=== PATIENT | female | born 1970 | race American Indian/Alaskan Native ===

== ENCOUNTER → 2019-08-06 14:36 | Outpatient (BNVA) | payer MEDICAID, SELFPAY | PROVIDERS: Family Provider Physician Assistant; PCP Physician Assistant; Visit Provider Social Worker | DX: F25.1 Schizoaffective disorder, depressive type (principal); F43.12 Post-traumatic stress disorder, chronic | CPT/HCPCS: 90834 ==

== ENCOUNTER 2019-08-07 11:07 | Outpatient (CLI) | payer MEDICAID, SELFPAY ==
--- NOTE | 2019-08-07 11:21 | MR_ITS ---
WS: [id number] MRI LUMBAR SPINE WITH CONTRAST TECHNIQUE: Sagittal T1, T2 and STIR imaging. Axial T1 and T2 imaging. Post gadolinium imaging was obt ained. CLINICAL INFORMATION: LOW BACK PAIN;ATAXIA COMPARISON: None. FINDINGS: Mild lumbar curve. No acute compression. Slight anterolisthesis L5 on S1. No high-grade central canal stenosis. Mild disc bulging lower thoracic spine at T10-T11 and T11-T12. Tiny disc herniation at T11 -T12 migrating posterior to the T11 vertebral body without significant spinal canal narrowing. This i s only covered on the axial imaging L1-L2: Normal. L2-3: Normal L3-4: Mild annular bulging. Mild to moderate facet arthropathy. Spinal canal and foramen are patent. L4-5: No significant disc bulging. Mild to moderate facet arthropathy. Spinal canal and foramen are p atent. L5-S1: Mild disc bulging with endplate ridging. Slight effacement of ventral thecal sac. Slight encro achment on the traversing left greater than right S1 nerve roots. Mild left foraminal narrowing. Mild facet arthropathy. No abnormal gadolinium enhancement. MR/MR lumbar spine wo/w con [id number] IMPRESSION: 1. Mild lumbar curve. No acute compression. No high-grade central canal stenos is. 2. Slight anterolisthesis L5 on S1 with mild disc bulging and osteophytic ridg ing. Mild central canal stenosis with slight encroachment on the left greater t ruffin right S1 nerve roots. 3. Mild left L5-S1 foraminal narrowing. 4. Tiny central disc herniation at T11-T12 with slight subligamentous migratio n of disc material. No significant spinal canal narrowing. 5. Mild to moderate facet arthropathy L3-L4 and L4-L5.
== END 2019-08-07 11:08 | disposition home or self-care (01) ==
PROVIDERS: Family Provider Physician Assistant; PCP Nurse Practitioner; Visit Provider Physician Assistant
DX: M51.24 Other intervertebral disc displacement, thoracic region (principal); M54.5 Low back pain; R27.0 Ataxia, unspecified
CPT/HCPCS: 72158; A9579

== ENCOUNTER → 2019-08-11 10:03 | Outpatient (BNVA) | payer MEDICAID, SELFPAY | PROVIDERS: Family Provider Physician Assistant; PCP Nurse Practitioner; Visit Provider Nurse Practitioner | DX: F32.3 Major depressive disorder, single episode, severe with psychotic features (principal) | CPT/HCPCS: 99214; 99215 ==

== ENCOUNTER → 2019-08-14 14:11 | Outpatient (BNVA) | payer MEDICAID, SELFPAY | PROVIDERS: Family Provider Physician Assistant; PCP Nurse Practitioner; Referring Provider Nurse Practitioner; Visit Provider Nurse Practitioner | DX: N39.0 Urinary tract infection, site not specified (principal) | CPT/HCPCS: 81003; 87086 ==

== ENCOUNTER → 2019-09-17 14:30 | Outpatient (BNVA) | payer MEDICAID, SELFPAY | PROVIDERS: Family Provider Physician Assistant; PCP Nurse Practitioner; Referring Provider Nurse Practitioner; Visit Provider Nurse Practitioner | DX: E78.5 Hyperlipidemia, unspecified (principal); E11.9 Type 2 diabetes mellitus without complications; N39.0 Urinary tract infection, site not specified | CPT/HCPCS: 80053; 80061; 82044; 83036 ==

== ENCOUNTER → 2019-09-21 16:52 | Outpatient (BNVA) | payer MEDICAID, SELFPAY | PROVIDERS: Family Provider Physician Assistant; PCP Nurse Practitioner; Visit Provider Social Worker | DX: F25.1 Schizoaffective disorder, depressive type (principal); F43.12 Post-traumatic stress disorder, chronic | CPT/HCPCS: 90834 ==

== ENCOUNTER → 2019-09-22 12:50 | Outpatient (BNVA) | payer MEDICAID, SELFPAY | PROVIDERS: Family Provider Physician Assistant; PCP Nurse Practitioner; Visit Provider Nurse Practitioner | DX: F32.3 Major depressive disorder, single episode, severe with psychotic features (principal) | CPT/HCPCS: 99214 ==

== ENCOUNTER → 2019-10-07 14:24 | Outpatient (BNVA) | payer MEDICAID, SELFPAY | PROVIDERS: Family Provider Physician Assistant; PCP Nurse Practitioner; Visit Provider Social Worker | DX: F25.1 Schizoaffective disorder, depressive type (principal); F43.12 Post-traumatic stress disorder, chronic | CPT/HCPCS: 90834 ==

== ENCOUNTER → 2019-11-02 15:34 | Outpatient (BNVA) | payer MEDICAID, SELFPAY | PROVIDERS: Family Provider Physician Assistant; PCP Nurse Practitioner; Visit Provider Social Worker | DX: F43.12 Post-traumatic stress disorder, chronic (principal); F32.3 Major depressive disorder, single episode, severe with psychotic features | CPT/HCPCS: 90834 ==

== ENCOUNTER → 2019-11-11 08:41 | Outpatient (BNVA) | payer MEDICAID, SELFPAY | PROVIDERS: Family Provider Physician Assistant; PCP Nurse Practitioner; Visit Provider Nurse Practitioner | DX: F32.3 Major depressive disorder, single episode, severe with psychotic features (principal) | CPT/HCPCS: 99214 ==

== ENCOUNTER → 2019-11-25 08:23 | Outpatient (BNVA) | payer MEDICAID, SELFPAY | PROVIDERS: Family Provider Physician Assistant; PCP Nurse Practitioner; Visit Provider Social Worker | DX: F32.3 Major depressive disorder, single episode, severe with psychotic features (principal) | CPT/HCPCS: 90834 ==

== ENCOUNTER → 2019-12-09 08:45 | Outpatient (BNVA) | payer MEDICAID, SELFPAY | PROVIDERS: Family Provider Physician Assistant; PCP Nurse Practitioner; Visit Provider Social Worker | DX: F43.12 Post-traumatic stress disorder, chronic (principal); F32.3 Major depressive disorder, single episode, severe with psychotic features | CPT/HCPCS: 90832 ==

== ENCOUNTER → 2019-12-24 07:36 | Outpatient (BNVA) | payer MEDICAID, SELFPAY | PROVIDERS: Family Provider Physician Assistant; PCP Nurse Practitioner; Visit Provider Nurse Practitioner | DX: F32.3 Major depressive disorder, single episode, severe with psychotic features (principal) | CPT/HCPCS: 99213 ==

== ENCOUNTER → 2019-12-29 11:17 | Outpatient (BNVA) | payer MEDICAID, SELFPAY | PROVIDERS: Family Provider Physician Assistant; PCP Nurse Practitioner; Visit Provider Nurse Practitioner Family | DX: R30.9 Painful micturition, unspecified (principal); L01.00 Impetigo, unspecified; B37.3 Candidiasis of vulva and vagina | CPT/HCPCS: 81000; 87086 ==

== ENCOUNTER → 2019-12-30 08:28 | Outpatient (BNVA) | payer MEDICAID, SELFPAY | PROVIDERS: Family Provider Physician Assistant; PCP Nurse Practitioner; Visit Provider Social Worker | DX: F32.3 Major depressive disorder, single episode, severe with psychotic features (principal); F43.12 Post-traumatic stress disorder, chronic | CPT/HCPCS: 90834 ==

== ENCOUNTER 2020-01-18 09:34 | Day surgery (SDC) | payer MEDICAID, SELFPAY ==
[2020-01-18] VITALS (16 sets, daily range): BP systolic 84–125; BP diastolic 42–90; PULSE 60–90; RESP 14–89; TEMP 36.4–36.8; O2SAT 93–100; BMI 27.4
--- NOTE | 2020-01-18 10:23 | ED_ITS ---
HPI - Abdominal Pain General: Chief Complaint: Abdominal Pain Stated Complaint: abd pain Time Seen by Provider: 01/18/20 09:56 History of Present Illness: HPI narrative: 49-year-old female comes in complaining abdominal pain that began yesterday she has had a little hematuria as well she has a known history of nephrolithiasis complaining primarily of right flank pain radiating down into the groin in the umbilical area she is not had a fever at all she has had some dysuria with it as well. She is currently on some antibiotics for impetigo skin some areas on the right side of her upper and lower lip as well as a few lesions on her lower extremities. She denies any recent upper respiratory symptoms. MD elicited complaint: abdominal pain and flank pain Pertinent past history: kidney stones Onset (ago): day(s) (1) Pain Consistency: constant Location: R flank Severity: severe Quality: stabbing Radiation: RLQ Migration to: periumbilical Exacerbating factors: nothing Relieving factors: nothing Associated Symptoms: Reports diarrhea, dysuria, nausea, poor appetite and vomiting; Denies chills and fever(s) Review of Systems Const: Denies: fever(s), chills, body aches, change in appetite, fatigue or malaise ENMT: Denies: throat pain, ear or mastoid pain, nasal discharge or nasal congestion Card: Denies: chest pain, edema, dyspnea on exertion or orthopnea Resp: Denies: dyspnea, productive cough or non-productive cough GI: Reports: nausea, vomiting and diarrhea : Reports: dysuria Skin/Breast: Denies: rash or pruritus PFSH ED PFSH: Medical History Bipolar affect, depressed Depression Diabetes mellitus without complication, without long-term current use of insulin DJD (degenerative joint disease) Gastritis Hiatal hernia 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, single episode, severe with psychotic features Paresthesia and pain of both upper extremities Peptic ulcer Polyp of colon, adenomatous Pure hypercholesterolemia, unspecified Schizophrenia Tachycardia Urinary incontinence, mixed Surgical History History of esophagogastroduodenoscopy (EGD) S/P cholecystectomy S/P colonoscopy S/P endometrial ablation S/P tubal ligation Family History Father Cancer Mother , at age 64 Cancer lung and spinal sarcoma Other Diabetes Heart disease Social History Smoking and tobacco status: current every day smoker cigarettes Alcohol intake: never Marital status: Single Current occupational status: disabled History of recent travel: No Physical Exam Const: COMMON NORMALS: no acute distress GENERAL APPEARANCE: cooperative and comfortable ORIENTATION/CONSCIOUSNESS: Yes awake, Yes oriented to person, Yes oriented to place and Yes oriented to time HENMT: COMMON NORMALS: normocephalic, atraumatic, hearing grossly normal bilaterally, external ears normal, EAC's normal, TM's normal bilaterally, Normal nasal mucous membranes and turbinates present, moist oral mucous membranes and oropharynx normal HEAD & SCALP: normocephalic and atraumatic NOSE: Normal nasal mucous membranes and turbinates present EXTERNAL EAR: Yes external ears normal EXTERNAL AUDITORY CANAL: EAC's normal TYMPANIC MEMBRANE: TM's normal bilaterally Eye: COMMON NORMALS: Equal, round and reactive pupils present, EOMs intact bilaterally, conjunctivae normal and no scleral icterus CONJUNCTIVA: Yes conjunctivae normal PUPIL: Yes Equal, round and reactive pupils present Neck/C-Spine: COMMON NORMALS: full ROM, no lymphadenopathy, supple and no JVD Lymph: LYMPHATIC: no lymphadenopathy noted and no lymphedema noted Resp: COMMON NORMALS: normal respiratory effort, No retractions, No use of accessory muscles and clear to auscultation bilaterally AUSCULTATION: clear to auscultation bilaterally Cardio: COMMON NORMALS: no JVD, regular rate, regular rhythm and No murmurs present (Cardio) RATE: regular rate RHYTHM: regular rhythm GI: COMMON NORMALS: Soft to palpation and No hepatosplenomegaly present AUSCULTATION: Yes normoactive bowel sounds PALPATION: Yes Soft to palpation, No Tenderness to palpation present (GI), No Guarding due to palpation present (GI) and Yes No hepatosplenomegaly present Extremity: COMMON NORMALS: normal to inspection, capillary refill normal, no clubbing, cyanosis or edema, no calf tenderness and no pedal edema Neuro: SENSORIUM/ORIENTATION: Yes oriented to person, Yes oriented to place and Yes oriented to time Skin: COMMON NORMALS: no rashes or lesions noted GENERAL SKIN EXAM: no rashes or lesions noted Course ED course: No evidence of cystitis or nephrolithiasis. There is some moderate swelling of the appendix with an elevated white count and some free fluid in the pelvis. Patient has no known history of ovarian cyst. Discussed with Dr. Garcia he reviewed the CT he is planning to take her to surgery for exploratory laparotomy with anticipated laparoscopic cholecystectomy with possible conversion to open discussed with the patient she is understanding she has not eaten since yesterday. Vital Signs: Vital signs: Vital Signs Temperature 97.5 F L 01/18/20 12:41 Pulse Rate 87 01/18/20 12:41 Respiratory Rate 18 01/18/20 12:41 Blood Pressure 115/82 01/18/20 12:41 Pulse Oximetry 93 01/18/20 12:41 MDM - Abdominal Pain Lab Data: Labs: Lab Results 01/18/20 01/18/20 01/18/20 Range/Units 10:19 10:19 10:19 WBC 12.5 H (4.0-10.0) 10^3/ uL RBC 5.45 H (4.1-5.3) 10^6/u L Hgb 17.6 H (11.5-15.3) g/dL Hct 49.4 H (37.0-47.0) % MCV 90.6 (81-99) fL MCH 32.3 (28.0-34.0) pg MCHC 35.6 (30.0-36.0) g/dL RDW 12.5 (12.1-15.1) % Plt Count 213 (130-400) 10^3/c mm MPV 9.7 (7.4-10.4) fL Neut % (Auto) 72.6 % Lymph % (Auto) 21.7 % [place] % (Auto) 4.3 % Eos % (Auto) 1.0 % Baso % (Auto) 0.2 % Neut # (Auto) 9.1 H (1.8-7.7) 10^3/u L Lymph # (Auto) 2.7 (0.8-4.8) 10^3/u L [place] # (Auto) 0.5 (0.2-0.9) 10^3/u L Eos # (Auto) 0.1 (0.0-0.8) 10^3/u L Baso # (Auto) 0.0 (0.0-0.1) 10^3/u L Nucleated RBC % (a uto) 0 % Nucleated RBCs # 0.0 /100WBC Sodium 137 (136-145) mmol/L Potassium 3.5 (3.5-5.1) mmol/L Chloride 101 (98-107) mmol/L Carbon Dioxide 22 (22-29) mmol/L Anion Gap 17.5 (5-19) BUN 5 L (6-20) mg/dL Creatinine 0.7 (0.5-0.9) mg/dL GFR Calculation 89.3 L (90-130) mL/min Glucose 125 H (65-115) mg/dL Calculated Osmolal ity 281 L (285-295) mOsm/k g Lactate 1.0 (0.5-2.2) mmol/L Calcium 10.0 (8.5-10.5) mg/dL Total Bilirubin 0.4 (0.15-1.2) mg/dL AST 16 (0-32) U/L ALT 22 (0-33) U/L Alkaline Phosphata se 65 (35-105) IU/L Total Protein 6.8 (6.6-8.7) g/dL Albumin 4.6 (3.5-5.2) g/dL Globulin 2.2 (1.3-4.6) g/dL Lipase 31 (13-60) U/L Urine Color (Yellow) Urine Appearance (CLEAR) Urine pH (5-7) Ur Specific Gravit y (1.005-1.030) Urine Protein (Negative) Urine Glucose (UA) (Normal) Urine Ketones (Negative) Urine Blood (Negative) Urine Nitrate (Negative) Urine Bilirubin (NEGATIVE) Urine Urobilinogen (Negative) mg/dL Ur Leukocyte Cadence ase (Negative) Urine RBC (0-2) /hpf Urine WBC (0-5) /hpf Ur Squamous Epith Cells (0-5) Urine Bacteria (NONE) Urine Mucus 01/18/20 Range/Units 10:30 WBC (4.0-10.0) 10^3/ uL RBC (4.1-5.3) 10^6/u L Hgb (11.5-15.3) g/dL Hct (37.0-47.0) % MCV (81-99) fL MCH (28.0-34.0) pg MCHC (30.0-36.0) g/dL RDW (12.1-15.1) % Plt Count (130-400) 10^3/c mm MPV (7.4-10.4) fL Neut % (Auto) % Lymph % (Auto) % [place] % (Auto) % Eos % (Auto) % Baso % (Auto) % Neut # (Auto) (1.8-7.7) 10^3/u L Lymph # (Auto) (0.8-4.8) 10^3/u L [place] # (Auto) (0.2-0.9) 10^3/u L Eos # (Auto) (0.0-0.8) 10^3/u L Baso # (Auto) (0.0-0.1) 10^3/u L Nucleated RBC % (a uto) % Nucleated RBCs # /100WBC Sodium (136-145) mmol/L Potassium (3.5-5.1) mmol/L Chloride (98-107) mmol/L Carbon Dioxide (22-29) mmol/L Anion Gap (5-19) BUN (6-20) mg/dL Creatinine (0.5-0.9) mg/dL GFR Calculation (90-130) mL/min Glucose (65-115) mg/dL Calculated Osmolal ity (285-295) mOsm/k g Lactate (0.5-2.2) mmol/L Calcium (8.5-10.5) mg/dL Total Bilirubin (0.15-1.2) mg/dL AST (0-32) U/L ALT (0-33) U/L Alkaline Phosphata se (35-105) IU/L Total Protein (6.6-8.7) g/dL Albumin (3.5-5.2) g/dL Globulin (1.3-4.6) g/dL Lipase (13-60) U/L Urine Color Yellow (Yellow) Urine Appearance Cloudy (CLEAR) Urine pH 5.0 (5-7) Ur Specific Gravit y 1.020 (1.005-1.030) Urine Protein Trace (Negative) Urine Glucose (UA) Norm (Normal) Urine Ketones Negative (Negative) Urine Blood Trace H (Negative) Urine Nitrate Negative (Negative) Urine Bilirubin 1+ H (NEGATIVE) Urine Urobilinogen 1 H (Negative) mg/dL Ur Leukocyte Cadence ase Negative (Negative) Urine RBC 0-4 H (0-2) /hpf Urine WBC 0-4 H (0-5) /hpf Ur Squamous Epith Cells 5-10 H (0-5) Urine Bacteria 2+ H (NONE) Urine Mucus 1+ Discharge Plan Discharge Patient Disposition: Placed in Observation Clinical Impression: Acute appendicitis Condition: Stable Interventions: ED Discharge Assessment Last Done: 01/18/20 12:24 ED Charges Last Done: 01/18/20 12:24 Discharge Date/Time: 01/18/20 12:25 Coding Level of Care Code ED Denture Packer for Luisag Fwd Exam Comprehensive
[2020-01-18] MEDS: sodium chloride 0.9% 1,000 ML 999 ML IV ×2 (10:25→12:05)
[2020-01-18] MEDS: ondansetron 2 mg/ML SDV 2 mL 4 MG IVP (10:28)
[2020-01-18] MEDS: morphine 4 mg/mL SDV 1 mL IVP (10:28)
[2020-01-18 10:29] LABS: Basophils % 0.2 %; Eosinophils # 0.1 10^3/uL (0.0-0.8); Hematocrit 49.4 % (37.0-47.0); Hemoglobin 17.6 g/dL (11.5-15.3); Lymphocytes # 2.7 10^3/uL (0.8-4.8); Lymphocytes % 21.7 %; Mean Corpuscular HGB Conc 35.6 g/dL (30.0-36.0); Mean Corpuscular Hemoglobin 32.3 pg (28.0-34.0); Mean Corpuscular Volume 90.6 fL (81-99); Mean Platelet Volume 9.7 fL (7.4-10.4); Monocytes # 0.5 10^3/uL (0.2-0.9); Monocytes % 4.3 %; Neutrophils # 9.1 10^3/uL (1.8-7.7); Neutrophils % 72.6 %; Nucleated Red Blood Cells % 0 %; Platelet Count 213 10^3/cmm (130-400); Red Blood Count 5.45 10^6/uL (4.1-5.3); Red Cell Distribution Width 12.5 % (12.1-15.1); White Blood Count 12.5 10^3/uL (4.0-10.0)
--- NOTE | 2020-01-18 10:39 | CT_ITS ---
WS: [id number] CT ABDOMEN AND PELVIS NONCONTRAST HISTORY: flank pain TECHNIQUE: Imaging performed through the abdomen and pelvis. Coronal and sagittal reformats are submi tted. All CT scans at [facility] use at least one of these dose optimization techniques: automated exposure control; mA and/or kV adjustment per patient size (includes targeted exams where d ose is matched to clinical indication); or iterative reconstruction. DLP: 1340.72 mGy.cm COMPARISON: 04/06/2019 Lower thorax: Stable partially calcified 8mm nodule at the RIGHT lung base. Nodule has been stable si nce 11/07/2013. Heart size is normal. Small hiatal hernia. Liver: Normal, no mass or intrahepatic dilatation. Gallbladder: Prior cholecystectomy. Pancreas: Normal. Spleen: Normal. Adrenal glands: Normal. Right kidney: Normal size with no stones, masses or atrophy. Left kidney: Normal size with no stones, mass or atrophy. Mild atherosclerosis. No aneurysm. There is a small amount of free fluid in the pelvis. This is more than physiologic fluid and extends to the RIGHT and LEFT of midline. No free air. GI tract: The appendix is identified and very slightly edematous but not enlarged. There is not a sig nificant amount of adjacent inflammation. Abdominal wall: Intact. Pelvis: Free fluid in the pelvis. Bilateral tubal ligation clips. Uterus is midline. Neither ovary ap pears enlarged. Osseous structures: Unremarkable. Notified Zheng Keith DO at 01/18/2020 11:[address]/CT kidney stone [id number] IMPRESSION: 1. Small but increased amount of free fluid in the pelvis is more than physiol ogic. 2. Appendix is very minimally edematous but not enlarged. 3. No renal calcification or obstruction. 4. Prior cholecystectomy. 5. Free fluid could be due to ruptured ovarian cyst or PID or mild appendiciti s.
[2020-01-18 10:45] LABS: Alanine Aminotransferase 22 U/L (0-33); Albumin Level 4.6 g/dL (3.5-5.2); Alkaline Phosphatase 65 IU/L (35-105); Anion Gap 17.5 (5-19); Aspartate Amino Transferase 16 U/L (0-32); Blood Urea Nitrogen 5 mg/dL (6-20); Carbon Dioxide 22 mmol/L (22-29); Chloride 101 mmol/L (98-107); Globulin 2.2 g/dL (1.3-4.6); Glomerular Filtration Rate 89.3 mL/min (90-130); Glucose 125 mg/dL (65-115); Lipase 31 U/L (13-60); Osmolality Calculated 281 mOsm/kg (285-295); Potassium 3.5 mmol/L (3.5-5.1); Sodium 137 mmol/L (136-145); Total Bilirubin 0.4 mg/dL (0.15-1.2); Total Protein 6.8 g/dL (6.6-8.7)
[2020-01-18 10:54] LABS: Add Urine Culture? No; Add Urine Microscopic? YES; Bacteria Urine 2+; Bilirubin Urine 1+ (NEGATIVE); Blood Urine Trace (Negative); Glucose Urine UA Norm (Normal); Ketones Urine Negative (Negative); Leukocyte Esterase Urine Negative (Negative); Mucus Urine 1+; Nitrate Urine Negative (Negative); Protein Urine Trace (Negative); RBC Urine 0-4 /hpf (0-2); Urine Appearance Cloudy (CLEAR); Urine Color Yellow (Yellow); Urobilinogen Urine 1 mg/dL (Negative); WBC Urine 0-4 /hpf (0-5)
[2020-01-18] MEDS: morphine 4 mg/mL SDV 1 mL 6 MG IVP (12:06)
[2020-01-18] MEDS: piperacillin-tazobactam 3.375 GM in sodium chloride 0.9% (plus) 50 ML IV (12:20)
--- NOTE | 2020-01-18 13:01 | ANES.PREANE2 ---
Pre-Anesthetic Assessment Pre-Anesthetic Assessment: Height/Weight: Height 1.65 m Weight 74.843 kg Temp Pulse Resp BP Pulse Ox 97.5 F L 87 18 115/82 93 01/18/20 12:41 01/18/20 12:41 01/18/20 12:41 01/18/20 12:41 01/18/20 12:41 Proposed Procedure: Operation Date: 01/18/20 14:30 Proposed Procedures p Laparoscopic Appendectomy(Not Applicable) - Dickson Garcia MD Social: Social History: Tobacco and No alcohol Exam: Pre-Anes Outpt Exam: alert, oriented x 3, clear to auscultation bilaterally and regular rate & rhythm Airway: Submandibular: WNL Cervical ROM: Other (limited) MP: 3 Dentition: Other (very poor dentation) History/ROS: No significant history except as noted Pulmonary: Pulmonary: COPD, CARPIO and Sleep apnea CV/HEM: CV/HEM: Arrythmia : : None reported Hepatic: Hepatic: None reported GI: GI: GERD and PUD Metabolic: Metabolic: DM and Hyperlipidemia Musc/skel: Musc/skel: Lower Back Pain Neuropsych: Neuropsych: Anxiety, Bipolar and Depression Comments: Schizophrenia Anesthetic Plan: ASA status: 3 Anesthesia: Anesthesia Evaluation and General Risk of > 500 ml blood loss (7ml/kg in children): No PFSH Anesthesia PFSH: Medical History Bipolar affect, depressed Depression Diabetes mellitus without complication, without long-term current use of insulin DJD (degenerative joint disease) Gastritis Hiatal hernia 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, single episode, severe with psychotic features Paresthesia and pain of both upper extremities Peptic ulcer Polyp of colon, adenomatous Pure hypercholesterolemia, unspecified Schizophrenia Tachycardia Urinary incontinence, mixed Surgical History History of esophagogastroduodenoscopy (EGD) S/P cholecystectomy S/P colonoscopy S/P endometrial ablation S/P tubal ligation Family History Father Cancer Mother , at age 64 Cancer lung and spinal sarcoma Other Diabetes Heart disease Social History Smoking and tobacco status: current every day smoker cigarettes Alcohol intake: never Marital status: Single Current occupational status: disabled History of recent travel: No Data Anesthesia CBC & Chem 7: 01/18/20 10:19 01/18/20 10:19 Other Labs: Laboratory Results - last 48 hr 01/18/20 01/18/20 01/18/20 10:19 10:19 10:19 WBC 12.5 H RBC 5.45 H Hgb 17.6 H Hct 49.4 H MCV 90.6 MCH 32.3 MCHC 35.6 RDW 12.5 Plt Count 213 MPV 9.7 Neut % (Auto) 72.6 Lymph % (Auto) 21.7 [place] % (Auto) 4.3 Eos % (Auto) 1.0 Baso % (Auto) 0.2 Neut # (Auto) 9.1 H Lymph # (Auto) 2.7 [place] # (Auto) 0.5 Eos # (Auto) 0.1 Baso # (Auto) 0.0 Nucleated RBC % (auto) 0 Nucleated RBCs # 0.0 Sodium 137 Potassium 3.5 Chloride 101 Carbon Dioxide 22 Anion Gap 17.5 BUN 5 L Creatinine 0.7 GFR Calculation 89.3 L Glucose 125 H Calculated Osmolality 281 L Lactate 1.0 Calcium 10.0 Total Bilirubin 0.4 AST 16 ALT 22 Alkaline Phosphatase 65 Total Protein 6.8 Albumin 4.6 Globulin 2.2 Lipase 31 Urine Color Urine Appearance Urine pH Ur Specific [place] Urine Protein Urine Glucose (UA) Urine Ketones Urine Blood Urine Nitrate Urine Bilirubin Urine Urobilinogen Ur Leukocyte Esterase Urine RBC Urine WBC Ur Squamous Epith Cells Urine Bacteria Urine Mucus 01/18/20 10:30 WBC RBC Hgb Hct MCV MCH MCHC RDW Plt Count MPV Neut % (Auto) Lymph % (Auto) [place] % (Auto) Eos % (Auto) Baso % (Auto) Neut # (Auto) Lymph # (Auto) [place] # (Auto) Eos # (Auto) Baso # (Auto) Nucleated RBC % (auto) Nucleated RBCs # Sodium Potassium Chloride Carbon Dioxide Anion Gap BUN Creatinine GFR Calculation Glucose Calculated Osmolality Lactate Calcium Total Bilirubin AST ALT Alkaline Phosphatase Total Protein Albumin Globulin Lipase Urine Color Yellow Urine Appearance Cloudy Urine pH 5.0 Ur Specific [place] 1.020 Urine Protein Trace Urine Glucose (UA) Norm Urine Ketones Negative Urine Blood Trace H Urine Nitrate Negative Urine Bilirubin 1+ H Urine Urobilinogen 1 H Ur Leukocyte Esterase Negative Urine RBC 0-4 H Urine WBC 0-4 H Ur Squamous Epith Cells 5-10 H Urine Bacteria 2+ H Urine Mucus 1+ Cardiac Studies: No Data to Display
--- NOTE | 2020-01-18 13:36 | PM.HP ---
Providers/Chief Complaint Primary Care Provider: IESHA Preston Chief Complaint: abd pain History of Present Illness Afshan Parry is a 49 year old female who has a longstanding history of constipation and is on morphine but presented to the ER today with 24-hour history of worsening abdominal pain mainly the suprapubic and right lower quadrant area associated with nausea. Patient denies any vomiting. No fevers or chills. She has alternating constipation and diarrhea. I performed her cholecystectomy back in 2013. She is up-to-date on her colonoscopy. She states that she had cervical ablation in 2004 and she is not had any. Since then. Recently she had an episode of dark blood per vagina. Review of Systems General: Reports: 10 or more systems reviewed and unremarkable except in HPI and below Medications/Allergies Home Medications Medication Instructions Recorded Confirmed Last Taken Type morphine 15 mg immediate release 15 mg PO Q4H PRN 07/30/19 01/18/20 01/18/20 History tablet esomeprazole magnesium 40 mg 40 mg PO BID #180 cap 09/07/19 01/18/20 01/18/20 Rx capsule,delayed release simvastatin 20 mg tablet 20 mg PO DAILY 30 Days #30 tab 09/17/19 01/18/20 01/17/20 Rx metformin 850 mg tablet 850 mg PO DAILY 30 Days #30 tab 09/21/19 01/18/20 01/18/20 Rx polyethylene glycol 3350 17 17 gm PO DAILY PRN #119 gm 10/15/19 01/18/20 Unknown Rx gram/dose oral powder cetirizine 10 mg capsule 10 mg PO DAILY #30 cap 11/04/19 01/18/20 01/18/20 Rx albuterol sulfate 90 mcg/actuation 2 puff INHALATION Q6H PRN 30 Days 12/03/19 01/18/20 01/18/20 Rx aerosol inhaler #18 gm fluticasone 100 mcg-salmeterol 50 1 ea INHALATION BID 30 Days #60 12/03/19 01/18/20 01/18/20 Rx mcg/dose blistr powdr for each inhalation oxybutynin chloride 15 mg 15 mg PO DAILY 30 Days #30 tab 12/10/19 01/18/20 01/18/20 Rx tablet,extended release 24 hr venlafaxine 150 mg 150 mg PO DAILY #30 cap 12/24/19 01/18/20 01/18/20 Rx capsule,extended release 24 hr nitroglycerin 0.4 mg sublingual 0.4 mg SUBLINGUAL Q5M PRN 30 Days 01/04/20 01/18/20 Unknown Rx tablet #28 tab trazodone 150 mg tablet 150 mg PO BEDTIME 01/06/20 01/18/20 01/17/20 History furosemide 20 mg tablet 20 mg PO DAILY 30 Days #30 tab 01/08/20 01/18/20 01/18/20 Rx cephalexin 500 mg capsule 500 mg PO BID 10 Days #20 cap 01/12/20 01/18/20 01/18/20 Rx Seroquel 25 mg PO BEDTIME 01/18/20 01/18/20 01/17/20 History prazosin 1 mg PO BEDTIME 01/18/20 01/18/20 01/17/20 History Allergies Allergy/AdvReac Type Severity Reaction Status Date / Time acetaminophen Allergy UNKNOWN Verified 01/18/20 09:47 codeine Allergy Unknown Verified 01/18/20 09:47 nitrofurantoin Allergy UNKNOWN Verified 01/18/20 09:47 [From Macrobid] pseudoephedrine Allergy Unknown Verified 01/18/20 09:47 tramadol Allergy UNKNOWN Verified 01/18/20 09:47 PFSH Acute PFSH: Medical History Bipolar affect, depressed Depression Diabetes mellitus without complication, without long-term current use of insulin DJD (degenerative joint disease) Gastritis Hiatal hernia 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, single episode, severe with psychotic features Paresthesia and pain of both upper extremities Peptic ulcer Polyp of colon, adenomatous Pure hypercholesterolemia, unspecified Schizophrenia Tachycardia Urinary incontinence, mixed Surgical History History of esophagogastroduodenoscopy (EGD) S/P cholecystectomy S/P colonoscopy S/P endometrial ablation S/P tubal ligation Family History Father Cancer Mother , at age 64 Cancer lung and spinal sarcoma Other Diabetes Heart disease Social History Smoking and tobacco status: current every day smoker cigarettes Alcohol intake: never Marital status: Single Current occupational status: disabled History of recent travel: No Vitals/I&O/Wt Last Vital Signs Temp 97.5 F L 01/18/20 12:41 Pulse 87 01/18/20 12:41 Resp 18 01/18/20 12:41 BP 115/82 01/18/20 12:41 Pulse Ox 93 01/18/20 12:41 01/17/20 01/18/20 01/18/20 22:59 06:59 14:59 Intake Total 1000 / 1000 Balance 1000 / 1000 Weight last 48 hrs Weight 165 lb Physical Exam Narrative: EXAM NARRATIVE: HEENT: Normocephalic Eye: Sclera /conjunctiva normal Respiratory and chest: Bilateral clear breath sounds on auscultation Cardiovascular: Normal S1 and S2 heart sounds Abdomen: Soft to palpation, tender right lower quadrant and suprapubic area Neurological: Oriented to place person and time Skin: Intact, no lesions appreciated on gross exam Data : 01/18/20 10:19 01/18/20 10:19 A&P Assessment and plan (1) Right lower quadrant pain: 49-year-old female with right lower quadrant pain and nausea with CT scan suggestive of early appendicitis or ruptured ovarian cyst. Patient is tender to palpation in the right lower quadrant and has leukocytosis. Discussed options with the patient. Plan for laparoscopic possible open appendectomy. Procedure, risks, benefits and alternatives have been discussed with the patient who wishes to proceed with surgery. Status: Resolved Attestations Medical Necessity Statement*: Right lower quadrant pain Coding Level of Care Code Acute Community Health Planning Director for Jose Daniel Sher Diagnoses Right lower quadrant pain R10.31
--- NOTE | 2020-01-18 16:22 | PM.OP ---
Operative Report Date of procedure: January 18, 2020 Pre-op Diagnosis: acute appendicitis Post-op Findings: Appendix appeared mildly inflamed, serous free fluid in the pelvis Fallopian tubes, uterus and ovaries appeared normal Rest of the small bowel from ligament of Treitz to cecum appeared normal. Procedure Done: Laparoscopic appendectomy Surgeon: Dickson Garcia Anesthesia: General Estimated blood loss (mL): 5 Condition: stable Disposition: PACU Procedure: The patient was taken to the Operating Room and intubated under general anesthesia after antibiotic had been administered. Using a 15 blade, a 1-cm infraumbilical incision was made and using open Erick technique, the peritoneal cavity was entered. A 12mm port with balloon was placed and 14 mm of pneumoperitoneum was created and 10-mm 30 degree scope was introduced. Two separate 5mm ports were placed in the left and right lower quadrant under direct visualization. The appendix was noted in the right lower quadrant and appeared mildly inflamed.. Using [place] forceps, an opening was made in the mesoappendix near the base of the appendix. An Endo SANTOS stapler 45mm long 3.5mm blue load was introduced to divide the appendix at it's base. Using electrocautery, the mesoappendix including the appendicular artery was divided. There was no bleeding noted and the staple line appeared intact. There was free fluid in the pelvis which was suctioned out. The uterus, ovaries and fallopian tubes appeared normal. The small bowel was then examined from the ligament of Treitz to the cecum and there was no other abnormality seen. The colon on gross examination appeared normal. The right lower quadrant was irrigated with saline and an EndoCatch bag was introduced to remove the appendix. All three ports were removed under direct visualization and there was no bleeding noted on the port sites. 10 cc of 0.5% Marcaine is infiltrated at the port sites. The fascia at the umbilical port was closed using figure of eight 0-Vicryl sutures and subcutaneous tissue was approximated using 3-0 Vicryl and skin at all 3 port sites was closed using 4-0 Monocryl and Dermabond.
[2020-01-18] MEDS: morphine IR 15 mg Tablet PO (16:39)
--- NOTE | 2020-01-18 16:42 | SUR.PREOP ---
PATIENT CAME TO US FROM PACU THROUGH THE ER FOR LAP APPY SURGERY. ALL PREOP WAS DONE IN ER
--- NOTE | 2020-01-18 16:53 | SUR.PREOP ---
IV WAS STARTED IN ER AND I DISCONTINUED IT AT 1645 WASTED 500 ML NS
== END 2020-01-18 17:05 | disposition home or self-care (01) ==
LOC: ER 12:13 → OPS 12:21
PROVIDERS: Family Medicine; Family Provider Physician Assistant; PCP Nurse Practitioner; Visit Provider Surgery
PROC: 0DTJ4ZZ Resection of Appendix, Percutaneous Endoscopic Approach (ICD-10-PCS; CPT 44970; principal; 2020-01-18 14:30)
DX: K38.8 Other specified diseases of appendix (principal); E11.9 Type 2 diabetes mellitus without complications; F32.9 Major depressive disorder, single episode, unspecified; M19.90 Unspecified osteoarthritis, unspecified site; Z87.11 Personal history of peptic ulcer disease; F17.210 Nicotine dependence, cigarettes, uncomplicated; J44.9 Chronic obstructive pulmonary disease, unspecified; G47.30 Sleep apnea, unspecified; E78.5 Hyperlipidemia, unspecified; F20.9 Schizophrenia, unspecified
CPT/HCPCS: 44970; 12345; 36415; 74176; 80053; 81001; 83605; 83690; 85025; 88304; 96375; 99283; J2270; J2405; J2543; J2704; J2710; J3010; J3490; J7030

== ENCOUNTER → 2020-02-01 14:46 | Outpatient (BNVA) | payer MEDICAID, SELFPAY | PROVIDERS: Family Provider Physician Assistant; PCP Nurse Practitioner; Visit Provider Nurse Practitioner Family | DX: N30.90 Cystitis, unspecified without hematuria (principal); N39.46 Mixed incontinence; F17.210 Nicotine dependence, cigarettes, uncomplicated | CPT/HCPCS: 81001 ==

== ENCOUNTER → 2020-02-04 08:22 | Outpatient (BNVA) | payer MEDICAID, SELFPAY | PROVIDERS: Family Provider Physician Assistant; PCP Nurse Practitioner; Visit Provider Counselor Professional | DX: F32.3 Major depressive disorder, single episode, severe with psychotic features (principal) | CPT/HCPCS: 90834 ==

== ENCOUNTER → 2020-02-19 08:12 | Outpatient (BNVA) | payer MEDICAID, SELFPAY | PROVIDERS: Family Provider Physician Assistant; PCP Nurse Practitioner; Visit Provider Counselor Professional | DX: F32.3 Major depressive disorder, single episode, severe with psychotic features (principal) | CPT/HCPCS: 90834 ==

== ENCOUNTER → 2020-02-24 07:43 | Outpatient (BNVA) | payer MEDICAID, SELFPAY ==
[2020-02-19 14:31] VITALS: BP 104/60; BMI 27.0
== END ==
PROVIDERS: Family Provider Physician Assistant; PCP Nurse Practitioner; Visit Provider Nurse Practitioner
DX: F33.3 Major depressive disorder, recurrent, severe with psychotic symptoms (principal)
CPT/HCPCS: 99203; 99214

== ENCOUNTER → 2020-03-10 14:43 | Outpatient (BNVA) | payer MEDICAID, SELFPAY ==
[2020-02-19 14:31] VITALS: BP 104/60; BMI 27.0
== END ==
PROVIDERS: PCP Nurse Practitioner Family; Visit Provider Nurse Practitioner Family
DX: N39.46 Mixed incontinence (principal); F17.210 Nicotine dependence, cigarettes, uncomplicated
CPT/HCPCS: 81001

== ENCOUNTER → 2020-03-15 09:28 | Outpatient (BNVA) | payer MEDICAID, SELFPAY ==
[2020-02-19 14:31] VITALS: BP 104/60; BMI 27.0
== END ==
PROVIDERS: PCP Nurse Practitioner Family; Referring Provider Nurse Practitioner Family; Visit Provider Dermatology
DX: L98.1 Factitial dermatitis (principal); R20.2 Paresthesia of skin; F17.210 Nicotine dependence, cigarettes, uncomplicated
CPT/HCPCS: 99203; 99204

== ENCOUNTER → 2020-03-16 09:05 | Outpatient (BNVA) | payer MEDICAID, SELFPAY ==
[2020-02-19 14:31] VITALS: BP 104/60; BMI 27.0
== END ==
PROVIDERS: PCP Nurse Practitioner Family; Visit Provider Counselor Professional
DX: F32.3 Major depressive disorder, single episode, severe with psychotic features (principal); F42.4 Excoriation (skin-picking) disorder
CPT/HCPCS: 90834; 90839

== ENCOUNTER → 2020-03-29 10:45 | Outpatient (BNVA) | payer MEDICAID, SELFPAY ==
[2020-02-19 14:31] VITALS: BP 104/60; BMI 27.0
== END ==
PROVIDERS: Family Provider Physician Assistant; PCP Nurse Practitioner; Visit Provider Nurse Practitioner
DX: F32.3 Major depressive disorder, single episode, severe with psychotic features (principal)
CPT/HCPCS: 99213

== ENCOUNTER → 2020-04-05 15:59 | Outpatient (BNVA) | payer MEDICAID, SELFPAY ==
[2020-02-19 14:31] VITALS: BP 104/60; BMI 27.0
== END ==
PROVIDERS: Family Provider Physician Assistant; PCP Nurse Practitioner; Visit Provider Dermatology
DX: L98.1 Factitial dermatitis (principal); F17.210 Nicotine dependence, cigarettes, uncomplicated; L30.9 Dermatitis, unspecified
CPT/HCPCS: 99213

== ENCOUNTER → 2020-04-08 09:48 | Outpatient (BNVA) | payer MEDICAID, SELFPAY ==
[2020-02-19 14:31] VITALS: BP 104/60; BMI 27.0
== END ==
PROVIDERS: Family Provider Physician Assistant; PCP Nurse Practitioner; Visit Provider Internal Medicine
DX: Z11.59 Encounter for screening for other viral diseases (principal)
CPT/HCPCS: 87635

== ENCOUNTER 2020-04-12 12:45 | Outpatient (CLI) | payer MEDICAID, SELFPAY ==
[2020-02-19 14:31] VITALS: BP 104/60; BMI 27.0
[2020-03-15 11:06] LABS: Amphetamines Screen Urine Negative (Negative); Barbiturates Screen Urine Negative (Negative); Benzodiazepines Screen Urine Negative (Negative); Cocaine Screen Urine Negative (Negative); Opiate Screen Urine Positive (Negative); PCP Screen Urine Negative (Negative); THC Screen Urine Negative (Negative)
--- NOTE | 2020-04-12 14:00 | PFTS_ITS ---
Date of Study:04/12/20 Date of Dictation: MECHANICS: Forced vital capacity (FVC) is normal. Forced expiratory volume in one second (FEV1) is normal. FEV1/FVC is normal. FLOW VOLUME LOOP: Normal. LUNG VOLUMES: Not measured DIFFUSING CAPACITY FOR CARBON MONOXIDE: Not measured INTERPRETATION: The pulmonary function tests are normal. There is no significant postbronchodilator response. MTDD
== END 2020-04-12 12:46 | disposition home or self-care (01) ==
LOC: RT 12:47
PROVIDERS: Dermatology; Family Provider Physician Assistant; PCP Nurse Practitioner; Visit Provider Internal Medicine
DX: J44.9 Chronic obstructive pulmonary disease, unspecified (principal); J45.909 Unspecified asthma, uncomplicated
CPT/HCPCS: 80306; 94060; J7611

== ENCOUNTER → 2020-04-25 13:40 | Outpatient (BNVA) | payer MEDICAID, SELFPAY ==
[2020-02-19 14:31] VITALS: BP 104/60; BMI 27.0
== END ==
PROVIDERS: Family Provider Physician Assistant; PCP Nurse Practitioner Family; Visit Provider Nurse Practitioner Family
DX: N30.90 Cystitis, unspecified without hematuria (principal); N39.46 Mixed incontinence
CPT/HCPCS: 81001

== ENCOUNTER → 2020-04-27 08:00 | Outpatient (BNVA) | payer MEDICAID, SELFPAY ==
[2020-02-19 14:31] VITALS: BP 104/60; BMI 27.0
== END ==
PROVIDERS: Family Provider Physician Assistant; PCP Nurse Practitioner Family; Visit Provider Nurse Practitioner
DX: F32.3 Major depressive disorder, single episode, severe with psychotic features (principal)
CPT/HCPCS: 99213

== ENCOUNTER → 2020-05-02 09:13 | Outpatient (BNVA) | payer MEDICAID, SELFPAY ==
[2020-02-19 14:31] VITALS: BP 104/60; BMI 27.0
== END ==
PROVIDERS: Family Provider Physician Assistant; PCP Nurse Practitioner; Visit Provider Counselor Professional
DX: F32.3 Major depressive disorder, single episode, severe with psychotic features (principal)
CPT/HCPCS: 90832; 90834

== ENCOUNTER → 2020-05-16 09:03 | Outpatient (BNVA) | payer MEDICAID, SELFPAY ==
[2020-02-19 14:31] VITALS: BP 104/60; BMI 27.0
== END ==
PROVIDERS: Family Provider Physician Assistant; PCP Nurse Practitioner; Visit Provider Counselor Professional
DX: F32.3 Major depressive disorder, single episode, severe with psychotic features (principal)
CPT/HCPCS: 90832

== ENCOUNTER → 2020-05-25 08:13 | Outpatient (BNVA) | payer MEDICAID, SELFPAY ==
[2020-02-19 14:31] VITALS: BP 104/60; BMI 27.0
== END ==
PROVIDERS: Family Provider Physician Assistant; PCP Nurse Practitioner; Visit Provider Nurse Practitioner
DX: F32.3 Major depressive disorder, single episode, severe with psychotic features (principal); F43.12 Post-traumatic stress disorder, chronic
CPT/HCPCS: 99213

== ENCOUNTER → 2020-06-03 09:14 | Outpatient (BNVA) | payer MEDICAID, SELFPAY ==
[2020-02-19 14:31] VITALS: BP 104/60; BMI 27.0
== END ==
PROVIDERS: Family Provider Physician Assistant; PCP Nurse Practitioner; Visit Provider Counselor Professional
DX: F32.3 Major depressive disorder, single episode, severe with psychotic features (principal)
CPT/HCPCS: 90834

== ENCOUNTER → 2020-06-20 08:09 | Outpatient (BNVA) | payer MEDICAID, SELFPAY ==
[2020-02-19 14:31] VITALS: BP 104/60; BMI 27.0
== END ==
PROVIDERS: Family Provider Physician Assistant; PCP Nurse Practitioner; Visit Provider Nurse Practitioner
DX: F32.3 Major depressive disorder, single episode, severe with psychotic features (principal); F43.12 Post-traumatic stress disorder, chronic
CPT/HCPCS: 99214

== ENCOUNTER → 2020-07-01 08:09 | Outpatient (BNVA) | payer MEDICAID, SELFPAY ==
[2020-02-19 14:31] VITALS: BP 104/60; BMI 27.0
== END ==
PROVIDERS: Family Provider Physician Assistant; PCP Nurse Practitioner; Visit Provider Counselor Professional
DX: F32.3 Major depressive disorder, single episode, severe with psychotic features (principal); F43.12 Post-traumatic stress disorder, chronic
CPT/HCPCS: 90834

== ENCOUNTER → 2020-07-25 07:42 | Outpatient (BNVA) | payer MEDICAID, SELFPAY ==
[2020-02-19 14:31] VITALS: BP 104/60; BMI 27.0
== END ==
PROVIDERS: Family Provider Physician Assistant; PCP Nurse Practitioner; Visit Provider Nurse Practitioner
DX: F43.12 Post-traumatic stress disorder, chronic (principal); F32.3 Major depressive disorder, single episode, severe with psychotic features
CPT/HCPCS: 99214

== ENCOUNTER → 2020-08-05 09:11 | Outpatient (BNVA) | payer MEDICAID, SELFPAY ==
[2020-02-19 14:31] VITALS: BP 104/60; BMI 27.0
== END ==
PROVIDERS: Family Provider Physician Assistant; PCP Nurse Practitioner; Visit Provider Counselor Professional
DX: F43.12 Post-traumatic stress disorder, chronic (principal); F33.3 Major depressive disorder, recurrent, severe with psychotic symptoms
CPT/HCPCS: 90834

== ENCOUNTER → 2020-08-15 13:08 | Outpatient (BNVA) | payer MEDICAID, SELFPAY ==
[2020-02-19 14:31] VITALS: BP 104/60; BMI 27.0
== END ==
PROVIDERS: Family Provider Physician Assistant; PCP Nurse Practitioner Family; Visit Provider Nurse Practitioner Family
DX: N39.46 Mixed incontinence (principal)
CPT/HCPCS: 81003

== ENCOUNTER → 2020-08-22 09:23 | Outpatient (BNVA) | payer MEDICAID, SELFPAY ==
[2020-02-19 14:31] VITALS: BP 104/60; BMI 27.0
== END ==
PROVIDERS: Family Provider Physician Assistant; PCP Nurse Practitioner Family; Visit Provider Nurse Practitioner
DX: F43.12 Post-traumatic stress disorder, chronic (principal); F32.3 Major depressive disorder, single episode, severe with psychotic features
CPT/HCPCS: 99214

== ENCOUNTER → 2020-08-26 09:26 | Outpatient (BNVA) | payer MEDICAID, SELFPAY ==
[2020-02-19 14:31] VITALS: BP 104/60; BMI 27.0
== END ==
PROVIDERS: Family Provider Physician Assistant; PCP Nurse Practitioner; Visit Provider Counselor Professional
DX: F43.12 Post-traumatic stress disorder, chronic (principal); F32.3 Major depressive disorder, single episode, severe with psychotic features
CPT/HCPCS: 90834; 90832

== ENCOUNTER → 2020-09-08 15:04 | Outpatient (BNVA) | payer MEDICAID, SELFPAY ==
[2020-02-19 14:31] VITALS: BP 104/60; BMI 27.0
== END ==
PROVIDERS: Family Provider Physician Assistant; PCP Nurse Practitioner; Visit Provider Counselor Professional
DX: F43.12 Post-traumatic stress disorder, chronic (principal); F32.3 Major depressive disorder, single episode, severe with psychotic features
CPT/HCPCS: 90832

== ENCOUNTER → 2020-09-19 07:50 | Outpatient (BNVA) | payer MEDICAID, SELFPAY ==
[2020-02-19 14:31] VITALS: BP 104/60; BMI 27.0
== END ==
PROVIDERS: Family Provider Physician Assistant; PCP Nurse Practitioner; Visit Provider Nurse Practitioner
DX: F43.12 Post-traumatic stress disorder, chronic (principal); F32.3 Major depressive disorder, single episode, severe with psychotic features
CPT/HCPCS: 99214

== ENCOUNTER → 2020-09-22 15:08 | Outpatient (BNVA) | payer MEDICAID, SELFPAY ==
[2020-02-19 14:31] VITALS: BP 104/60; BMI 27.0
== END ==
PROVIDERS: Family Provider Physician Assistant; PCP Nurse Practitioner; Visit Provider Counselor Professional
DX: F43.12 Post-traumatic stress disorder, chronic (principal); F33.3 Major depressive disorder, recurrent, severe with psychotic symptoms
CPT/HCPCS: 90834

== ENCOUNTER 2020-09-25 17:21 | Inpatient (IN) | payer MEDICAID, SELFPAY ==
[2020-02-19 14:31] VITALS: BP 104/60; BMI 27.0
[2020-09-25 17:23] VITALS: BP 125/80; PULSE 110; RESP 18; TEMP 36.7; O2SAT 100; BMI 28.7
--- NOTE | 2020-09-25 18:04 | ED_ITS ---
HPI - Psych General: Chief Complaint: Psychiatric Symptoms Stated Complaint: SI Time Seen by Provider: 09/25/20 17:52 Source: patient Mode of arrival: ambulatory Limitations: no limitations History of Present Illness: HPI Narrative: Patient is a 49-year-old female with a history of mental health disorder who presents to the ER stating that she has had some increasing depression and suicidal ideations. She states that she thinks she would potentially overdose on stock supply of her medications. She states she has had worsening depression over the last several days and has had auditory hallucinations that are constantly telling her she is worthless and ugly. She has no acute physical complaints today. She has a history of chronic back pain for which she takes Dilaudid. Patient states she thinks she needs to go to the stress unit. MD complaint: suicidal ideation and feels depressed Onset (ago): day(s) Duration: constant and getting worse History of same: Yes Context: significant life stressor Associated psychiatric symptoms: depression and suicidal ideation Associated symptoms: Reports auditory hallucinations and depression Treatments prior to arrival: none If self harm: admits thoughts of self harm and has plan Review of Systems Const: Denies: fever(s), malaise or diaphoresis Card: Denies: chest pain, palpitations or syncope Resp: Denies: dyspnea GI: Denies: abdominal pain, nausea or vomiting Skin/Breast: Denies: rash Neuro: Denies: headache(s) or confusion Psych: Reports: depression and auditory hallucinations [facility] ED PFSH: Medical History (Updated 09/25/20 @ 20:11 by Marques Soliz MD) Bipolar affect, depressed Chronic post-traumatic stress disorder (PTSD) Depression Diabetes mellitus without complication, without long-term current use of insulin DJD (degenerative joint disease) Gastritis Hiatal hernia 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, single episode, severe with psychotic features Paresthesia and pain of both upper extremities Peptic ulcer Polyp of colon, adenomatous Post-traumatic stress disorder, chronic Pure hypercholesterolemia, unspecified Schizophrenia Urinary incontinence, mixed Surgical History History of esophagogastroduodenoscopy (EGD) S/P cholecystectomy S/P colonoscopy S/P endometrial ablation S/P laparoscopic appendectomy (01/18/20) S/P tubal ligation Family History Father Cancer Mother , at age 64 Cancer lung and spinal sarcoma Grandfather Heart disease Hypertension Diabetes Brother Heart disease Hyperlipidemia Diabetes Sister Heart disease Hyperlipidemia Grandmother Cancer Other Bipolar affect, depressed Social History Smoking and tobacco status: current every day smoker cigarettes Packs smoked per day: 1 Quit status (tobacco): considering quitting Smoking risk assessment/counseling performed?: Yes Alcohol intake: never Marital status: Single Current occupational status: disabled History of recent travel: No Current gender identity: Female Physical Exam Const: COMMON NORMALS: no acute distress, average body habitus and well nourished GENERAL APPEARANCE: cooperative and comfortable; not in distress ORIENTATION/CONSCIOUSNESS: Yes awake HENMT: COMMON NORMALS: normocephalic, atraumatic and Normal external nose present HEAD & SCALP: normocephalic and atraumatic NOSE: Normal external nose present MOUTH: Normal oral and palatal mucosa present Eye: COMMON NORMALS: EOMs intact bilaterally and conjunctivae normal CONJUNCTIVA: Yes conjunctivae normal Neck/C-Spine: GENERAL: Yes normal visual inspection, No tracheal deviation and No submandibular swelling Chest: COMMONS NORMALS: normal inspection of the chest Resp: COMMON NORMALS: normal respiratory effort, No retractions and No use of accessory muscles Cardio: COMMON NORMALS: regular rhythm and Peripheral pulses 2+ throughout RHYTHM: regular rhythm PERIPHERAL PULSES: Peripheral pulses 2+ throughout GI: COMMON NORMALS: Normal to inspection, nondistended, normoactive bowel sounds present, Soft to palpation and non-tender PALPATION: Yes Soft to palpation Extremity: COMMON NORMALS: normal to inspection, full ROM and no pedal edema Neuro: COMMON NORMALS: no focal motor deficits Psych: COMMON NORMALS: mental status grossly normal, Normal thought process present and speech normal SPEECH: Yes normal speech MOOD & AFFECT: Yes depressed mood, Yes sad and Yes tearful THOUGHT PROCESS: Normal thought process present THOUGHT CONTENT: Yes Suicidality present ATTENTION/CONCENTRATION: Yes attention grossly intact Skin: COMMON NORMALS: no rashes or lesions noted GENERAL SKIN EXAM: no rashes or lesions noted MDM - Psych MDM Narrative: Medical decision making narrative: Patient is a 49-year-old female who has a history of major depression and bipolar disorder that presents with suicidal ideation. She is medically stable. Dr. Pryor has accepted to the neuropsychiatric unit. Lab Data: Attestation: I reviewed the patient's lab results. Labs: Lab Results 09/25/20 09/25/20 09/25/20 Range/Units 18:28 18:28 18:28 WBC 6.3 (4.0-10.0) 10^3/ uL RBC 4.80 (4.1-5.3) 10^6/u L Hgb 15.4 H (11.5-15.3) g/dL Hct 44.5 (37.0-47.0) % MCV 92.7 (81-99) fL MCH 32.1 (28.0-34.0) pg MCHC 34.6 (30.0-36.0) g/dL RDW 12.0 L (12.1-15.1) % Plt Count 196 (130-400) 10^3/c mm MPV 10.0 (7.4-10.4) fL Neut % (Auto) 51.8 % Lymph % (Auto) 40.2 % Routt % (Auto) 5.6 % Eos % (Auto) 1.9 % Baso % (Auto) 0.3 % Neut # (Auto) 3.26 (1.8-7.7) 10^3/u L Lymph # (Auto) 2.5 (0.8-4.8) 10^3/u L Routt # (Auto) 0.4 (0.2-0.9) 10^3/u L Eos # (Auto) 0.1 (0.0-0.8) 10^3/u L Baso # (Auto) 0.0 (0.0-0.1) 10^3/u L Nucleated RBC % (a uto) 0 % Nucleated RBCs # 0.0 /100WBC Sodium 130 L (136-145) mmol/L Potassium 3.5 (3.5-5.1) mmol/L Chloride 90 L (98-107) mmol/L Carbon Dioxide 30 H (22-29) mmol/L Anion Gap 13.5 (5-19) BUN 2 L (6-20) mg/dL Creatinine 0.6 (0.5-0.9) mg/dL GFR Calculation 106.7 (90-130) mL/min Glucose 72 (65-115) mg/dL Calculated Osmolal ity 265 L (285-295) mOsm/k g Calcium 8.8 (8.5-10.5) mg/dL Total Bilirubin 0.4 (0.15-1.2) mg/dL AST 21 (0-32) U/L ALT 20 (0-33) U/L Alkaline Phosphata se 64 (35-105) IU/L Total Protein 7.0 (6.6-8.7) g/dL Albumin 4.4 (3.5-5.2) g/dL Globulin 2.6 (1.3-4.6) g/dL TSH 0.97 (0.27-4.20) uIU/ mL HCG, Qual Negative (Negative) Urine Color (Yellow) Urine Appearance (CLEAR) Urine pH (5-7) Ur Specific Gravit y (1.005-1.030) Urine Protein (Negative) Urine Glucose (UA) (Normal) Urine Ketones (Negative) Urine Blood (Negative) Urine Nitrate (Negative) Urine Bilirubin (Negative) Urine Urobilinogen (Negative) mg/dL Ur Leukocyte Cadence ase (Negative) Salicylates 0.8 L (3-10) mg/dL Urine Opiates Scre en (Negative) ng/mL Acetaminophen < 5.0 L (10-30) ug/mL Ur Barbiturates Sc reen (Negative) ng/mL Ur Phencyclidine S crn (Negative) ng/mL Ur Amphetamines Sc reen (Negative) ng/mL U Benzodiazepines Scrn (Negative) ng/mL Urine Cocaine Scre en (Negative) ng/mL U Marijuana (THC) Screen (Negative) ng/mL Ethyl Alcohol < 10 (0-10) mg/dL 09/25/20 09/25/20 Range/Units 18:28 18:28 WBC (4.0-10.0) 10^3/ uL RBC (4.1-5.3) 10^6/u L Hgb (11.5-15.3) g/dL Hct (37.0-47.0) % MCV (81-99) fL MCH (28.0-34.0) pg MCHC (30.0-36.0) g/dL RDW (12.1-15.1) % Plt Count (130-400) 10^3/c mm MPV (7.4-10.4) fL Neut % (Auto) % Lymph % (Auto) % Routt % (Auto) % Eos % (Auto) % Baso % (Auto) % Neut # (Auto) (1.8-7.7) 10^3/u L Lymph # (Auto) (0.8-4.8) 10^3/u L Routt # (Auto) (0.2-0.9) 10^3/u L Eos # (Auto) (0.0-0.8) 10^3/u L Baso # (Auto) (0.0-0.1) 10^3/u L Nucleated RBC % (a uto) % Nucleated RBCs # /100WBC Sodium (136-145) mmol/L Potassium (3.5-5.1) mmol/L Chloride (98-107) mmol/L Carbon Dioxide (22-29) mmol/L Anion Gap (5-19) BUN (6-20) mg/dL Creatinine (0.5-0.9) mg/dL GFR Calculation (90-130) mL/min Glucose (65-115) mg/dL Calculated Osmolal ity (285-295) mOsm/k g Calcium (8.5-10.5) mg/dL Total Bilirubin (0.15-1.2) mg/dL AST (0-32) U/L ALT (0-33) U/L Alkaline Phosphata se (35-105) IU/L Total Protein (6.6-8.7) g/dL Albumin (3.5-5.2) g/dL Globulin (1.3-4.6) g/dL TSH (0.27-4.20) uIU/ mL HCG, Qual (Negative) Urine Color Yellow (Yellow) Urine Appearance Clear (CLEAR) Urine pH 5 (5-7) Ur Specific Gravit y 1.010 (1.005-1.030) Urine Protein Neg (Negative) Urine Glucose (UA) Norm (Normal) Urine Ketones Negative (Negative) Urine Blood Neg (Negative) Urine Nitrate Negative (Negative) Urine Bilirubin Neg (Negative) Urine Urobilinogen Norm (Negative) mg/dL Ur Leukocyte Cadence ase Negative (Negative) Salicylates (3-10) mg/dL Urine Opiates Scre en Positive H (Negative) ng/mL Acetaminophen (10-30) ug/mL Ur Barbiturates Sc reen Negative (Negative) ng/mL Ur Phencyclidine S crn Negative (Negative) ng/mL Ur Amphetamines Sc reen Negative (Negative) ng/mL U Benzodiazepines Scrn Negative (Negative) ng/mL Urine Cocaine Scre en Negative (Negative) ng/mL U Marijuana (THC) Screen Negative (Negative) ng/mL Ethyl Alcohol (0-10) mg/dL Discharge Plan Discharge Patient Disposition: Admitted As Inpatient Clinical Impression: Major depressive disorder, single episode, severe with psychotic features Condition: Stable Coding Level of Care Code 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
[2020-09-25 19:10] LABS: Basophils % 0.3 %; Eosinophils # 0.1 10^3/uL (0.0-0.8); Eosinophils % 1.9 %; Hematocrit 44.5 % (37.0-47.0); Hemoglobin 15.4 g/dL (11.5-15.3); Lymphocytes # 2.5 10^3/uL (0.8-4.8); Lymphocytes % 40.2 %; Mean Corpuscular HGB Conc 34.6 g/dL (30.0-36.0); Mean Corpuscular Hemoglobin 32.1 pg (28.0-34.0); Mean Corpuscular Volume 92.7 fL (81-99); Monocytes # 0.4 10^3/uL (0.2-0.9); Monocytes % 5.6 %; Neutrophils # 3.26 10^3/uL (1.8-7.7); Neutrophils % 51.8 %; Nucleated Red Blood Cells % 0 %; Platelet Count 196 10^3/cmm (130-400); White Blood Count 6.3 10^3/uL (4.0-10.0)
[2020-09-25 19:25] LABS: Add Urine Microscopic? NO
[2020-09-25 19:26] LABS: Bilirubin Urine Neg (Negative); Blood Urine Neg (Negative); Glucose Urine UA Norm (Normal); Ketones Urine Negative (Negative); Leukocyte Esterase Urine Negative (Negative); Nitrate Urine Negative (Negative); Protein Urine Neg (Negative); Urine Appearance Clear (CLEAR); Urine Color Yellow (Yellow); Urobilinogen Urine Norm (Negative); pH Urine 5 (5-7)
[2020-09-25 19:29] LABS: HCG Qualitative Urine. Negative (Negative)
[2020-09-25 19:34] LABS: Alanine Aminotransferase 20 U/L (0-33); Albumin Level 4.4 g/dL (3.5-5.2); Alkaline Phosphatase 64 IU/L (35-105); Anion Gap 13.5 (5-19); Aspartate Amino Transferase 21 U/L (0-32); Blood Urea Nitrogen 2 mg/dL (6-20); Calcium 8.8 mg/dL (8.5-10.5); Carbon Dioxide 30 mmol/L (22-29); Chloride 90 mmol/L (98-107); Creatinine Clr Calc Pharmacy 110.1186; Globulin 2.6 g/dL (1.3-4.6); Glomerular Filtration Rate 106.7 mL/min (90-130); Glucose 72 mg/dL (65-115); Osmolality Calculated 265 mOsm/kg (285-295); Potassium 3.5 mmol/L (3.5-5.1); Salicylate 0.8 mg/dL (3-10); Sodium 130 mmol/L (136-145); Thyroid Stimulating Hormone 0.97 uIU/mL (0.27-4.20); Total Bilirubin 0.4 mg/dL (0.15-1.2)
[2020-09-25 19:36] LABS: Amphetamines Screen Urine Negative (Negative); Barbiturates Screen Urine Negative (Negative); Benzodiazepines Screen Urine Negative (Negative); Cocaine Screen Urine Negative (Negative); Opiate Screen Urine Positive (Negative); PCP Screen Urine Negative (Negative); THC Screen Urine Negative (Negative)
[2020-09-25 19:40] LABS: Acetaminophen < 5.0 ug/mL (10-30); Alcohol Level < 10 mg/dL (0-10)
[2020-09-25 20:47] VITALS: RESP 18
[2020-09-25 22:00] VITALS: BP 121/76; PULSE 85; RESP 18; TEMP 37; O2SAT 92
[2020-09-25] MEDS: trazodone 50 mg Tablet PO (22:46)
[2020-09-25] MEDS: prazosin 1 mg Capsule PO (22:46)
[2020-09-25] MEDS: aspirin 81 mg EC Tablet PO (22:46)
[2020-09-25] MEDS: quetiapine 100 mg Tablet 150 MG PO (22:52)
[2020-09-26] VITALS (8 sets, daily range): BP systolic 116–121; BP diastolic 72–84; PULSE 70–97; RESP 16–20; TEMP 36.6–37; O2SAT 92–98
[2020-09-26] MEDS: pantoprazole DR 40 mg Tablet PO (06:06)
[2020-09-26] MEDS: aspirin 81 mg EC Tablet PO ×2 (08:17→16:42)
[2020-09-26] MEDS: atorvastatin 40 mg Tablet 20 MG PO (08:17)
[2020-09-26] MEDS: oxybutynin chloride XL 5 MG TABLET 15 MG PO (08:17)
[2020-09-26] MEDS: venlafaxine ER (24HR) 150 mg Capsule PO (08:17)
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
[2020-09-26] MEDS: prazosin 1 mg Capsule PO (20:07)
[2020-09-26] MEDS: quetiapine 100 mg Tablet 150 MG PO (20:07)
[2020-09-26] MEDS: trazodone 50 mg Tablet PO (20:07)
[2020-09-27 06:00] VITALS: BP 99/64; PULSE 74; RESP 17; TEMP 36.8; O2SAT 98
[2020-09-27] MEDS: pantoprazole DR 40 mg Tablet PO (08:09)
[2020-09-27] MEDS: venlafaxine ER (24HR) 150 mg Capsule PO (08:09)
[2020-09-27] MEDS: aspirin 81 mg EC Tablet PO (08:09)
[2020-09-27 08:10] VITALS: RESP 18
[2020-09-27] MEDS: atorvastatin 40 mg Tablet 20 MG PO (08:10)
[2020-09-27] MEDS: oxybutynin chloride XL 5 MG TABLET 15 MG PO (08:10)
[2020-09-27 08:24] VITALS: PULSE 74; RESP 15; O2SAT 98
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
[2020-09-27 16:00] VITALS: PULSE 74; RESP 15; O2SAT 98
== END 2020-09-27 16:25 | disposition home or self-care (01) | DRG 885 ==
LOC: ER 20:12 → NP 20:54
PROVIDERS: Admitting Provider Psychiatry & Neurology Psychiatry; Emergency Provider Student in an Organized Health Care Education/Training Program; PCP Nurse Practitioner Family; Visit Provider Psychiatry & Neurology Psychiatry
DX: F32.3 Major depressive disorder, single episode, severe with psychotic features (principal); R45.851 Suicidal ideations; M50.00 Cervical disc disorder with myelopathy, unspecified cervical region; G89.29 Other chronic pain; F43.12 Post-traumatic stress disorder, chronic; E11.9 Type 2 diabetes mellitus without complications; M19.90 Unspecified osteoarthritis, unspecified site; K44.9 Diaphragmatic hernia without obstruction or gangrene; Z87.11 Personal history of peptic ulcer disease; E78.00 Pure hypercholesterolemia, unspecified; F20.9 Schizophrenia, unspecified; N39.46 Mixed incontinence; F17.210 Nicotine dependence, cigarettes, uncomplicated; Z79.891 Long term (current) use of opiate analgesic; Z79.82 Long term (current) use of aspirin
CPT/HCPCS: 12345; 80053; 80306; 80307; 81003; 81025; 84443; 85025; 94640; 99285

== ENCOUNTER → 2020-10-11 15:11 | Outpatient (BNVA) | payer MEDICAID, SELFPAY ==
[2020-02-19 14:31] VITALS: BP 104/60; BMI 27.0
== END ==
PROVIDERS: Family Provider Physician Assistant; PCP Nurse Practitioner; Visit Provider Counselor Professional
DX: F43.12 Post-traumatic stress disorder, chronic (principal); F32.3 Major depressive disorder, single episode, severe with psychotic features
CPT/HCPCS: 90834

== ENCOUNTER → 2020-10-13 14:26 | Outpatient (BNVA) | payer OTHER, SELFPAY ==
[2020-02-19 14:31] VITALS: BP 104/60; BMI 27.0
== END ==
PROVIDERS: Family Provider Physician Assistant; PCP Nurse Practitioner; Visit Provider Nurse Practitioner
DX: F32.3 Major depressive disorder, single episode, severe with psychotic features (principal); Z79.899 Other long term (current) drug therapy
CPT/HCPCS: 80061; 83036

== ENCOUNTER → 2020-10-19 08:29 | Outpatient (BNVA) | payer MEDICAID, SELFPAY ==
[2020-10-14 11:38] VITALS: BP 109/67; BMI 27.4
== END ==
PROVIDERS: Family Provider Physician Assistant; PCP Nurse Practitioner; Visit Provider Nurse Practitioner
DX: F43.12 Post-traumatic stress disorder, chronic (principal); F32.3 Major depressive disorder, single episode, severe with psychotic features; F17.219 Nicotine dependence, cigarettes, with unspecified nicotine-induced disorders
CPT/HCPCS: 99214

== ENCOUNTER → 2020-10-26 15:09 | Outpatient (BNVA) | payer MEDICAID, SELFPAY ==
[2020-10-14 11:38] VITALS: BP 109/67; BMI 27.4
== END ==
PROVIDERS: Family Provider Physician Assistant; PCP Nurse Practitioner; Visit Provider Counselor Professional
DX: F43.12 Post-traumatic stress disorder, chronic (principal); F32.3 Major depressive disorder, single episode, severe with psychotic features
CPT/HCPCS: 90834

== ENCOUNTER 2020-10-28 13:54 | Outpatient (CLI) | payer MEDICAID, SELFPAY ==
[2020-02-19 14:31] VITALS: BP 104/60; BMI 27.0
[2020-10-14 11:38] VITALS: BP 109/67; BMI 27.4
--- NOTE | 2020-10-28 13:59 | USCV_ITS ---
Afshan Parry Age: 49 Gender: F : 1970 Exam Date: 10/28/2020 14:13 Ordering Phys: Skyla BurnsP Technologist: Harshad Bailey Exam Location: [facility] Indication: HISTORY: Lower extremity pain. PROCEDURES: Bilateral duplex Venous Insufficiency study of the Deep and Superficial systems was carried out according to normal protocol with the patient in supine positon for deep system and dependent position for the superficial system. FINDINGS: All deep veins demonstrated compressibility without evidence of intraluminal thrombus or increased echogenicity. Spectral analysis of Doppler signals demonstrates normal response to compression maneuvers indicating patency without obstruction. Reflux determinations were made with the patient in the dependent position, the weight being on the contralateral leg. Vein measurements and reflux times are listed below were applicable. No notable reflux was seen at this time. CONCLUSIONS No evidence of DVT in the above-mentioned identifiable veins. No significant venous reflux were noted in the deep or superficial veins, mentioned above. Normal caliber superficial veins bilaterally The depth from the surface are as mentioned above Dr Leonidas Siu MD [facility] (Electronically Signed) Final Date: 01 November 2020 00:21 S
== END 2020-10-28 13:55 | disposition home or self-care (01) ==
LOC: US 13:54
PROVIDERS: PCP Nurse Practitioner; Visit Provider Nurse Practitioner Family
DX: M79.605 Pain in left leg (principal)
CPT/HCPCS: 93970

== ENCOUNTER → 2020-11-16 10:58 | Outpatient (BNVA) | payer MEDICAID, SELFPAY ==
[2020-10-14 11:38] VITALS: BP 109/67; BMI 27.4
== END ==
PROVIDERS: PCP Nurse Practitioner; Visit Provider Nurse Practitioner
DX: F43.12 Post-traumatic stress disorder, chronic (principal); F32.3 Major depressive disorder, single episode, severe with psychotic features; F17.219 Nicotine dependence, cigarettes, with unspecified nicotine-induced disorders
CPT/HCPCS: 99214

== ENCOUNTER → 2020-11-21 15:04 | Outpatient (BNVA) | payer MEDICAID, SELFPAY ==
[2020-10-14 11:38] VITALS: BP 109/67; BMI 27.4
== END ==
PROVIDERS: PCP Nurse Practitioner; Visit Provider Counselor Professional
DX: F43.12 Post-traumatic stress disorder, chronic (principal); F32.3 Major depressive disorder, single episode, severe with psychotic features
CPT/HCPCS: 90834

== ENCOUNTER → 2020-11-24 16:47 | Outpatient (BNVA) | payer MEDICAID, SELFPAY ==
[2020-10-14 11:38] VITALS: BP 109/67; BMI 27.4
== END ==
PROVIDERS: PCP Nurse Practitioner; Visit Provider Nurse Practitioner Family
DX: N39.46 Mixed incontinence (principal)
CPT/HCPCS: 81003; 87086

== ENCOUNTER → 2020-12-05 14:04 | Outpatient (BNVA) | payer MEDICAID, SELFPAY ==
[2020-10-14 11:38] VITALS: BP 109/67; BMI 27.4
== END ==
PROVIDERS: PCP Nurse Practitioner; Visit Provider Counselor Professional
DX: F32.3 Major depressive disorder, single episode, severe with psychotic features (principal); F43.12 Post-traumatic stress disorder, chronic
CPT/HCPCS: 90834

== ENCOUNTER → 2020-12-13 08:26 | Outpatient (BNVA) | payer MEDICAID, SELFPAY ==
[2020-10-14 11:38] VITALS: BP 109/67; BMI 27.4
== END ==
PROVIDERS: PCP Nurse Practitioner; Visit Provider Nurse Practitioner
DX: F43.12 Post-traumatic stress disorder, chronic (principal); F32.3 Major depressive disorder, single episode, severe with psychotic features; F17.219 Nicotine dependence, cigarettes, with unspecified nicotine-induced disorders
CPT/HCPCS: 99214

== ENCOUNTER → 2021-01-03 14:05 | Outpatient (BNVA) | payer MEDICAID, SELFPAY ==
[2020-10-14 11:38] VITALS: BP 109/67; BMI 27.4
== END ==
PROVIDERS: PCP Nurse Practitioner; Visit Provider Counselor Professional
DX: F32.3 Major depressive disorder, single episode, severe with psychotic features (principal); F43.12 Post-traumatic stress disorder, chronic
CPT/HCPCS: 90834

== ENCOUNTER → 2021-01-11 07:31 | Outpatient (BNVA) | payer MEDICAID, SELFPAY ==
[2020-10-14 11:38] VITALS: BP 109/67; BMI 27.4
== END ==
PROVIDERS: PCP Nurse Practitioner; Visit Provider Nurse Practitioner
DX: F32.3 Major depressive disorder, single episode, severe with psychotic features (principal); F43.12 Post-traumatic stress disorder, chronic; F17.219 Nicotine dependence, cigarettes, with unspecified nicotine-induced disorders
CPT/HCPCS: 99214

== ENCOUNTER 2021-01-13 09:41 | Outpatient (CLI) | payer MEDICAID, SELFPAY ==
[2020-10-14 11:38] VITALS: BP 109/67; BMI 27.4
--- NOTE | 2021-01-13 09:47 | FL_ITS ---
WS: [id number] ESOPHAGRAM WITH FLUOROSCOPY HISTORY: DYSPHAGIA COMPARISON: None available. FLUOROSCOPY TIME: 0.9 minutes. Limited evaluation due to patient's clinical condition. Esophagus and swallowing function: Patient was able to swallow the barium mixture without difficulty. There is impingement upon the posterior cervical esophagus by osteophytes at C5 and C6. No high-grad e strictures. The barium tablet was also swallowed without difficulty. No significant esophageal web is identified. The distal esophagus was normal. Barium tablet traveled readily withdrawn within the e sophagus. Gastroesophageal reflux: None. Hiatal hernia: No hiatal hernia. FL/FL barium swallow [id number] IMPRESSION: 1. No high-grade esophageal stenosis. 2. Mild encroachment into the posterior cervical esophagus by cervical osteoph ytes. 3. Barium tablet was swallowed without difficulty.
== END 2021-01-13 09:42 | disposition home or self-care (01) ==
LOC: RADWPI 09:46
PROVIDERS: PCP Nurse Practitioner; Visit Provider Specialist
DX: R13.10 Dysphagia, unspecified
CPT/HCPCS: 74220

== ENCOUNTER 2021-01-16 13:44 | Outpatient (CLI) | payer MEDICAID, SELFPAY ==
[2020-10-14 11:38] VITALS: BP 109/67; BMI 27.4
--- NOTE | 2021-01-16 | CT_ITS ---
WS: [id number] CT NECK TECHNIQUE: Contrast-enhanced CT of the neck with coronal and sagittal reformatted images. CLINICAL INFORMATION: BILATERAL OTALGIA, DYSPHAGIA COMPARISON: None. DLP: 1165.[address] scans at [facility] use at least one of these dose optimization techniques: automat ed exposure control; mA and/or kV adjustment per patient size (includes targeted exams where dose is matched to clinical indication); or iterative reconstruction. FINDINGS: Mastoid air cells are well aerated. Mild mucosal thickening in the left ethmoid air cells. Retention cyst in the sphenoid sinus. Partially visualized intracranial contents appear normal.Normal paraphary ngeal fat. Parotid glands are normal. Normal submandibular glands. No evidence of supraglottic or glottic mass. Normal palatine tonsils. Subglottic airway is normal. Normal thyroid gland. Lung apices are well aera jane. Normal cervical spine. No cervical lymphadenopathy. CT/CT neck w con* [id number] IMPRESSION: 1. No evidence of supraglottic or glottic mass. Normal subglottic airway. 2. Mastoid air cells are well aerated. Retention cyst in the sphenoid sinus. P aranasal sinuses are otherwise well aerated. 3. No cervical lymphadenopathy. 4. Salivary glands are normal.
[2021-01-16] MEDS: iohexol 300 mg/mL 100 mL Btl IV (14:18)
== END 2021-01-16 13:45 | disposition home or self-care (01) ==
LOC: RADWPI 13:48
PROVIDERS: PCP Nurse Practitioner; Visit Provider Specialist
DX: H92.03 Otalgia, bilateral (principal); R13.10 Dysphagia, unspecified
CPT/HCPCS: 70491; Q9967

== ENCOUNTER → 2021-01-23 11:06 | Outpatient (BNVA) | payer MEDICAID, SELFPAY ==
[2020-10-14 11:38] VITALS: BP 109/67; BMI 27.4
== END ==
PROVIDERS: PCP Nurse Practitioner; Visit Provider Nurse Practitioner Family
DX: N39.46 Mixed incontinence (principal); R82.71 Bacteriuria
CPT/HCPCS: 81003; 87077; 87086; 87184

== ENCOUNTER → 2021-02-07 14:05 | Outpatient (BNVA) | payer MEDICAID, SELFPAY ==
[2020-10-14 11:38] VITALS: BP 109/67; BMI 27.4
== END ==
PROVIDERS: PCP Nurse Practitioner Family; Visit Provider Counselor Professional
DX: F32.3 Major depressive disorder, single episode, severe with psychotic features (principal); F43.12 Post-traumatic stress disorder, chronic
CPT/HCPCS: 90834

== ENCOUNTER 2021-02-13 14:28 | Outpatient (CLI) | payer MEDICAID, SELFPAY ==
[2020-10-14 11:38] VITALS: BP 109/67; BMI 27.4
--- NOTE | 2021-02-13 14:57 | XR_ITS ---
WS: [id number] CERVICAL SPINE FLEXION EXTENSION TECHNIQUE: 3 views of the cervical spine: lateral neutral, flexion and extension views. CLINICAL INFORMATION: PAIN COMPARISON: 2018 FINDINGS: Mild spondylitic changes. Normal alignment on the neutral view. Normal alignment on the flexion views. Normal alignment in extension. Posterior elements are normal. No other significant findings. XR/XR cervical spine fl/ex [id number] IMPRESSION: No instability on flexion-extension
--- NOTE | 2021-02-13 15:07 | MR_ITS ---
WS: [id number] MRI CERVICAL SPINE NONCONTRAST TECHNIQUE: Sagittal T1, T2 and STIR imaging. Axial T2, gradient, and fiesta imaging. CLINICAL INFORMATION: CERVICAL DISC DISORDER WITH RADICULOPATHY COMPARISON: MRI September 24, 2018 FINDINGS: Straightening of the normal cervical lordosis. Cord signal is normal. Minimal disc bulging C3-C4 and C4-C5. C2-C3: Minimal annular bulging. Mild left foraminal narrowing. Spinal canal is patent. C3-C4: Mild disc bulging with a tiny right pericentral protrusion. Slight contact of the cervical cor d. Mild facet arthropathy. Mild left bony foraminal narrowing. C4-C5: Tiny shallow right pericentral protrusion. Slight contact of the cervical cord. Mild central c anal stenosis. Mild to moderate left greater than right bony foraminal narrowing. Mild facet arthropa thy. C5-C6: Mild disc osteophytic ridging. Mild left and no significant right bony foraminal narrowing. Sp inal canal is patent. C6-C7: Mild disc bulging with osteophytic ridging. Mild bilateral bony foraminal narrowing. Spinal ca nal is patent. C7-T1: Osteophytic ridging. Mild left and no significant right foraminal narrowing. Spinal canal is p atent.. Visualized brain stem structures: Normal. Prevertebral soft tissues: Normal. MR/MR cervical spin wo con* [id number] IMPRESSION: 1. Straightening of the normal cervical lordosis. Cord signal is normal. 2. Tiny shallow disc protrusions at C3-C4 and C4-C5 with slight contact of the cervical cord and mild central canal stenosis more prominent at C4-5. 3. Multilevel mild bony foraminal narrowing more prominent at bilateral C4-5, left C5-6, left C6-7 and left C7-T1. 4. Overall no significant changes since 2019.
== END 2021-02-13 14:29 | disposition home or self-care (01) ==
LOC: RADWPI 14:31
PROVIDERS: PCP Nurse Practitioner Family; Visit Provider Anesthesiology Pain Medicine
DX: M50.10 Cervical disc disorder with radiculopathy, unspecified cervical region (principal); M50.21 Other cervical disc displacement, high cervical region; M48.02 Spinal stenosis, cervical region
CPT/HCPCS: 72040; 72141

== ENCOUNTER → 2021-02-14 07:16 | Outpatient (BNVA) | payer MEDICAID, SELFPAY ==
[2020-10-14 11:38] VITALS: BP 109/67; BMI 27.4
== END ==
PROVIDERS: PCP Nurse Practitioner Family; Visit Provider Nurse Practitioner
DX: F33.9 Major depressive disorder, recurrent, unspecified (principal); F43.10 Post-traumatic stress disorder, unspecified; F17.200 Nicotine dependence, unspecified, uncomplicated
CPT/HCPCS: 99214

== ENCOUNTER → 2021-03-03 15:48 | Outpatient (BNVA) | payer MEDICAID, SELFPAY ==
[2020-10-14 11:38] VITALS: BP 109/67; BMI 27.4
== END ==
PROVIDERS: PCP Nurse Practitioner Family; Visit Provider Counselor Professional
DX: F32.3 Major depressive disorder, single episode, severe with psychotic features (principal); F43.12 Post-traumatic stress disorder, chronic
CPT/HCPCS: 90834

== ENCOUNTER → 2021-03-14 07:55 | Outpatient (BNVA) | payer MEDICAID, SELFPAY ==
[2020-10-14 11:38] VITALS: BP 109/67; BMI 27.4
== END ==
PROVIDERS: PCP Nurse Practitioner Family; Visit Provider Nurse Practitioner
DX: F43.12 Post-traumatic stress disorder, chronic (principal); F32.3 Major depressive disorder, single episode, severe with psychotic features; F17.219 Nicotine dependence, cigarettes, with unspecified nicotine-induced disorders
CPT/HCPCS: 99214

== ENCOUNTER → 2021-03-17 15:08 | Outpatient (BNVA) | payer MEDICAID, SELFPAY ==
[2020-10-14 11:38] VITALS: BP 109/67; BMI 27.4
== END ==
PROVIDERS: PCP Nurse Practitioner Family; Visit Provider Counselor Professional
DX: F32.3 Major depressive disorder, single episode, severe with psychotic features (principal); F43.12 Post-traumatic stress disorder, chronic
CPT/HCPCS: 90834

== ENCOUNTER → 2021-03-31 15:20 | Outpatient (BNVA) | payer MEDICAID, SELFPAY ==
[2020-10-14 11:38] VITALS: BP 109/67; BMI 27.4
== END ==
PROVIDERS: PCP Nurse Practitioner Family; Visit Provider Counselor Professional
DX: F32.3 Major depressive disorder, single episode, severe with psychotic features (principal)
CPT/HCPCS: 90834

== ENCOUNTER → 2021-04-06 14:57 | Outpatient (BNVA) | payer MEDICAID, SELFPAY ==
[2020-10-14 11:38] VITALS: BP 109/67; BMI 27.4
== END ==
PROVIDERS: PCP Nurse Practitioner Family; Visit Provider Nurse Practitioner Family
DX: N39.46 Mixed incontinence (principal); N39.0 Urinary tract infection, site not specified; B37.3 Candidiasis of vulva and vagina
CPT/HCPCS: 81003; 87077; 87086; 87184

== ENCOUNTER → 2021-04-11 07:23 | Outpatient (BNVA) | payer MEDICAID, SELFPAY ==
[2020-10-14 11:38] VITALS: BP 109/67; BMI 27.4
== END ==
PROVIDERS: PCP Nurse Practitioner Family; Visit Provider Nurse Practitioner
DX: F43.12 Post-traumatic stress disorder, chronic (principal); F32.3 Major depressive disorder, single episode, severe with psychotic features; F17.219 Nicotine dependence, cigarettes, with unspecified nicotine-induced disorders
CPT/HCPCS: 99214

== ENCOUNTER → 2021-04-14 16:03 | Outpatient (BNVA) | payer MEDICAID, SELFPAY ==
[2020-10-14 11:38] VITALS: BP 109/67; BMI 27.4
== END ==
PROVIDERS: PCP Nurse Practitioner Family; Visit Provider Counselor Professional
DX: F32.3 Major depressive disorder, single episode, severe with psychotic features (principal); F43.12 Post-traumatic stress disorder, chronic
CPT/HCPCS: 90834

== ENCOUNTER → 2021-04-19 13:46 | Outpatient (BNVA) | payer OTHER, SELFPAY ==
[2020-10-14 11:38] VITALS: BP 109/67; BMI 27.4
== END ==
PROVIDERS: PCP Nurse Practitioner Family; Visit Provider Nurse Practitioner
DX: F32.3 Major depressive disorder, single episode, severe with psychotic features (principal); Z79.899 Other long term (current) drug therapy
CPT/HCPCS: 80061; 83036

== ENCOUNTER → 2021-04-27 16:11 | Outpatient (BNVA) | payer MEDICAID, SELFPAY ==
[2021-04-20 14:54] VITALS: BP 100/69; BMI 29.8
== END ==
PROVIDERS: PCP Nurse Practitioner Family; Visit Provider Counselor Professional
DX: F32.3 Major depressive disorder, single episode, severe with psychotic features (principal); F43.12 Post-traumatic stress disorder, chronic
CPT/HCPCS: 90834

== ENCOUNTER → 2021-05-09 09:46 | Outpatient (BNVA) | payer MEDICAID, SELFPAY ==
[2021-04-20 14:54] VITALS: BP 100/69; BMI 29.8
== END ==
PROVIDERS: PCP Nurse Practitioner Family; Visit Provider Nurse Practitioner
DX: F43.12 Post-traumatic stress disorder, chronic (principal); F32.3 Major depressive disorder, single episode, severe with psychotic features; F17.219 Nicotine dependence, cigarettes, with unspecified nicotine-induced disorders
CPT/HCPCS: 99214

== ENCOUNTER → 2021-05-15 07:52 | Outpatient (BNVA) | payer MEDICAID, SELFPAY ==
[2021-04-20 14:54] VITALS: BP 100/69; BMI 29.8
== END ==
PROVIDERS: PCP Nurse Practitioner Family; Visit Provider Counselor Professional
DX: F43.12 Post-traumatic stress disorder, chronic (principal); F32.3 Major depressive disorder, single episode, severe with psychotic features; F17.219 Nicotine dependence, cigarettes, with unspecified nicotine-induced disorders
CPT/HCPCS: 90834

== ENCOUNTER → 2021-05-22 16:45 | Outpatient (BNVA) | payer MEDICAID, SELFPAY ==
[2021-04-20 14:54] VITALS: BP 100/69; BMI 29.8
== END ==
PROVIDERS: PCP Nurse Practitioner Family; Visit Provider Nurse Practitioner Family
DX: N39.0 Urinary tract infection, site not specified (principal)
CPT/HCPCS: 81003; 87086

== ENCOUNTER → 2021-05-29 07:07 | Outpatient (BNVA) | payer MEDICAID, SELFPAY ==
[2021-04-20 14:54] VITALS: BP 100/69; BMI 29.8
== END ==
PROVIDERS: PCP Nurse Practitioner Family; Visit Provider Counselor Professional
DX: F43.12 Post-traumatic stress disorder, chronic (principal); F32.3 Major depressive disorder, single episode, severe with psychotic features; F17.219 Nicotine dependence, cigarettes, with unspecified nicotine-induced disorders
CPT/HCPCS: 90834

== ENCOUNTER → 2021-06-06 08:40 | Outpatient (BNVA) | payer MEDICAID, SELFPAY ==
[2021-04-20 14:54] VITALS: BP 100/69; BMI 29.8
== END ==
PROVIDERS: PCP Nurse Practitioner Family; Visit Provider Nurse Practitioner
DX: F43.12 Post-traumatic stress disorder, chronic (principal); F32.3 Major depressive disorder, single episode, severe with psychotic features; F17.219 Nicotine dependence, cigarettes, with unspecified nicotine-induced disorders
CPT/HCPCS: 99214

== ENCOUNTER → 2021-06-12 07:56 | Outpatient (BNVA) | payer MEDICAID, SELFPAY ==
[2021-04-20 14:54] VITALS: BP 100/69; BMI 29.8
== END ==
PROVIDERS: PCP Nurse Practitioner Family; Visit Provider Counselor Professional
DX: F32.3 Major depressive disorder, single episode, severe with psychotic features (principal); F43.12 Post-traumatic stress disorder, chronic; F17.219 Nicotine dependence, cigarettes, with unspecified nicotine-induced disorders
CPT/HCPCS: 90832

== ENCOUNTER → 2021-07-04 08:36 | Outpatient (BNVA) | payer MEDICAID, SELFPAY ==
[2021-06-19 15:41] VITALS: BP 100/69; BMI 29.8
== END ==
PROVIDERS: PCP Nurse Practitioner Family; Visit Provider Nurse Practitioner
DX: F43.12 Post-traumatic stress disorder, chronic (principal); F32.3 Major depressive disorder, single episode, severe with psychotic features; F17.219 Nicotine dependence, cigarettes, with unspecified nicotine-induced disorders
CPT/HCPCS: 99214

== ENCOUNTER → 2021-07-06 08:52 | Outpatient (BNVA) | payer MEDICAID, SELFPAY ==
[2021-06-19 15:41] VITALS: BP 100/69; BMI 29.8
== END ==
PROVIDERS: PCP Nurse Practitioner Family; Visit Provider Counselor Professional
DX: F32.3 Major depressive disorder, single episode, severe with psychotic features (principal); F17.219 Nicotine dependence, cigarettes, with unspecified nicotine-induced disorders; F43.12 Post-traumatic stress disorder, chronic
CPT/HCPCS: 90834

== ENCOUNTER → 2021-07-26 07:58 | Outpatient (BNVA) | payer MEDICAID, SELFPAY ==
[2021-06-19 15:41] VITALS: BP 100/69; BMI 29.8
== END ==
PROVIDERS: PCP Nurse Practitioner Family; Visit Provider Counselor Professional
DX: F32.3 Major depressive disorder, single episode, severe with psychotic features (principal); F17.219 Nicotine dependence, cigarettes, with unspecified nicotine-induced disorders; F43.12 Post-traumatic stress disorder, chronic
CPT/HCPCS: 90832

== ENCOUNTER → 2021-08-01 07:45 | Outpatient (BNVA) | payer MEDICAID, SELFPAY ==
[2021-06-19 15:41] VITALS: BP 100/69; BMI 29.8
== END ==
PROVIDERS: PCP Nurse Practitioner Family; Visit Provider Nurse Practitioner
DX: F43.12 Post-traumatic stress disorder, chronic (principal); F32.3 Major depressive disorder, single episode, severe with psychotic features; F17.219 Nicotine dependence, cigarettes, with unspecified nicotine-induced disorders
CPT/HCPCS: 99214

== ENCOUNTER → 2021-08-14 08:28 | Outpatient (BNVA) | payer MEDICAID, SELFPAY ==
[2021-06-19 15:41] VITALS: BP 100/69; BMI 29.8
== END ==
PROVIDERS: PCP Nurse Practitioner Family; Visit Provider Counselor Professional
DX: F32.3 Major depressive disorder, single episode, severe with psychotic features (principal); F17.219 Nicotine dependence, cigarettes, with unspecified nicotine-induced disorders; F43.12 Post-traumatic stress disorder, chronic
CPT/HCPCS: 90832

== ENCOUNTER 2021-08-16 11:57 | Outpatient (CLI) | payer MEDICAID, SELFPAY ==
[2021-04-20 14:54] VITALS: BP 100/69; BMI 29.8
[2021-06-19 15:41] VITALS: BP 100/69; BMI 29.8
--- NOTE | 2021-08-16 12:10 | MM_ITS ---
WS: [id number] SCREENING DIGITAL MAMMOGRAM WITH CAD HISTORY: SCREENING COMPARISON: 05/18/2019 and 08/22/2016 Bilateral CC and MLO views submitted. Computer aided detection analyzed. Breast composition: The breasts are heterogeneously dense, which may obscure small masses. There is a n area of nodularity and partially obscured margins in the medial LEFT breast seen only on the CC pro jection. This may be superimposed fibroglandular tissues but appears change since the prior study. Th e remaining breasts are negative. RIGHT MLO is limited as the pectoralis muscle is not included. This was a technically difficult evaluation due to patient's condition. Patient was in a wheelchair and complained of pain and discomfort throughout the examination. MM/[place] [id number] IMPRESSION: BI-RADS: 0-Incomplete: Need additional imaging evaluation FOLLOW UP: Need Additional Imaging LEFT breast: Spot compression views (CC and MLO). True ML. Ultrasound to follow if abnormality persists.
== END 2021-08-16 11:58 | disposition home or self-care (01) ==
LOC: RADSHAW 12:06
PROVIDERS: PCP Nurse Practitioner Family; Visit Provider Nurse Practitioner Family
DX: Z12.31 Encounter for screening mammogram for malignant neoplasm of breast (principal)
CPT/HCPCS: 77067

== ENCOUNTER → 2021-08-29 08:11 | Outpatient (BNVA) | payer MEDICAID, SELFPAY ==
[2021-06-19 15:41] VITALS: BP 100/69; BMI 29.8
== END ==
PROVIDERS: PCP Nurse Practitioner Family; Visit Provider Nurse Practitioner
DX: F43.12 Post-traumatic stress disorder, chronic (principal); F32.3 Major depressive disorder, single episode, severe with psychotic features; F17.219 Nicotine dependence, cigarettes, with unspecified nicotine-induced disorders
CPT/HCPCS: 99214

== ENCOUNTER → 2021-09-04 08:32 | Outpatient (BNVA) | payer MEDICAID, SELFPAY ==
[2021-06-19 15:41] VITALS: BP 100/69; BMI 29.8
== END ==
PROVIDERS: PCP Nurse Practitioner Family; Visit Provider Counselor Professional
DX: F32.3 Major depressive disorder, single episode, severe with psychotic features (principal); F17.219 Nicotine dependence, cigarettes, with unspecified nicotine-induced disorders; F43.12 Post-traumatic stress disorder, chronic
CPT/HCPCS: 90834

== ENCOUNTER 2021-09-05 14:44 | Outpatient (RCR) | payer MEDICAID, SELFPAY ==
[2021-06-19 15:41] VITALS: BP 100/69; BMI 29.8
== END 2021-09-25 23:59 | disposition home or self-care (01) ==
LOC: SPT 14:44
PROVIDERS: PCP Nurse Practitioner Family; Referring Provider Anesthesiology Pain Medicine; Visit Provider Anesthesiology Pain Medicine
DX: M47.812 Spondylosis without myelopathy or radiculopathy, cervical region (principal); M43.12 Spondylolisthesis, cervical region; M48.02 Spinal stenosis, cervical region; M50.10 Cervical disc disorder with radiculopathy, unspecified cervical region; G89.29 Other chronic pain
CPT/HCPCS: 97161

== ENCOUNTER → 2021-09-19 07:55 | Outpatient (BNVA) | payer MEDICAID, SELFPAY ==
[2021-06-19 15:41] VITALS: BP 100/69; BMI 29.8
== END ==
PROVIDERS: PCP Nurse Practitioner Family; Visit Provider Counselor Professional
DX: F32.3 Major depressive disorder, single episode, severe with psychotic features (principal); F17.219 Nicotine dependence, cigarettes, with unspecified nicotine-induced disorders; F43.12 Post-traumatic stress disorder, chronic
CPT/HCPCS: 90832

== ENCOUNTER 2021-09-26 06:00 | Outpatient (RCR) | payer MEDICAID, SELFPAY ==
[2021-06-19 15:41] VITALS: BP 100/69; BMI 29.8
== END 2021-10-26 23:59 | disposition home or self-care (01) ==
LOC: SPT 06:00
PROVIDERS: PCP Nurse Practitioner Family; Referring Provider Anesthesiology Pain Medicine; Visit Provider Anesthesiology Pain Medicine
DX: F43.12 Post-traumatic stress disorder, chronic (principal); F32.3 Major depressive disorder, single episode, severe with psychotic features; F17.219 Nicotine dependence, cigarettes, with unspecified nicotine-induced disorders; M47.812 Spondylosis without myelopathy or radiculopathy, cervical region; M43.12 Spondylolisthesis, cervical region; M48.02 Spinal stenosis, cervical region; M50.10 Cervical disc disorder with radiculopathy, unspecified cervical region
CPT/HCPCS: 97110; 99214

== ENCOUNTER 2021-10-12 14:01 | Outpatient (CLI) | payer MEDICAID, SELFPAY ==
[2021-06-19 15:41] VITALS: BP 100/69; BMI 29.8
--- NOTE | 2021-10-12 14:09 | MM_ITS ---
WS: [id number] LEFT 3D TOMOSYNTHESIS DIGITAL MAMMOGRAPHY WITH CAD CLINICAL INFORMATION: ABNORMAL MAMMOGRAM COMPARISON: August 16, 2021 TECHNIQUE: 5 views of the left breast were obtained. FINDINGS: The left breast is composed of heterogeneous fibroglandular density tissue, which can limit the detec tion of small underlying mass lesions. Dense heterogeneous breast tissue LEFT breast is unchanged. No dularity with partially obscured margins in the medial LEFT breast best seen on the cc view is unchan ged. This partially compresses out on the spot compression views. Ultrasound is pending. ULTRASOUND BREAST LEFT TECHNIQUE: Ultrasound left breast focused area of concern. CLINICAL INFORMATION: ABNORMAL MAMMOGRAM COMPARISON: None. FINDINGS: Ultrasound LEFT breast at the 11:00-1:00 position. Dense fibrous tissue is visualized. No cystic or s olid lesions. No suspicious lesions to target for biopsy. Recommend return to annual screening mammog andres. MM/[place] [id number] IMPRESSION: BI-RADS: 2-Benign FOLLOW UP: 1 Year Follow-up Recommend return to annual screening mammography.
== END 2021-10-12 14:02 | disposition home or self-care (01) ==
PROVIDERS: PCP Nurse Practitioner Family; Visit Provider Nurse Practitioner Family
DX: R92.8 Other abnormal and inconclusive findings on diagnostic imaging of breast (principal)
CPT/HCPCS: 76642; 77061

== ENCOUNTER → 2021-10-16 08:07 | Outpatient (BNVA) | payer MEDICAID, SELFPAY ==
[2021-06-19 15:41] VITALS: BP 100/69; BMI 29.8
== END ==
PROVIDERS: PCP Nurse Practitioner Family; Visit Provider Counselor Professional
DX: F32.3 Major depressive disorder, single episode, severe with psychotic features (principal); F17.219 Nicotine dependence, cigarettes, with unspecified nicotine-induced disorders; F43.12 Post-traumatic stress disorder, chronic
CPT/HCPCS: 90832

== ENCOUNTER → 2021-10-24 07:32 | Outpatient (BNVA) | payer MEDICAID, SELFPAY ==
[2021-06-19 15:41] VITALS: BP 100/69; BMI 29.8
== END ==
PROVIDERS: PCP Nurse Practitioner Family; Visit Provider Nurse Practitioner
DX: F43.12 Post-traumatic stress disorder, chronic (principal); F32.3 Major depressive disorder, single episode, severe with psychotic features; F17.219 Nicotine dependence, cigarettes, with unspecified nicotine-induced disorders
CPT/HCPCS: 99214

== ENCOUNTER → 2021-11-14 07:43 | Outpatient (BNVA) | payer MEDICAID, SELFPAY ==
[2021-06-19 15:41] VITALS: BP 100/69; BMI 29.8
== END ==
PROVIDERS: PCP Nurse Practitioner Family; Visit Provider Counselor Professional
DX: F32.3 Major depressive disorder, single episode, severe with psychotic features (principal); F17.219 Nicotine dependence, cigarettes, with unspecified nicotine-induced disorders; F43.12 Post-traumatic stress disorder, chronic
CPT/HCPCS: 90832

== ENCOUNTER → 2021-11-21 07:55 | Outpatient (BNVA) | payer MEDICAID, SELFPAY ==
[2021-06-19 15:41] VITALS: BP 100/69; BMI 29.8
== END ==
PROVIDERS: PCP Nurse Practitioner Family; Visit Provider Nurse Practitioner
DX: F43.12 Post-traumatic stress disorder, chronic (principal); F32.3 Major depressive disorder, single episode, severe with psychotic features; F17.219 Nicotine dependence, cigarettes, with unspecified nicotine-induced disorders
CPT/HCPCS: 99214

== ENCOUNTER → 2021-12-12 07:49 | Outpatient (BNVA) | payer MEDICAID, SELFPAY ==
[2021-06-19 15:41] VITALS: BP 100/69; BMI 29.8
== END ==
PROVIDERS: PCP Nurse Practitioner Family; Visit Provider Counselor Professional
DX: F32.3 Major depressive disorder, single episode, severe with psychotic features (principal); F17.219 Nicotine dependence, cigarettes, with unspecified nicotine-induced disorders; F43.12 Post-traumatic stress disorder, chronic
CPT/HCPCS: 90832

== ENCOUNTER → 2021-12-19 07:23 | Outpatient (BNVA) | payer MEDICAID, SELFPAY ==
[2021-06-19 15:41] VITALS: BP 100/69; BMI 29.8
== END ==
PROVIDERS: PCP Nurse Practitioner Family; Visit Provider Nurse Practitioner
DX: F43.12 Post-traumatic stress disorder, chronic (principal); F32.3 Major depressive disorder, single episode, severe with psychotic features; F17.219 Nicotine dependence, cigarettes, with unspecified nicotine-induced disorders
CPT/HCPCS: 99214

== ENCOUNTER → 2022-01-02 07:36 | Outpatient (BNVA) | payer MEDICAID, SELFPAY ==
[2021-06-19 15:41] VITALS: BP 100/69; BMI 29.8
== END ==
PROVIDERS: PCP Nurse Practitioner Family; Visit Provider Counselor Professional
DX: F32.3 Major depressive disorder, single episode, severe with psychotic features (principal); F17.219 Nicotine dependence, cigarettes, with unspecified nicotine-induced disorders; F43.12 Post-traumatic stress disorder, chronic
CPT/HCPCS: 90832

== ENCOUNTER → 2022-01-05 09:10 | Outpatient (BNVA) | payer MEDICAID, SELFPAY ==
[2021-06-19 15:41] VITALS: BP 100/69; BMI 29.8
== END ==
PROVIDERS: PCP Nurse Practitioner Family; Visit Provider Nurse Practitioner
DX: F43.12 Post-traumatic stress disorder, chronic (principal); F32.3 Major depressive disorder, single episode, severe with psychotic features; F17.219 Nicotine dependence, cigarettes, with unspecified nicotine-induced disorders
CPT/HCPCS: 99214

== ENCOUNTER → 2022-01-17 07:10 | Outpatient (BNVA) | payer MEDICAID, OTHER, SELFPAY ==
[2021-06-19 15:41] VITALS: BP 100/69; BMI 29.8
== END ==
PROVIDERS: PCP Nurse Practitioner Family; Visit Provider Counselor Professional
DX: F32.3 Major depressive disorder, single episode, severe with psychotic features (principal); F17.219 Nicotine dependence, cigarettes, with unspecified nicotine-induced disorders; F43.12 Post-traumatic stress disorder, chronic
CPT/HCPCS: 90834

== ENCOUNTER → 2022-01-24 13:04 | Outpatient (BNVA) | payer MEDICAID, OTHER, SELFPAY ==
[2021-06-19 15:41] VITALS: BP 100/69; BMI 29.8
== END ==
PROVIDERS: PCP Nurse Practitioner Family; Visit Provider Nurse Practitioner Family
DX: N39.46 Mixed incontinence (principal); N39.0 Urinary tract infection, site not specified
CPT/HCPCS: 81003; 99213

== ENCOUNTER 2022-02-04 17:56 | Emergency (ER) | payer MEDICAID, SELFPAY ==
[2021-06-19 15:41] VITALS: BP 100/69; BMI 29.8
[2022-02-04 18:04] VITALS: BP 124/77; PULSE 98; RESP 20; TEMP 36.7; O2SAT 95
[2022-02-04 19:13] VITALS: BP 129/78; PULSE 92; RESP 18; TEMP 36.7; O2SAT 96
--- NOTE | 2022-02-04 19:46 | XRR_ITS ---
PROCEDURE INFORMATION: Exam: XR Thoracic Spine Exam date and time: 02/04/2022 7:52 PM Age: 51 years old Clinical indication: Pain in thoracic spine; Additional info: Back pain TECHNIQUE: Imaging protocol: Radiologic exam of the thoracic spine. Views: 3 views. COMPARISON: CR Chest 2 views* [id number] 12/31/2017 2:03 PM FINDINGS: Bones/joints: No acute fracture. Normal alignment. Mild multilevel DJD throughout the thoracic spine. Soft tissues: Unremarkable. XR/XR thoracic spine 3V* [id number] IMPRESSION: No acute findings.
[2022-02-04] MEDS: ondansetron 4 MG Tablet PO (20:11)
[2022-02-04] MEDS: HYDROmorphone 1 mg/mL INJ 1 mL 2 MG IM (20:11)
[2022-02-04 20:12] LABS: Add Urine Microscopic? NO; Charge for UA Resulting for Rev
[2022-02-04 20:15] LABS: Bilirubin Urine Neg (Negative); Blood Urine Neg (Negative); Glucose Urine UA Norm (Normal); Ketones Urine Negative (Negative); Leukocyte Esterase Urine Negative (Negative); Nitrate Urine Negative (Negative); Protein Urine Neg (Negative); Specific Gravity, Urine 1.005 (1.005-1.030); Urine Appearance Clear (CLEAR); Urine Color Yellow (Yellow); Urobilinogen Urine Norm (Negative); pH Urine 7 (5-7)
--- NOTE | 2022-02-04 20:54 | ED_ITS ---
HPI - Back Pain/Injury General: Chief Complaint: Back Pain/Injury Stated Complaint: back pain left side Time Seen by Provider: 02/04/22 18:53 Source: patient History of Present Illness: 51-year-old female with a history of cervical canal stenosis. She presents after standing up today, and having a sudden pain in the left side of her lower thoracic spine. No radiation. She notes its been hard to walk since then, but she is able. No increased numbness or tingling or weakness to her lower extremities. She took Lyrica and Dilaudid at home, without much improvement in her pain, which she rates as an 8 out of 10. No fever, no dysuria, no blood in the urine, no vomiting or nausea. MD elicited complaint: back pain and back injury Pertinent past history: prior back pain Onset (ago): hour(s) Timing: constant Pain scale (0-10): 8 Quality: dull and aching Location: thoracic spine Radiation: none Exacerbating factors: movement Relieving factors: none Context: other Associated symptoms: Reports difficulty walking; Deny abdominal pain, chills, dysuria, fatigue, fecal incontinence, fever(s), nausea, tingling/numbness/burning, urinary urgency or vomiting Treatments prior to arrival: prescription analgesics Review of Systems Const: Denies: fever(s), chills or fatigue ENMT: Denies: throat pain Card: Denies: chest pain, palpitations or irregular heart rhythm Resp: Denies: dyspnea, productive cough or non-productive cough GI: Denies: abdominal pain, nausea, vomiting or fecal incontinence : Reports: flank pain; Denies: dysuria, urinary urgency or urinary hesitancy Musc: Reports: neck pain (Chronic) and back pain Neuro: Reports: difficulty walking [facility] ED PFSH: Medical History Bipolar affect, depressed Depression Diabetes mellitus without complication, without long-term current use of insulin DJD (degenerative joint disease) Gastritis Hiatal hernia 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, single episode, severe with psychotic features Paresthesia and pain of both upper extremities Peptic ulcer Polyp of colon, adenomatous Post-traumatic stress disorder, chronic Psychiatric care Psychiatric care Pure hypercholesterolemia, unspecified Recurrent UTI Schizophrenia Urinary incontinence, mixed Surgical History History of esophagogastroduodenoscopy (EGD) S/P cholecystectomy S/P colonoscopy S/P endometrial ablation S/P laparoscopic appendectomy (01/18/20) S/P tubal ligation Family History Father Cancer Mother , at age 64 Cancer lung and spinal sarcoma Grandfather Heart disease Hypertension Diabetes Brother Heart disease Hyperlipidemia Diabetes Sister Heart disease Hyperlipidemia Grandmother Cancer Other Bipolar affect, depressed Social History Smoking and tobacco status: current every day smoker (1 pack per day ) cigarettes Packs smoked per day: 1 Years cigarettes smoked: 36 Quit status (tobacco): not considering quitting Second hand smoke exposure: Yes Smoking risk assessment/counseling performed?: Yes Alcohol intake: former Year of sobriety/quit date alcohol: 2014 Former alcohol use details: 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 Adopted: No Lives independently: Yes Household members: none Housing: Other Details: [employer]lex Marital status: Single Number of children: 4 Number of grandchildren: 4 Highest education level completed: 10th Grade service: No Current occupational status: disabled Current occupational exposures/hazards: No Pets and animals: Yes Pets & animals: cat(s) History of recent travel: No Leisure activites: other Leisure activities details: watch tv Current gender identity: Female Odette/Mandaen: Gnosticism Agree to transfusion: No Financial difficulty paying for basics: Not Very Hard Female Reproductive History: Para: 4 Date of menopause: 07/29/16 Physical Exam Const: COMMON NORMALS: no acute distress (Playing on her phone on exam) GENERAL APPEARANCE: cooperative; not ill appearing HENMT: COMMON NORMALS: normocephalic, atraumatic and Normal external nose present HEAD & SCALP: normocephalic and atraumatic NOSE: Normal external nose present Eye: OTHER: Wearing sunglasses in the room Neck/C-Spine: GENERAL: Yes trachea midline Chest: CHEST: Yes Symmetrical chest wall rise Resp: COMMON NORMALS: normal respiratory effort, No use of accessory muscles and clear to auscultation bilaterally AUSCULTATION: clear to auscultation bilaterally Cardio: COMMON NORMALS: regular rate and regular rhythm RATE: regular rate RHYTHM: regular rhythm GI: COMMON NORMALS: Normal to inspection, nondistended, normoactive bowel sounds present, Soft to palpation and non-tender PALPATION: Yes Soft to palpation : BLADDER/KIDNEY EXAM: Yes CVA tenderness on the left Back/Pelvis: COMMON NORMALS: thoracic and lumbar spine normal to inspection GENERAL BACK: Yes CVA tenderness THORACIC SPINE/UPPER BACK: No thoracic spinal tenderness and Yes paraspinal muscle tenderness Thoracic paraspinal muscle tenderness: left Extremity: COMMON NORMALS: no pedal edema Neuro: ROLY COMA SCALE: document GCS findings [place] coma scale eye opening: Spontaneous Se[place] coma scale verbal response: Orientated Seadrift coma scale motor response: Obey commands Roly coma scale total score: 15 SPEECH: speech normal SENSORY EXAM: Yes extremities (Intact to the lower) Skin: COMMON NORMALS: no rashes or lesions noted GENERAL SKIN EXAM: no rashes or lesions noted Course Vital Signs: Vital signs: Vital Signs Temperature 98.1 F 02/04/22 21:24 Pulse Rate 90 02/04/22 21:24 Respiratory Rate 18 02/04/22 21:24 Blood Pressure 131/75 02/04/22 21:24 Pulse Oximetry 97 02/04/22 21:24 MDM - Back Pain/Injury Medical Decision Making Tenderness is to palpation over the left lower thoracic spinal paraspinal muscul ature. There is no midline tenderness. There is mild CVA tenderness, although her urine is completely negative. No urinary symptoms. I doubt kidney stone is the cause, as she has a sudden onset when getting up. Thoracic spine x-rays do not reveal a compression fracture or significant foraminal narrowing. She will be allowed discharge. Labs Laboratory Results Urine Color Yellow (Yellow) 02/04/22 20:05 Urine Appearance Clear (CLEAR) 02/04/22 20:05 Urine pH 7 (5-7) 02/04/22 20:05 Ur Specific [place] 1.005 (1.005-1.030) 02/04/22 20:05 Urine Protein Neg (Negative) 02/04/22 20:05 Urine Glucose (UA) Norm (Normal) 02/04/22 20:05 Urine Ketones Negative (Negative) 02/04/22 20:05 Urine Blood Neg (Negative) 02/04/22 20:05 Urine Nitrate Negative (Negative) 02/04/22 20:05 Urine Bilirubin Neg (Negative) 02/04/22 20:05 Urine Urobilinogen Norm mg/dL (Negative) 02/04/22 20:05 Ur Leukocyte Esterase Negative (Negative) 02/04/22 20:05 Discharge Plan Discharge Patient Disposition: Home Clinical Impression: Strain of muscle and tendon of back wall of thorax, initial encounter Condition: Stable Prescriptions: New Medrol (Thad) 4 mg tablets,dose pack See Rx Instructions .ROUTE .COMPLEX Qty: 21 0RF Rx Instructions: orally per package directions No Action levocetirizine 5 mg tablet 5 mg PO DAILY 0RF hydromorphone [Dilaudid] 4 mg tablet 4 mg PO QID PRN (Reason: Pain) 0RF cholecalciferol (vitamin D3) 125 mcg (5,000 unit) capsule 125 mcg PO DAILY 0RF pregabalin [Lyrica] 50 mg capsule 50 mg PO TID 0RF miconazole nitrate [Monistat 7] 2 % cream See Rx Instructions .ROUTE .COMPLEX Qty: 45 0RF Rx Instructions: apply to vaginal area daily as needed; pantoprazole 40 mg tablet,delayed release (DR/EC) 40 mg PO QAM Qty: 90 3RF potassium gluconate 595 mg (99 mg) tablet 595 mg PO DAILY 0RF vitamin E 200 unit capsule 400 unit PO DAILY 0RF magnesium 250 mg tablet 500 mg PO DAILY 0RF aspirin [Adult Low Dose Aspirin] 81 mg tablet,delayed release (DR/EC) 81 mg PO DAILY 0RF rosuvastatin [Crestor] 10 mg tablet 10 mg PO DAILY 0RF guaifenesin [Mucinex] 600 mg tablet extended release 12hr 600 mg PO BID PRN0RF methenamine hippurate 1 gram tablet 1 g PO BID 0RF paroxetine HCl [Paxil] 20 mg tablet 30 mg PO .HS Qty: 45 1RF trazodone 100 mg tablet 100 mg PO .HS Qty: 30 1RF quetiapine [Seroquel] 100 mg tablet 150 mg PO .HS Qty: 45 1RF hydroxyzine HCl 25 mg tablet 50 mg PO BID PRN (Reason: anxiety) Qty: 120 1RF lubiprostone [Amitiza] 24 mcg capsule 24 mcg PO BID Qty: 60 2RF cyproheptadine 4 mg tablet 4 mg PO .HS Qty: 30 0RF ascorbic acid (vitamin C) 500 mg capsule PO DAILY 0RF fluticasone propion-salmeterol [Advair Diskus] 100-50 mcg/dose blister with device 1 ea INHALATION BID 30 Days Qty: 60 3RF Rx Instructions: refilling in [facility] absence albuterol sulfate [ProAir HFA] 90 mcg/actuation HFA aerosol inhaler 2 puff INHALATION Q6H PRN (Reason: shortness of breath or wheezing) 30 Days Qty: 18 3RF Rx Instructions: refilling in [facility] absence oxybutynin chloride 15 mg tablet extended release 24hr 15 mg PO DAILY 30 Days Qty: 30 2RF Rx Instructions: refilling in [facility] absence nitroglycerin 0.4 mg tablet, sublingual 0.4 mg SUBLINGUAL Q5M PRN (Reason: chest pain) 30 Days Qty: 28 3RF ondansetron HCl 8 mg tablet 8 mg PO Q12H PRN (Reason: nausea and vomiting) Qty: 20 2RF celecoxib 100 mg capsule 100 mg PO DAILY Qty: 60 2RF Discharge Orders: Discharge ED (Routine); Ordered 02/04/22 Ordered By: Heraclio Liang Referrals: Skyla Burns FNP [Primary Care Provider] - 1-3 days Patient Instructions: Thoracic Back Strain (ED), Opioid Safety Activity Restrictions/Additional Instructions: Home medications as directed. If your pain is not improved significantly tomorrow, consider starting the prescribed medication. Call your doctor tomorrow, as they will want to see you in follow-up. Return for fever, blood in the urine, vomiting, any other concerning symptoms Coding Level of Care Code ED Vacuum Cleaner Operator for Jose Daniel Fwd Exam Comprehensive
[2022-02-04 21:24] VITALS: BP 131/75; PULSE 90; RESP 18; TEMP 36.7; O2SAT 97
== END 2022-02-04 21:26 | disposition home or self-care (01) ==
PROVIDERS: Emergency Provider Emergency Medicine; PCP Nurse Practitioner Family
DX: S29.012A Strain of muscle and tendon of back wall of thorax, initial encounter (principal); Z79.82 Long term (current) use of aspirin; F17.210 Nicotine dependence, cigarettes, uncomplicated; E11.9 Type 2 diabetes mellitus without complications; X58.XXXA Exposure to other specified factors, initial encounter
CPT/HCPCS: 72072; 81003; 96372; 99284; J1170; Q0162

== ENCOUNTER 2022-02-05 16:16 | Inpatient (IN) | payer MEDICAID, SELFPAY ==
[2021-06-19 15:41] VITALS: BP 100/69; BMI 29.8
--- NOTE | 2022-02-05 16:23 | ED_ITS ---
HPI - General Adult General: Chief complaint: Psychiatric Symptoms Stated complaint: SI WITH A PLAN Time Seen by Provider: 02/05/22 16:21 History of Present Illness: HPI: [51]yo patient w/ hx of schizophrenia and bipolar disorder presenting for SI with plan and auditory hallucination. On arrival, the patient is AAOx3 and cooperative with my evaluation. No focal complaints of chest pain, shortness of breath, palpitations, N/V, focal GI/ complaints. Currently denies HI. She tells me that she hears voices telling her to kill herself. Onset: acute Duration: ongoing Location: home Severity: severe Associated symptoms: Deny chest pain, dyspnea, nausea, rash, palpitations or vomiting Review of Systems Const: Denies: fever(s) or chills Eyes: Denies: change in vision ENMT: Denies: mouth pain Card: Denies: chest pain or palpitations Resp: Denies: dyspnea or non-productive cough GI: Denies: abdominal pain, nausea, vomiting or diarrhea : Denies: dysuria Musc: Denies: extremity pain Skin/Breast: Denies: rash or new lesions Neuro: Denies: weakness in extremities Psych: Reports: depression, auditory hallucinations and suicidal ideation Humberto/Lymph: Denies: easy bruising PFSH ED PFSH: Medical History Bipolar affect, depressed Depression Diabetes mellitus without complication, without long-term current use of insulin DJD (degenerative joint disease) Gastritis Hiatal hernia 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, single episode, severe with psychotic features Paresthesia and pain of both upper extremities Peptic ulcer Polyp of colon, adenomatous Post-traumatic stress disorder, chronic Psychiatric care Psychiatric care Pure hypercholesterolemia, unspecified Recurrent UTI Schizophrenia Urinary incontinence, mixed Surgical History History of esophagogastroduodenoscopy (EGD) S/P cholecystectomy S/P colonoscopy S/P endometrial ablation S/P laparoscopic appendectomy (01/18/20) S/P tubal ligation Family History Father Cancer Mother , at age 64 Cancer lung and spinal sarcoma Grandfather Heart disease Hypertension Diabetes Brother Heart disease Hyperlipidemia Diabetes Sister Heart disease Hyperlipidemia Grandmother Cancer Other Bipolar affect, depressed Social History Smoking and tobacco status: current every day smoker (1 pack per day ) cigarettes Packs smoked per day: 1 Years cigarettes smoked: 36 Quit status (tobacco): not considering quitting Second hand smoke exposure: Yes Smoking risk assessment/counseling performed?: Yes Alcohol intake: former Year of sobriety/quit date alcohol: 2014 Former alcohol use details: 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 Adopted: No Lives independently: Yes Household members: none Housing: Other Details: [employer] Marital status: Single Number of children: 4 Number of grandchildren: 4 Highest education level completed: 10th Grade service: No Current occupational status: disabled Current occupational exposures/hazards: No Pets and animals: Yes Pets & animals: cat(s) History of recent travel: No Leisure activites: other Leisure activities details: watch tv Current gender identity: Female Odette/Protestant: Adventism Agree to transfusion: No Financial difficulty paying for basics: Not Very Hard Female Reproductive History: Para: 4 Date of menopause: 07/29/16 Physical Exam Const: COMMON NORMALS: alert HENMT: COMMON NORMALS: atraumatic HEAD & SCALP: atraumatic MOUTH: moist mucous membranes not abnormal Eye: COMMON NORMALS: EOMs intact bilaterally and conjunctivae normal CONJUNCTIVA: Yes conjunctivae normal Neck/C-Spine: COMMON NORMALS: full ROM and supple Resp: COMMON NORMALS: normal respiratory effort and clear to auscultation bilaterally AUSCULTATION: clear to auscultation bilaterally Cardio: COMMON NORMALS: regular rate RATE: regular rate GI: COMMON NORMALS: Soft to palpation and non-tender PALPATION: Yes Soft to palpation Extremity: COMMON NORMALS: full ROM Neuro: SENSORIUM/ORIENTATION: Yes alert MOTOR EXAM: No Abnormal motor strength present and Other motor observations present (no focal motor deficits) Psych: COMMON NORMALS: speech normal SPEECH: Yes normal speech MOOD & AFFECT: Yes depressed mood Course Vital Signs: Vital signs: Vital Signs Temperature 98.1 F 02/05/22 16:39 Pulse Rate 86 02/05/22 17:08 Respiratory Rate 18 02/05/22 16:39 Blood Pressure 117/71 02/05/22 16:39 Pulse Oximetry 96 02/05/22 17:08 MDM - General Adult Medical Decision Making [51]yo patient w/ hx of bipolar disorder and schizophrenia presenting for SI with plan and auditory hallucination. HDS, exam within normal limit Thoughts are linear and organized, and the patient has no VH, or HI. Clinically the patient displays no overt toxidrome; they are well appearing, with low suspicion for toxic ingestion given history and exam. Symptoms unlikely 2/2 anemia, hypothyroidism, infection, or ICH. Workup: CBC, CMP, Lipase, salicylate/tylenol, UDS Lab findings: wnl [5:30pm] On reassessment, labs and workup wnl. Patient is hemodynamically stable with no acute medical complaints. Case discussed with psychiatric provider Dr. Brunner at [facility] psych inpatient with recommendation for admission Disposition: Psych Lab Data Radiology Impressions Chest X-Ray 02/05/22 16:23 IMPRESSION: No acute findings. Suspicion of interval increase in the heart size and development of left atrial enlargement. Discharge Plan Discharge Patient Disposition: Admitted As Inpatient Clinical Impression: Auditory hallucination, Depression with suicidal ideation Condition: Stable Coding Level of Care Code ED Shaping Machine Tender for Luisag Fwd Exam Comprehensive
--- NOTE | 2022-02-05 16:23 | XRR_ITS ---
PROCEDURE INFORMATION: Exam: XR Chest Exam date and time: 02/05/2022 4:44 PM Age: 51 years old Clinical indication: Screening exam; Other screening; Additional info: Psych TECHNIQUE: Imaging protocol: Radiologic exam of the chest. Views: 1 view. COMPARISON: CR Chest 2 views* [id number] 12/31/2017 2:03 PM FINDINGS: Lungs: Minimal interstitial marking prominence in the lateral right lung base, not definitely changed. Still no consolidation or central vascular enlargement. Pleural spaces: Still no pneumothorax or apparent pleural fluid. Heart/Mediastinum: Lordosis accentuating the heart size, but no cardiomegaly. Suspicion of interval increase in the heart size and development of left atrial enlargement. Bones/joints: No suggestion of acute bony disease. Apparent narrowing of multiple discs. XR/XR chest 1V portable [id number] IMPRESSION: No acute findings. Suspicion of interval increase in the heart size and development of left atrial enlargement.
--- NOTE | 2022-02-05 16:23 | ECG_ITS ---
[facility] Test Date: 2022-02-05 Pat Name: Afshan Parry Department: Room: Gender: Female Control Clerk Auditing: : 1970 Requested By: Tona Veras Order Number: [id number] Indira MD: Rashid Mcfarland M.D. Measurements Intervals [place] Rate: 79 P: 12 AK: 147 QRS: 33 QRSD: 89 T: 5 QT: 371 QTc: 425 Interpretive Statements SINUS RHYTHM LOW QRS VOLTAGE IN PRECORDIAL LEADS [QRS DEFLECTION < 1.0 mV IN CHEST LEADS] Compared to ECG 02/24/2017 20:29:25 No significant changes Electronically Signed On 02-05-2022 18:20:34 CDT by Rashid Mcfarland M.D. [id number]
[2022-02-05 16:39] VITALS: BP 117/71; PULSE 92; RESP 18; TEMP 36.7; O2SAT 98; BMI 34.4
[2022-02-05 17:08] VITALS: PULSE 86; O2SAT 96
[2022-02-05 18:23] LABS: Basophils % 0.2 %; Eosinophils # 0.2 10^3/uL (0.0-0.8); Eosinophils % 1.7 %; Hematocrit 40.9 % (37.0-47.0); Hemoglobin 14.1 g/dL (11.5-15.3); Lymphocytes # 2.7 10^3/uL (0.8-4.8); Lymphocytes % 31.2 %; Mean Corpuscular HGB Conc 34.5 g/dL (30.0-36.0); Mean Corpuscular Hemoglobin 30.3 pg (28.0-34.0); Monocytes # 0.5 10^3/uL (0.2-0.9); Monocytes % 5.9 %; Neutrophils # 5.26 10^3/uL (1.8-7.7); Neutrophils % 60.8 %; Nucleated Red Blood Cells % 0 %; Platelet Count 176 10^3/cmm (130-400); Red Blood Count 4.65 10^6/uL (4.1-5.3); Red Cell Distribution Width 12.9 % (12.1-15.1); White Blood Count 8.7 10^3/uL (4.0-10.0)
[2022-02-05 18:53] LABS: Alanine Aminotransferase 16 U/L (0-33); Albumin Level 4.1 g/dL (3.5-5.2); Alkaline Phosphatase 69 IU/L (35-105); Anion Gap 13.2 (5-19); Aspartate Amino Transferase 15 U/L (0-32); Blood Urea Nitrogen 3 mg/dL (6-20); Calcium 8.6 mg/dL (8.5-10.5); Carbon Dioxide 28 mmol/L (22-29); Chloride 101 mmol/L (98-107); Creatinine Clr Calc Pharmacy 128.0341; Globulin 1.9 g/dL (1.3-4.6); Glomerular Filtration Rate 105.8 mL/min (90-130); Glucose 106 mg/dL (65-115); Lipase 18 U/L (13-60); Osmolality Calculated 283 mOsm/kg (285-295); Potassium 4.2 mmol/L (3.5-5.1); Sodium 138 mmol/L (136-145); Thyroid Stimulating Hormone 0.64 uIU/mL (0.27-4.20); Total Bilirubin 0.2 mg/dL (0.15-1.2)
[2022-02-05 18:57] LABS: Salicylate < 0.3 mg/dL (3-10)
[2022-02-05 18:58] LABS: Acetaminophen < 5.0 ug/mL (10-30)
[2022-02-05 19:33] LABS: Amphetamines Screen Urine Negative (Negative); Barbiturates Screen Urine Negative (Negative); Benzodiazepines Screen Urine Negative (Negative); Cocaine Screen Urine Negative (Negative); Opiate Screen Urine Positive (Negative); PCP Screen Urine Negative (Negative); THC Screen Urine Negative (Negative)
[2022-02-05 20:32] LABS: SARS Covid-2 Antigen Negative (Negative)
[2022-02-05 21:31] LABS: Free T4 Free Thyroxine 0.98 ng/dL (0.82-1.77)
[2022-02-05 22:00] VITALS: PULSE 88; RESP 18; O2SAT 96
[2022-02-05 22:01] VITALS: BP 131/87; PULSE 79; RESP 18; O2SAT 96
[2022-02-05 22:06] VITALS: PULSE 88; RESP 18; O2SAT 96
--- NOTE | 2022-02-05 23:51 | PC.NURSE ---
No teeth,no dentures.
[2022-02-06 00:31] VITALS: RESP 18
[2022-02-06] MEDS: quetiapine 100 mg Tablet 150 MG PO ×2 (00:32→20:25)
[2022-02-06] MEDS: trazodone 100 mg Tablet PO ×2 (00:32→20:25)
[2022-02-06] MEDS: PARoxetine 20 mg Tablet 30 MG PO (00:32)
[2022-02-06 05:58] VITALS: BP 119/73; PULSE 69; RESP 17; TEMP 36.6; O2SAT 92
[2022-02-06] MEDS: pantoprazole DR 40 mg Tablet PO (06:08)
[2022-02-06 08:21] VITALS: RESP 14; O2SAT 98
[2022-02-06] MEDS: atorvastatin 40 mg Tablet 80 MG PO (08:22)
[2022-02-06] MEDS: aspirin 81 mg EC Tablet PO (08:22)
[2022-02-06] MEDS: CELEcoxib 100 mg Capsule PO (08:22)
[2022-02-06] MEDS: ascorbic acid 500 mg Tablet PO (08:22)
--- NOTE | 2022-02-06 09:31 | PC.NURSE ---
IN BED RESTING VOICES C/O PAIN EVERYWHERE. PT RECEIVED DILAUDID 4 MG ROUTINE AND MED NURSE DID GIVE IT ORDERED. PT DENIES SI/HI AND AVH AT THIS TIME. PT DOES AMBULATE WITH A WALKER AND IS INCONTINENT OF URINE. SUPPORT VOICED.
[2022-02-06] MEDS: pregabalin 50 mg Capsule PO ×3 (10:38→20:25)
[2022-02-06] MEDS: cholecalciferol (vitamin D3) 5,000 unit Tablet 5000 UNIT PO (10:38)
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
[2022-02-06 14:00] VITALS: BP 93/58; PULSE 86; RESP 17; TEMP 36.7; O2SAT 92
[2022-02-06 14:46] VITALS: RESP 14; O2SAT 98
[2022-02-06 19:28] VITALS: BP 109/56; PULSE 83; RESP 16; TEMP 36.7; O2SAT 93
[2022-02-06] MEDS: PARoxetine 20 mg Tablet 40 MG PO (20:25)
--- NOTE | 2022-02-06 23:46 | PHA.FALL ---
A Pharmacy Consult Was Conducted For Afshan Parry Due To: Peña Fall Scale Risk Level: High Fall Risk On 02/06/22 20:00 And A Medication Fall Risk Score Greater Than 10. The Recommendations Are As Follows Hydromorphone AZRA: 1,2,3,4,5,6,7,8,9,10 Paroxetine AZRA: 1,3,4,7,8,10 Lyrica AZRA: 1,3,4,5,6,7,8,10 Seroquel AZRA: 2,3,4,5,7,8 Trazodone AZRA: 1,2,3,4,7,8,10 Medications which cause/contribute to: 1= sedation/fatigue/lethargy 2= decreased alertness 3= postural/orthostatic hypotension 4= dizziness 5= decreased neuromuscular function/ataxia 6=decreased memory/cognitive impairment 7= blurred vision 8= confusion 9= arrhythmias 10= syncope 11= anemia Thank you, [facility], located [facility]
[2022-02-07 03:46] VITALS: RESP 13; O2SAT 95
[2022-02-07] MEDS: pantoprazole DR 40 mg Tablet PO (05:33)
[2022-02-07] MEDS: ibuprofen 600 mg Tablet PO (05:43)
[2022-02-07 06:00] VITALS: BP 114/75; PULSE 69; RESP 18; TEMP 37; O2SAT 91
[2022-02-07] MEDS: aspirin 81 mg EC Tablet PO (08:37)
[2022-02-07] MEDS: pregabalin 50 mg Capsule PO ×2 (08:37→16:23)
[2022-02-07] MEDS: oxybutynin chloride XL 5 MG TABLET 15 MG PO (08:38)
[2022-02-07] MEDS: cholecalciferol (vitamin D3) 5,000 unit Tablet 5000 UNIT PO (08:38)
[2022-02-07 08:39] VITALS: RESP 14; O2SAT 99
[2022-02-07] MEDS: atorvastatin 40 mg Tablet 80 MG PO (08:39)
[2022-02-07] MEDS: CELEcoxib 100 mg Capsule PO (08:39)
[2022-02-07] MEDS: ascorbic acid 500 mg Tablet PO (08:41)
[2022-02-07 16:21] VITALS: RESP 14; TEMP 36.3; O2SAT 99
[2022-02-07 16:23] VITALS: RESP 14; O2SAT 99
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
== END 2022-02-07 16:38 | disposition home or self-care (01) | DRG 885 ==
LOC: ER 19:31 → NP 02-06 01:51
PROVIDERS: Admitting Provider Psychiatry & Neurology Psychiatry; Emergency Provider Emergency Medicine; PCP Nurse Practitioner Family; Visit Provider Psychiatry & Neurology Psychiatry
DX: F32.3 Major depressive disorder, single episode, severe with psychotic features (principal); R45.851 Suicidal ideations; M50.00 Cervical disc disorder with myelopathy, unspecified cervical region; F43.12 Post-traumatic stress disorder, chronic; F17.210 Nicotine dependence, cigarettes, uncomplicated; M48.00 Spinal stenosis, site unspecified; M06.9 Rheumatoid arthritis, unspecified; Z91.51 Personal history of suicidal behavior; Z62.810 Personal history of physical and sexual abuse in childhood; Z81.8 Family history of other mental and behavioral disorders; Z79.82 Long term (current) use of aspirin
CPT/HCPCS: 71045; 80053; 80306; 80307; 83690; 84439; 84443; 85025; 87426; 93005; 97165; 99285

== ENCOUNTER 2022-03-05 20:00 | Outpatient (CLI) | payer MEDICAID, OTHER, SELFPAY ==
[2021-06-19 15:41] VITALS: BP 100/69; BMI 29.8
== END 2022-03-05 20:01 | disposition home or self-care (01) ==
LOC: SLEEP 03-06 08:11
PROVIDERS: PCP Nurse Practitioner Family; Visit Provider Nurse Practitioner Family
DX: G47.33 Obstructive sleep apnea (adult) (pediatric) (principal)
CPT/HCPCS: 95810

== ENCOUNTER → 2022-04-10 14:38 | Outpatient (BNVA) | payer OTHER, SELFPAY ==
[2021-06-19 15:41] VITALS: BP 100/69; BMI 29.8
== END ==
PROVIDERS: PCP Nurse Practitioner Family; Visit Provider Nurse Practitioner
DX: F43.12 Post-traumatic stress disorder, chronic (principal); Z79.899 Other long term (current) drug therapy
CPT/HCPCS: 80061; 83036

== ENCOUNTER 2022-04-13 08:56 | Outpatient (CLI) | payer MEDICAID, SELFPAY ==
[2021-06-19 15:41] VITALS: BP 100/69; BMI 29.8
--- NOTE | 2022-04-13 09:30 | USCV_ITS ---
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 HAND Technologist: Madonna Huizar [place] [facility] [place]: cp LAE BP: 128 / 70 HR: 72 Rhythm: Sinus Technical Quality: Adequate MEASUREMENTS (Male / Female) Normal Values 2D ECHO LV Diastolic Diameter PLAX 4.7 cm 4.2 - 5.9 / 3.9 - 5.3 cm LV Systolic Diameter PLAX 2.0 cm IVS Diastolic Thickness 0.6 cm 0.6 - 1.0 / 0.6 - 0.9 cm IVS Systolic Thickness 1.8 cm LVPW Diastolic Thickness 1.0 cm 0.6 - 1.0 / 0.6 - 0.9 cm LVPW Systolic Thickness 1.8 cm LVOT Diameter 2.1 cm LV Ejection Fraction 2D Teich 88.1 % LV Ejection Fraction MOD 2C 57.9 % LV Ejection Fraction 2C AL 60.3 % LA Diameter 2.1 cm LA Width 2.9 cm LA Height 4.3 cm RA Width 3.3 cm RA Height 3.9 cm Aorta at Sinotubular Diameter 2.9 cm IVC Diameter 1.1 cm M-MODE MV E Point Septal Separation 0.3 cm DOPPLER AV Peak Velocity 103.0 cm/s LVOT Peak Velocity 97.0 cm/s AV Area Cont Eq vti 3.5 cm squared AV Area Cont Eq pk 3.4 cm squared MV Peak Velocity 93.0 cm/s MV Area PHT 3.1 cm squared Mitral E to A Ratio 0.9 MV E' Velocity 71.0 cm/s TR Peak Velocity 83.0 cm/s TR Peak Gradient 2.8 mmHg Right Atrial Pressure 3.0 mmHg Pulmonary Artery Systolic Pressu 5.8 mmHg PV Peak Velocity 69.0 cm/s RV Acceleration Time 0.1 s RV Ejection Time 0.4 s RV AcT/ET 0.4 FINDINGS Left Ventricle Normal left ventricular size, systolic function and wall thickness, with no regional wall motion abnormalities. Normal left ventricular wall thickness. Normal diastolic filling pattern. Left ventricular ejection fraction is estimated at 60 %. Right Ventricle The right ventricle is normal in size and function. Right Atrium The right atrium is normal in size. Left Atrium The left atrium is normal in size. Mitral Valve Structurally normal mitral valve without significant stenosis or prolapse. There is no mitral regurgitation. Aortic Valve Structurally normal aortic valve without significant sclerosis or stenosis. There is no aortic regurgitation. Tricuspid Valve Structurally normal tricuspid valve without significant stenosis or regurgitation. Pulmonary artery systolic pressure is normal. Pulmonic Valve Structurally normal pulmonic valve without significant stenosis. There is no pulmonic regurgitation. Pericardium Normal pericardium without effusion. Aorta Normal ascending aorta dimension. IVC The inferior vena cava appears normal. CONCLUSIONS Normal transthoracic echocardiogram. There are no prior echocardiogram studies to compare. Dr. Kristian Arroyo MD (Electronically Signed) Final Date: 13 April 2022 14:04 S
== END 2022-04-13 08:57 | disposition home or self-care (01) ==
LOC: RAD 08:56
PROVIDERS: PCP Nurse Practitioner Family; Visit Provider Nurse Practitioner Family
DX: R07.9 Chest pain, unspecified (principal)
CPT/HCPCS: 93306

== ENCOUNTER 2022-05-22 20:00 | Outpatient (CLI) | payer MEDICAID, SELFPAY ==
[2021-06-19 15:41] VITALS: BP 100/69; BMI 29.8
[2022-04-16 14:54] VITALS: BP 115/68; BMI 34.6
== END 2022-05-22 20:01 | disposition home or self-care (01) ==
PROVIDERS: PCP Nurse Practitioner Family; Visit Provider Nurse Practitioner Family
DX: G47.33 Obstructive sleep apnea (adult) (pediatric) (principal)
CPT/HCPCS: 95811

== ENCOUNTER → 2022-06-26 13:14 | Outpatient (BNVA) | payer MEDICAID, SELFPAY ==
[2022-04-16 14:54] VITALS: BP 115/68; BMI 34.6
== END ==
PROVIDERS: PCP Nurse Practitioner Family; Visit Provider Surgery
DX: K21.9 Gastro-esophageal reflux disease without esophagitis (principal); Z86.010 Personal history of colon polyps; R13.10 Dysphagia, unspecified
CPT/HCPCS: 99203

== ENCOUNTER → 2022-07-05 13:17 | Outpatient (BNVA) | payer MEDICAID, SELFPAY ==
[2022-04-16 14:54] VITALS: BP 115/68; BMI 34.6
== END ==
PROVIDERS: PCP Nurse Practitioner Family; Visit Provider Internal Medicine
DX: R07.9 Chest pain, unspecified (principal); R00.2 Palpitations; F17.210 Nicotine dependence, cigarettes, uncomplicated
CPT/HCPCS: 99214

== ENCOUNTER 2022-08-10 06:33 | Day surgery (SDC) | payer MEDICAID, SELFPAY ==
[2022-04-16 14:54] VITALS: BP 115/68; BMI 34.6
[2022-08-07 12:04] VITALS: BMI 37.8
[2022-08-10] MEDS: sodium chloride 0.9% 1,000 ML 30 ML IV (07:17)
[2022-08-10 07:33] VITALS: BP 126/72; PULSE 84; RESP 18; TEMP 36.7; O2SAT 95
--- NOTE | 2022-08-10 19:38 | ANE.PACU2 ---
Inpatient post-anesthesia follow up: Airway intact: Yes Vital signs: Temperature 98.1 F Pulse Rate 84 Respiratory Rate 18 Blood Pressure 126/72 Pulse Oximetry 95 Oxygen Delivery Me thod Oxygen Flow Rate Fraction of Inspir ed Oxygen Hydration adequate: Yes Nausea and vomiting: No Pain level: 1 Mental status: Baseline
== END 2022-08-10 08:25 | disposition home or self-care (01) ==
LOC: GILAB 06:34
PROVIDERS: PCP Nurse Practitioner Family; Visit Provider Surgery
PROC: 0DJ08ZZ Inspection of Upper Intestinal Tract, Via Natural or Artificial Opening Endoscopic (ICD-10-PCS; CPT 43235; principal; 2022-08-10 08:30)
PROC: 0DJD8ZZ Inspection of Lower Intestinal Tract, Via Natural or Artificial Opening Endoscopic (ICD-10-PCS; CPT 45378; 2022-08-10 08:30)
DX: R13.10 Dysphagia, unspecified (principal); Z86.010 Personal history of colon polyps; Z53.9 Procedure and treatment not carried out, unspecified reason
CPT/HCPCS: J7030

== ENCOUNTER 2022-09-22 19:44 | Emergency (ER) | payer MEDICAID, SELFPAY ==
[2022-04-16 14:54] VITALS: BP 115/68; BMI 34.6
--- NOTE | 2022-09-22 19:56 | W.ED.ABDPA2 ---
HPI - Abdominal Pain General: Chief Complaint: Abdominal Pain Stated Complaint: ABD PAIN Time Seen by Provider: 09/22/22 19:54 History of Present Illness: Ms. Parry is a 51-year-old lady with past surgical history of cholecystectomy, appendectomy, medical history of diabetes and IBS presenting to the emergency department for abdominal pain. She reports onset of sharp right-sided abdominal pain during rest today and has persisted. There are some radiation towards the left side of her abdomen. She did have a bowel movement today and reports it normal, does have a history of constipation. She has had nausea and vomiting 4 times over the past week. Intensity symptoms is moderate to severe. Course has worsened. No other specific changes in health, exacerbating, or alleviating factors identified. 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, single episode, severe with psychotic features Paresthesia and pain of both upper extremities Peptic ulcer Polyp of colon, adenomatous Post-traumatic stress disorder, chronic Psychiatric care Psychiatric care Pure hypercholesterolemia, unspecified Recurrent UTI Schizophrenia Urinary incontinence, mixed Surgical History History of esophagogastroduodenoscopy (EGD) Hx of appendectomy S/P cholecystectomy S/P colonoscopy S/P endometrial ablation S/P laparoscopic appendectomy (01/18/20) S/P tubal ligation Family History Father Cancer Mother , at age 64 Cancer lung and spinal sarcoma Grandfather Heart disease Hypertension Diabetes Brother Heart disease Hyperlipidemia Diabetes Sister Heart disease Hyperlipidemia Grandmother Cancer Other Bipolar affect, depressed Social History Smoking and tobacco status: current every day smoker cigarettes Packs smoked per day: 1.5 Years cigarettes smoked: 37 Quit status (tobacco): not considering quitting Second hand smoke exposure: Yes Smoking risk assessment/counseling performed?: Yes Alcohol intake: former Year of sobriety/quit date alcohol: 2014 Former alcohol use details: 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 Adopted: No Caregiver/support person: Yes Lives independently: Yes Household members: none Housing: Apartment Marital status: Single Number of children: 4 Number of grandchildren: 4 Highest education level completed: 10th Grade service: No Current occupational status: disabled Current occupational exposures/hazards: No Pets and animals: Yes ([place]) Pets & animals: cat(s) Leisure activites: other Leisure activities details: watch tv, either outside or sleeping Sexually active: No Current gender identity: Female Odette/Gnosticism: Zoroastrian Special odette needs: No Agree to transfusion: Yes Financial difficulty paying for basics: Not Very Hard Female Reproductive History: Para: 4 Date of menopause: 07/29/16 Physical Exam Const: COMMON NORMALS: alert GENERAL APPEARANCE: cooperative and well developed HENMT: COMMON NORMALS: normocephalic and atraumatic HEAD & SCALP: normocephalic and atraumatic Eye: COMMON NORMALS: conjunctivae normal CONJUNCTIVA: Yes conjunctivae normal SCLERA: sclerae normal Neck/C-Spine: COMMON NORMALS: supple GENERAL: Yes trachea midline Resp: COMMON NORMALS: clear to auscultation bilaterally EFFORT & INSPECTION: Yes able to speak in complete sentences AUSCULTATION: clear to auscultation bilaterally Cardio: COMMON NORMALS: regular rate and regular rhythm RATE: regular rate RHYTHM: regular rhythm GI: COMMON NORMALS: Soft to palpation PALPATION: Yes Soft to palpation, Yes Tenderness to palpation present (GI), No Guarding due to palpation present (GI) and No Rigid due to palpation Extremity: GENERAL: Yes normal exam except as noted and No edema Neuro: COMMON NORMALS: moves all extremities SENSORIUM/ORIENTATION: Yes alert and No Orientation impaired Psych: COMMON NORMALS: mental status grossly normal and Normal thought process present THOUGHT PROCESS: Normal thought process present Course Vital Signs: Vital signs: Vital Signs Temperature 98.1 F 09/23/22 00:32 Pulse Rate 97 09/23/22 00:32 Respiratory Rate 16 09/23/22 00:32 Blood Pressure 104/77 09/23/22 00:32 Pulse Oximetry 92 09/23/22 00:32 Oxygen Delivery Me thod 09/23/22 00:32 MDM - Abdominal Pain Medical Decision Making 51-year-old lady with history of abdominal surgeries presenting with abdominal pain and recent nausea and vomiting. Exam as above. No evidence of acute surgical abdomen. Labs with no significant hematologic or metabolic abnormality. Possible UTI. CT without acute pathology. Incidental findings discussed with patient. Patient improved with analgesia and given antibiotics for UTI. She is quite anxious regarding other possible causes of the symptoms however given ED evaluation to this point I believe that outpatient management is safe. Nonspecific abdominal pain and UTI most likely etiology. She does not show evidence of sepsis. The results of ED evaluation were discussed with the patient including prescriptions and/or symptomatic cares (if applicable) including appropriate and responsible use, followup plan, and return precautions. The patient verbalized understanding and felt safe for discharge. Medical Records I reviewed the patient's medical records. Lab Data I reviewed the patient's lab results. 09/22/22 20:23 09/22/22 20:23 Labs/Radiology: Radiology Impressions Abdomen/Pelvis CT 09/22/22 20:37 IMPRESSION: 1. No acute abnormality in the abdomen or pelvis. 2. Incidental/nonacute findings are listed in the report. Laboratory Results WBC 6.6 10^3/uL (4.0-10.0) 09/22/22 20: RBC 5.00 10^6/uL (4.1-5.3) 09/22/22 20:23 Hgb 15.5 g/dL (11.5-15.3) H 09/22/22 20:23 Hct 45.4 % (37.0-47.0) 09/22/22 20: MCV 90.8 fl (81-99) 09/22/22: MCH 31.0 pg (28.0-34.0) 09/22/22: MCHC 34.1 g/dL (30.0-36.0) 09/22/22 20: RDW 12.7 % (12.1-15.1) 09/22/22 20: Plt Count 177 10^3/cmm (130-400) 09/22/22 20: MPV 10.7 fL (7.4-10.4) H 09/22/22 20: Neut % (Auto) 58.8 % 09/22/22 20: Lymph % (Auto) 32.9 % 09/22/22 20: Cecil % (Auto) 6.6 % 09/22/22 20: Eos % (Auto) 1.2 % 09/22/22 20: Baso % (Auto) 0.3 % 09/22/22: Neut # (Auto) 3.90 10^3/uL (1.8-7.7) 09/22/22 20: Lymph # (Auto) 2.2 10^3/uL (0.8-4.8) 09/22/22: Cecil # (Auto) 0.4 10^3/uL (0.2-0.9) 09/22/22: Eos # (Auto) 0.1 10^3/uL (0.0-0.8) 09/22/22: Baso # (Auto) 0.0 10^3/uL (0.0-0.1) 09/22/22 20: Nucleated RBC % (auto) 0 % 09/22/22: Nucleated RBCs # 0.0 /100WBC 09/22/22 20: Sodium 141 mmol/L (136-145) 09/22/22: Potassium 3.6 mmol/L (3.5-5.1) 09/22/22 20: Chloride 103 mmol/L (98-107) 09/22/22: Carbon Dioxide 27 mmol/L (22-29) 09/22/22 20: Anion Gap 14.6 (5-19) 09/22/22 20: BUN 6 mg/dL (6-20) 09/22/22 20: Creatinine 0.6 mg/dL (0.5-0.9) 09/22/22 20: GFR Calculation 105.8 mL/min (90-130) 09/22/22 20: Glucose 106 mg/dL (65-115) 09/22/22 20: Calculated Osmolality 290 mOsm/kg (285-295) 09/22/22: Calcium 9.5 mg/dL (8.5-10.5) 09/22/22 20: Total Bilirubin 0.2 mg/dL (0.15-1.2) 09/22/22 20: AST 14 U/L (0-32) 09/22/22 20: ALT 21 U/L (0-33) 09/22/22 20: Alkaline Phosphatase 82 U/L (35-105) 09/22/22 20: Total Protein 6.6 g/dL (6.6-8.7) 09/22/22: Albumin 4.2 g/dL (3.5-5.2) 09/22/22: Globulin 2.4 g/dL (1.3-4.6) 09/22/22: Lipase 16 U/L (13-60) 09/22/22 20: HCG, Qual Negative (Negative) 09/22/22 22:09 Urine Color Yellow (Yellow) 09/22/22 22:09 Urine Appearance Clear (CLEAR) 09/22/22 22:09 Urine pH 6.5 (5-7) 09/22/22 22:09 Ur Specific [place] 1.005 (1.005-1.030) 09/22/22 22:09 Urine Protein Neg (Negative) 09/22/22 22:09 Urine Glucose (UA) Norm (Normal) 09/22/22 22:09 Urine Ketones Negative (Negative) 09/22/22 22:09 Urine Blood Neg (Negative) 09/22/22 22:09 Urine Nitrate Positive (Negative) H 09/22/22 22:09 Urine Bilirubin Neg (Negative) 09/22/22 22:09 Urine Urobilinogen Neg mg/dL (Negative) 09/22/22 22:09 Ur Leukocyte Esterase Negative (Negative) 09/22/22 22:09 Urine RBC 0-4 /hpf (0-2) H 09/22/22 22:09 Urine WBC 0-4 /hpf (0-5) H 09/22/22 22:09 Ur Squamous Epith Cells 0-4 /hpf (0-5) H 09/22/22 22:09 Amorphous Sediment Trace /hpf 09/22/22 22:09 Urine Bacteria 2+ /hpf (NONE) H 09/22/22 22:09 Urine Mucus Trace /hpf 09/22/22 22:09 Discharge Plan Discharge Patient Disposition: Home Clinical Impression: Recurrent UTI, Abdominal pain Condition: Stable Prescriptions: New ciprofloxacin HCl 500 mg tablet 500 mg PO BID Qty: 20 0RF No Action levocetirizine 5 mg tablet 5 mg PO DAILY hydromorphone [Dilaudid] 4 mg tablet 4 mg PO QID PRN (Reason: Pain) cholecalciferol (vitamin D3) 125 mcg (5,000 unit) capsule 125 mcg PO DAILY pregabalin [Lyrica] 50 mg capsule 50 mg PO TID potassium gluconate 595 mg (99 mg) tablet 595 mg PO DAILY vitamin E 200 unit capsule 400 unit PO DAILY magnesium 250 mg tablet 500 mg PO DAILY aspirin [Adult Low Dose Aspirin] 81 mg tablet,delayed release (DR/EC) 81 mg PO DAILY lubiprostone [Amitiza] 24 mcg capsule 24 mcg PO BID Qty: 60 2RF quetiapine [Seroquel] 100 mg tablet 150 mg PO .HS Qty: 45 2RF pantoprazole [Protonix] 40 mg tablet,delayed release (DR/EC) 40 mg PO BID 42 Days Qty: 84 1RF ascorbic acid (vitamin C) 500 mg capsule 500 mg PO DAILY nitroglycerin 0.4 mg tablet, sublingual 0.4 mg SUBLINGUAL Q5M PRN (Reason: chest pain) Qty: 25 3RF albuterol sulfate [ProAir HFA] 90 mcg/actuation HFA aerosol inhaler 2 puff INHALATION Q6H PRN (Reason: shortness of breath or wheezing) 30 Days Qty: 18 3RF Rx Instructions: refilling in [facility] absence oxybutynin chloride 15 mg tablet extended release 24hr 15 mg PO DAILY 30 Days Qty: 30 2RF Rx Instructions: refilling in [facility] absence celecoxib 100 mg capsule 100 mg PO DAILY Qty: 60 2RF methenamine hippurate 1 gram tablet 1 g PO BID Qty: 60 12RF Rx Instructions: Take 1000 mg of vitamin C with each dose of methenamine cyproheptadine 4 mg tablet 4 mg PO .HS Qty: 30 2RF desvenlafaxine succinate [Pristiq] 100 mg tablet extended release 24 hr 100 mg PO DAILY Qty: 30 1RF trazodone 100 mg tablet 100 mg PO .HS Qty: 30 2RF rosuvastatin 20 mg Tablet 20 mg PO DAILY Discharge Orders: Discharge ED (Routine); Ordered 09/22/22 Ordered By: Renny Skaggs Referrals: Skyla Burns FNP [Primary Care Provider] - Discharge Diet: Advance as tolerated and Clear Liquid Discharge Activity: Increase activity as tolerated Patient Instructions: Urinary Tract Infection in Women (ED), Abdominal Pain (ED), Opioid Safety Activity Restrictions/Additional Instructions: Thank you for visiting the emergency department. You were seen and evaluated for abdominal pain. The exact cause of your symptoms is unclear though may be related to recurrent urinary tract infection which will be treated with antibiotics. I recommend clear liquid diet and advancing as tolerated starting with bland food. Please follow-up with your primary care provider. Return to the emergency department for uncontrolled symptoms, inability tolerate oral intake or medication, or anything else that you are concerned about and feel needs emergency department evaluation. Coding Level of Care Code ED [employer] Supervisor for Jose Daniel Sher
[2022-09-22 20:00] VITALS: BP 107/80; PULSE 102; RESP 16; TEMP 36.7; O2SAT 94; BMI 37.8
--- NOTE | 2022-09-22 20:37 | CTR_ITS ---
PROCEDURE INFORMATION: Exam: CT Abdomen And Pelvis With Contrast Exam date and time: 09/22/2022 8:45 PM Age: 51 years old Clinical indication: Abdominal pain; Other: Right sided abd pain; Additional info: R side pain, n/v TECHNIQUE: Imaging protocol: Computed tomography of the abdomen and pelvis with contrast. Sagittal and coronal reformatted images were created and reviewed. Radiation optimization: All CT scans at this facility use at least one of these dose optimization techniques: automated exposure control; mA and/or kV adjustment per patient size (includes targeted exams where dose is matched to clinical indication); or iterative reconstruction. Contrast material: OMNI 350; Contrast volume: 100 ml; Contrast route: INTRAVENOUS (IV); REPORTING DATA: Count of CT and Cardiac NM exams in prior 12 months: This patient has received 0 known CTs and 0 known cardiac nuclear medicine studies in the 12 months prior to the current study. COMPARISON: CT kidney stone [id number] 01/18/2020 10:43 AM RADIATION DOSE METRICS: Total DLP (mGy-cm): 1023.09 FINDINGS: Lungs: Stable calcified granuloma in the the right lower lobe. Liver: The liver is unremarkable. Gallbladder and bile ducts: Stable findings consistent with a previous cholecystectomy. Stable dilatation of the biliary ducts, not unexpected in a patient who has had a prior cholecystectomy. Pancreas: The pancreas is unremarkable. No pancreatic ductal dilatation. Spleen: The spleen is unremarkable. Adrenal glands: The right and left adrenal glands are unremarkable. Kidneys and ureters: The right and left kidneys are unremarkable. The right and left ureters are unremarkable. Stomach and bowel: No acute abnormality in the stomach. No acute abnormality in the small bowel. No acute abnormality in the colon. Appendix: Patient has had an interval appendectomy. Intraperitoneal space: No free intraperitoneal air. No ascites. No loculated fluid collections to suggest an abscess. Vasculature: Stable mild atherosclerotic calcifications in the visualized arteries. No evidence for aortic aneurysm or aortic dissection. Hepatic veins, portal veins, splenic vein, and SMV are patent. Lymph nodes: No lymphadenopathy. Urinary bladder: The bladder is unremarkable. Reproductive: The uterus, right ovary, and left ovary are unremarkable. Stable changes consistent with a previous bilateral tubal ligation. Bones/joints: Degenerative changes in the spine and hips. Mild spinal canal stenosis at L3-L4 and L4-L5. Moderate spinal canal stenosis at L5-S1. Multilevel foraminal stenosis of varying severity in the lumbar spine. Soft tissues: Unremarkable. CT/CT abdomen pelvis w con* [id number] IMPRESSION: 1. No acute abnormality in the abdomen or pelvis. 2. Incidental/nonacute findings are listed in the report.
[2022-09-22] MEDS: iohexol 350 mg/mL 500 mL Btl (per mL) IV (20:49)
[2022-09-22 21:05] VITALS: RESP 16
[2022-09-22 21:05] LABS: Basophils % 0.3 %; Eosinophils # 0.1 10^3/uL (0.0-0.8); Eosinophils % 1.2 %; Hematocrit 45.4 % (37.0-47.0); Hemoglobin 15.5 g/dL (11.5-15.3); Lymphocytes # 2.2 10^3/uL (0.8-4.8); Lymphocytes % 32.9 %; Mean Corpuscular HGB Conc 34.1 g/dL (30.0-36.0); Mean Corpuscular Volume 90.8 fl (81-99); Mean Platelet Volume 10.7 fL (7.4-10.4); Monocytes # 0.4 10^3/uL (0.2-0.9); Monocytes % 6.6 %; Neutrophils % 58.8 %; Nucleated Red Blood Cells % 0 %; Platelet Count 177 10^3/cmm (130-400); Red Cell Distribution Width 12.7 % (12.1-15.1); White Blood Count 6.6 10^3/uL (4.0-10.0)
[2022-09-22] MEDS: morphine 4 mg/mL SDV 1 mL IVP (21:05)
[2022-09-22 21:06] VITALS: BP 117/70; PULSE 83; RESP 16; O2SAT 97
[2022-09-22 21:25] LABS: Alanine Aminotransferase 21 U/L (0-33); Albumin Level 4.2 g/dL (3.5-5.2); Alkaline Phosphatase 82 U/L (35-105); Anion Gap 14.6 (5-19); Aspartate Amino Transferase 14 U/L (0-32); Blood Urea Nitrogen 6 mg/dL (6-20); Calcium 9.5 mg/dL (8.5-10.5); Carbon Dioxide 27 mmol/L (22-29); Chloride 103 mmol/L (98-107); Globulin 2.4 g/dL (1.3-4.6); Glomerular Filtration Rate 105.8 mL/min (90-130); Glucose 106 mg/dL (65-115); Lipase 16 U/L (13-60); Osmolality Calculated 290 mOsm/kg (285-295); Potassium 3.6 mmol/L (3.5-5.1); Sodium 141 mmol/L (136-145); Total Bilirubin 0.2 mg/dL (0.15-1.2); Total Protein 6.6 g/dL (6.6-8.7)
[2022-09-22 22:18] LABS: HCG Qualitative Urine. Negative (Negative)
[2022-09-22 22:26] LABS: Add Urine Microscopic? YES; Bilirubin Urine Neg (Negative); Blood Urine Neg (Negative); Glucose Urine UA Norm (Normal); Ketones Urine Negative (Negative); Leukocyte Esterase Urine Negative (Negative); Nitrate Urine Positive (Negative); Protein Urine Neg (Negative); Specific Gravity, Urine 1.005 (1.005-1.030); Urine Appearance Clear (CLEAR); Urine Color Yellow (Yellow); Urobilinogen Urine Neg (Negative); pH Urine 6.5 (5-7)
[2022-09-22 22:28] LABS: Amorphous Sediment Urine TRACE /hpf; Bacteria Urine 2+ /hpf; Mucus Urine TRACE /hpf; RBC Urine 0-4 /hpf (0-2); Squamous Epithelial Cell Urine 0-4 /hpf (0-5); WBC Urine 0-4 /hpf (0-5)
[2022-09-22 22:29] LABS: Add Urine Culture? Yes
[2022-09-22] MEDS: ciprofloxacin 500 mg Tablet PO (22:39)
[2022-09-22] MEDS: methocarbamol 750 mg Tablet PO (22:40)
[2022-09-22] MEDS: ketorolac 30 mg/mL INJ 15 MG IVP (22:42)
[2022-09-22 22:56] VITALS: BP 117/70; PULSE 83; RESP 18; O2SAT 95
[2022-09-23 00:32] VITALS: BP 104/77; PULSE 97; RESP 16; TEMP 36.7; O2SAT 92
== END 2022-09-23 02:18 | disposition home or self-care (01) ==
PROVIDERS: Emergency Provider Emergency Medicine; PCP Nurse Practitioner Family
DX: N39.0 Urinary tract infection, site not specified (principal); Z87.440 Personal history of urinary (tract) infections; Z79.82 Long term (current) use of aspirin; F17.210 Nicotine dependence, cigarettes, uncomplicated; E11.9 Type 2 diabetes mellitus without complications
CPT/HCPCS: 36415; 74177; 80053; 81001; 81025; 83690; 85025; 87077; 87086; 87186; 96374; 96375; 99285; J1885; J2270; Q9967

== ENCOUNTER 2022-10-12 21:02 | Inpatient (IN) | payer MEDICAID, SELFPAY ==
[2022-04-16 14:54] VITALS: BP 115/68; BMI 34.6
[2022-10-12 21:05] VITALS: BMI 37.8
--- NOTE | 2022-10-12 21:23 | ED.C_ITS ---
Documented by User: IESHA Alberts 10/12/22 22:43 HPI - Psych General: Chief Complaint: Psychiatric Symptoms Stated Complaint: MHE Time Seen by Provider: 10/12/22 21:15 History of Present Illness: 51-year-old female comes in today for complaints of increased depression and anxiety. Patient reports that her symptoms have worsened. Patient was seen at [facility] today and was offered admission but refused at the time. Patient gone home and since then had increased distress and worsening symptoms. Patient does feel suicidal and states that she would take all of her pills. Patient reports that there is no firearms in the house. Patient has had a prior suicidal attempt about 6 years ago. Patient had a hospitalization for her depression and anxiety within the last year. Patient does have chronic medical problems involving chronic pain, osteoarthritis, stomach and bladder problems . Patient reports occasional EtOH consumption, no street drugs, routine nicotine use, no marijuana. Patient is cooperative and appears nontoxic. Patient does admit that she hears voices but takes her medication for these voices. Associated symptoms: Deny depression Review of Systems General: Reports: 10 or more systems reviewed and unremarkable except in HPI and below Const: Denies: fever(s) Card: Denies: chest pain Resp: Denies: dyspnea GI: Denies: nausea or vomiting : Denies: difficulty voiding Musc: Denies: back pain or extremity pain Skin/Breast: Denies: rash Neuro: Denies: headache(s) Psych: Denies: depression Endo: Denies: polyuria PFSH ED PFSH: Medical History Bipolar affect, depressed Depression Diabetes mellitus without complication, without long-term current use of insulin DJD (degenerative joint disease) Gastritis Hiatal hernia History of colon polyps 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, single episode, severe with psychotic features Paresthesia and pain of both upper extremities Peptic ulcer Polyp of colon, adenomatous Post-traumatic stress disorder, chronic Psychiatric care Psychiatric care Pure hypercholesterolemia, unspecified Recurrent UTI Schizophrenia Urinary incontinence, mixed Surgical History History of esophagogastroduodenoscopy (EGD) Hx of appendectomy S/P cholecystectomy S/P colonoscopy S/P endometrial ablation S/P laparoscopic appendectomy (01/18/20) S/P tubal ligation Family History Father Cancer Mother , at age 64 Cancer lung and spinal sarcoma Grandfather Heart disease Hypertension Diabetes Brother Heart disease Hyperlipidemia Diabetes Sister Heart disease Hyperlipidemia Grandmother Cancer Other Bipolar affect, depressed Social History Smoking and tobacco status: current every day smoker cigarettes Packs smoked per day: 1.5 Years cigarettes smoked: 37 Quit status (tobacco): not considering quitting Second hand smoke exposure: Yes Smoking risk assessment/counseling performed?: Yes Alcohol intake: former Year of sobriety/quit date alcohol: 2014 Former alcohol use details: 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 Adopted: No Caregiver/support person: Yes Lives independently: Yes Household members: none Housing: Apartment Marital status: Single Number of children: 4 Number of grandchildren: 4 Highest education level completed: 10th Grade service: No Current occupational status: disabled Current occupational exposures/hazards: No Pets and animals: Yes (Baljeet) Pets & animals: cat(s) Leisure activites: other Leisure activities details: watch tv, either outside o r sleeping Sexually active: No Current gender identity: Female [employer]ette/[employer]ist: Anglican Special odette needs: No Agree to transfusion: Yes Financial difficulty paying for basics: Not Very Hard Female Reproductive History: Para: 4 Date of menopause: 07/29/16 Physical Exam Const: COMMON NORMALS: alert GENERAL APPEARANCE: well kempt HENMT: COMMON NORMALS: normocephalic HEAD & SCALP: normocephalic Neck/C-Spine: COMMON NORMALS: full ROM Resp: COMMON NORMALS: normal respiratory effort and clear to auscultation bilaterally AUSCULTATION: clear to auscultation bilaterally Cardio: COMMON NORMALS: regular rate and regular rhythm RATE: regular rate RHYTHM: regular rhythm GI: COMMON NORMALS: non-tender Back/Pelvis: COMMON NORMALS: thoracic and lumbar spine normal to inspection Extremity: COMMON NORMALS: normal to inspection and no pedal edema Neuro: SENSORIUM/ORIENTATION: Yes alert Psych: COMMON NORMALS: speech normal APPEARANCE: Yes well kempt ATTITUDE: Yes calm ACTIVITY/MOTOR BEHAVIOR: Yes Avoids eye contact (attititude/behavior) SPEECH: Yes normal speech THOUGHT PROCESS: Circumstantial thought process present THOUGHT CONTENT: Yes Suicidality present ATTENTION/CONCENTRATION: Yes attention grossly intact MEMORY/COGNITION: Yes memory grossly intact INSIGHT: Fair insight present (Psych) JUDGEMENT: Fair judgement present (Psych) Course Vital Signs: Vital signs: Vital Signs Temperature 98.0 F 10/17/22 06:00 Pulse Rate 66 10/17/22 06:00 Respiratory Rate 16 10/17/22 06:00 Blood Pressure 115/74 10/17/22 06:00 Pulse Oximetry 95 10/17/22 06:00 Oxygen Delivery Me thod 10/16/22 14:00 MDM - Psych Medical Decision Making 51-year-old female comes in today with worsening depression and suicidal thoughts. Patient appears nontoxic. Patient reports that she would take all of her pills in order to commit suicide. Patient was alert and responding appropriate questions. Patient's last admission to the hospital was within the last year for similar complaints. On exam patient is alert oriented, lungs are clear to auscultation, abdomen soft nontender. Vital signs are normal. Differential diagnosis includes major depressive disorder, psychosis, suicidal ideation, malingering. Laboratory values were unremarkable. Reviewed exam with Dr. Pryor who agreed to admission to the neuropsychiatric urinate. Discussed with Dr. Skaggs who agreed for orders to admit for further evaluation and treatment of major depressive disorder and suicidal ideation. Lab Data 10/12/22 21:30 10/12/22 21:30 Laboratory Results WBC 8.1 10^3/uL (4.0-10.0) 10/12/22 21:30 RBC 4.86 10^6/uL (4.1-5.3) 10/12/22 21:30 Hgb 15.0 g/dL (11.5-15.3) 10/12/22 21:30 Hct 43.6 % (37.0-47.0) 10/12/22 21:30 MCV 89.7 fl (81-99) 10/12/22 21:30 MCH 30.9 pg (28.0-34.0) 10/12/22 21:30 MCHC 34.4 g/dL (30.0-36.0) 10/12/22 21:30 RDW 12.1 % (12.1-15.1) 10/12/22 21:30 Plt Count 191 10^3/cmm (130-400) 10/12/22 21: MPV 10.4 fL (7.4-10.4) 10/12/22 21: Neut % (Auto) 52.7 % 10/12/22 21: Lymph % (Auto) 38.7 % 10/12/22 21: [place] % (Auto) 6.8 % 10/12/22 21: Eos % (Auto) 1.2 % 10/12/22: Baso % (Auto) 0.2 % 10/12/22 21: Neut # (Auto) 4.25 10^3/uL (1.8-7.7) 10/12/22: Lymph # (Auto) 3.1 10^3/uL (0.8-4.8) 10/12/22 21: [place] # (Auto) 0.6 10^3/uL (0.2-0.9) 10/12/22: Eos # (Auto) 0.1 10^3/uL (0.0-0.8) 10/12/22 21: Baso # (Auto) 0.0 10^3/uL (0.0-0.1) 10/12/22: Nucleated RBC % (auto) 0 % 10/12/22: Nucleated RBCs # 0.0 /100WBC 10/12/22: Sodium 142 mmol/L (136-145) 10/12/22 21: Potassium 3.7 mmol/L (3.5-5.1) 10/12/22: Chloride 103 mmol/L (98-107) 10/12/22 21: Carbon Dioxide 30 mmol/L (22-29) H 10/12/22: Anion Gap 12.7 (5-19) 10/12/22: BUN 8 mg/dL (6-20) 10/12/22: Creatinine 0.7 mg/dL (0.5-0.9) 10/12/22 21: GFR Calculation 88.6 mL/min (90-130) L 10/12/22: Glucose 86 mg/dL (65-115) 10/12/22: POC Glucose 111 mg/dL (70-110) H 10/12/22 22:22 Calculated Osmolality 292 mOsm/kg (285-295) 10/12/22 21:30 Calcium 8.9 mg/dL (8.5-10.5) 10/12/22 21:30 Total Bilirubin 0.2 mg/dL (0.15-1.2) 10/12/22 21:30 AST 12 U/L (0-32) 10/12/22 21:30 ALT 18 U/L (0-33) 10/12/22 21:30 Alkaline Phosphatase 77 U/L (35-105) 10/12/22 21:30 Total Protein 6.5 g/dL (6.6-8.7) L 10/12/22 21:30 Albumin 4.1 g/dL (3.5-5.2) 10/12/22 21:30 Globulin 2.4 g/dL (1.3-4.6) 10/12/22 21:30 TSH 0.87 uIU/mL (0.27-4.20) 10/12/22 21:30 HCG, Qual Negative (Negative) 10/12/22 22:43 Urine Color Colorless (Yellow) 10/12/22 22:44 Urine Appearance Clear (CLEAR) 10/12/22 22:44 Urine pH 7 (5-7) 10/12/22 22:44 Ur Specific [place] 1.005 (1.005-1.030) 10/12/22 22:44 Urine Protein Neg (Negative) 10/12/22 22:44 Urine Glucose (UA) Norm (Normal) 10/12/22 22:44 Urine Ketones Negative (Negative) 10/12/22 22:44 Urine Blood Neg (Negative) 10/12/22 22:44 Urine Nitrate Negative (Negative) 10/12/22 22:44 Urine Bilirubin Neg (Negative) 10/12/22 22:44 Urine Urobilinogen Norm mg/dL (Negative) 10/12/22 22:44 Ur Leukocyte Esterase Negative (Negative) 10/12/22 22:44 Salicylates < 0.3 mg/dL (3-10) L 10/12/22 21:30 Urine Opiates Screen Positive ng/mL (Negative) H 10/12/22 22:44 Acetaminophen < 5.0 ug/mL (10-30) L 10/12/22 21:30 Ur Barbiturates Screen Negative ng/mL (Negative) 10/12/22 22:44 Ur Phencyclidine Scrn Negative ng/mL (Negative) 10/12/22 22:44 Ur Amphetamines Screen Negative ng/mL (Negative) 10/12/22 22:44 U Benzodiazepines Scrn Negative ng/mL (Negative) 10/12/22 22:44 Urine Cocaine Screen Negative ng/mL (Negative) 10/12/22 22:44 U Marijuana (THC) Screen Negative ng/mL (Negative) 10/12/22 22:44 Ethyl Alcohol < 10 mg/dL (0-10) 10/12/22 21:30 Discharge Plan Discharge Patient Disposition: Admitted As Inpatient Admit Provider: Dakota Pryor Clinical Impression: Suicidal ideation, Major depressive disorder, single episode, severe with psychotic features Condition: Stable Coding Level of Care Code ED [employer] for Chg Fwd Documented by User: Renny Skaggs MD 10/17/22 08:10 HPI - Psych General: Chief Complaint: Psychiatric Symptoms Stated Complaint: MHE Time Seen by Provider: 10/12/22 21:15 PFSH ED PFSH: Medical History Bipolar affect, depressed Depression Diabetes mellitus without complication, without long-term current use of insulin DJD (degenerative joint disease) Gastritis Hiatal hernia History of colon polyps 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, single episode, severe with psychotic features Paresthesia and pain of both upper extremities Peptic ulcer Polyp of colon, adenomatous Post-traumatic stress disorder, chronic Psychiatric care Psychiatric care Pure hypercholesterolemia, unspecified Recurrent UTI Schizophrenia Urinary incontinence, mixed Surgical History History of esophagogastroduodenoscopy (EGD) Hx of appendectomy S/P cholecystectomy S/P colonoscopy S/P endometrial ablation S/P laparoscopic appendectomy (01/18/20) S/P tubal ligation Family History Father Cancer Mother , at age 64 Cancer lung and spinal sarcoma Grandfather Heart disease Hypertension Diabetes Brother Heart disease Hyperlipidemia Diabetes Sister Heart disease Hyperlipidemia Grandmother Cancer Other Bipolar affect, depressed Social History Smoking and tobacco status: current every day smoker cigarettes Packs smoked per day: 1.5 Years cigarettes smoked: 37 Quit status (tobacco): not considering quitting Second hand smoke exposure: Yes Smoking risk assessment/counseling performed?: Yes Alcohol intake: former Year of sobriety/quit date alcohol: 2014 Former alcohol use details: 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 Adopted: No Caregiver/support person: Yes Lives independently: Yes Household members: none Housing: Apartment Marital status: Single Number of children: 4 Number of grandchildren: 4 Highest education level completed: 10th Grade service: No Current occupational status: disabled Current occupational exposures/hazards: No Pets and animals: Yes (Baljeet) Pets & animals: cat(s) Leisure activites: other Leisure activities details: watch tv, either outside or sleeping Sexually active: No Current gender identity: Female Odette/Methodist: Anglican Special odette needs: No Agree to transfusion: Yes Financial difficulty paying for basics: Not Very Hard Course Vital Signs: Vital signs: Vital Signs Temperature 98.0 F 10/17/22 06:00 Pulse Rate 66 10/17/22 06:00 Respiratory Rate 16 10/17/22 06:00 Blood Pressure 115/74 10/17/22 06:00 Pulse Oximetry 95 10/17/22 06:00 Oxygen Delivery Me thod 10/16/22 14:00 [facility] - Psych Medical Decision Making 51-year-old female comes in today with worsening depression and suicidal thoughts. Patient appears nontoxic. Patient reports that she would take all of her pills in order to commit suicide. Patient was alert and responding appropriate questions. Patient's last admission to the hospital was within the last year for similar complaints. On exam patient is alert oriented, lungs are clear to auscultation, abdomen soft nontender. Vital signs are normal. Differential diagnosis includes major depressive disorder, psychosis, suicidal ideation, malingering. Laboratory values were unremarkable. Reviewed exam with Dr. Pryor who agreed to admission to the neuropsychiatric urinate. Discussed with Dr. Skaggs who agreed for orders to admit for further evaluation and treatment of major depressive disorder and suicidal ideation. I discussed this case with Ricky JULIAN. Renny Skaggs MD Emergency Medicine Lab Data 10/12/22 21:30 10/12/22: Laboratory Results WBC 8.1 10^3/uL (4.0-10.0) 10/12/22: RBC 4.86 10^6/uL (4.1-5.3) 10/12/22: Hgb 15.0 g/dL (11.5-15.3) 10/12/22: Hct 43.6 % (37.0-47.0) 10/12/22: MCV 89.7 fl (81-99) 10/12/22: MCH 30.9 pg (28.0-34.0) 10/12/22: MCHC 34.4 g/dL (30.0-36.0) 10/12/22: RDW 12.1 % (12.1-15.1) 10/12/22: Plt Count 191 10^3/cmm (130-400) 10/12/22: MPV 10.4 fL (7.4-10.4) 10/12/22: Neut % (Auto) 52.7 % 10/12/22: Lymph % (Auto) 38.7 % 10/12/22: [place] % (Auto) 6.8 % 10/12/22: Eos % (Auto) 1.2 % 10/12/22: Baso % (Auto) 0.2 % 10/12/22: Neut # (Auto) 4.25 10^3/uL (1.8-7.7) 10/12/22: Lymph # (Auto) 3.1 10^3/uL (0.8-4.8) 10/12/22: [place] # (Auto) 0.6 10^3/uL (0.2-0.9) 10/12/22: Eos # (Auto) 0.1 10^3/uL (0.0-0.8) 10/12/22 21:30 Baso # (Auto) 0.0 10^3/uL (0.0-0.1) 10/12/22 21:30 Nucleated RBC % (auto) 0 % 10/12/22 21: Nucleated RBCs # 0.0 /100WBC 10/12/22 21:30 Sodium 142 mmol/L (136-145) 10/12/22 21:30 Potassium 3.7 mmol/L (3.5-5.1) 10/12/22 21:30 Chloride 103 mmol/L (98-107) 10/12/22 21: Carbon Dioxide 30 mmol/L (22-29) H 10/12/22:30 Anion Gap 12.7 (5-19) 10/12/22 21:30 BUN 8 mg/dL (6-20) 10/12/22 21:30 Creatinine 0.7 mg/dL (0.5-0.9) 10/12/22 21: GFR Calculation 88.6 mL/min (90-130) L 10/12/22 21:30 Glucose 86 mg/dL (65-115) 10/12/22 21: POC Glucose 111 mg/dL (70-110) H 10/12/22 22:22 Calculated Osmolality 292 mOsm/kg (285-295) 10/12/22: Calcium 8.9 mg/dL (8.5-10.5) 10/12/22 21:30 Total Bilirubin 0.2 mg/dL (0.15-1.2) 10/12/22 21:30 AST 12 U/L (0-32) 10/12/22 21:30 ALT 18 U/L (0-33) 10/12/22 21:30 Alkaline Phosphatase 77 U/L (35-105) 10/12/22 21:30 Total Protein 6.5 g/dL (6.6-8.7) L 10/12/22: Albumin 4.1 g/dL (3.5-5.2) 10/12/22 21: Globulin 2.4 g/dL (1.3-4.6) 10/12/22: TSH 0.87 uIU/mL (0.27-4.20) 10/12/22 21:30 HCG, Qual Negative (Negative) 10/12/22 22:43 Urine Color Colorless (Yellow) 10/12/22 22:44 Urine Appearance Clear (CLEAR) 10/12/22 22:44 Urine pH 7 (5-7) 10/12/22 22:44 Ur Specific [place] 1.005 (1.005-1.030) 10/12/22 22:44 Urine Protein Neg (Negative) 10/12/22 22:44 Urine Glucose (UA) Norm (Normal) 10/12/22 22:44 Urine Ketones Negative (Negative) 10/12/22 22:44 Urine Blood Neg (Negative) 10/12/22 22:44 Urine Nitrate Negative (Negative) 10/12/22 22:44 Urine Bilirubin Neg (Negative) 10/12/22 22:44 Urine Urobilinogen Norm mg/dL (Negative) 10/12/22 22:44 Ur Leukocyte Esterase Negative (Negative) 10/12/22 22:44 Salicylates < 0.3 mg/dL (3-10) L 10/12/22 21:30 Urine Opiates Screen Positive ng/mL (Negative) H 10/12/22 22:44 Acetaminophen < 5.0 ug/mL (10-30) L 10/12/22 21:30 Ur Barbiturates Screen Negative ng/mL (Negative) 10/12/22 22:44 Ur Phencyclidine Scrn Negative ng/mL (Negative) 10/12/22 22:44 Ur Amphetamines Screen Negative ng/mL (Negative) 10/12/22 22:44 U Benzodiazepines Scrn Negative ng/mL (Negative) 10/12/22 22:44 Urine Cocaine Screen Negative ng/mL (Negative) 10/12/22 22:44 U Marijuana (THC) Screen Negative ng/mL (Negative) 10/12/22 22:44 Ethyl Alcohol < 10 mg/dL (0-10) 10/12/22 21:30 Discharge Plan Discharge Patient Disposition: Admitted As Inpatient Admit Provider: Dakota Pryor Clinical Impression: Suicidal ideation, Major depressive disorder, single episode, severe with psychotic features Condition: Stable Coding Level of Care Code ED [employer] for Jose Daniel Sher
[2022-10-12 21:38] VITALS: BP 116/80; PULSE 99; RESP 16; TEMP 36.9; O2SAT 95
[2022-10-12 21:46] LABS: Basophils % 0.2 %; Eosinophils # 0.1 10^3/uL (0.0-0.8); Eosinophils % 1.2 %; Hematocrit 43.6 % (37.0-47.0); Lymphocytes # 3.1 10^3/uL (0.8-4.8); Lymphocytes % 38.7 %; Mean Corpuscular HGB Conc 34.4 g/dL (30.0-36.0); Mean Corpuscular Hemoglobin 30.9 pg (28.0-34.0); Mean Corpuscular Volume 89.7 fl (81-99); Mean Platelet Volume 10.4 fL (7.4-10.4); Monocytes # 0.6 10^3/uL (0.2-0.9); Monocytes % 6.8 %; Neutrophils # 4.25 10^3/uL (1.8-7.7); Neutrophils % 52.7 %; Nucleated Red Blood Cells % 0 %; Platelet Count 191 10^3/cmm (130-400); Red Blood Count 4.86 10^6/uL (4.1-5.3); Red Cell Distribution Width 12.1 % (12.1-15.1); White Blood Count 8.1 10^3/uL (4.0-10.0)
[2022-10-12 22:24] LABS: Alanine Aminotransferase 18 U/L (0-33); Albumin Level 4.1 g/dL (3.5-5.2); Alkaline Phosphatase 77 U/L (35-105); Anion Gap 12.7 (5-19); Aspartate Amino Transferase 12 U/L (0-32); Blood Urea Nitrogen 8 mg/dL (6-20); Calcium 8.9 mg/dL (8.5-10.5); Carbon Dioxide 30 mmol/L (22-29); Chloride 103 mmol/L (98-107); Globulin 2.4 g/dL (1.3-4.6); Glomerular Filtration Rate 88.6 mL/min (90-130); Glucose 86 mg/dL (65-115); Osmolality Calculated 292 mOsm/kg (285-295); Potassium 3.7 mmol/L (3.5-5.1); Sodium 142 mmol/L (136-145); Thyroid Stimulating Hormone 0.87 uIU/mL (0.27-4.20); Total Bilirubin 0.2 mg/dL (0.15-1.2); Total Protein 6.5 g/dL (6.6-8.7)
[2022-10-12 22:25] LABS: Acetaminophen < 5.0 ug/mL (10-30); Alcohol Level < 10 mg/dL (0-10); Salicylate < 0.3 mg/dL (3-10)
[2022-10-12 22:26] LABS: Glucose Point of Care 111 mg/dL (70-110)
[2022-10-12 22:48] LABS: Add Urine Microscopic? NO; Charge for UA Resulting for Rev
[2022-10-12 22:51] LABS: HCG Qualitative Urine. Negative (Negative)
[2022-10-12 22:52] LABS: Bilirubin Urine Neg (Negative); Blood Urine Neg (Negative); Glucose Urine UA Norm (Normal); Ketones Urine Negative (Negative); Leukocyte Esterase Urine Negative (Negative); Nitrate Urine Negative (Negative); Protein Urine Neg (Negative); Specific Gravity, Urine 1.005 (1.005-1.030); Urine Appearance Clear (CLEAR); Urine Color Colorless (Yellow); Urobilinogen Urine Norm (Negative); pH Urine 7 (5-7)
[2022-10-12 23:00] LABS: Amphetamines Screen Urine Negative (Negative); Barbiturates Screen Urine Negative (Negative); Benzodiazepines Screen Urine Negative (Negative); Cocaine Screen Urine Negative (Negative); Opiate Screen Urine Positive (Negative); PCP Screen Urine Negative (Negative); THC Screen Urine Negative (Negative)
[2022-10-12 23:20] VITALS: BP 118/82; PULSE 88; RESP 16; TEMP 36.8; O2SAT 98
[2022-10-13 05:25] VITALS: RESP 16; O2SAT 98
[2022-10-13 06:00] VITALS: BP 110/72; PULSE 73; RESP 15; TEMP 36.6; O2SAT 94
[2022-10-13] MEDS: ascorbic acid 500 mg Tablet PO (09:05)
[2022-10-13] MEDS: desvenlafaxine 50 mg Tablet 100 MG PO (09:06)
[2022-10-13] MEDS: cholecalciferol (vitamin D3) 1,000 unit Tablet 1000 UNIT PO (09:06)
[2022-10-13] MEDS: atorvastatin 40 mg Tablet PO (09:06)
[2022-10-13] MEDS: aspirin 81 mg EC Tablet PO (09:06)
[2022-10-13] MEDS: CELEcoxib 100 mg Capsule PO (09:06)
[2022-10-13] MEDS: oxybutynin 5 mg Tablet 15 MG PO (09:14)
[2022-10-13] MEDS: pregabalin 50 mg Capsule PO ×3 (09:15→20:29)
[2022-10-13] MEDS: pantoprazole DR 40 mg Tablet PO ×2 (09:15→17:42)
--- NOTE | 2022-10-13 09:23 | PC.NURSE ---
unable to give home medication, pt states she will try to have someone bring medications to hospital today.
[2022-10-13 11:35] VITALS: RESP 18
[2022-10-13 14:00] VITALS: BP 112/74; PULSE 73; RESP 16; TEMP 36.6; O2SAT 95
[2022-10-13 17:42] VITALS: RESP 18
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
[2022-10-13] MEDS: nystatin powder 15 gm Btl 1 APPLIC TOPICAL (17:56)
[2022-10-13] MEDS: lurasidone 20 mg Tablet PO (20:30)
[2022-10-13] MEDS: quetiapine 100 mg Tablet PO (20:30)
[2022-10-13] MEDS: capsaicin 0.025% cream 60 gm 1 APPLIC TOPICAL (20:31)
[2022-10-13 20:39] VITALS: BP 121/84; PULSE 93; RESP 18; TEMP 36.6; O2SAT 97
[2022-10-14] VITALS (7 sets, daily range): BP systolic 116–144; BP diastolic 74–87; PULSE 72–81; RESP 16–20; TEMP 36.6–36.8; O2SAT 91–97; BMI 37.8
[2022-10-14] MEDS: ascorbic acid 500 mg Tablet PO (09:43)
[2022-10-14] MEDS: CELEcoxib 100 mg Capsule PO (09:43)
[2022-10-14] MEDS: desvenlafaxine 50 mg Tablet PO (09:43)
[2022-10-14] MEDS: cholecalciferol (vitamin D3) 1,000 unit Tablet 1000 UNIT PO (09:44)
[2022-10-14] MEDS: pantoprazole DR 40 mg Tablet PO ×2 (09:44→18:10)
[2022-10-14] MEDS: atorvastatin 40 mg Tablet PO (09:44)
[2022-10-14] MEDS: pregabalin 50 mg Capsule PO ×3 (09:44→20:19)
[2022-10-14] MEDS: oxybutynin 5 mg Tablet 15 MG PO (09:44)
[2022-10-14] MEDS: aspirin 81 mg EC Tablet PO (09:45)
--- NOTE | 2022-10-14 14:42 | W.PM.NPUPNS ---
Subjective NPU Subjective: Patient is a 51-year-old old white female admitted with depressed mood and suicidal ideation who had reported a history of hypomanic symptoms along with depressive episodes for many years. Patient reported no side effects from the reduction in her Pristiq as this is scheduled to be tapered and discontinued. Patient had been started on Latuda 20 mg to target bipolar depression. She had reported continued depression and reported continued episodes of nightmares along with flashbacks associated with her PTSD. The patient had isolated herself on the milieu. She continued to require the use of a wheelchair due to various medical issues. Patient denied any feelings of hopelessness or worthlessness. Mental Status Exam MSE Comments: She is a casually dressed white female who appeared her stated age. Her gait was within normal limits. Her hygiene was fair. There was no evidence of any abnormal involuntary motor movements tics or tremors appreciated. Speech was normal regards to rate rhythm and prosody. There was evidence of mild psychomotor retardation. She was good historian. Her mood continue to be reported as depressed. Her affect was congruent and restricted in range. Her thought process was linear logical and goal-directed. Thought content showed no evidence of homicidal ideation although she endorsed suicidal ideation with no plan endorsed today. There was no clear evidence of delusional thinking. She did not appear to be responding internal stimuli although she endorsed infrequent auditory hallucinations. Her insight is limited. Her judgment is poor. Her impulse control is. Vitals/I&O/Wt Last Vital Signs Temp 98.2 F 10/14/22 13:54 Pulse 72 10/14/22 13:54 Resp 18 10/14/22 13:54 BP 119/74 10/14/22 13:54 Pulse Ox 94 10/14/22 13:54 O2 Del Method 10/14/22 09:10 Weight last 48 hrs Weight 102.965 kg Weight 102.965 kg Data NPU 10/12/22 21:30 10/12/22 21:30 A&P Assessment and plan (1) Bipolar depression: (2) Suicidal ideation: (3) PTSD (post-traumatic stress disorder): (4) Bipolar 2 disorder: Plan Patient is a 51-year-old white female who had recent increase in her Pristiq 1 month ago complaining of worsening depression with some symptoms suggestive of hypomania as well who was admitted to NPU for suicidal ideation and depression 1. Reduce Seroquel to 50mg at night, continue Latuda 20mg at 7PM, Pristiq at 50mg daily with plan for discontinuation of this medication. 2. Engage patient in individual, group, and milieu therapy. 3. Will attempt to gather collateral information. 4. Therapeutic observation 15-minute checks. Involuntary Hold Information 96 Hour Hold: 96 Hour Involuntary Admission: No Attestations NPU Medical Necessity Statement*: Inpatient hospitalization is medically necessary and will be clinically appropriate at this time.? We will monitor/initiate medications and make changes as indicated.? She will be in the hospital for over 2 midnights.? Likely length of stay 7-10 days. Coding Level of Care Code Acute Code for [facility] Fwd Diagnoses Bipolar depression F31.9 Suicidal ideation R45.851 PTSD (post-traumatic stress disorder) F43.10 Bipolar 2 disorder F31.81
[2022-10-14] MEDS: lurasidone 20 mg Tablet PO (18:24)
[2022-10-14] MEDS: quetiapine 100 mg Tablet 50 MG PO (20:19)
[2022-10-14] MEDS: capsaicin 0.025% cream 60 gm 1 APPLIC TOPICAL (20:58)
[2022-10-15 06:00] VITALS: BP 115/76; PULSE 72; RESP 16; TEMP 36.5; O2SAT 95
[2022-10-15 06:11] VITALS: RESP 16
--- NOTE | 2022-10-15 06:15 | PC.NURSE ---
prn hydromorphone was given as ordered for pain per pt request.
[2022-10-15] MEDS: atorvastatin 40 mg Tablet PO (08:25)
[2022-10-15] MEDS: ascorbic acid 500 mg Tablet PO (08:25)
[2022-10-15] MEDS: aspirin 81 mg EC Tablet PO (08:25)
[2022-10-15] MEDS: desvenlafaxine 50 mg Tablet PO (08:25)
[2022-10-15] MEDS: CELEcoxib 100 mg Capsule PO (08:25)
[2022-10-15] MEDS: cholecalciferol (vitamin D3) 1,000 unit Tablet 1000 UNIT PO (08:25)
[2022-10-15] MEDS: pregabalin 50 mg Capsule PO ×3 (08:26→20:11)
[2022-10-15] MEDS: oxybutynin 5 mg Tablet 15 MG PO (08:26)
[2022-10-15] MEDS: pantoprazole DR 40 mg Tablet PO ×2 (08:26→18:25)
--- NOTE | 2022-10-15 09:59 | PC.OT ---
OT EVALUATION ATTEMPTED. PATIENT IN SHOWER AT BOTH ATTEMPTS. WILL ATTEMPT AGAIN AT A LATER TIME.
[2022-10-15 13:02] VITALS: RESP 18
--- NOTE | 2022-10-15 13:35 | W.PM.NPUPNS ---
Subjective NPU Subjective: Patient is a 51-year-old old white female admitted with depressed mood and suicidal ideation who had reported a history of hypomanic symptoms along with depressive episodes for many years. The patient had reported some improvement in mood today. She reported no side effects from her Latuda. She reported continued need for taking opiates for managing her pain. She had reported no feelings of hopelessness. The patient reported that her energy had been low for months. She had not reported as much hypomania recently but had reported refractory depression for several months. She had reported no improvement with the Pristiq and patient was not reporting any withdrawal symptoms from the reduction in Pristiq yesterday. Patient had attended groups and was reporting continued problems with social isolation and being in large groups in general. Mental Status Exam MSE Comments: She is a casually dressed white female who appeared her stated age. Her gait was within normal limits. Her hygiene was fair. There was no evidence of any abnormal involuntary motor movements tics or tremors appreciated. Speech was normal regards to rate rhythm and prosody. There was evidence of mild psychomotor retardation. She was good historian. Her mood was described as better. Her affect was mood incongruent and restricted in range. Her thought process was linear logical and goal-directed. Thought content showed no evidence of homicidal ideation although she endorsed suicidal ideation with no plan endorsed today. There was no clear evidence of delusional thinking. She did not appear to be responding internal stimuli and denied any auditory or visual loose Nations. Her insight is limited. Her judgment is poor. Her impulse control is improving. Vitals/I&O/Wt Last Vital Signs Temp 97.7 F 10/15/22 06:00 Pulse 72 10/15/22 06:00 Resp 18 10/15/22 13:02 BP 115/76 10/15/22 06:00 Pulse Ox 95 10/15/22 06:00 O2 Del Method 10/15/22 06:00 Weight last 48 hrs Weight 102.965 kg Data NPU 10/12/22 21:30 10/12/22 21:30 A&P Assessment and plan (1) Bipolar depression: (2) Suicidal ideation: (3) PTSD (post-traumatic stress disorder): (4) Bipolar 2 disorder: Plan Patient is a 51-year-old white female who had recent increase in her Pristiq 1 month ago complaining of worsening depression with some symptoms suggestive of hypomania as well who was admitted to NPU for suicidal ideation and depression 1. Continue Seroquel at 50mg at night, increase Latuda to 40mg at 7PM, Reduce Pristiq to 25mg daily with plan for discontinuation of this medication upon discharge. 2. Engage patient in individual, group, and milieu therapy. 3. Will attempt to gather collateral information. 4. Therapeutic observation 15-minute checks. Involuntary Hold Information 96 Hour Hold: 96 Hour Involuntary Admission: No Attestations NPU Medical Necessity Statement*: Inpatient hospitalization is medically necessary and will be clinically appropriate at this time.? We will monitor/initiate medications and make changes as indicated with likely length of stay 3-5 days. Coding Level of Care Code Acute Code for [facility] Fwd Diagnoses Bipolar depression F31.9 Suicidal ideation R45.851 PTSD (post-traumatic stress disorder) F43.10 Bipolar 2 disorder F31.81
[2022-10-15 14:00] VITALS: BP 120/78; PULSE 89; RESP 18; TEMP 36.7; O2SAT 96
[2022-10-15] MEDS: lurasidone 20 mg Tablet 40 MG PO (18:26)
[2022-10-15 20:10] VITALS: RESP 16
[2022-10-15] MEDS: docusate sodium 100 mg Capsule PO (20:10)
[2022-10-15] MEDS: quetiapine 100 mg Tablet 50 MG PO (20:11)
--- NOTE | 2022-10-15 20:15 | PC.NURSE ---
PRN dilaudid was given as ordered per pt request.
[2022-10-15 20:25] VITALS: BP 103/62; PULSE 78; RESP 17; TEMP 37; O2SAT 98
[2022-10-16 06:00] VITALS: BP 148/76; PULSE 76; RESP 17; TEMP 37; O2SAT 98
[2022-10-16 07:14] VITALS: RESP 20
[2022-10-16] MEDS: CELEcoxib 100 mg Capsule PO (08:51)
[2022-10-16] MEDS: cholecalciferol (vitamin D3) 1,000 unit Tablet 1000 UNIT PO (08:51)
[2022-10-16] MEDS: atorvastatin 40 mg Tablet PO (08:51)
[2022-10-16] MEDS: aspirin 81 mg EC Tablet PO (08:51)
[2022-10-16] MEDS: pregabalin 50 mg Capsule PO ×3 (08:51→19:47)
[2022-10-16] MEDS: desvenlafaxine 50 mg Tablet 25 MG PO (08:51)
[2022-10-16] MEDS: ascorbic acid 500 mg Tablet PO (08:52)
[2022-10-16] MEDS: pantoprazole DR 40 mg Tablet PO ×2 (08:52→18:17)
[2022-10-16] MEDS: oxybutynin 5 mg Tablet 15 MG PO (08:52)
[2022-10-16] MEDS: capsaicin 0.025% cream 60 gm 1 APPLIC TOPICAL (09:37)
--- NOTE | 2022-10-16 09:47 | PC.NURSE ---
Dr. Brunner informed pt has not been receiving some of her home meds as they are not available here. Spoke with pt about them. She said others wouldn't have access to them at her home to bring them. Also said she may be discharged tomorrow.
[2022-10-16] MEDS: nicotine 2 mg Gum BUCCAL ×2 (12:00→16:13)
[2022-10-16 13:11] VITALS: RESP 16
[2022-10-16 14:00] VITALS: BP 133/83; PULSE 80; RESP 16; TEMP 36.6; O2SAT 96
--- NOTE | 2022-10-16 14:04 | P.NPUPN_ITS ---
Subjective NPU Subjective: Patient is a 51-year-old old white female admitted with depressed mood and suicidal ideation who had reported a history of hypomanic symptoms along with depressive episodes for many years. The patient had continue remain demanding on the unit. She reported difficulties with concentration. She had reported that her mood had been better with the initiation of Latuda. She reported no withdrawal symptoms from the reduction in Pristiq. Patient had been able to attend groups with limited participation noted. She reported adequate sleep currently. She had endorsed an extended history of low energy and low motivation but reported that her energy had been improving. She denied any auditory hallucinations currently. Mental Status Exam MSE Comments: She is a casually dressed white female who appeared her stated age. Her gait was within normal limits. Her hygiene was fair. There was no evidence of any abnormal involuntary motor movements tics or tremors appreciated. Speech was normal regards to rate rhythm and prosody. There was evidence of mild psychomotor retardation. Her mood was described as allright. Her affect remained flat. Her thought process was linear logical and goal- directed. Thought content showed no evidence of homicidal ideation or suicidal ideation. There was no clear evidence of delusional thinking. She did not appear to be responding internal stimuli and denied any auditory or visual hallucinations. Her insight is limited. Her judgment is poor. Her impulse control is improving. Vitals/I&O/Wt Last Vital Signs Temp 98.6 F 10/16/22 06:00 Pulse 76 10/16/22 06:00 Resp 16 10/16/22 13:11 BP 148/76 10/16/22 06:00 Pulse Ox 98 10/16/22 06:00 O2 Del Method 10/16/22 06:00 Data NPU 10/12/22 21:30 10/12/22 21:30 A&P Assessment and plan (1) Bipolar depression: (2) Suicidal ideation: (3) PTSD (post-traumatic stress disorder): (4) Bipolar 2 disorder: Plan Patient is a 51-year-old white female complaining of worsening depression with some symptoms suggestive of hypomania as well who was admitted to NPU for suicidal ideation and depression 1. Continue Seroquel at 50mg at night, Continue Latuda at 40mg at 7PM, Continue Pristiq to 25mg daily with plan for discontinuation of this medication upon discharge. 2. Engage patient in individual, group, and milieu therapy. 3. Will attempt to gather collateral information. 4. Therapeutic observation 15-minute checks. Involuntary Hold Information 96 Hour Hold: 96 Hour Involuntary Admission: No Attestations NPU Medical Necessity Statement*: Inpatient hospitalization is medically necessary and will be clinically appropriate at this time.? We will monitor/initiate medications and make changes as indicated with likely length of stay 1-2 days. Coding Level of Care Code Acute Code for [facility] Fwd Diagnoses Bipolar depression F31.9 Suicidal ideation R45.851 PTSD (post-traumatic stress disorder) F43.10 Bipolar 2 disorder F31.81
[2022-10-16] MEDS: lurasidone 20 mg Tablet 40 MG PO (18:17)
--- NOTE | 2022-10-16 18:22 | NPU.GN ---
[facility] Group Topic: Recreation General Mood of Group- patient participated in several rounds of cody castano. Patient continued to stay with the group after her turn
[2022-10-16 19:46] VITALS: RESP 16
[2022-10-16] MEDS: quetiapine 100 mg Tablet 50 MG PO (19:47)
--- NOTE | 2022-10-16 19:50 | PC.NURSE ---
PRN dilaudid 4mg PO given as ordered per pt request. pt rated pain at a 9 out of 10.
[2022-10-16 21:08] VITALS: BP 132/92; PULSE 82; RESP 18; TEMP 37.1; O2SAT 96
[2022-10-17 06:00] VITALS: BP 115/74; PULSE 66; RESP 16; TEMP 36.7; O2SAT 95
[2022-10-17] MEDS: capsaicin 0.025% cream 60 gm 1 APPLIC TOPICAL (07:51)
[2022-10-17] MEDS: atorvastatin 40 mg Tablet PO (07:52)
[2022-10-17] MEDS: aspirin 81 mg EC Tablet PO (07:52)
[2022-10-17] MEDS: desvenlafaxine 50 mg Tablet 25 MG PO (07:52)
[2022-10-17] MEDS: pregabalin 50 mg Capsule PO ×2 (07:53→14:52)
[2022-10-17] MEDS: CELEcoxib 100 mg Capsule PO (07:53)
[2022-10-17] MEDS: ascorbic acid 500 mg Tablet PO (07:53)
[2022-10-17] MEDS: cholecalciferol (vitamin D3) 1,000 unit Tablet 1000 UNIT PO (07:54)
[2022-10-17] MEDS: pantoprazole DR 40 mg Tablet PO ×2 (07:55→17:43)
[2022-10-17] MEDS: oxybutynin 5 mg Tablet 15 MG PO (07:55)
--- NOTE | 2022-10-17 08:01 | PC.NURSE ---
PT REPORTS SHE DID NOT SLEEP WELL LAST NIGHT. PT STATES I TOLD THE NURSE AND TOOK SOMETHING FOR IT BUT IT DIDN'T WORK. PT DENIES SI/HI AND AVH AT THIS. PT REPORTS BACK AND LEG PAIN 04/07 BUT STATES SHE DOES NOT WANT ANYTHING FOR PAIN.
[2022-10-17] MEDS: nicotine 2 mg Gum BUCCAL (09:13)
[2022-10-17 13:04] VITALS: RESP 16; O2SAT 96
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
[2022-10-17 14:52] VITALS: BP 125/68; PULSE 85; RESP 16; TEMP 37; O2SAT 96
--- NOTE | 2022-10-17 15:15 | PC.NURSE ---
PT SIGNED ALL DISCHARGE PAPER WORK, BELONGING SHEETS AND FILLED OUT SURVEY. PT WAS EDUCATED ON ALL NEW PRESCRIPTIONS AND EDUCATION WAS PROVIDED OF OPIATE USE, DEPRESSION, SUICIDE PREVENTION, DEPRESSION AND BIPOLAR. PT VERBALIZED UNDERSTANDING OF ALL EDUCATION GIVEN. PT REQUESTED THAT THIS RN CALL [facility] TO COME AND PICK HER UP. THIS RN CONTACTED [facility] AND SHE STATED THAT SHE WOULD BE HERE AT 1700 [address] PICK PT UP. PT APTS WERE GIVEN TO HER WELL. ALL QUESTIONS ANSWERED AND SUPPORT WAS VOICED.
[2022-10-17] MEDS: lurasidone 20 mg Tablet 40 MG PO (17:43)
--- NOTE | 2022-10-17 18:08 | PC.NURSE ---
PT DISCHARGED WITH ALL BELONGINGS AND MEDICATIONS. NO DISTRESS WAS NOTED. VSS WNL. PT SIGNED ALL PAPER WORK. PT LEFT WITH FRIEND. ALL QUESTIONS ANSWERED AND SUPPORT WAS VOICED.
== END 2022-10-17 18:08 | disposition home or self-care (01) | DRG 885 ==
LOC: ER 22:23 → NP 10-13 03:11
PROVIDERS: Admitting Provider Psychiatry & Neurology Psychiatry; Emergency Provider Nurse Practitioner Family; PCP Nurse Practitioner Family; Visit Provider Psychiatry & Neurology Psychiatry
DX: F31.81 Bipolar II disorder (principal); R45.851 Suicidal ideations; F43.10 Post-traumatic stress disorder, unspecified; F17.210 Nicotine dependence, cigarettes, uncomplicated; G89.29 Other chronic pain; Z79.82 Long term (current) use of aspirin; Z91.51 Personal history of suicidal behavior; Z79.899 Other long term (current) drug therapy
CPT/HCPCS: 36416; 80053; 80306; 80307; 81003; 81025; 82962; 84443; 85025; 97150; 97165; 99238; 99285

== ENCOUNTER 2022-10-19 08:04 | Outpatient (CLI) | payer MEDICAID, SELFPAY ==
[2022-04-16 14:54] VITALS: BP 115/68; BMI 34.6
[2022-10-19 08:58] VITALS: BMI 37.8
--- NOTE | 2022-10-19 08:58 | ECG_ITS ---
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 Interpretive Statements NAME OF STUDY: LEXISCAN SESTAMIBI STRESS TEST INDICATION: [sob/cp, ] Procedure: At the baseline, the blood pressure was 102/69 mmHg with a heart rate of 87 bpm. The electrocardiogram showed normal sinus rhythm, normal axis with normal ST and T's. The Lexiscan was infused over a period of 20 seconds. A total of 0.4 mg of Lexiscan was infused. The stress phase was continued for a total of 5 minutes. Heart rate was at the end of stress phase was 92 bpm and a blood pressure of 115/59 mmHg. The EKG at the peak infusion revealed normal sinus rhythm with no significant ST-T wave changes. Sestamibi was injected 20 seconds after the Lexiscan infusion. Blood pressure at the end of recovery phase was 117/61 mmHg with a heart rate of 86 bpm. Conclusion: 1. Normal EKG response to Lexiscan infusion 2. No Lexiscan induced chest pain or cardiac arrhythmia. 3. Normal blood pressure and heart rate response. 4. Sestamibi/sestamibi perfusion scan pending; see separate report. Electronically Signed On 11-04-2022 14:11:13 CDT by Rashid Mcfarland M.D. [email or web address]
--- NOTE | 2022-10-19 08:58 | NMCV_ITS ---
NM marlyn perf SPECT r/s* [id number] Afshan Parry (Shadow) Age: 51 Gender: F : 1970 Exam Date: 10/19/2022 08:58 Ordering Phys: Rashid Mcfarland M.D ([email or web address]) Technologist: DERECK Lee Exam Location: [facility] Indications: SHORTNESS OF BREATH, CHEST PAIN STRESS TEST Please see separate stress [facility] for full findings IMAGE PROTOCOL Rest/Stress 1 Lexiscan Day Radiopharmaceutical Dose (mCi) Administration Site Administered by Rest: Tc-99m 10.7 IV Maksim Amador, BAR BACK Sestamibi Stress:Tc-99m 31.2 IV Maksim Amador, BAR BACK Sestamibi Rest: 19-Oct-2022 60 Discovery 630 Stress: 19-Oct-2022 30 Discovery 630 0.4mg Lexiscan. Supine position only as patient was unable to lay prone. SPECT RESULTS Technical Quality: Excellent Raw Data Analysis: Normal Image Corrections: No attenuation or motion correction applied Summed Stress Score: 0 Summed Rest Score: 0 Summed Difference Score: 0 PERFUSION FINDINGS SPECT images demonstrate homogeneous tracer distribution throughout the myocardium. FUNCTIONAL RESULTS (calculated via Gated SPECT) Stress Image LV EF (%): 76 Stress EDV (mL):78 TID: 1.15 Stress ESV (mL):19 FUNCTIONAL FINDINGS: There is normal left ventricular systolic function. IMPRESSIONS 1. Normal myocardial perfusion imaging with no evidence of ischemia 2. LV systolic function is normal Rashid Mcfarland MD (Electronically Signed) Final Date: 21 October 2022 08:48 S
[2022-10-19 10:34] VITALS: BP 117/61; PULSE 86
[2022-10-19] MEDS: regadenoson 0.4 Mg/5 ml Syringe IVP (10:34)
== END 2022-10-19 08:05 | disposition home or self-care (01) ==
LOC: CDL 08:05
PROVIDERS: PCP Nurse Practitioner Family; Visit Provider Internal Medicine
DX: R06.02 Shortness of breath (principal); R07.9 Chest pain, unspecified
CPT/HCPCS: 36415; 78452; 93017; 96374; A9500; J2785

== ENCOUNTER → 2022-10-31 14:47 | Outpatient (BNVA) | payer MEDICAID, SELFPAY ==
[2022-04-16 14:54] VITALS: BP 115/68; BMI 34.6
== END ==
PROVIDERS: PCP Nurse Practitioner Family; Visit Provider Surgery
DX: R10.9 Unspecified abdominal pain (principal); K21.9 Gastro-esophageal reflux disease without esophagitis; Z86.010 Personal history of colon polyps
CPT/HCPCS: 99213

== ENCOUNTER 2023-01-02 08:02 | Day surgery (SDC) | payer MEDICAID, SELFPAY ==
[2022-04-16 14:54] VITALS: BP 115/68; BMI 34.6
[2023-01-01 11:06] VITALS: BMI 41.5
[2023-01-02 08:28] VITALS: BP 126/89; PULSE 88; RESP 16; TEMP 36.9; O2SAT 95
[2023-01-02] MEDS: sodium chloride 0.9% 1,000 ML 30 ML IV (08:33)
[2023-01-02 08:38] LABS: Glucose Point of Care 129 mg/dL (70-110)
--- NOTE | 2023-01-02 09:55 | ANES.PREANE2 ---
Pre-Anesthetic Assessment Height/Weight: Height 1.65 m Weight 113.398 kg Temp Pulse Resp BP Pulse Ox O2 Del Method 98.4 F 88 16 126/89 95 Room Air 01/02/23 08:28 01/02/23 08:28 01/02/23 08:28 01/02/23 08:28 01/02/23 08:28 01/02/23 08:28 Preop Diagnosis: abdominal pain, GERD Operation Date: 01/02/23 10:15 Proposed Procedures p [id number] egd, [address] colon R10.9, K21.9,Z86.010(Not Applicable) - Mitchel Leonard DO s Colonoscopy(Not Applicable) - Mitchel Leonard DO Was Beta Gloria taken within 24 hours: N/A Was Clonidine taken within 24 hours: N/A Last intake: Intake Last Liquid Date 01/01/23 Last Liquid Time 22:00 Last Solid Date 12/31/22 Last Solid Time 18:00 Social Alcohol and Tobacco 1 pack(s) per day 37 pack years Exam alert, oriented x 3, clear to auscultation bilaterally and regular rate & rhythm Airway Submandibular: within normal limits Cervical ROM: within normal limits Mallampati: Class II Dentition: other Comments: Comments: no teeth Pulmonary Asthma, Chronic Obstructive Pulmonary Disease, Exertional Dyspnea and Sleep Apnea (bipap) CV/HEM Stable Angina and Arrythmia last chest pains a few days ago. took aspirin and resolved, sees neal PURI None reported Hepatic None reported GI Gastroesophageal Reflux Disease (uncontrolled) Metabolic Diabetes Mellitus (II), Hyperlipidemia and Morbid Obesity [facility] [place] Fibromyalgia, Lower Back Pain and Weakness (Lower extremity weakness, can stand to use bathroom or transfer but doesn't walk) Neuropsych Anxiety, Bipolar, Depression and Headache Anesthetic Plan ASA status: 3 Anesthesia: MAC Risk of > 500 ml blood loss (7ml/kg in children): No Medications/Allergies Home Medications Medication Instructions Recorded Confirmed Last Taken Type albuterol sulfate 90 mcg/actuation 2 puff inhalation Q6H PRN 12/03/19 01/02/23 12/30/22 Rx aerosol inhaler (ProAir HFA) shortness of breath or wheezing 30 days #18 grams oxybutynin chloride 15 mg 15 mg PO DAILY 30 days #30 tabs 12/10/19 01/02/23 01/01/23 Rx tablet,extended release 24 hr levocetirizine 5 mg tablet 5 mg PO DAILY 04/25/20 01/02/23 01/01/23 History magnesium 250 mg tablet 500 mg PO DAILY 08/19/20 01/02/23 01/01/23 History potassium gluconate 595 mg (99 mg) 595 mg PO DAILY 08/19/20 01/02/23 01/01/23 History tablet vitamin E 200 unit capsule 400 unit PO DAILY 08/19/20 01/02/23 01/01/23 History hydromorphone 4 mg tablet 4 mg PO QID PRN Pain 02/13/21 01/02/23 01/02/23 07:25 History (Dilaudid) cholecalciferol (vitamin D3) 125 125 mcg PO DAILY 04/06/21 01/02/23 01/01/23 History mcg (5,000 unit) capsule pregabalin 50 mg capsule (Lyrica) 50 mg PO TID 04/06/21 01/02/23 01/01/23 History aspirin 81 mg tablet,delayed 81 mg PO DAILY 04/21/21 01/02/23 01/01/23 History release (Adult Low Dose Aspirin) ascorbic acid (vitamin C) 500 mg 500 mg PO DAILY 11/20/21 01/02/23 01/01/23 History capsule lubiprostone 24 mcg capsule 24 mcg PO BID #60 caps 12/18/21 01/02/23 01/01/23 Rx (Amitiza) celecoxib 100 mg capsule 100 mg PO DAILY #60 caps 01/25/22 01/02/23 01/01/23 Rx rosuvastatin 20 mg tablet 20 mg PO DAILY 02/05/22 01/02/23 01/01/23 History methenamine hippurate 1 gram tablet 1 g PO BID #60 tabs 04/09/22 01/02/23 01/01/23 Rx pantoprazole 40 mg tablet,delayed 40 mg PO BID 6 weeks #84 tabs 06/26/22 01/02/23 01/01/23 Rx release (Protonix) nitroglycerin 0.4 mg sublingual 0.4 mg sublingual Q5M PRN chest 07/05/22 01/02/23 1 Month Ago Rx tablet pain #25 tabs ~12/01/22 docusate sodium 50 mg capsule 50 mg PO DAILY #4 caps 10/31/22 01/02/23 Unknown Rx polyethylene glycol 3350 17 4 g PO DAILY #238 grams 12/03/22 01/02/23 01/01/23 Rx gram/dose oral powder (Miralax) cyproheptadine 4 mg tablet 4 mg PO BEDTIME #30 tabs 12/27/22 01/02/23 01/01/23 Rx lurasidone 40 mg tablet (Latuda) 40 mg PO .7 pm #30 tabs 12/27/22 01/02/23 01/01/23 Rx quetiapine 50 mg tablet 50 mg PO BEDTIME #30 tabs 12/27/22 01/02/23 01/01/23 Rx trazodone 100 mg tablet 100 mg PO BEDTIME PRN sleep #30 12/27/22 01/02/23 01/01/23 Rx tabs Allergies Allergy/AdvReac Type Severity Reaction Status Date / Time acetaminophen Allergy UNKNOWN Verified 12/27/22 15:25 cinnamon Allergy ALGY-Hives Verified 12/27/22 15:25 coconut Allergy ALGY-Anaphy Verified 12/27/22 15:25 laxis codeine Allergy Unknown Verified 12/27/22 15:25 nitrofurantoin Allergy UNKNOWN Verified 12/27/22 15:25 [From Macrobid] pineapple Allergy ADR-Migrain Verified 12/27/22 15:25 e pseudoephedrine Allergy Unknown Verified 12/27/22 15:25 tramadol Allergy UNKNOWN Verified 12/27/22 15:25 Current Medications Generic Name Dose Route Start Last Admin Trade Name Freq PRN Reason Stop Dose Admin Sodium Chloride 1,000 mls @ 30 mls/hr 01/02/23 08:15 01/02/23 08:33 Sodium Chloride 0.9% IV 01/03/23 08:14 30 mls/hr .Q24H ISMAEL Administration PFS Anesthesia Medical History (Updated 12/27/22 @ 16:30 by Maribell Artis [facility]) Cigarette nicotine dependence Diabetes mellitus without complication, without long-term current use of insulin DJD (degenerative joint disease) Gastritis GERD (gastroesophageal reflux disease) Hiatal hernia History of colon polyps 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, recurrent, severe with psychotic symptoms Paresthesia and pain of both upper extremities Peptic ulcer Polyp of colon, adenomatous Post-traumatic stress disorder, chronic Psychiatric care Psychiatric care Pure hypercholesterolemia, unspecified Recurrent UTI Urinary incontinence, mixed Surgical History History of esophagogastroduodenoscopy (EGD) Hx of appendectomy S/P cholecystectomy S/P colonoscopy S/P endometrial ablation S/P laparoscopic appendectomy (01/18/20) S/P tubal ligation Family History Father Cancer Mother , at age 64 Cancer lung and spinal sarcoma Grandfather Heart disease Hypertension Diabetes Brother Heart disease Hyperlipidemia Diabetes Sister Heart disease Hyperlipidemia Grandmother Cancer Other Bipolar affect, depressed Social History Smoking and tobacco status: current every day smoker cigarettes Packs smoked per day: 1.5 Years cigarettes smoked: 37 Quit status (tobacco): not considering quitting Second hand smoke exposure: Yes Smoking risk assessment/counseling performed?: Yes Alcohol intake: former Year of sobriety/quit date alcohol: 2014 Former alcohol use details: 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 Substance/Drug Use: never Adopted: No Caregiver/support person: Yes Lives independently: Yes Household members: none Housing: Apartment Marital status: Single Number of children: 4 Number of grandchildren: 4 Highest education level completed: 10th Grade service: No Current occupational status: disabled Current occupational exposures/hazards: No Pets and animals: Yes (Baljeet) Pets & animals: cat(s) Leisure activites: other Leisure activities details: watch tv, either outside or sleeping Sexually active: No Do you think of yourself as: Straight/Heterosexual Current gender identity: Female Odette/Hinduism: Adventism Special odette needs: No Agree to transfusion: Yes Financial difficulty paying for basics: Not Very Hard Female Reproductive History Para: 4 Date of menopause: 07/29/16 Data Anesthesia Cardiac Studies: Echocardiogram 04/13/22 Sestamibi Stress Test (Cardiology) 10/19/22 Cardiac Event Monitor 09/11/21
--- NOTE | 2023-01-02 11:18 | PM.HP ---
Providers/Chief Complaint Primary Care Provider: IESHA Smith Chief Complaint: R10.9, K21.9, Z86.010 History of Present Illness Afshan (Shadow) Yoshi Parry is a 52 year old female here for EGD and colonoscopy Medications/Allergies Home Medications Medication Instructions Recorded Confirmed Last Taken Type albuterol sulfate 90 mcg/actuation 2 puff inhalation Q6H PRN 12/03/19 01/02/23 12/30/22 Rx aerosol inhaler (ProAir HFA) shortness of breath or wheezing 30 days #18 grams oxybutynin chloride 15 mg 15 mg PO DAILY 30 days #30 tabs 12/10/19 01/02/23 01/01/23 Rx tablet,extended release 24 hr levocetirizine 5 mg tablet 5 mg PO DAILY 04/25/20 01/02/23 01/01/23 History magnesium 250 mg tablet 500 mg PO DAILY 08/19/20 01/02/23 01/01/23 History potassium gluconate 595 mg (99 mg) 595 mg PO DAILY 08/19/20 01/02/23 01/01/23 History tablet vitamin E 200 unit capsule 400 unit PO DAILY 08/19/20 01/02/23 01/01/23 History hydromorphone 4 mg tablet 4 mg PO QID PRN Pain 02/13/21 01/02/23 01/02/23 07:25 History (Dilaudid) cholecalciferol (vitamin D3) 125 125 mcg PO DAILY 04/06/21 01/02/23 01/01/23 History mcg (5,000 unit) capsule pregabalin 50 mg capsule (Lyrica) 50 mg PO TID 04/06/21 01/02/23 01/01/23 History aspirin 81 mg tablet,delayed 81 mg PO DAILY 04/21/21 01/02/23 01/01/23 History release (Adult Low Dose Aspirin) ascorbic acid (vitamin C) 500 mg 500 mg PO DAILY 11/20/21 01/02/23 01/01/23 History capsule lubiprostone 24 mcg capsule 24 mcg PO BID #60 caps 12/18/21 01/02/23 01/01/23 Rx (Amitiza) celecoxib 100 mg capsule 100 mg PO DAILY #60 caps 01/25/22 01/02/23 01/01/23 Rx rosuvastatin 20 mg tablet 20 mg PO DAILY 02/05/22 01/02/23 01/01/23 History methenamine hippurate 1 gram tablet 1 g PO BID #60 tabs 04/09/22 01/02/23 01/01/23 Rx pantoprazole 40 mg tablet,delayed 40 mg PO BID 6 weeks #84 tabs 06/26/22 01/02/23 01/01/23 Rx release (Protonix) nitroglycerin 0.4 mg sublingual 0.4 mg sublingual Q5M PRN chest 07/05/22 01/02/23 1 Month Ago Rx tablet pain #25 tabs ~12/01/22 docusate sodium 50 mg capsule 50 mg PO DAILY #4 caps 10/31/22 01/02/23 Unknown Rx polyethylene glycol 3350 17 4 g PO DAILY #238 grams 12/03/22 01/02/23 01/01/23 Rx gram/dose oral powder (Miralax) cyproheptadine 4 mg tablet 4 mg PO BEDTIME #30 tabs 12/27/22 01/02/23 01/01/23 Rx lurasidone 40 mg tablet (Latuda) 40 mg PO .7 pm #30 tabs 12/27/22 01/02/23 01/01/23 Rx quetiapine 50 mg tablet 50 mg PO BEDTIME #30 tabs 12/27/22 01/02/23 01/01/23 Rx trazodone 100 mg tablet 100 mg PO BEDTIME PRN sleep #30 12/27/22 01/02/23 01/01/23 Rx tabs Allergies Allergy/AdvReac Type Severity Reaction Status Date / Time acetaminophen Allergy UNKNOWN Verified 12/27/22 15:25 cinnamon Allergy ALGY-Hives Verified 12/27/22 15:25 coconut Allergy ALGY-Anaphy Verified 12/27/22 15:25 laxis codeine Allergy Unknown Verified 12/27/22 15:25 nitrofurantoin Allergy UNKNOWN Verified 12/27/22 15:25 [From Macrobid] pineapple Allergy ADR-Migrain Verified 12/27/22 15:25 e pseudoephedrine Allergy Unknown Verified 12/27/22 15:25 tramadol Allergy UNKNOWN Verified 12/27/22 15:25 PFSH Acute PFSH: Medical History (Updated 06/01/23 @ 16:30 by Maribell Artis, [facility]) Cigarette nicotine dependence Diabetes mellitus without complication, without long-term current use of insulin DJD (degenerative joint disease) Gastritis GERD (gastroesophageal reflux disease) Hiatal hernia History of colon polyps 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, recurrent, severe with psychotic symptoms Paresthesia and pain of both upper extremities Peptic ulcer Polyp of colon, adenomatous Post-traumatic stress disorder, chronic Psychiatric care Psychiatric care Pure hypercholesterolemia, unspecified Recurrent UTI Urinary incontinence, mixed Surgical History History of esophagogastroduodenoscopy (EGD) Hx of appendectomy S/P cholecystectomy S/P colonoscopy S/P endometrial ablation S/P laparoscopic appendectomy (01/18/20) S/P tubal ligation Family History Father Cancer Mother , at age 64 Cancer lung and spinal sarcoma Grandfather Heart disease Hypertension Diabetes Brother Heart disease Hyperlipidemia Diabetes Sister Heart disease Hyperlipidemia Grandmother Cancer Other Bipolar affect, depressed Social History Smoking and tobacco status: current every day smoker cigarettes Packs smoked per day: 1.5 Years cigarettes smoked: 37 Quit status (tobacco): not considering quitting Second hand smoke exposure: Yes Smoking risk assessment/counseling performed?: Yes Alcohol intake: former Year of sobriety/quit date alcohol: 2014 Former alcohol use details: 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 Substance/Drug Use: never Adopted: No Caregiver/support person: Yes Lives independently: Yes Household members: none Housing: Apartment Marital status: Single Number of children: 4 Number of grandchildren: 4 Highest education level completed: 10th Grade service: No Current occupational status: disabled Current occupational exposures/hazards: No Pets and animals: Yes (Abljeet) Pets & animals: cat(s) Leisure activites: other Leisure activities details: watch tv, either outside or sleeping Sexually active: No Do you think of yourself as: Straight/Heterosexual Current gender identity: Female Odette/Adventism: Mormon Special odette needs: No Agree to transfusion: Yes Financial difficulty paying for basics: Not Very Hard Female Reproductive History: Para: 4 Date of menopause: 07/29/16 Vitals/I&O/Wt Last Vital Signs Temp 98.4 F 01/02/23 08:28 Pulse 88 01/02/23 08:28 Resp 16 01/02/23 08:28 BP 126/89 01/02/23 08:28 Pulse Ox 95 01/02/23 08:28 O2 Del Method Room Air 01/02/23 08:28 Weight last 48 hrs Weight 250 lb A&P Assessment and plan (1) GERD (gastroesophageal reflux disease): (2) History of colon polyps: Plan EGD and colonoscopy Attestations Medical Necessity Statement*: Home Coding Level of Care Code Acute Code for Chg Fwd Diagnoses GERD (gastroesophageal reflux disease) K21.9 History of colon polyps Z86.010
[2023-01-02 11:58] VITALS: BP 117/85; PULSE 85; RESP 16; TEMP 36.3; O2SAT 93
[2023-01-02 12:10] VITALS: BP 131/79; PULSE 78; RESP 16; O2SAT 94
[2023-01-02 12:18] VITALS: BP 116/87; PULSE 83; RESP 16; O2SAT 96
--- NOTE | 2023-01-02 13:19 | ANE.PACU2 ---
Inpatient post-anesthesia follow up: Airway intact: Yes Vital signs: Temperature 97.3 F Pulse Rate 83 Respiratory Rate 16 Blood Pressure 116/87 Pulse Oximetry 96 Oxygen Delivery Me thod Room Air Oxygen Flow Rate 3 Fraction of Inspir ed Oxygen Hydration adequate: Yes Nausea and vomiting: Yes Pain level: 1 Mental status: Baseline
== END 2023-01-02 12:39 | disposition home or self-care (01) ==
PROVIDERS: PCP Nurse Practitioner Family; Visit Provider Surgery
PROC: 0DJ08ZZ Inspection of Upper Intestinal Tract, Via Natural or Artificial Opening Endoscopic (ICD-10-PCS; CPT 43235; principal; 2023-01-02 10:15)
PROC: 0DJD8ZZ Inspection of Lower Intestinal Tract, Via Natural or Artificial Opening Endoscopic (ICD-10-PCS; CPT 45378; 2023-01-02 10:15)
DX: K29.50 Unspecified chronic gastritis without bleeding (principal); K58.9 Irritable bowel syndrome, unspecified; K21.9 Gastro-esophageal reflux disease without esophagitis; Z86.010 Personal history of colon polyps; Z79.82 Long term (current) use of aspirin; F17.210 Nicotine dependence, cigarettes, uncomplicated; J44.9 Chronic obstructive pulmonary disease, unspecified; E11.9 Type 2 diabetes mellitus without complications; E78.5 Hyperlipidemia, unspecified; E66.01 Morbid (severe) obesity due to excess calories; Z68.41 Body mass index [BMI] 40.0-44.9, adult; F32.A Depression, unspecified; F41.9 Anxiety disorder, unspecified
CPT/HCPCS: 36416; 43239; 45378; 82962; 88305; 88342; J2704; J7030

== ENCOUNTER → 2023-01-17 12:53 | Outpatient (BNVA) | payer MEDICAID, SELFPAY ==
[2022-04-16 14:54] VITALS: BP 115/68; BMI 34.6
== END ==
PROVIDERS: PCP Nurse Practitioner Family; Visit Provider Registered Nurse Neonatal Intensive Care
DX: R39.9 Unspecified symptoms and signs involving the genitourinary system (principal)
CPT/HCPCS: 81000; 87086

== ENCOUNTER → 2023-02-18 14:29 | Outpatient (BNVA) | payer MEDICAID, SELFPAY ==
[2022-04-16 14:54] VITALS: BP 115/68; BMI 34.6
== END ==
PROVIDERS: PCP Nurse Practitioner Family; Visit Provider Registered Nurse Neonatal Intensive Care
DX: R30.0 Dysuria (principal)
CPT/HCPCS: 81000; 87077; 87086; 87184

== ENCOUNTER → 2023-03-19 15:22 | Outpatient (BNVA) | payer MEDICAID, SELFPAY ==
[2022-04-16 14:54] VITALS: BP 115/68; BMI 34.6
== END ==
PROVIDERS: PCP Nurse Practitioner Family; Visit Provider Surgery
DX: K29.70 Gastritis, unspecified, without bleeding; K21.9 Gastro-esophageal reflux disease without esophagitis; Z86.010 Personal history of colon polyps
CPT/HCPCS: 99213

== ENCOUNTER 2023-04-17 15:22 | Outpatient (CLI) | payer MEDICAID, SELFPAY ==
[2022-04-16 14:54] VITALS: BP 115/68; BMI 34.6
--- NOTE | 2023-04-17 15:34 | MM_ITS ---
WS: [id number] BILATERAL 3D TOMOSYNTHESIS DIGITAL SCREENING MAMMOGRAPHY WITH CAD CLINICAL INFORMATION: SCREENING HISTORY: Screening mammogram. No current complaints. COMPARISON: 2021 TECHNIQUE: Bilateral CC and MLO views. FINDINGS: The breasts are composed of heterogeneous fibroglandular density tissue, which can limit the detectio n of small underlying mass lesions. No suspicious mass, asymmetry, calcifications, or architectural d istortion. No evidence of malignancy. A few incidental punctate calcifications. IMPRESSION: MM/[place] [id number] BI-RADS: 2-Benign FOLLOW UP: 1 Year Follow-up Recommend return to annual screening mammography.
== END 2023-04-17 15:23 | disposition home or self-care (01) ==
LOC: RAD 15:26
PROVIDERS: PCP Nurse Practitioner Family; Visit Provider Nurse Practitioner Family
DX: Z12.31 Encounter for screening mammogram for malignant neoplasm of breast (principal)
CPT/HCPCS: 77063; 77067

== ENCOUNTER → 2023-04-22 13:29 | Outpatient (BNVA) | payer OTHER, SELFPAY ==
[2022-04-16 14:54] VITALS: BP 115/68; BMI 34.6
== END ==
PROVIDERS: PCP Nurse Practitioner Family; Visit Provider Nurse Practitioner Psychiatric/Mental Health
DX: F32.3 Major depressive disorder, single episode, severe with psychotic features (principal); Z79.899 Other long term (current) drug therapy
CPT/HCPCS: 80061; 83036

== ENCOUNTER → 2023-06-05 13:18 | Outpatient (BNVA) | payer MEDICAID, SELFPAY ==
[2023-05-09 15:51] VITALS: BP 126/78; BMI 40.0
== END ==
PROVIDERS: PCP Nurse Practitioner Family; Visit Provider Podiatrist Foot & Ankle Surgery
DX: L60.3 Nail dystrophy (principal)
CPT/HCPCS: 99203

== ENCOUNTER → 2023-07-03 13:31 | Outpatient (BNVA) | payer MEDICAID, SELFPAY ==
[2023-05-09 15:51] VITALS: BP 126/78; BMI 40.0
== END ==
PROVIDERS: PCP Nurse Practitioner Family; Visit Provider Internal Medicine Cardiovascular Disease
DX: F25.1 Schizoaffective disorder, depressive type (principal); F17.210 Nicotine dependence, cigarettes, uncomplicated; R10.9 Unspecified abdominal pain; K21.9 Gastro-esophageal reflux disease without esophagitis; K58.1 Irritable bowel syndrome with constipation; E11.9 Type 2 diabetes mellitus without complications; R11.0 Nausea; R07.9 Chest pain, unspecified; R00.2 Palpitations; R60.9 Edema, unspecified; Z79.84 Long term (current) use of oral hypoglycemic drugs
CPT/HCPCS: 99214

== ENCOUNTER 2023-07-17 11:39 | Outpatient (CLI) | payer MEDICAID, SELFPAY ==
[2023-05-09 15:51] VITALS: BP 126/78; BMI 40.0
[2023-07-17 12:30] LABS: Alanine Aminotransferase 41 U/L (0-33); Albumin Level 3.7 g/dL (3.5-5.2); Alkaline Phosphatase 90 U/L (35-105); Blood Urea Nitrogen 4 mg/dL (6-20); Calcium 8.6 mg/dL (8.5-10.5); Carbon Dioxide 28 mmol/L (22-29); Chloride 103 mmol/L (98-107); Globulin 2.5 g/dL (1.3-4.6); Glomerular Filtration Rate 88.2 mL/min (90-130); Glucose 141 mg/dL (65-115); Osmolality Calculated 287 mOsm/kg (285-295); Sodium 139 mmol/L (136-145); Total Bilirubin 0.2 mg/dL (0.15-1.2); Total Protein 6.2 g/dL (6.6-8.7)
[2023-07-17 12:35] LABS: Anion Gap 11.8 (5-19); Aspartate Amino Transferase 31 U/L (0-32); Potassium 3.8 mmol/L (3.5-5.1)
== END 2023-07-17 11:40 | disposition home or self-care (01) ==
LOC: LAB 11:39
PROVIDERS: PCP Nurse Practitioner Family; Visit Provider Podiatrist Foot & Ankle Surgery
DX: B35.1 Tinea unguium (principal)
CPT/HCPCS: 36415; 80053

== ENCOUNTER 2023-08-02 06:24 | Day surgery (SDC) | payer MEDICAID, SELFPAY ==
[2023-05-09 15:51] VITALS: BP 126/78; BMI 40.0
[2023-08-02 06:41] VITALS: BP 119/77; PULSE 90; RESP 18; TEMP 37.1; O2SAT 92; BMI 39.9
[2023-08-02] MEDS: sodium chloride 0.9% 1,000 ML 30 ML IV (06:59)
--- NOTE | 2023-08-02 07:03 | P.ANESASSM_ITS ---
Pre-Anesthetic Assessment Height/Weight: Height 1.66 m Weight 110.677 kg Temp Pulse Resp BP Pulse Ox O2 Del Method 98.8 F 90 18 119/77 92 Room Air 08/02/23 06:41 08/02/23 06:41 08/02/23 06:41 08/02/23 06:41 08/02/23 06:41 08/02/23 06:41 Preop Diagnosis: screening Operation Date: 08/02/23 07:30 Proposed Procedures p 32134 colon Z86.010(Not Applicable) - Mitchel Leonard DO Familial anesthetic complications: none Was Beta Gloria taken within 24 hours: N/A Was Clonidine taken within 24 hours: N/A Last intake: Intake Last Liquid Date 08/01/23 Last Liquid Time 22:00 Last Solid Date 07/31/23 Last Solid Time 14:00 Last Intake: 22:00 Social Tobacco 1ppd pack(s) per day 38 pack years Exam alert, oriented x 3, clear to auscultation bilaterally (lungs dim bilateral) and regular rate & rhythm Airway Submandibular: within normal limits Cervical ROM: within normal limits Mallampati: Class II Dentition: false Pulmonary Asthma, Chronic Obstructive Pulmonary Disease, Exertional Dyspnea, Sleep Apnea (bipap) and Shortness of Breath CV/HEM Hypertension None reported Hepatic None reported GI Gastroesophageal Reflux Disease (controlled) Metabolic Diabetes Mellitus (diet) Musc/skel Lower Back Pain and Osteoarthritis/DJD Neuropsych Anxiety, Bipolar, Depression and Syncope Anesthetic Plan ASA status: 3 Anesthesia: MAC Risk of > 500 ml blood loss (7ml/kg in children): No Medications/Allergies Home Medications Medication Instructions Recorded Confirmed Last Taken Type albuterol sulfate 90 mcg/actuation 2 puff inhalation Q6H PRN 12/03/19 07/31/23 08/01/23 Rx aerosol inhaler (ProAir HFA) shortness of breath or wheezing 30 days #18 grams oxybutynin chloride 15 mg 15 mg PO DAILY 30 days #30 tabs 12/10/19 07/31/23 08/01/23 Rx tablet,extended release 24 hr levocetirizine 5 mg tablet 5 mg PO DAILY 04/25/20 07/31/23 08/01/23 History magnesium 250 mg tablet 500 mg PO DAILY 08/19/20 07/31/23 08/01/23 History potassium gluconate 595 mg (99 mg) 595 mg PO DAILY 08/19/20 07/31/23 08/01/23 History tablet vitamin E 200 unit capsule 400 unit PO DAILY 08/19/20 07/31/23 08/01/23 History hydromorphone 4 mg tablet 4 mg PO QID PRN Pain 02/13/21 07/31/23 08/02/23 05:40 History (Dilaudid) cholecalciferol (vitamin D3) 125 125 mcg PO DAILY 04/06/21 07/31/23 08/01/23 History mcg (5,000 unit) capsule pregabalin 50 mg capsule (Lyrica) 50 mg PO TID 04/06/21 07/31/23 08/02/23 05:40 History aspirin 81 mg tablet,delayed 81 mg PO DAILY 04/21/21 07/31/23 08/01/23 History release (Adult Low Dose Aspirin) ascorbic acid (vitamin C) 500 mg 500 mg PO DAILY 11/20/21 07/31/23 08/01/23 History capsule lubiprostone 24 mcg capsule 24 mcg PO BID #60 caps 12/18/21 07/31/23 08/01/23 Rx (Amitiza) celecoxib 100 mg capsule 100 mg PO DAILY #60 caps 01/25/22 07/31/23 08/01/23 Rx rosuvastatin 20 mg tablet 20 mg PO DAILY 02/05/22 07/31/23 08/01/23 History methenamine hippurate 1 gram tablet 1 g PO BID #60 tabs 04/09/22 07/31/23 08/01/23 Rx ondansetron 4 mg disintegrating 4 mg PO Q8H PRN nausea and 01/17/23 07/31/23 07/29/23 Rx tablet vomiting #10 tabs pantoprazole 40 mg tablet,delayed 40 mg PO BID 6 weeks #84 tabs 03/19/23 07/31/23 08/02/23 05:40 Rx release (Protonix) cyproheptadine 4 mg tablet 8 mg (2 x 4 mg) PO BEDTIME #60 tabs 06/24/23 07/31/23 08/01/23 Rx fluticasone 250 mcg-salmeterol 50 1 inh inhalation BID 06/24/23 07/31/23 08/01/23 History mcg/dose blistr powdr for inhalation (Advair Diskus) naloxone 4 mg/actuation nasal 1 spray intranasal DAILY PRN 06/24/23 07/31/23 Unknown History spray (Narcan) Adequate Ventilation paliperidone 6 mg tablet,extended 12 mg (2 x 6 mg) PO QAM #60 tabs 06/24/23 07/31/23 08/01/23 Rx release 24 hr trazodone 100 mg tablet 100 mg PO BEDTIME PRN sleep #30 06/24/23 07/31/23 08/01/23 Rx tabs furosemide 20 mg tablet 20 mg PO DAILY #10 tabs 07/03/23 07/31/23 07/31/23 Rx nitroglycerin 0.4 mg sublingual 0.4 mg sublingual Q5M PRN chest 07/03/23 07/31/23 Unknown Rx tablet pain #25 tabs terbinafine HCl 250 mg tablet 250 mg PO DAILY 30 days #30 tabs 07/24/23 07/31/23 08/01/23 Rx Allergies Allergy/AdvReac Type Severity Reaction Status Date / Time acetaminophen Allergy UNKNOWN Verified 07/03/23 13:54 cinnamon Allergy ALGY-Hives Verified 07/03/23 13:54 coconut Allergy ALGY-Anaphy Verified 07/03/23 13:54 laxis codeine Allergy Unknown Verified 07/03/23 13:54 nitrofurantoin Allergy UNKNOWN Verified 07/03/23 13:54 [From Macrobid] pineapple Allergy ADR-Migrain Verified 07/03/23 13:54 e pseudoephedrine Allergy Unknown Verified 07/03/23 13:54 tramadol Allergy UNKNOWN Verified 07/03/23 13:54 [facility] Anesthesia Medical History (Updated 07/03/23 @ 14:20 by Kristian Arroyo MD) Chronic edema Schizoaffective disorder, depressive type Cigarette nicotine dependence GERD (gastroesophageal reflux disease) History of colon polyps Recurrent UTI Psychiatric care Psychiatric care Post-traumatic stress disorder, chronic Diabetes mellitus without complication, without long-term current use of insulin Urinary incontinence, mixed Polyp of colon, adenomatous Paresthesia and pain of both upper extremities Intervertebral disc disorder of cervical region with myelopathy Hiatal hernia Pure hypercholesterolemia, unspecified DJD (degenerative joint disease) Gastritis Peptic ulcer Surgical History Hx of appendectomy S/P laparoscopic appendectomy (01/18/20) History of esophagogastroduodenoscopy (EGD) S/P cholecystectomy S/P tubal ligation S/P endometrial ablation S/P colonoscopy Family History Father Cancer Mother , at age 64 Cancer lung and spinal sarcoma Grandfather Heart disease Hypertension Diabetes Brother Heart disease Hyperlipidemia Diabetes Sister Heart disease Hyperlipidemia Grandmother Cancer Other Bipolar affect, depressed Social History Smoking and tobacco/nicotine status: current every day tobacco/nicotine user cigarettes Packs smoked per day: 1 Years cigarettes smoked: 38 Quit status (tobacco/nicotine): not considering quitting Second hand smoke exposure: Yes Alcohol intake: former Year of sobriety/quit date alcohol: 2012 Former alcohol use details: 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 Substance/Drug Use: never Adopted: No Caregiver/support person: Yes (nurse and an aid) Lives independently: Yes Household members: none Housing: Apartment Marital status: Single Number of children: 4 Number of grandchildren: 4 Highest education level completed: 10th Grade service: No Current occupational status: disabled Current occupational exposures/hazards: No Pets and animals: Yes (Baljeet) Pets & animals: cat(s) Leisure activites: art, music and other Leisure activities details: watch tv, either outside or sleeping Sexually active: No Do you think of yourself as: Straight/Heterosexual Current gender identity: Female Odette/Rastafarian: [employer] Special odette needs: No Agree to transfusion: Yes Female Reproductive History Para: 4 Date of menopause: 07/29/16 Data Anesthesia Cardiac Studies: Echocardiogram 04/13/22 Sestamibi Stress Test (Cardiology) 10/19 Cardiac Event Monitor 09/11/21
[2023-08-02 07:06] LABS: Glucose Point of Care 126 mg/dL (70-110)
--- NOTE | 2023-08-02 07:10 | PM.HP ---
Providers/Chief Complaint Primary Care Provider: IESHA Smith Chief Complaint: Z86.010 History of Present Illness Afshan Parry is a 52 year old female who is here for a screening colonoscopy Review of Systems General: Reports: 10 or more systems reviewed and unremarkable except in HPI and below Medications/Allergies Home Medications Medication Instructions Recorded Confirmed Last Taken Type albuterol sulfate 90 mcg/actuation 2 puff inhalation Q6H PRN 12/03/19 07/31/23 08/01/23 Rx aerosol inhaler (ProAir HFA) shortness of breath or wheezing 30 days #18 grams oxybutynin chloride 15 mg 15 mg PO DAILY 30 days #30 tabs 12/10/19 07/31/23 08/01/23 Rx tablet,extended release 24 hr levocetirizine 5 mg tablet 5 mg PO DAILY 04/25/20 07/31/23 08/01/23 History magnesium 250 mg tablet 500 mg PO DAILY 08/19/20 07/31/23 08/01/23 History potassium gluconate 595 mg (99 mg) 595 mg PO DAILY 08/19/20 07/31/23 08/01/23 History tablet vitamin E 200 unit capsule 400 unit PO DAILY 08/19/20 07/31/23 08/01/23 History hydromorphone 4 mg tablet 4 mg PO QID PRN Pain 02/13/21 07/31/23 08/02/23 05:40 History (Dilaudid) cholecalciferol (vitamin D3) 125 125 mcg PO DAILY 04/06/21 07/31/23 08/01/23 History mcg (5,000 unit) capsule pregabalin 50 mg capsule (Lyrica) 50 mg PO TID 04/06/21 07/31/23 08/02/23 05:40 History aspirin 81 mg tablet,delayed 81 mg PO DAILY 04/21/21 07/31/23 08/01/23 History release (Adult Low Dose Aspirin) ascorbic acid (vitamin C) 500 mg 500 mg PO DAILY 11/20/21 07/31/23 08/01/23 History capsule lubiprostone 24 mcg capsule 24 mcg PO BID #60 caps 12/18/21 07/31/23 08/01/23 Rx (Amitiza) celecoxib 100 mg capsule 100 mg PO DAILY #60 caps 01/25/22 07/31/23 08/01/23 Rx rosuvastatin 20 mg tablet 20 mg PO DAILY 02/05/22 07/31/23 08/01/23 History methenamine hippurate 1 gram tablet 1 g PO BID #60 tabs 04/09/22 07/31/23 08/01/23 Rx ondansetron 4 mg disintegrating 4 mg PO Q8H PRN nausea and 01/17/23 07/31/23 07/29/23 Rx tablet vomiting #10 tabs pantoprazole 40 mg tablet,delayed 40 mg PO BID 6 weeks #84 tabs 03/19/23 07/31/23 08/02/23 05:40 Rx release (Protonix) cyproheptadine 4 mg tablet 8 mg (2 x 4 mg) PO BEDTIME #60 tabs 06/24/23 07/31/23 08/01/23 Rx fluticasone 250 mcg-salmeterol 50 1 inh inhalation BID 06/24/23 07/31/23 08/01/23 History mcg/dose blistr powdr for inhalation (Advair Diskus) naloxone 4 mg/actuation nasal 1 spray intranasal DAILY PRN 06/24/23 07/31/23 Unknown History spray (Narcan) Adequate Ventilation paliperidone 6 mg tablet,extended 12 mg (2 x 6 mg) PO QAM #60 tabs 06/24/23 07/31/23 08/01/23 Rx release 24 hr trazodone 100 mg tablet 100 mg PO BEDTIME PRN sleep #30 06/24/23 07/31/23 08/01/23 Rx tabs furosemide 20 mg tablet 20 mg PO DAILY #10 tabs 07/03/23 07/31/23 07/31/23 Rx nitroglycerin 0.4 mg sublingual 0.4 mg sublingual Q5M PRN chest 07/03/23 07/31/23 Unknown Rx tablet pain #25 tabs terbinafine HCl 250 mg tablet 250 mg PO DAILY 30 days #30 tabs 07/24/23 07/31/23 08/01/23 Rx Allergies Allergy/AdvReac Type Severity Reaction Status Date / Time acetaminophen Allergy UNKNOWN Verified 07/03/23 13:54 cinnamon Allergy ALGY-Hives Verified 07/03/23 13:54 coconut Allergy ALGY-Anaphy Verified 07/03/23 13:54 laxis codeine Allergy Unknown Verified 07/03/23 13:54 nitrofurantoin Allergy UNKNOWN Verified 07/03/23 13:54 [From Macrobid] pineapple Allergy ADR-Migrain Verified 07/03/23 13:54 e pseudoephedrine Allergy Unknown Verified 07/03/23 13:54 tramadol Allergy UNKNOWN Verified 07/03/23 13:54 PFSH Acute PFSH: Medical History (Updated 08/02/23 @ 07:11 by Mitchel Leonard DO) Chronic edema Schizoaffective disorder, depressive type Cigarette nicotine dependence GERD (gastroesophageal reflux disease) History of colon polyps Recurrent UTI Psychiatric care Psychiatric care Post-traumatic stress disorder, chronic Diabetes mellitus without complication, without long-term current use of insulin Urinary incontinence, mixed Polyp of colon, adenomatous Paresthesia and pain of both upper extremities Intervertebral disc disorder of cervical region with myelopathy Hiatal hernia Pure hypercholesterolemia, unspecified DJD (degenerative joint disease) Gastritis Peptic ulcer Surgical History Hx of appendectomy S/P laparoscopic appendectomy (01/18/20) History of esophagogastroduodenoscopy (EGD) S/P cholecystectomy S/P tubal ligation S/P endometrial ablation S/P colonoscopy Family History Father Cancer Mother , at age 64 Cancer lung and spinal sarcoma Grandfather Heart disease Hypertension Diabetes Brother Heart disease Hyperlipidemia Diabetes Sister Heart disease Hyperlipidemia Grandmother Cancer Other Bipolar affect, depressed Social History Smoking and tobacco/nicotine status: current every day tobacco/nicotine user cigarettes Packs smoked per day: 1 Years cigarettes smoked: 38 Quit status (tobacco/nicotine): not considering quitting Second hand smoke exposure: Yes Alcohol intake: former Year of sobriety/quit date alcohol: 2012 Former alcohol use details: 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 Substance/Drug Use: never Adopted: No Caregiver/support person: Yes (nurse and an aid) Lives independently: Yes Household members: none Housing: Apartment Marital status: Single Number of children: 4 Number of grandchildren: 4 Highest education level completed: 10th Grade service: No Current occupational status: disabled Current occupational exposures/hazards: No Pets and animals: Yes (Baljeet) Pets & animals: cat(s) Leisure activites: art, music and other Leisure activities details: watch tv, either outside or sleeping Sexually active: No Do you think of yourself as: Straight/Heterosexual Current gender identity: Female Odette/Gnosticist: Scientology Special odette needs: No Agree to transfusion: Yes Female Reproductive History: Para: 4 Date of menopause: 07/29/16 Vitals/I&O/Wt Last Vital Signs Temp 98.8 F 08/02/23 06:41 Pulse 90 08/02/23 06:41 Resp 18 08/02/23 06:41 BP 119/77 08/02/23 06:41 Pulse Ox 92 08/02/23 06:41 O2 Del Method Room Air 08/02/23 06:41 Weight last 48 hrs Weight 244 lb A&P Assessment and plan (1) Colon cancer screening: Plan Colonoscopy The risks and benefits of the procedure, including bleeding, infection, intestinal perforation requiring surgery, missed lesion were explained to the patient. The patient is understanding of the risks and wishes to proceed. Attestations Medical Necessity Statement*: Home Coding Level of Care Code Acute Code for Chg Fwd Diagnoses Colon cancer screening Z12.11
[2023-08-02 07:37] VITALS: BP 112/74; PULSE 82; RESP 16; TEMP 36.7; O2SAT 92
[2023-08-02 07:50] VITALS: BP 108/71; PULSE 89; RESP 18; O2SAT 95
[2023-08-02 08:01] VITALS: BP 111/73; PULSE 80; RESP 18; O2SAT 96
--- NOTE | 2023-08-02 13:07 | ANE.PACU2 ---
Inpatient post-anesthesia follow up: Airway intact: Yes Vital signs: Temperature 98.0 F Pulse Rate 80 Respiratory Rate 18 Blood Pressure 111/73 Pulse Oximetry 96 Oxygen Delivery Me thod Room Air Oxygen Flow Rate 4 Fraction of Inspir ed Oxygen Hydration adequate: Yes Nausea and vomiting: No Pain level: 2 Mental status: Baseline
== END 2023-08-02 08:18 | disposition home or self-care (01) ==
PROVIDERS: PCP Nurse Practitioner Family; Visit Provider Surgery
PROC: 0DJD8ZZ Inspection of Lower Intestinal Tract, Via Natural or Artificial Opening Endoscopic (ICD-10-PCS; CPT 45378; principal; 2023-08-02 07:30)
DX: Z12.11 Encounter for screening for malignant neoplasm of colon (principal); K52.9 Noninfective gastroenteritis and colitis, unspecified; Z86.010 Personal history of colon polyps; F17.210 Nicotine dependence, cigarettes, uncomplicated; K21.9 Gastro-esophageal reflux disease without esophagitis; E11.9 Type 2 diabetes mellitus without complications; E78.00 Pure hypercholesterolemia, unspecified; Z87.11 Personal history of peptic ulcer disease; I10 Essential (primary) hypertension
CPT/HCPCS: 36416; 45380; 82962; 88305; 88313; 88342; J2704; J7030

== ENCOUNTER → 2023-09-12 11:18 | Outpatient (BNVA) | payer MEDICAID, SELFPAY ==
[2023-05-09 15:51] VITALS: BP 126/78; BMI 40.0
== END ==
PROVIDERS: PCP Nurse Practitioner Family; Visit Provider Nurse Practitioner Family
DX: R39.9 Unspecified symptoms and signs involving the genitourinary system (principal); N39.0 Urinary tract infection, site not specified
CPT/HCPCS: 81000; 87086

== ENCOUNTER 2023-09-13 12:22 | Outpatient (CLI) | payer MEDICAID, SELFPAY ==
[2023-05-09 15:51] VITALS: BP 126/78; BMI 40.0
[2023-09-13 13:04] LABS: Alanine Aminotransferase 27 U/L (0-33); Albumin Level 3.6 g/dL (3.5-5.2); Alkaline Phosphatase 78 U/L (35-105); Anion Gap 13.9 (5-19); Aspartate Amino Transferase 18 U/L (0-32); Blood Urea Nitrogen 4 mg/dL (6-20); Calcium 8.3 mg/dL (8.5-10.5); Carbon Dioxide 24 mmol/L (22-29); Chloride 101 mmol/L (98-107); Globulin 2.5 g/dL (1.3-4.6); Glomerular Filtration Rate 88.2 mL/min (90-130); Glucose 109 mg/dL (65-115); Osmolality Calculated 277 mOsm/kg (285-295); Potassium 3.9 mmol/L (3.5-5.1); Sodium 135 mmol/L (136-145); Total Bilirubin 0.2 mg/dL (0.15-1.2); Total Protein 6.1 g/dL (6.6-8.7)
== END 2023-09-13 12:23 | disposition home or self-care (01) ==
LOC: LAB 12:23
PROVIDERS: PCP Nurse Practitioner Family; Visit Provider Podiatrist Foot & Ankle Surgery
DX: B35.1 Tinea unguium (principal)
CPT/HCPCS: 36415; 80053

== ENCOUNTER 2023-11-14 17:42 | Emergency (ER) | payer MEDICAID, SELFPAY ==
[2023-05-09 15:51] VITALS: BP 126/78; BMI 40.0
--- NOTE | 2023-11-14 17:45 | XRR_ITS ---
PROCEDURE INFORMATION: Exam: XR Chest Exam date and time: 11/14/2023 6:03 PM Age: 52 years old Clinical indication: Chest wall pain; Additional info: Cp TECHNIQUE: Imaging protocol: Radiologic exam of the chest. Views: 1 view. COMPARISON: CR XR chest 1V portable [id number] 02/05/2022 4:44 PM FINDINGS: Lungs: Unremarkable. No consolidation. Pleural spaces: Unremarkable. No pleural effusion. No pneumothorax. Heart/Mediastinum: Unremarkable. No cardiomegaly. Bones/joints: Unremarkable. XR/XR chest 1V portable [id number] IMPRESSION: No acute findings.
[2023-11-14 17:48] VITALS: BMI 37.8
--- NOTE | 2023-11-14 17:48 | ECG_ITS ---
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 Measurements Intervals [place] Rate: 78 P: 25 AR: 160 QRS: 28 QRSD: 91 T: -3 QT: 362 QTc: 414 Interpretive Statements SINUS RHYTHM LOW QRS VOLTAGE IN PRECORDIAL LEADS [QRS DEFLECTION < 1.0 mV IN CHEST LEADS] MINIMAL ST DEPRESSION [0.025+ mV ST DEPRESSION] Compared to ECG 02/05/2022 17:07:15 ST (T wave) deviation now present Electronically Signed On 11-14-2023 23:12:51 CDT by Rashid Mcfarland M.D. [id number]
[2023-11-14 17:50] VITALS: BP 125/78; PULSE 77; RESP 16; TEMP 36.7; O2SAT 95
--- NOTE | 2023-11-14 17:54 | W.ED.CHESTPA ---
HPI - Chest Pain General: Chief Complaint: Chest Pain Stated Complaint: cp Time Seen by Provider: 11/14/23 17:44 Source: patient and EMS Mode of arrival: EMS Limitations: no limitations History of Present Illness: 52-year-old female states she has been having chest pains for the last 2 to 3 days states pain is sharp pain coming to her left chest left shoulder she denies any shortness of breath denies any nausea she has had some worsening with palpation. No history of coronary disease. Associated symptoms: Deny abdominal pain, dyspnea, fever(s), nausea or vomiting Review of Systems Const: Denies: fever(s), chills, body aches or change in appetite ENMT: Denies: dental pain Card: Reports: chest pain Resp: Denies: dyspnea GI: Denies: abdominal pain, nausea, vomiting or diarrhea Musc: Denies: neck pain or back pain Skin/Breast: Denies: rash Neuro: Denies: headache(s) PFSH ED PFSH: Medical History Chronic edema Schizoaffective disorder, depressive type Cigarette nicotine dependence GERD (gastroesophageal reflux disease) History of colon polyps Recurrent UTI Psychiatric care Psychiatric care Post-traumatic stress disorder, chronic Diabetes mellitus without complication, without long-term current use of insulin Urinary incontinence, mixed Polyp of colon, adenomatous Paresthesia and pain of both upper extremities Intervertebral disc disorder of cervical region with myelopathy Hiatal hernia Pure hypercholesterolemia, unspecified DJD (degenerative joint disease) Gastritis Peptic ulcer Surgical History Hx of appendectomy S/P laparoscopic appendectomy (01/18/20) History of esophagogastroduodenoscopy (EGD) S/P cholecystectomy S/P tubal ligation S/P endometrial ablation S/P colonoscopy Family History Father Cancer Mother , at age 64 Cancer lung and spinal sarcoma Grandfather Heart disease Hypertension Diabetes Brother Heart disease Hyperlipidemia Diabetes Sister Heart disease Hyperlipidemia Grandmother Cancer Other Bipolar affect, depressed Social History Smoking and tobacco/nicotine status: current every day tobacco/nicotine user cigarettes Packs smoked per day: 1 Years cigarettes smoked: 38 Quit status (tobacco/nicotine): not considering quitting Second hand smoke exposure: Yes Alcohol intake: former Year of sobriety/quit date alcohol: 2012 Former alcohol use details: 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 Substance/Drug Use: never Adopted: No Caregiver/support person: Yes (nurse and an aid) Lives independently: Yes Household members: none Housing: Apartment Marital status: Single Number of children: 4 Number of grandchildren: 4 Highest education level completed: 10th Grade service: No Current occupational status: disabled Current occupational exposures/hazards: No Pets and animals: Yes (Baljeet) Pets & animals: cat(s) Leisure activites: art, music and other Leisure activities details: watch tv, either outside or sleeping Sexually active: No Do you think of yourself as: Straight/Heterosexual Current gender identity: Female Odette/Methodist: Pentecostalism Special odette needs: No Agree to transfusion: Yes Female Reproductive History: Para: 4 Date of menopause: 07/29/16 Physical Exam Const: COMMON NORMALS: no acute distress, patient oriented x3 and healthy appearing HENMT: COMMON NORMALS: normocephalic and atraumatic HEAD & SCALP: normocephalic and atraumatic Eye: COMMON NORMALS: Equal, round and reactive pupils present and EOMs intact bilaterally PUPIL: Yes Equal, round and reactive pupils present Neck/C-Spine: COMMON NORMALS: full ROM and supple Chest: COMMONS NORMALS: normal inspection of the chest and normal palpation of entire chest wall Resp: COMMON NORMALS: normal respiratory effort, No retractions, No use of accessory muscles and clear to auscultation bilaterally AUSCULTATION: clear to auscultation bilaterally Cardio: COMMON NORMALS: regular rate, regular rhythm and No murmurs present (Cardio) RATE: regular rate RHYTHM: regular rhythm GI: COMMON NORMALS: Normal to inspection, nondistended, normoactive bowel sounds present, Soft to palpation, non-tender and no masses PALPATION: Yes Soft to palpation Extremity: COMMON NORMALS: normal to inspection and full ROM Neuro: COMMON NORMALS: patient oriented x3, moves all extremities and no focal motor deficits Psych: COMMON NORMALS: mental status grossly normal, Normal thought process present and cooperative THOUGHT PROCESS: Normal thought process present Skin: COMMON NORMALS: no rashes or lesions noted and no wounds GENERAL SKIN EXAM: no rashes or lesions noted Course Vital Signs: Vital signs: Vital Signs Temperature 98.0 F 11/14/23 17:50 Pulse Rate 72 11/14/23 20:17 Respiratory Rate 16 11/14/23 20:17 Blood Pressure 112/71 11/14/23 20:17 Pulse Oximetry 94 11/14/23 20:17 Oxygen Delivery Me thod Room Air 11/14/23 20:17 MDM - Chest Pain Medical Decision Making Patient presents for chest pain that is atypical in nature likely muscular her troponins EKG x-ray are all normal she has no signs of dissection or pulm embolism she is stable for discharge she is follow-up with PCP and return if worsening she understands agrees to plan Medical Records I reviewed the patient's medical records. Lab Data I reviewed the patient's lab results. 11/14/23 17:56 11/14/23 17:56 Radiology Impressions Chest X-Ray 11/14/23 17:45 IMPRESSION: No acute findings. Laboratory Results WBC 9.65 10^3/uL (3.29-11.43) 11/14/23 17:56 RBC 4.79 10^6/uL (3.85-5.65) 11/14/23 17:56 Hgb 14.80 g/dL (11.27-16.99) 11/14/23 17:56 Hct 42.7 % (36-47) 11/14/23 17:56 MCV 89.1 fl (85-98) 11/14/23 17:56 MCH 30.9 pg (27-33) 11/14/23 17:56 MCHC 34.7 g/dL (30-55) 11/14/23 17:56 RDW 12.7 % (12.1-15.1) 11/14/23 17:56 Plt Count 192 10^3/cmm (157-399) 11/14/23 17:56 MPV 10.0 fL (7.4-10.4) 11/14/23 17:56 Neut % (Auto) 60.5 % 11/14/23 17:56 Lymph % (Auto) 30.8 % 11/14/23 17:56 [place] % (Auto) 6.8 % 11/14/23 17:56 Eos % (Auto) 1.6 % 11/14/23 17:56 Baso % (Auto) 0.1 % 11/14/23 17:56 Neut # (Auto) 5.84 10^3/uL (1.8-7.7) 11/14/23 17:56 Lymph # (Auto) 3.0 10^3/uL (0.8-4.8) 11/14/23 17:56 Child[place] # (Auto) 0.7 10^3/uL (0.2-0.9) 11/14/23 17:56 Eos # (Auto) 0.2 10^3/uL (0.0-0.8) 11/14/23 17:56 Baso # (Auto) 0.0 10^3/uL (0.0-0.1) 11/14/23 17:56 Nucleated RBC % (auto) 0 % 11/14/23 17:56 Nucleated RBCs # 0.0 /100WBC 11/14/23 17:56 PT 12.50 SECONDS (12.1-14.9) 11/14/23 17:56 INR 0.91 (0.8-1.2) 11/14/23 17:56 Sodium 138 mmol/L (136-145) 11/14/23 17:56 Potassium 3.6 mmol/L (3.5-5.1) 11/14/23 17:56 Chloride 101 mmol/L (98-107) 11/14/23 17:56 Carbon Dioxide 27 mmol/L (22-29) 11/14/23 17:56 Anion Gap 13.6 (5-19) 11/14/23 17:56 BUN 5 mg/dL (6-20) L 11/14/23 17:56 Creatinine 0.7 mg/dL (0.5-0.9) 11/14/23 17:56 GFR Calculation 88.2 mL/min (90-130) L 11/14/23 17:56 Glucose 117 mg/dL (65-115) H 11/14/23 17:56 Calculated Osmolality 284 mOsm/kg (285-295) L 11/14/23 17:56 Calcium 8.8 mg/dL (8.5-10.5) 11/14/23 17:56 Total Bilirubin 0.2 mg/dL (0.15-1.2) 11/14/23 17:56 AST 17 U/L (0-32) 11/14/23 17:56 ALT 25 U/L (0-33) 11/14/23 17:56 Alkaline Phosphatase 79 U/L (35-105) 11/14/23 17:56 Troponin T Baseline 11 ng/L (0-10) H 11/14/23 17:56 Troponin T 120 Minute 10.79 ng/L (0-10) H 11/14/23 19:57 Delta Troponin T -0.21 ABS# (0-10) L 11/14/23 19:57 NT-Pro-B Natriuret Pep 64 pg/mL (0-125) 11/14/23 17:56 Total Protein 6.5 g/dL (6.6-8.7) L 11/14/23 17:56 Albumin 4.0 g/dL (3.5-5.2) 11/14/23 17:56 Globulin 2.5 g/dL (1.3-4.6) 11/14/23 17:56 Lipase 14 U/L (13-60) 11/14/23 17:56 All radiology interpretation(s) finalized by discharge EKG Data EKG 1: I personally reviewed and interpreted this EKG as follows: EKG interpretation date: 11/14/23 EKG interpretation time: 17:48 Interpretation: nsr hr [address] or t wave abnormalities qrs 91 qtc 396 EKG 2: I personally reviewed and interpreted this EKG as follows: EKG interpretation date: 11/14/23 EKG interpretation time: 20:06 Interpretation: nsr hr [address] or t wave abnormalities qrs 94 qtc 403 Discharge Plan Discharge Patient Disposition: Home Clinical Impression: Chest pain Condition: Stable Prescriptions: New ondansetron 4 mg tablet,disintegrating 4 mg PO Q6H PRN (Reason: nausea and vomiting) Qty: 14 0RF Naprosyn 500 mg tablet 500 mg PO BID PRN (Reason: pain) Qty: 20 0RF No Action levocetirizine 5 mg tablet 5 mg PO DAILY hydromorphone [Dilaudid] 4 mg tablet 4 mg PO QID PRN (Reason: Pain) cholecalciferol (vitamin D3) 125 mcg (5,000 unit) capsule 125 mcg PO DAILY pregabalin [Lyrica] 50 mg capsule 50 mg PO TID potassium gluconate 595 mg (99 mg) tablet 595 mg PO DAILY vitamin E 200 unit capsule 400 unit PO DAILY magnesium 250 mg tablet 500 mg PO DAILY aspirin [Adult Low Dose Aspirin] 81 mg tablet,delayed release (DR/EC) 81 mg PO DAILY lubiprostone [Amitiza] 24 mcg capsule 24 mcg PO BID Qty: 60 2RF pantoprazole [Protonix] 40 mg tablet,delayed release (DR/EC) 40 mg PO BID 42 Days Qty: 84 1RF nitroglycerin 0.4 mg tablet, sublingual 0.4 mg SUBLINGUAL Q5M PRN (Reason: chest pain) Qty: 25 3RF cyproheptadine 4 mg tablet 8 mg PO BEDTIME Qty: 60 6RF Rx Instructions: Take two tablets at bedtime Invega Sustenna 156 mg/mL syringe 156 mg IM ONCE Qty: 1 0RF Rx Instructions: loading dose to be given on 09/10/22 sulfamethoxazole-trimethoprim [Bactrim DS] 800-160 mg tablet 1 tab PO BID 7 Days Qty: 14 0RF ascorbic acid (vitamin C) 500 mg capsule 500 mg PO DAILY ondansetron 4 mg tablet,disintegrating 4 mg PO Q8H PRN (Reason: nausea and vomiting) Qty: 10 0RF trazodone 100 mg tablet 100 mg PO BEDTIME PRN (Reason: sleep) Qty: 30 3RF Rx Instructions: May take one tablet at bedtime as needed for sleep Invega Sustenna 234 mg/1.5 mL syringe 234 mg IM ONCE Qty: 1.5 6RF Rx Instructions: monthly injection, due on 10/14/22 paliperidone 6 mg tablet extended release 24hr 12 mg PO DAILY PRN (Reason: break thru psychosis) Qty: 60 6RF Rx Instructions: may take 2 tabs daily week b4 inj as needed break thru psychosis albuterol sulfate [ProAir HFA] 90 mcg/actuation HFA aerosol inhaler 2 puff INHALATION Q6H PRN (Reason: shortness of breath or wheezing) 30 Days Qty: 18 3RF Rx Instructions: refilling in Roro Richard absence oxybutynin chloride 15 mg tablet extended release 24hr 15 mg PO DAILY 30 Days Qty: 30 2RF Rx Instructions: refilling in Roro richard absence celecoxib 100 mg capsule 100 mg PO DAILY Qty: 60 2RF Hold Instructions: Resume on 08/04/23. fluticasone propion-salmeterol [Advair Diskus] 250-50 mcg/dose blister with device 1 inh INHALATION BID naloxone [Narcan] 4 mg/actuation spray,non-aerosol 1 spray INTRANASAL DAILY PRN (Reason: Adequate Ventilation) terbinafine HCl 250 mg tablet 250 mg PO DAILY 30 Days Qty: 30 2RF furosemide 20 mg tablet 20 mg PO DAILY Qty: 10 2RF rosuvastatin 20 mg Tablet 20 mg PO DAILY Discharge Orders: Discharge ED (Routine); Ordered 11/14/23 Ordered By: Abhi Zabala Referrals: Skyla Burns FNP [Primary Care Provider] - 4-7 days Discharge Diet: Advance as tolerated Discharge Activity: Resume usual activity Patient Instructions: Chest Pain (ED) Coding Level of Care Code ED Plugging Machine Operator for Jose Daniel Sher
[2023-11-14 18:10] LABS: Basophils % 0.1 %; Eosinophils # 0.2 10^3/uL (0.0-0.8); Eosinophils % 1.6 %; Hematocrit 42.7 % (36-47); Lymphocytes % 30.8 %; Mean Corpuscular HGB Conc 34.7 g/dL (30-55); Mean Corpuscular Hemoglobin 30.9 pg (27-33); Mean Corpuscular Volume 89.1 fl (85-98); Monocytes # 0.7 10^3/uL (0.2-0.9); Monocytes % 6.8 %; Neutrophils # 5.84 10^3/uL (1.8-7.7); Neutrophils % 60.5 %; Nucleated Red Blood Cells % 0 %; Platelet Count 192 10^3/cmm (157-399); Red Blood Count 4.79 10^6/uL (3.85-5.65); Red Cell Distribution Width 12.7 % (12.1-15.1); White Blood Count 9.65 10^3/uL (3.29-11.43)
[2023-11-14 18:22] LABS: INR 0.91 (0.8-1.2)
[2023-11-14 18:28] LABS: Troponin(5th) Baseline 11 ng/L (0-10)
[2023-11-14 18:35] LABS: Alanine Aminotransferase 25 U/L (0-33); Alkaline Phosphatase 79 U/L (35-105); Anion Gap 13.6 (5-19); Aspartate Amino Transferase 17 U/L (0-32); Blood Urea Nitrogen 5 mg/dL (6-20); Calcium 8.8 mg/dL (8.5-10.5); Carbon Dioxide 27 mmol/L (22-29); Chloride 101 mmol/L (98-107); Creatinine Clr Calc Pharmacy 113.1538; Globulin 2.5 g/dL (1.3-4.6); Glomerular Filtration Rate 88.2 mL/min (90-130); Glucose 117 mg/dL (65-115); Lipase 14 U/L (13-60); NT Pro B Type Natriuretic Pept 64 pg/mL (0-125); Osmolality Calculated 284 mOsm/kg (285-295); Potassium 3.6 mmol/L (3.5-5.1); Sodium 138 mmol/L (136-145); Total Bilirubin 0.2 mg/dL (0.15-1.2); Total Protein 6.5 g/dL (6.6-8.7)
--- NOTE | 2023-11-14 20:06 | ECG_ITS ---
[facility] Test Date: 2023-11-14 Pat Name: Afshan Parry Department: Room: Gender: Female Hse Advisor: : 1970 Requested By: Abhi Zabala Order Number: [id number] Indira MD: Rashid Mcfarland M.D. Measurements Intervals [place] Rate: 69 P: 30 MD: 150 QRS: 23 QRSD: 94 T: -3 QT: 384 QTc: 412 Interpretive Statements SINUS RHYTHM LOW QRS VOLTAGE IN PRECORDIAL LEADS [QRS DEFLECTION < 1.0 mV IN CHEST LEADS] Compared to ECG 11/14/2023 17:48:38 ST (T wave) deviation no longer present Electronically Signed On 11-14-2023 23:13:49 CDT by Rashid Mcfraland M.D. [id number]
[2023-11-14 20:17] VITALS: BP 112/71; PULSE 72; RESP 16; O2SAT 94
[2023-11-14 20:44] LABS: Troponin 5 2HR 10.79 ng/L (0-10)
[2023-11-14 20:51] LABS: Troponin 5 2HR Delta -0.21 ABS# (0-10)
[2023-11-14 21:34] VITALS: BP 112/71; PULSE 72; RESP 16; TEMP 36.7; O2SAT 94
== END 2023-11-14 21:21 | disposition home or self-care (01) ==
PROVIDERS: Emergency Provider Emergency Medicine; PCP Nurse Practitioner Family
DX: R07.9 Chest pain, unspecified (principal); Z79.82 Long term (current) use of aspirin; F17.210 Nicotine dependence, cigarettes, uncomplicated; E11.9 Type 2 diabetes mellitus without complications
CPT/HCPCS: 36415; 71045; 80053; 83690; 83880; 84484; 85025; 85610; 93005; 99285

== ENCOUNTER 2023-12-30 10:14 | Outpatient (CLI) | payer MEDICAID, SELFPAY ==
[2023-05-09 15:51] VITALS: BP 126/78; BMI 40.0
[2023-12-30 10:27] VITALS: BMI 35.7
--- NOTE | 2023-12-30 10:36 | ECG_ITS ---
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 Interpretive Statements NAME OF STUDY: LEXISCAN SESTAMIBI STRESS TEST INDICATION: CP, PROCEDURE: At the baseline, the EKG revealed normal sinus rhythm with some nonspecific ST-T changes in the anterolateral and inferior leads. The baseline heart was 83 bpm with a blood pressue of 97/59 mm of Hg Lexiscan was infused over a period of 20 seconds. A total of 0.4 milligrams of Lexiscan was infused. The stress phase was continued for a total of 5 minutes. Heart rate at the end of the stress phase was 103 bpm with a blood pressure 104/57 mm of Hg. The EKG at the peak infusion revealed slightly more pronounced nonspecific ST-T changes in the anterolateral inferior leads. Sestamibi was injected 20 seconds after the Lexiscan infusion. Heart rate at the end of the recovery phase was 100 bpm with a blood pressure of 112/50 mm of Hg. CONCLUSION: 1. Nonspecific EKG changes with the LexiScan infusion 2. No LexiScan induced chest pain or cardiac arrhythmia 3. Normal blood pressure and heart rate response 4. Sestamibi/sestamibi perfusion scan pending; see separate report. Electronically Signed On 01-02-2024 9:44:45 CDT by Leonidas Siu M.D. [id number]
--- NOTE | 2023-12-30 10:37 | NMCV_ITS ---
NM marlyn perf SPECT r/s* [id number] Afshan Parry Age: 53 Gender: F : 1970 Exam Date: 12/30/2023 10:37 Ordering Phys: Skyla BurnsP DATA ANALYTICS CHIEF SCIENTIST Technologist: DERECK Lee Exam Location: [facility] Indications: CHEST PAIN STRESS TEST Please see separate stress test report in [facility] for full findings IMAGE PROTOCOL Rest/Stress 1 Lexiscan Day Radiopharmaceutical Dose (mCi) Administration Site Administered by Rest: Tc-99m 10.7 IV DERECK Lee Sestamibi Stress:Tc-99m 32.8 IV Diane Ponce, DERECK Sestamibi Rest: 30-Dec-2023 60 Discovery 630 Stress: 30-Dec-2023 30 Discovery 630 0.4mg Lexiscan. Supine position only as patient was unable to lay prone. SPECT RESULTS Technical Quality: Excellent Raw Data Analysis: Normal Image Corrections: No attenuation or motion correction applied Summed Stress Score: 0 Summed Rest Score: 0 Summed Difference Score: 0 PERFUSION FINDINGS Uniform myocardial tracer uptake with no significant perfusion normalities FUNCTIONAL RESULTS (calculated via Gated SPECT) Stress Image LV EF (%): 73 Stress EDV (mL):64 TID: 0.85 Stress ESV (mL):17 FUNCTIONAL FINDINGS: Segmental wall motion analysis revealing no gross wall motion abnormalities IMPRESSIONS 1. Unremarkable Myocardial perfusion imaging 2. Normal LV ejection fraction 73% 3. LV wall motion analysis revealing no gross wall motion abnormalities. 4. Normal LV volume. Low probability for coronary ischemia, based on the above findings Dr Leonidas Siu MD FAC (Electronically Signed) Final Date: 30 December 2023 15:23 S
[2023-12-30] MEDS: regadenoson 0.4 Mg/5 ml Syringe 0.400000000000000022 MG IVP (12:03)
[2023-12-30 12:29] VITALS: BP 104/57; PULSE 98
== END 2023-12-30 10:15 | disposition home or self-care (01) ==
LOC: CDL 10:15
PROVIDERS: PCP Nurse Practitioner Family; Visit Provider Nurse Practitioner Family
DX: R07.9 Chest pain, unspecified (principal)
CPT/HCPCS: 36415; 78452; 93017; 96374; A9500; J2785

== ENCOUNTER 2023-12-30 13:20 | Emergency (ER) | payer MEDICAID, SELFPAY ==
[2023-05-09 15:51] VITALS: BP 126/78; BMI 40.0
[2023-12-30 13:23] VITALS: BP 105/65; PULSE 80; RESP 16; TEMP 36.5; O2SAT 97
[2023-12-30 15:11] LABS: Basophils % 0.2 %; Eosinophils # 0.2 10^3/uL (0.0-0.8); Eosinophils % 1.8 %; Hematocrit 44.5 % (36-47); Lymphocytes # 2.6 10^3/uL (0.8-4.8); Lymphocytes % 29.3 %; Mean Corpuscular HGB Conc 34.4 g/dL (30-55); Mean Corpuscular Hemoglobin 31.5 pg (27-33); Mean Corpuscular Volume 91.6 fl (85-98); Mean Platelet Volume 10.1 fL (7.4-10.4); Monocytes # 0.4 10^3/uL (0.2-0.9); Monocytes % 4.4 %; Neutrophils # 5.77 10^3/uL (1.8-7.7); Neutrophils % 64.1 %; Nucleated Red Blood Cells % 0 %; Platelet Count 215 10^3/cmm (157-399); Red Blood Count 4.86 10^6/uL (3.85-5.65); Red Cell Distribution Width 13.6 % (12.1-15.1); White Blood Count 9.01 10^3/uL (3.29-11.43)
[2023-12-30 15:26] LABS: Alanine Aminotransferase 31 U/L (0-33); Alkaline Phosphatase 78 U/L (35-105); Blood Urea Nitrogen 5 mg/dL (6-20); Calcium 9.3 mg/dL (8.5-10.5); Carbon Dioxide 28 mmol/L (22-29); Chloride 102 mmol/L (98-107); Creatinine Clr Calc Pharmacy 126.7597; Globulin 2.8 g/dL (1.3-4.6); Glucose 183 mg/dL (65-115); Osmolality Calculated 294 mOsm/kg (285-295); Sodium 141 mmol/L (136-145); Total Bilirubin 0.3 mg/dL (0.15-1.2); Total Protein 6.8 g/dL (6.6-8.7)
[2023-12-30 15:38] LABS: Aspartate Amino Transferase 23 U/L (0-32)
[2023-12-30 18:19] VITALS: BP 111/65; PULSE 85; RESP 17; O2SAT 95
--- NOTE | 2023-12-30 18:19 | W.ED.FEMALGU ---
Documented by User: ROSANGELA Willis 12/30/23 20:44 HPI - Female Genitourinary General: Chief complaint: Urogenital-Female Stated complaint: burning when urination, nausea Time Seen by Provider: 12/30/23 18:12 Source: patient Mode of arrival: ambulatory Limitations: no limitations History of Present Illness: Patient is a 53-year-old female presenting to the emergency department complaining of pelvic pain and dysuria onset past few days. States she has a history of urinary tract infections which has been cultured and grew out E. coli. She states this feels identical. She is denying any blood in her urine, back pain, fevers, or vomiting. She does note that she has been feeling nauseous. No other symptoms reported this time. MD elicited complaint: dysuria, UTI and pelvic pain Onset (ago): day(s) Location of symptoms: suprapubic Severity: moderate Associated symptoms: Reports nausea; Deny headache(s) Review of Systems General: Reports: 10 or more systems reviewed and unremarkable except in HPI and below Const: Denies: fever(s), chills, change in appetite, change in weight or diaphoresis ENMT: Denies: throat pain or hoarseness Card: Denies: chest pain, palpitations or lightheadedness Resp: Denies: dyspnea, productive cough or wheezing GI: Reports: nausea; Denies: vomiting, diarrhea, constipation, bloating, change in stool character or hematochezia : Reports: dysuria and pelvic pain; Denies: flank pain, difficulty voiding, urinary frequency or hematuria Musc: Denies: neck pain or back pain Skin/Breast: Denies: rash or new lesions Neuro: Denies: headache(s) or dizziness PFSH ED PFSH: Medical History Chronic edema Schizoaffective disorder, depressive type Cigarette nicotine dependence GERD (gastroesophageal reflux disease) History of colon polyps Recurrent UTI Psychiatric care Psychiatric care Post-traumatic stress disorder, chronic Diabetes mellitus without complication, without long-term current use of insulin Urinary incontinence, mixed Polyp of colon, adenomatous Paresthesia and pain of both upper extremities Intervertebral disc disorder of cervical region with myelopathy Hiatal hernia Pure hypercholesterolemia, unspecified DJD (degenerative joint disease) Gastritis Peptic ulcer Surgical History Hx of appendectomy S/P laparoscopic appendectomy (01/18/20) History of esophagogastroduodenoscopy (EGD) S/P cholecystectomy S/P tubal ligation S/P endometrial ablation S/P colonoscopy Family History Father Cancer Mother , at age 64 Cancer lung and spinal sarcoma Grandfather Heart disease Hypertension Diabetes Brother Heart disease Hyperlipidemia Diabetes Sister Heart disease Hyperlipidemia Grandmother Cancer Other Bipolar affect, depressed Social History Smoking and tobacco/nicotine status: current every day tobacco/nicotine user cigarettes Packs smoked per day: 1 Years cigarettes smoked: 38 Quit status (tobacco/nicotine): not considering quitting Second hand smoke exposure: Yes Alcohol intake: former Year of sobriety/quit date alcohol: 2012 Former alcohol use details: 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 Substance/Drug Use: never Adopted: No Caregiver/support person: Yes (nurse and an aid) Lives independently: Yes Household members: none Housing: Apartment Marital status: Single Number of children: 4 Number of grandchildren: 4 Highest education level completed: 10th Grade service: No Current occupational status: disabled Current occupational exposures/hazards: No Pets and animals: Yes (Baljeet) Pets & animals: cat(s) Leisure activites: art, music and other Leisure activities details: watch tv, either outside or sleeping Sexually active: No Do you think of yourself as: Straight/Heterosexual Current gender identity: Female Odette/Denominational: Anabaptism Special odette needs: No Agree to transfusion: Yes Female Reproductive History: Para: 4 Date of menopause: 07/29/16 Physical Exam Const: COMMON NORMALS: no acute distress, average body habitus, patient oriented x3, no limitations, healthy appearing, alert and well nourished GENERAL APPEARANCE: cooperative and comfortable ORIENTATION/CONSCIOUSNESS: Yes awake HENMT: COMMON NORMALS: normocephalic, atraumatic, hearing grossly normal bilaterally, external ears normal, Normal external nose present, Normal nasal mucous membranes and turbinates present and moist oral mucous membranes HEAD & SCALP: normocephalic and atraumatic NOSE: Normal external nose present and Normal nasal mucous membranes and turbinates present EXTERNAL EAR: Yes external ears normal Eye: COMMON NORMALS: Equal, round and reactive pupils present, EOMs intact bilaterally, conjunctivae normal and normal visual peters by confrontation CONJUNCTIVA: Yes conjunctivae normal PUPIL: Yes Equal, round and reactive pupils present Neck/C-Spine: COMMON NORMALS: full ROM, supple, no meningeal signs and no JVD Resp: COMMON NORMALS: normal respiratory effort, No retractions, No use of accessory muscles and clear to auscultation bilaterally AUSCULTATION: clear to auscultation bilaterally, no crackles, no rales, no rhonchi and no wheezes Cardio: COMMON NORMALS: no JVD, regular rate, regular rhythm, S1 normal heart sound present, S2 normal heart sound present, No gallops present (Cardio), No clicks present (Cardio), No murmurs present (Cardio), No rub (Cardio) and Peripheral pulses 2+ throughout RATE: regular rate RHYTHM: regular rhythm HEART SOUNDS: S1 normal heart sound present and S2 normal heart sound present PERIPHERAL PULSES: Peripheral pulses 2+ throughout GI: COMMON NORMALS: Normal to inspection, nondistended, normoactive bowel sounds present, Soft to palpation, non-tender, No hepatosplenomegaly present and no masses AUSCULTATION: Yes normoactive bowel sounds PALPATION: Yes Soft to palpation, No Guarding due to palpation present (GI), No Rigid due to palpation and Yes No hepatosplenomegaly present RECTAL EXAM: deferred : COMMON NORMALS: Yes no CVA tenderness BLADDER/KIDNEY EXAM: Yes no CVA tenderness Back/Pelvis: COMMON NORMALS: no CVA tenderness Extremity: COMMON NORMALS: normal to inspection and full ROM Neuro: COMMON NORMALS: patient oriented x3, moves all extremities, no focal motor deficits and no sensory deficits noted SENSORIUM/ORIENTATION: Yes alert MENINGEAL SIGNS: Yes no meningeal signs Psych: COMMON NORMALS: mental status grossly normal, cooperative and speech normal SPEECH: Yes normal speech Skin: COMMON NORMALS: no rashes or lesions noted GENERAL SKIN EXAM: no rashes or lesions noted Course Vital Signs: Vital signs: Vital Signs Temperature 97.7 F 12/30/23 13:23 Pulse Rate 71 12/30/23 20:00 Respiratory Rate 18 12/30/23 20:00 Blood Pressure 116/74 12/30/23 19:30 Pulse Oximetry 94 12/30/23 20:00 Oxygen Delivery Me thod Room Air 12/30/23 20:00 MDM - Female Medical Decision Making Patient seen for urinary symptoms and some pelvic pain. On arrival her vitals are unremarkable and condition has remained stable throughout ED course. Exam overall unremarkable. Basic blood work was all normal. Urinalysis did not reveal any signs of infection. Because of this I did scan her abdomen and pelvis, which showed fluid in the stomach reflecting a potential gastritis. There were other nonemergent/incidental findings that I did instruct patient to follow-up with primary care for. In the meantime, will treat with Cipro and Flagyl for her infection and encouraged her to undergo clear good diet. Strict return precautions were given and patient agrees with discharge home. Lab Data 12/30/23 14:46 12/30/23 14:46 Radiology Impressions Abdomen/Pelvis CT 12/30/23 19:07 IMPRESSION: 1. Prominent fluid in stomach may reflect a gastritis. 2. Small umbilical hernia containing omentum. 3. Scattered prominent soft tissue density nodules in the buttocks region measuring up to 24 mm on the right, new compared to prior exam, findings may reflect injection granulomas, please correlate clinically, nonspecific adenopathy is also consideration. 4. Right lower lobe 7.1 mm pulmonary nodule similar dating back to 01/18/2028, likely reflecting a benign nodule given stability. 5. Spleen enlarged 13.6 cm. 6. Cholecystectomy. Laboratory Results WBC 9.01 10^3/uL (3.29-11.43) 12/30/23 14:46 RBC 4.86 10^6/uL (3.85-5.65) 12/30/23 14:46 Hgb 15.30 g/dL (11.27-16.99) 12/30/23 14:46 Hct 44.5 % (36-47) 12/30/23 14:46 MCV 91.6 fl (85-98) 12/30/23 14:46 MCH 31.5 pg (27-33) 12/30/23 14:46 MCHC 34.4 g/dL (30-55) 12/30/23 14:46 RDW 13.6 % (12.1-15.1) 12/30/23 14:46 Plt Count 215 10^3/cmm (157-399) 12/30/23 14:46 MPV 10.1 fL (7.4-10.4) 12/30/23 14:46 Neut % (Auto) 64.1 % 12/30/23 14:46 Lymph % (Auto) 29.3 % 12/30/23 14:46 [place] % (Auto) 4.4 % 12/30/23 14:46 Eos % (Auto) 1.8 % 12/30/23 14:46 Baso % (Auto) 0.2 % 12/30/23 14:46 Neut # (Auto) 5.77 10^3/uL (1.8-7.7) 12/30/23 14:46 Lymph # (Auto) 2.6 10^3/uL (0.8-4.8) 12/30/23 14:46 [place] # (Auto) 0.4 10^3/uL (0.2-0.9) 12/30/23 14:46 Eos # (Auto) 0.2 10^3/uL (0.0-0.8) 12/30/23 14:46 Baso # (Auto) 0.0 10^3/uL (0.0-0.1) 12/30/23 14:46 Nucleated RBC % (auto) 0 % 12/30/23 14:46 Nucleated RBCs # 0.0 /100WBC 12/30/23 14:46 Sodium 141 mmol/L (136-145) 12/30/23 14:46 Potassium 4.0 mmol/L (3.5-5.1) 12/30/23 14:46 Chloride 102 mmol/L (98-107) 12/30/23 14:46 Carbon Dioxide 28 mmol/L (22-29) 12/30/23 14:46 Anion Gap 15.0 (5-19) 12/30/23 14:46 BUN 5 mg/dL (6-20) L 12/30/23 14:46 Creatinine 0.6 mg/dL (0.5-0.9) 12/30/23 14:46 GFR Calculation 105.0 mL/min (90-130) 12/30/23 14:46 Glucose 183 mg/dL (65-115) H 12/30/23 14:46 Calculated Osmolality 294 mOsm/kg (285-295) 12/30/23 14:46 Calcium 9.3 mg/dL (8.5-10.5) 12/30/23 14:46 Total Bilirubin 0.3 mg/dL (0.15-1.2) 12/30/23 14:46 AST 23 U/L (0-32) 12/30/23 14:46 ALT 31 U/L (0-33) 12/30/23 14:46 Alkaline Phosphatase 78 U/L (35-105) 12/30/23 14:46 Total Protein 6.8 g/dL (6.6-8.7) 12/30/23 14:46 Albumin 4.0 g/dL (3.5-5.2) 12/30/23 14:46 Globulin 2.8 g/dL (1.3-4.6) 12/30/23 14:46 Urine Color Yellow (Yellow) 12/30/23 15:55 Urine Appearance Slightly cloudy (CLEAR) 12/30/23 15:55 Urine pH 6 (5-7) 12/30/23 15:55 Ur Specific [place] 1.000 (1.005-1.030) L 12/30/23 15:55 Urine Protein Neg (Negative) 12/30/23 15:55 Urine Glucose (UA) Norm (Normal) 12/30/23 15:55 Urine Ketones Negative (Negative) 12/30/23 15:55 Urine Blood Neg (Negative) 12/30/23 15:55 Urine Nitrate Negative (Negative) 12/30/23 15:55 Urine Bilirubin Neg (Negative) 12/30/23 15:55 Urine Urobilinogen Norm mg/dL (Negative) 12/30/23 15:55 Ur Leukocyte Esterase Negative (Negative) 12/30/23 15:55 Urine RBC None /hpf (0-2) 12/30/23 15:55 Urine WBC 0-4 /hpf (0-5) H 12/30/23 15:55 Ur Squamous Epith Cells 5-10 /hpf (0-5) H 12/30/23 15:55 Amorphous Sediment Not Reportable 12/30/23 15:55 Urine Bacteria Trace /hpf (NONE) 12/30/23 15:55 All radiology interpretation(s) finalized by discharge Discharge Plan Discharge Patient Disposition: Home Clinical Impression: Gastritis Qualifiers: Gastritis type: unspecified gastritis Chronicity: acute Gastritis bleeding: without bleeding Qualified Code(s): K29.00 - Acute gastritis without bleeding Condition: Stable Prescriptions: New metronidazole 500 mg tablet 500 mg PO BID 7 Days Qty: 14 0RF Cipro 500 mg tablet 500 mg PO BID 10 Days Qty: 20 0RF No Action levocetirizine 5 mg tablet 5 mg PO DAILY hydromorphone [Dilaudid] 4 mg tablet 4 mg PO QID PRN (Reason: Pain) cholecalciferol (vitamin D3) 125 mcg (5,000 unit) capsule 125 mcg PO DAILY pregabalin [Lyrica] 50 mg capsule 50 mg PO TID potassium gluconate 595 mg (99 mg) tablet 595 mg PO DAILY vitamin E 200 unit capsule 400 unit PO DAILY magnesium 250 mg tablet 500 mg PO DAILY aspirin [Adult Low Dose Aspirin] 81 mg tablet,delayed release (DR/EC) 81 mg PO DAILY lubiprostone [Amitiza] 24 mcg capsule 24 mcg PO BID Qty: 60 2RF pantoprazole [Protonix] 40 mg tablet,delayed release (DR/EC) 40 mg PO BID 42 Days Qty: 84 1RF nitroglycerin 0.4 mg tablet, sublingual 0.4 mg SUBLINGUAL Q5M PRN (Reason: chest pain) Qty: 25 3RF cyproheptadine 4 mg tablet 8 mg PO BEDTIME Qty: 60 6RF Rx Instructions: Take two tablets at bedtime Invega Sustenna 234 mg/1.5 mL syringe 234 mg IM ONCE Qty: 1.5 6RF Rx Instructions: monthly injection trazodone 100 mg tablet 100 mg PO BEDTIME PRN (Reason: sleep) Qty: 30 6RF Rx Instructions: May take one tablet at bedtime as needed for sleep ascorbic acid (vitamin C) 500 mg capsule 500 mg PO DAILY ondansetron 4 mg tablet,disintegrating 4 mg PO Q8H PRN (Reason: nausea and vomiting) Qty: 10 0RF paliperidone 6 mg tablet extended release 24hr 12 mg PO DAILY PRN (Reason: break thru psychosis) Qty: 60 6RF Rx Instructions: may take 2 tabs daily week b4 inj as needed break thru psychosis albuterol sulfate [ProAir HFA] 90 mcg/actuation HFA aerosol inhaler 2 puff INHALATION Q6H PRN (Reason: shortness of breath or wheezing) 30 Days Qty: 18 3RF Rx Instructions: refilling in [facility] absence oxybutynin chloride 15 mg tablet extended release 24hr 15 mg PO DAILY 30 Days Qty: 30 2RF Rx Instructions: refilling in [facility] absence celecoxib 100 mg capsule 100 mg PO DAILY Qty: 60 2RF Hold Instructions: Resume on 01/04/23. fluticasone propion-salmeterol [Advair Diskus] 250-50 mcg/dose blister with device 1 inh INHALATION BID naloxone [Narcan] 4 mg/actuation spray,non-aerosol 1 spray INTRANASAL DAILY PRN (Reason: Adequate Ventilation) terbinafine HCl 250 mg tablet 250 mg PO DAILY 30 Days Qty: 30 2RF furosemide 20 mg tablet 20 mg PO DAILY Qty: 10 2RF rosuvastatin 20 mg Tablet 20 mg PO DAILY ondansetron 4 mg tablet,disintegrating 4 mg PO Q6H PRN (Reason: nausea and vomiting) Qty: 14 0RF Naprosyn 500 mg tablet 500 mg PO BID PRN (Reason: pain) Qty: 20 0RF Discharge Orders: Discharge ED (Routine); Ordered 12/30/23 Ordered By: Kaushik Kidd Referrals: Skyla Burns FNP [Primary Care Provider] - Discharge Diet: As Directed Discharge Activity: Increase activity as tolerated Patient Instructions: Gastritis (ED) Activity Restrictions/Additional Instructions: Antibiotics as prescribed. GI soft diet. Plenty of fluids. Follow-up with primary care as instructed to discuss ED visit and imaging findings. Please return with any new or concerning symptoms you may have. Coding Level of Care Code ED Manifold Operator for Chg Fwd Documented by User: Zheng Keith DO 01/03/24 06:21 HPI - Female Genitourinary General: Chief complaint: Urogenital-Female Stated complaint: burning when urination, nausea Time Seen by Provider: 12/30/23 18:12 PFSH ED PFSH: Medical History Chronic edema Schizoaffective disorder, depressive type Cigarette nicotine dependence GERD (gastroesophageal reflux disease) History of colon polyps Recurrent UTI Psychiatric care Psychiatric care Post-traumatic stress disorder, chronic Diabetes mellitus without complication, without long-term current use of insulin Urinary incontinence, mixed Polyp of colon, adenomatous Paresthesia and pain of both upper extremities Intervertebral disc disorder of cervical region with myelopathy Hiatal hernia Pure hypercholesterolemia, unspecified DJD (degenerative joint disease) Gastritis Peptic ulcer Surgical History Hx of appendectomy S/P laparoscopic appendectomy (01/18/20) History of esophagogastroduodenoscopy (EGD) S/P cholecystectomy S/P tubal ligation S/P endometrial ablation S/P colonoscopy Family History Father Cancer Mother , at age 64 Cancer lung and spinal sarcoma Grandfather Heart disease Hypertension Diabetes Brother Heart disease Hyperlipidemia Diabetes Sister Heart disease Hyperlipidemia Grandmother Cancer Other Bipolar affect, depressed Social History Smoking and tobacco/nicotine status: current every day tobacco/nicotine user cigarettes Packs smoked per day: 1 Years cigarettes smoked: 38 Quit status (tobacco/nicotine): not considering quitting Second hand smoke exposure: Yes Alcohol intake: former Year of sobriety/quit date alcohol: 2013 Former alcohol use details: 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 Substance/Drug Use: never Adopted: No Caregiver/support person: Yes (nurse and an aid) Lives independently: Yes Household members: none Housing: Apartment Marital status: Single Number of children: 4 Number of grandchildren: 4 Highest education level completed: 10th Grade service: No Current occupational status: disabled Current occupational exposures/hazards: No Pets and animals: Yes (Baljeet) Pets & animals: cat(s) Leisure activites: art, music and other Leisure activities details: watch tv, either outside or sleeping Sexually active: No Do you think of yourself as: Straight/Heterosexual Current gender identity: Female Odette/Denominational: Anabaptism Special odette needs: No Agree to transfusion: Yes Course Vital Signs: Vital signs: Vital Signs Temperature 97.7 F 12/30/23 13:23 Pulse Rate 71 12/30/23 20:00 Respiratory Rate 18 12/30/23 20:00 Blood Pressure 116/74 12/30/23 19:30 Pulse Oximetry 94 12/30/23 20:00 Oxygen Delivery Me thod Room Air 12/30/23 20:00 MDM - Female Medical Decision Making Patient seen for urinary symptoms and some pelvic pain. On arrival her vitals are unremarkable and condition has remained stable throughout ED course. Exam overall unremarkable. Basic blood work was all normal. Urinalysis did not reveal any signs of infection. Because of this I did scan her abdomen and pelvis, which showed fluid in the stomach reflecting a potential gastritis. There were other nonemergent/incidental findings that I did instruct patient to follow-up with primary care for. In the meantime, will treat with Cipro and Flagyl for her infection and encouraged her to undergo clear good diet. Strict return precautions were given and patient agrees with discharge home. Chart reviewed Lab Data 12/30/23 14:46 12/30/23 14:46 Radiology Impressions Abdomen/Pelvis CT 12/30/23 19:07 IMPRESSION: 1. Prominent fluid in stomach may reflect a gastritis. 2. Small umbilical hernia containing omentum. 3. Scattered prominent soft tissue density nodules in the buttocks region measuring up to 24 mm on the right, new compared to prior exam, findings may reflect injection granulomas, please correlate clinically, nonspecific adenopathy is also consideration. 4. Right lower lobe 7.1 mm pulmonary nodule similar dating back to 01/18/2028, likely reflecting a benign nodule given stability. 5. Spleen enlarged 13.6 cm. 6. Cholecystectomy. Laboratory Results WBC 9.01 10^3/uL (3.29-11.43) 12/30/23 14:46 RBC 4.86 10^6/uL (3.85-5.65) 12/30/23 14:46 Hgb 15.30 g/dL (11.27-16.99) 12/30/23 14:46 Hct 44.5 % (36-47) 12/30/23 14:46 MCV 91.6 fl (85-98) 12/30/23 14:46 MCH 31.5 pg (27-33) 12/30/23 14:46 MCHC 34.4 g/dL (30-55) 12/30/23 14:46 RDW 13.6 % (12.1-15.1) 12/30/23 14:46 Plt Count 215 10^3/cmm (157-399) 12/30/23 14:46 MPV 10.1 fL (7.4-10.4) 12/30/23 14:46 Neut % (Auto) 64.1 % 12/30/23 14:46 Lymph % (Auto) 29.3 % 12/30/23 14:46 [place] % (Auto) 4.4 % 12/30/23 14:46 Eos % (Auto) 1.8 % 12/30/23 14:46 Baso % (Auto) 0.2 % 12/30/23 14:46 Neut # (Auto) 5.77 10^3/uL (1.8-7.7) 12/30/23 14:46 Lymph # (Auto) 2.6 10^3/uL (0.8-4.8) 12/30/23 14:46 [place] # (Auto) 0.4 10^3/uL (0.2-0.9) 12/30/23 14:46 Eos # (Auto) 0.2 10^3/uL (0.0-0.8) 12/30/23 14:46 Baso # (Auto) 0.0 10^3/uL (0.0-0.1) 12/30/23 14:46 Nucleated RBC % (auto) 0 % 12/30/23 14:46 Nucleated RBCs # 0.0 /100WBC 12/30/23 14:46 Sodium 141 mmol/L (136-145) 12/30/23 14:46 Potassium 4.0 mmol/L (3.5-5.1) 12/30/23 14:46 Chloride 102 mmol/L (98-107) 12/30/23 14:46 Carbon Dioxide 28 mmol/L (22-29) 12/30/23 14:46 Anion Gap 15.0 (5-19) 12/30/23 14:46 BUN 5 mg/dL (6-20) L 12/30/23 14:46 Creatinine 0.6 mg/dL (0.5-0.9) 12/30/23 14:46 GFR Calculation 105.0 mL/min (90-130) 12/30/23 14:46 Glucose 183 mg/dL (65-115) H 12/30/23 14:46 Calculated Osmolality 294 mOsm/kg (285-295) 12/30/23 14:46 Calcium 9.3 mg/dL (8.5-10.5) 12/30/23 14:46 Total Bilirubin 0.3 mg/dL (0.15-1.2) 12/30/23 14:46 AST 23 U/L (0-32) 12/30/23 14:46 ALT 31 U/L (0-33) 12/30/23 14:46 Alkaline Phosphatase 78 U/L (35-105) 12/30/23 14:46 Total Protein 6.8 g/dL (6.6-8.7) 12/30/23 14:46 Albumin 4.0 g/dL (3.5-5.2) 12/30/23 14:46 Globulin 2.8 g/dL (1.3-4.6) 12/30/23 14:46 Urine Color Yellow (Yellow) 12/30/23 15:55 Urine Appearance Slightly cloudy (CLEAR) 12/30/23 15:55 Urine pH 6 (5-7) 12/30/23 15:55 Ur Specific [place] 1.000 (1.005-1.030) L 12/30/23 15:55 Urine Protein Neg (Negative) 12/30/23 15:55 Urine Glucose (UA) Norm (Normal) 12/30/23 15:55 Urine Ketones Negative (Negative) 12/30/23 15:55 Urine Blood Neg (Negative) 12/30/23 15:55 Urine Nitrate Negative (Negative) 12/30/23 15:55 Urine Bilirubin Neg (Negative) 12/30/23 15:55 Urine Urobilinogen Norm mg/dL (Negative) 12/30/23 15:55 Ur Leukocyte Esterase Negative (Negative) 12/30/23 15:55 Urine RBC None /hpf (0-2) 12/30/23 15:55 Urine WBC 0-4 /hpf (0-5) H 12/30/23 15:55 Ur Squamous Epith Cells 5-10 /hpf (0-5) H 12/30/23 15:55 Amorphous Sediment Not Reportable 12/30/23 15:55 Urine Bacteria Trace /hpf (NONE) 12/30/23 15:55 Discharge Plan Discharge Patient Disposition: Home Clinical Impression: Gastritis Qualifiers: Gastritis type: unspecified gastritis Chronicity: acute Gastritis bleeding: without bleeding Qualified Code(s): K29.00 - Acute gastritis without bleeding Condition: Stable Prescriptions: New metronidazole 500 mg tablet 500 mg PO BID 7 Days Qty: 14 0RF Cipro 500 mg tablet 500 mg PO BID 10 Days Qty: 20 0RF No Action levocetirizine 5 mg tablet 5 mg PO DAILY hydromorphone [Dilaudid] 4 mg tablet 4 mg PO QID PRN (Reason: Pain) cholecalciferol (vitamin D3) 125 mcg (5,000 unit) capsule 125 mcg PO DAILY pregabalin [Lyrica] 50 mg capsule 50 mg PO TID potassium gluconate 595 mg (99 mg) tablet 595 mg PO DAILY vitamin E 200 unit capsule 400 unit PO DAILY magnesium 250 mg tablet 500 mg PO DAILY aspirin [Adult Low Dose Aspirin] 81 mg tablet,delayed release (DR/EC) 81 mg PO DAILY lubiprostone [Amitiza] 24 mcg capsule 24 mcg PO BID Qty: 60 2RF pantoprazole [Protonix] 40 mg tablet,delayed release (DR/EC) 40 mg PO BID 42 Days Qty: 84 1RF nitroglycerin 0.4 mg tablet, sublingual 0.4 mg SUBLINGUAL Q5M PRN (Reason: chest pain) Qty: 25 3RF cyproheptadine 4 mg tablet 8 mg PO BEDTIME Qty: 60 6RF Rx Instructions: Take two tablets at bedtime Invega Sustenna 234 mg/1.5 mL syringe 234 mg IM ONCE Qty: 1.5 6RF Rx Instructions: monthly injection trazodone 100 mg tablet 100 mg PO BEDTIME PRN (Reason: sleep) Qty: 30 6RF Rx Instructions: May take one tablet at bedtime as needed for sleep ascorbic acid (vitamin C) 500 mg capsule 500 mg PO DAILY ondansetron 4 mg tablet,disintegrating 4 mg PO Q8H PRN (Reason: nausea and vomiting) Qty: 10 0RF paliperidone 6 mg tablet extended release 24hr 12 mg PO DAILY PRN (Reason: break thru psychosis) Qty: 60 6RF Rx Instructions: may take 2 tabs daily week b4 inj as needed break thru psychosis albuterol sulfate [ProAir HFA] 90 mcg/actuation HFA aerosol inhaler 2 puff INHALATION Q6H PRN (Reason: shortness of breath or wheezing) 30 Days Qty: 18 3RF Rx Instructions: refilling in [facility] absence oxybutynin chloride 15 mg tablet extended release 24hr 15 mg PO DAILY 30 Days Qty: 30 2RF Rx Instructions: refilling in [facility] absence celecoxib 100 mg capsule 100 mg PO DAILY Qty: 60 2RF Hold Instructions: Resume on 01/04/23. fluticasone propion-salmeterol [Advair Diskus] 250-50 mcg/dose blister with device 1 inh INHALATION BID naloxone [Narcan] 4 mg/actuation spray,non-aerosol 1 spray INTRANASAL DAILY PRN (Reason: Adequate Ventilation) terbinafine HCl 250 mg tablet 250 mg PO DAILY 30 Days Qty: 30 2RF furosemide 20 mg tablet 20 mg PO DAILY Qty: 10 2RF rosuvastatin 20 mg Tablet 20 mg PO DAILY ondansetron 4 mg tablet,disintegrating 4 mg PO Q6H PRN (Reason: nausea and vomiting) Qty: 14 0RF Naprosyn 500 mg tablet 500 mg PO BID PRN (Reason: pain) Qty: 20 0RF Discharge Orders: Discharge ED (Routine); Ordered 12/30/23 Ordered By: Kaushik Kidd Referrals: Skyla Burns FNP [Primary Care Provider] - Discharge Diet: As Directed Discharge Activity: Increase activity as tolerated Patient Instructions: Gastritis (ED) Activity Restrictions/Additional Instructions: Antibiotics as prescribed. GI soft diet. Plenty of fluids. Follow-up with primary care as instructed to discuss ED visit and imaging findings. Please return with any new or concerning symptoms you may have. Coding Level of Care Code ED Manifold Operator for Jose Daniel Sher
[2023-12-30 18:30] VITALS: BP 109/68; PULSE 77; RESP 17; O2SAT 93
[2023-12-30 18:55] LABS: Add Urine Microscopic? YES; Bilirubin Urine Neg (Negative); Blood Urine Neg (Negative); Glucose Urine UA Norm (Normal); Ketones Urine Negative (Negative); Leukocyte Esterase Urine Negative (Negative); Nitrate Urine Negative (Negative); Protein Urine Neg (Negative); Urine Appearance Slightly Cloudy (CLEAR); Urine Color Yellow (Yellow); Urobilinogen Urine Norm (Negative); pH Urine 6 (5-7)
[2023-12-30 18:56] LABS: Add Urine Culture? No; Bacteria Urine TRACE /hpf; WBC Urine 0-4 /hpf (0-5)
--- NOTE | 2023-12-30 19:07 | CTR_ITS ---
PROCEDURE INFORMATION: Exam: CT Abdomen And Pelvis With Contrast Exam date and time: 12/30/2023 7:42 PM Age: 53 years old Clinical indication: Abdominal pain; Localized; Lower; Prior surgery; Surgery date: 6+ months; Surgery type: HX of appendectomy. S/P laparoscopic appendectomy (01/18/20). History of esophagogastroduodenoscopy (egd). S/P cholecystectomy. S/P tubal ligation. S/P endometrial ablation. S/P colonoscopy; Additional info: Pelvic/abd pain TECHNIQUE: Imaging protocol: Computed tomography of the abdomen and pelvis with contrast. Radiation optimization: All CT scans at this facility use at least one of these dose optimization techniques: automated exposure control; mA and/or kV adjustment per patient size (includes targeted exams where dose is matched to clinical indication); or iterative reconstruction. Contrast material: OMNI 350; Contrast volume: 100 ml; Contrast route: INTRAVENOUS (IV); COMPARISON: CT abdomen pelvis w con* [id number] 09/22/2022 8:45 PM RADIATION DOSE METRICS: Total DLP (mGy-cm): 1037 FINDINGS: Lungs: Right lower lobe 7.1 mm pulmonary nodule similar dating back to 01/18/2028, likely reflecting a benign nodule given stability. Liver: Normal. No mass. Gallbladder and bile ducts: Cholecystectomy. Pancreas: Normal. No ductal dilation. Spleen: Spleen enlarged 13.6 cm. Adrenal glands: Normal. No mass. Kidneys and ureters: Normal. No hydronephrosis. Stomach and bowel: Prominent fluid in stomach may reflect a gastritis. Appendix: No evidence of appendicitis. Intraperitoneal space: Unremarkable. No free air. No significant fluid collection. Vasculature: Unremarkable. No abdominal aortic aneurysm. Lymph nodes: See Soft tissues finding. Urinary bladder: Unremarkable as visualized. Reproductive: Unremarkable as visualized. Bones/joints: Unremarkable. No acute fracture. Soft tissues: Small umbilical hernia containing omentum. Scattered prominent soft tissue density nodules in the buttocks region measuring up to 24 mm on the right, new compared to prior exam, findings may reflect injection granulomas, please correlate clinically, nonspecific adenopathy is also consideration. CT/CT abdomen pelvis w con* [id number] IMPRESSION: 1. Prominent fluid in stomach may reflect a gastritis. 2. Small umbilical hernia containing omentum. 3. Scattered prominent soft tissue density nodules in the buttocks region measuring up to 24 mm on the right, new compared to prior exam, findings may reflect injection granulomas, please correlate clinically, nonspecific adenopathy is also consideration. 4. Right lower lobe 7.1 mm pulmonary nodule similar dating back to 01/18/2028, likely reflecting a benign nodule given stability. 5. Spleen enlarged 13.6 cm. 6. Cholecystectomy.
[2023-12-30 19:30] VITALS: BP 116/74; O2SAT 95
[2023-12-30] MEDS: iohexol 350 mg/mL 500 mL Btl (per mL) IV (19:44)
[2023-12-30 20:00] VITALS: PULSE 71; RESP 18; O2SAT 94
--- NOTE | 2023-12-30 20:14 | PC.NURSE ---
PT REQUESTING FOOD AND DRINK, STATES SHE HASN'T ATE SINCE YESTERDAY. ROSANGELA HERNANDEZ NOTIFIED AND OKAY WITH PT EATING. PT REQUESTED TURKEY & CHEESE, VANILLA PUDDING. GIVEN TO PT PER PT REQUEST.
[2023-12-30] MEDS: metroNIDAZOLE 500 MG Tablet PO (20:41)
[2023-12-30] MEDS: ciprofloxacin 500 mg Tablet PO (20:41)
== END 2023-12-30 20:47 | disposition home or self-care (01) ==
PROVIDERS: Emergency Medicine; Emergency Provider Physician Assistant; PCP Nurse Practitioner Family
DX: K29.00 Acute gastritis without bleeding (principal); Z79.82 Long term (current) use of aspirin; F17.210 Nicotine dependence, cigarettes, uncomplicated; E11.9 Type 2 diabetes mellitus without complications
CPT/HCPCS: 36415; 74177; 80053; 81001; 85025; 99285; Q9967

== ENCOUNTER → 2024-01-01 15:30 | Outpatient (BNVA) | payer MEDICAID, SELFPAY ==
[2023-05-09 15:51] VITALS: BP 126/78; BMI 40.0
== END ==
PROVIDERS: PCP Nurse Practitioner Family; Visit Provider Internal Medicine Cardiovascular Disease
DX: R07.89 Other chest pain (principal); R00.2 Palpitations; E11.9 Type 2 diabetes mellitus without complications; F25.1 Schizoaffective disorder, depressive type; F17.210 Nicotine dependence, cigarettes, uncomplicated
CPT/HCPCS: 99214

== ENCOUNTER → 2024-03-09 13:00 | Outpatient (BNVA) | payer MEDICAID, SELFPAY ==
[2023-05-09 15:51] VITALS: BP 126/78; BMI 40.0
== END ==
PROVIDERS: PCP Nurse Practitioner Family; Visit Provider Surgery
DX: K55.9 Vascular disorder of intestine, unspecified (principal); R10.9 Unspecified abdominal pain; Z90.49 Acquired absence of other specified parts of digestive tract
CPT/HCPCS: 99214

== ENCOUNTER 2024-03-31 12:23 | Outpatient (CLI) | payer MEDICAID, SELFPAY ==
[2023-05-09 15:51] VITALS: BP 126/78; BMI 40.0
--- NOTE | 2024-03-31 12:30 | CTR_ITS ---
PROCEDURE INFORMATION: Exam: CT Abdomen And Pelvis With Contrast Exam date and time: 03/31/2024 1:20 PM Age: 53 years old Clinical indication: Abdominal pain; Localized; Right upper quadrant (ruq); Prior surgery; Surgery date: 6+ months; Surgery type: Gb, appy, tubal; Patient HX: Ruq and RT sided abd pain x 2 months with nausea; Additional info: Abdominal pain/ischemic colitis TECHNIQUE: Imaging protocol: Computed tomography of the abdomen and pelvis with contrast. Radiation optimization: All CT scans at this facility use at least one of these dose optimization techniques: automated exposure control; mA and/or kV adjustment per patient size (includes targeted exams where dose is matched to clinical indication); or iterative reconstruction. Contrast material: OMNI 350; Contrast volume: 100 ml; Contrast route: INTRAVENOUS (IV); COMPARISON: CT abdomen pelvis w con* [id number] 12/30/2023 7:42 PM RADIATION DOSE METRICS: Total DLP (mGy-cm): 933.25 FINDINGS: Lungs: Continued stability of 7 mm right basilar pulmonary nodule demonstrating partial calcification on series 3, image 4 consistent with benign pathology. Liver: No significant liver pathology. Gallbladder and biliary ducts: Prior cholecystectomy. No biliary dilatation. Pancreas: No significant pancreatic pathology. Spleen: No significant splenic pathology. Adrenal glands: No significant adrenal pathology. Kidneys and ureters: No significant renal pathology. Stomach and bowel: Moderate amount of colonic stool. Appendix: Suture line associated with the cecum suggesting prior appendectomy; no abnormal appendix visualized. Intraperitoneal space: No ascites. Vasculature: No abdominal aortic aneurysm. Lymph nodes: No evidence of lymphadenopathy. Urinary bladder: Unremarkable urinary bladder. Reproductive: No significant uterine pathology. No significant adnexal pathology. Bones/joints: Mild degenerative change present in the spine. Soft tissues: Tiny fat containing umbilical hernia. Multifocal nodular areas infiltration of fat in the buttocks bilaterally most likely related to prior injections. Clinical correlation recommended. CT/CT abdomen pelvis w con* [id number] IMPRESSION: 1. No acute pathology. 2. Features of prior surgery and assorted minor benign abnormalities described above.
[2024-03-31] MEDS: iohexol 350 mg/mL 500 mL Btl (per mL) IV (13:30)
[2024-03-31] MEDS: iohexol 350 mg/mL 500 mL Btl (per mL) PO (13:31)
== END 2024-03-31 12:24 | disposition home or self-care (01) ==
LOC: RAD 12:23
PROVIDERS: PCP Nurse Practitioner Family; Visit Provider Surgery
DX: K55.9 Vascular disorder of intestine, unspecified (principal); R10.9 Unspecified abdominal pain; R91.1 Solitary pulmonary nodule; Z90.49 Acquired absence of other specified parts of digestive tract; K59.00 Constipation, unspecified
CPT/HCPCS: 74177

== ENCOUNTER → 2024-04-09 12:43 | Outpatient (BNVA) | payer MEDICAID, SELFPAY ==
[2023-05-09 15:51] VITALS: BP 126/78; BMI 40.0
== END ==
PROVIDERS: PCP Nurse Practitioner Family; Visit Provider Surgery
DX: R10.9 Unspecified abdominal pain (principal); Z09 Encounter for follow-up examination after completed treatment for conditions other than malignant neoplasm; K21.9 Gastro-esophageal reflux disease without esophagitis
CPT/HCPCS: 99214

== ENCOUNTER 2024-05-20 05:51 | Day surgery (SDC) | payer MEDICAID, SELFPAY ==
[2023-05-09 15:51] VITALS: BP 126/78; BMI 40.0
[2024-05-20 06:14] VITALS: BP 122/75; PULSE 84; RESP 20; TEMP 36.4; O2SAT 95; BMI 37.8
[2024-05-20 06:21] LABS: OR HCG Qualitative Urine Negative (Negative)
[2024-05-20] MEDS: sodium chloride 0.9% 1,000 ML 30 ML IV (06:22)
--- NOTE | 2024-05-20 06:46 | ANES.PREANE2 ---
Pre-Anesthetic Assessment Height/Weight: Height 1.65 m Weight 102.965 kg Temp Pulse Resp BP Pulse Ox O2 Del Method 97.6 F 84 20 H 122/75 95 Room Air 05/20/24 06:14 05/20/24 06:14 05/20/24 06:14 05/20/24 06:14 05/20/24 06:14 05/20/24 06:14 Preop Diagnosis: Abd pain Operation Date: 05/20/24 07:00 Proposed Procedures p EGD [id number], R10.9(Not Applicable) - Mitchel Leonard, DO Was Beta Gloria taken within 24 hours: N/A Was Clonidine taken within 24 hours: N/A Last intake: Intake Last Liquid Date 05/19/24 Last Liquid Time 21:00 Last Solid Date 05/19/24 Last Solid Time 20:00 Social Tobacco 1 pack(s) per day Exam alert, oriented x 3, clear to auscultation bilaterally and regular rate & rhythm Airway Submandibular: within normal limits Cervical ROM: within normal limits Mallampati: Class II Dentition: false History/ROS No significant history except as noted and No significant complaints Pulmonary Chronic Obstructive Pulmonary Disease and Shortness of Breath CV/HEM None reported None reported Hepatic None reported GI Gastroesophageal Reflux Disease Metabolic Diabetes Mellitus and Morbid Obesity [facility] None reported Neuropsych Bipolar and Neuropathy Shizoaffective disorder Anesthetic Plan ASA status: 3 Anesthesia: Anesthesia Evaluation and MAC Risk of > 500 ml blood loss (7ml/kg in children): No Medications/Allergies Home Medications Medication Instructions Recorded Confirmed Last Taken Type albuterol sulfate 90 mcg/actuation 2 puff inhalation Q6H PRN 12/03/19 05/18/24 08/01/23 Rx aerosol inhaler (ProAir HFA) shortness of breath or wheezing 30 days #18 grams oxybutynin chloride 15 mg 15 mg PO DAILY 30 days #30 tabs 12/10/19 05/18/24 05/19/24 Rx tablet,extended release 24 hr levocetirizine 5 mg tablet 5 mg PO DAILY 04/25/20 05/18/24 05/19/24 History hydromorphone 4 mg tablet 4 mg PO QID PRN Pain 02/13/21 05/18/24 05/20/24 04:45 History (Dilaudid) pregabalin 50 mg capsule (Lyrica) 50 mg PO TID 04/06/21 05/18/24 05/20/24 04:45 History lubiprostone 24 mcg capsule 24 mcg PO BID #60 caps 12/18/21 05/18/24 05/19/24 Rx (Amitiza) rosuvastatin 20 mg tablet 20 mg PO DAILY 02/05/22 05/18/24 05/19/24 History fluticasone 250 mcg-salmeterol 50 1 inh inhalation BID 06/24/23 05/18/24 05/19/24 History mcg/dose blistr powdr for inhalation (Advair Diskus) naloxone 4 mg/actuation nasal 1 spray intranasal DAILY PRN 06/24/23 05/18/24 Unknown History spray (Narcan) Adequate Ventilation ondansetron 4 mg disintegrating 4 mg PO Q6H PRN nausea and 11/14/23 05/18/24 Unknown Rx tablet vomiting #14 tabs nitroglycerin 0.4 mg sublingual 0.4 mg sublingual Q5M PRN chest 01/01/24 05/18/24 Unknown Rx tablet pain #25 tabs cephalexin 250 mg capsule 250 mg PO DAILY 03/06/24 05/18/24 05/19/24 History pantoprazole 40 mg tablet,delayed 40 mg PO BID 6 weeks #84 tabs 05/11/24 05/18/24 05/19/24 Rx release (Protonix) cyproheptadine 4 mg tablet 8 mg (2 x 4 mg) PO BEDTIME #60 tabs 05/18/24 05/19/24 05/19/24 Rx paliperidone 6 mg tablet,extended 12 mg (2 x 6 mg) PO DAILY PRN 05/18/24 05/19/24 Unknown Rx release 24 hr break thru psychosis #60 tabs paliperidone palmitate 234 mg/1.5 234 mg (1.5 mL) IM .MONTHLY #1.5 mL 05/18/24 05/19/24 05/04/24 Rx mL intramuscular syringe (Invega Sustenna) trazodone 100 mg tablet 100 mg PO BEDTIME PRN sleep #30 05/18/24 05/19/24 05/19/24 Rx tabs multivitamin 1 cap PO DAILY 05/20/24 05/20/24 05/13/24 History Allergies Allergy/AdvReac Type Severity Reaction Status Date / Time acetaminophen Allergy UNKNOWN Verified 05/18/24 09:24 cinnamon Allergy ALGY-Hives Verified 05/18/24 09:24 coconut Allergy ALGY-Anaphy Verified 05/18/24 09:24 laxis codeine Allergy Unknown Verified 05/18/24 09:24 nitrofurantoin Allergy UNKNOWN Verified 05/18/24 09:24 [From Macrobid] pineapple Allergy ADR-Migrain Verified 05/18/24 09:24 e pseudoephedrine Allergy Unknown Verified 05/18/24 09:24 tramadol Allergy UNKNOWN Verified 05/18/24 09:24 sausage (portuguese and Allergy ADR-Vomitin Uncoded 05/18/24 09:24 breakfast) g Current Medications Generic Name Dose Route Start Last Admin Trade Name Freq PRN Reason Stop Dose Admin Sodium Chloride 1,000 mls @ 30 mls/hr 05/20/24 06:00 05/20/24 06:22 Sodium Chloride 0.9% IV 05/21/24 05:59 30 mls/hr .Q24H ISMAEL Administration PFSH Anesthesia Medical History Ischemic colitis Chronic edema Schizoaffective disorder, depressive type Cigarette nicotine dependence GERD (gastroesophageal reflux disease) History of colon polyps Recurrent UTI Psychiatric care Psychiatric care Post-traumatic stress disorder, chronic Diabetes mellitus without complication, without long-term current use of insulin Urinary incontinence, mixed Polyp of colon, adenomatous Paresthesia and pain of both upper extremities Intervertebral disc disorder of cervical region with myelopathy Hiatal hernia Pure hypercholesterolemia, unspecified DJD (degenerative joint disease) Gastritis Peptic ulcer Surgical History Hx of appendectomy S/P laparoscopic appendectomy (01/18/20) History of esophagogastroduodenoscopy (EGD) S/P cholecystectomy S/P tubal ligation S/P endometrial ablation S/P colonoscopy Family History Father Cancer Mother , at age 64 Cancer lung and spinal sarcoma Grandfather Heart disease Hypertension Diabetes Brother Heart disease Hyperlipidemia Diabetes Sister Heart disease Hyperlipidemia Grandmother Cancer Other Bipolar affect, depressed Social History Smoking and tobacco/nicotine status: current every day tobacco/nicotine user cigarettes Packs smoked per day: 1 Years cigarettes smoked: 38 Quit status (tobacco/nicotine): not considering quitting Second hand smoke exposure: Yes Alcohol intake: former Year of sobriety/quit date alcohol: 2013 Former alcohol use details: 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 Substance/Drug Use: never Adopted: No Caregiver/support person: Yes (nurse and an aid) Lives independently: Yes Household members: none Housing: Apartment Marital status: Single Number of children: 4 Number of grandchildren: 4 Highest education level completed: 10th Grade service: No Current occupational status: disabled Current occupational exposures/hazards: No Pets and animals: Yes (Baljeet) Pets & animals: cat(s) Leisure activites: art, music and other Leisure activities details: watch tv, either outside or sleeping Sexually active: No Do you think of yourself as: Straight/Heterosexual Current gender identity: Female Odette/Orthodoxy: Latter-Day Special odette needs: No Agree to transfusion: Yes Female Reproductive History Para: 4 Date of menopause: 07/29/16 Data Anesthesia Cardiac Studies: Echocardiogram 04/13/22 Sestamibi Stress Test (Cardiology) 12/30/23 Cardiac Event Monitor 09/11/21
--- NOTE | 2024-05-20 06:57 | P.HP_ITS ---
Providers/Chief Complaint Primary Care Provider: IESHA Smith Chief Complaint: R10.9 History of Present Illness Afshan Parry is a 53 year old female Review of Systems General: Reports: 10 or more systems reviewed and unremarkable except in HPI and below Medications/Allergies Home Medications Medication Instructions Recorded Confirmed Last Taken Type albuterol sulfate 90 mcg/actuation 2 puff inhalation Q6H PRN 12/03/19 05/18/24 08/01/23 Rx aerosol inhaler (ProAir HFA) shortness of breath or wheezing 30 days #18 grams oxybutynin chloride 15 mg 15 mg PO DAILY 30 days #30 tabs 12/10/19 05/18/24 05/19/24 Rx tablet,extended release 24 hr levocetirizine 5 mg tablet 5 mg PO DAILY 04/25/20 05/18/24 05/19/24 History hydromorphone 4 mg tablet 4 mg PO QID PRN Pain 02/13/21 05/18/24 05/20/24 04:45 History (Dilaudid) pregabalin 50 mg capsule (Lyrica) 50 mg PO TID 04/06/21 05/18/24 05/20/24 04:45 History lubiprostone 24 mcg capsule 24 mcg PO BID #60 caps 12/18/21 05/18/24 05/19/24 Rx (Amitiza) rosuvastatin 20 mg tablet 20 mg PO DAILY 02/05/22 05/18/24 05/19/24 History fluticasone 250 mcg-salmeterol 50 1 inh inhalation BID 06/24/23 05/18/24 05/19/24 History mcg/dose blistr powdr for inhalation (Advair Diskus) naloxone 4 mg/actuation nasal 1 spray intranasal DAILY PRN 06/24/23 05/18/24 Unknown History spray (Narcan) Adequate Ventilation ondansetron 4 mg disintegrating 4 mg PO Q6H PRN nausea and 11/14/23 05/18/24 Unknown Rx tablet vomiting #14 tabs nitroglycerin 0.4 mg sublingual 0.4 mg sublingual Q5M PRN chest 01/01/24 05/18/24 Unknown Rx tablet pain #25 tabs cephalexin 250 mg capsule 250 mg PO DAILY 03/06/24 05/18/24 05/19/24 History pantoprazole 40 mg tablet,delayed 40 mg PO BID 6 weeks #84 tabs 05/11/24 05/18/24 05/19/24 Rx release (Protonix) cyproheptadine 4 mg tablet 8 mg (2 x 4 mg) PO BEDTIME #60 tabs 05/18/24 05/19/24 05/19/24 Rx paliperidone 6 mg tablet,extended 12 mg (2 x 6 mg) PO DAILY PRN 05/18/24 05/19/24 Unknown Rx release 24 hr break thru psychosis #60 tabs paliperidone palmitate 234 mg/1.5 234 mg (1.5 mL) IM .MONTHLY #1.5 mL 05/18/24 05/19/24 05/04/24 Rx mL intramuscular syringe (Invega Sustenna) trazodone 100 mg tablet 100 mg PO BEDTIME PRN sleep #30 05/18/24 05/19/24 05/19/24 Rx tabs multivitamin 1 cap PO DAILY 05/20/24 05/20/24 05/13/24 History Allergies Allergy/AdvReac Type Severity Reaction Status Date / Time acetaminophen Allergy UNKNOWN Verified 05/18/24 09:24 cinnamon Allergy ALGY-Hives Verified 05/18/24 09:24 coconut Allergy ALGY-Anaphy Verified 05/18/24 09:24 laxis codeine Allergy Unknown Verified 05/18/24 09:24 nitrofurantoin Allergy UNKNOWN Verified 05/18/24 09:24 [From Macrobid] pineapple Allergy ADR-Migrain Verified 05/18/24 09:24 e pseudoephedrine Allergy Unknown Verified 05/18/24 09:24 tramadol Allergy UNKNOWN Verified 05/18/24 09:24 sausage (kiswahili and Allergy ADR-Vomitin Uncoded 05/18/24 09:24 breakfast) g PFSH Acute PFSH: Medical History Ischemic colitis Chronic edema Schizoaffective disorder, depressive type Cigarette nicotine dependence GERD (gastroesophageal reflux disease) History of colon polyps Recurrent UTI Psychiatric care Psychiatric care Post-traumatic stress disorder, chronic Diabetes mellitus without complication, without long-term current use of insulin Urinary incontinence, mixed Polyp of colon, adenomatous Paresthesia and pain of both upper extremities Intervertebral disc disorder of cervical region with myelopathy Hiatal hernia Pure hypercholesterolemia, unspecified DJD (degenerative joint disease) Gastritis Peptic ulcer Surgical History Hx of appendectomy S/P laparoscopic appendectomy (01/18/20) History of esophagogastroduodenoscopy (EGD) S/P cholecystectomy S/P tubal ligation S/P endometrial ablation S/P colonoscopy Family History Father Cancer Mother , at age 64 Cancer lung and spinal sarcoma Grandfather Heart disease Hypertension Diabetes Brother Heart disease Hyperlipidemia Diabetes Sister Heart disease Hyperlipidemia Grandmother Cancer Other Bipolar affect, depressed Social History Smoking and tobacco/nicotine status: current every day tobacco/nicotine user cigarettes Packs smoked per day: 1 Years cigarettes smoked: 38 Quit status (tobacco/nicotine): not considering quitting Second hand smoke exposure: Yes Alcohol intake: former Year of sobriety/quit date alcohol: 2012 Former alcohol use details: 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 Substance/Drug Use: never Adopted: No Caregiver/support person: Yes (nurse and an aid) Lives independently: Yes Household members: none Housing: Apartment Marital status: Single Number of children: 4 Number of grandchildren: 4 Highest education level completed: 10th Grade service: No Current occupational status: disabled Current occupational exposures/hazards: No Pets and animals: Yes (Baljeet) Pets & animals: cat(s) Leisure activites: art, music and other Leisure activities details: watch tv, either outside or sleeping Sexually active: No Do you think of yourself as: Straight/Heterosexual Current gender identity: Female Odette/Pentecostalism: Mandaeism Special odette needs: No Agree to transfusion: Yes Female Reproductive History: Para: 4 Date of menopause: 07/29/16 Vitals/I&O/Wt Last Vital Signs Temp 97.6 F 05/20/24 06:14 Pulse 84 05/20/24 06:14 Resp 20 H 05/20/24 06:14 BP 122/75 05/20/24 06:14 Pulse Ox 95 05/20/24 06:14 O2 Del Method Room Air 05/20/24 06:14 Weight last 48 hrs Weight 227 lb A&P Assessment and plan (1) GERD (gastroesophageal reflux disease): (2) Abdominal pain: Plan EGD Attestations Medical Necessity Statement*: Home Coding Level of Care Code Acute Code for Chg Fwd Diagnoses GERD (gastroesophageal reflux disease) K21.9 Abdominal pain R10.9
[2024-05-20 07:12] VITALS: BP 124/76; PULSE 84; RESP 26; TEMP 36.2; O2SAT 90
[2024-05-20 07:17] VITALS: BP 133/78; PULSE 84; RESP 26; O2SAT 90
[2024-05-20 07:30] VITALS: BP 128/79; PULSE 90; RESP 24; O2SAT 93
--- NOTE | 2024-05-20 07:36 | PC.NURSE ---
Patient discharged to [facility] transport via own private wheelchair.
--- NOTE | 2024-05-20 07:55 | PC.NURSE ---
patient has private wheelchair. 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 Wheeled patient to surgical entrance and she requested to sit outside. placed brakes on w/c, told registration clerks where patient is waiting. before i went back to department checked on patient, she had moved herself to different location and was smoking a cigarette. made sure patient was safe and w/c locked and updated registration staff.
--- NOTE | 2024-05-20 08:50 | ANE.PACU2 ---
Inpatient post-anesthesia follow up: Airway intact: Yes Vital signs: Temperature 97.1 F Pulse Rate 90 Respiratory Rate 24 Blood Pressure 128/79 Pulse Oximetry 93 Oxygen Delivery Me thod Room Air Oxygen Flow Rate 4 Fraction of Inspir ed Oxygen Hydration adequate: Yes Nausea and vomiting: No Pain level: 1 Mental status: Baseline
== END 2024-05-20 07:50 | disposition home or self-care (01) ==
PROVIDERS: Anesthesiology; PCP Nurse Practitioner Family; Visit Provider Surgery
PROC: 0DJ08ZZ Inspection of Upper Intestinal Tract, Via Natural or Artificial Opening Endoscopic (ICD-10-PCS; CPT 43235; principal; 2024-05-20 07:00)
DX: R10.9 Unspecified abdominal pain (principal); K29.50 Unspecified chronic gastritis without bleeding; K21.9 Gastro-esophageal reflux disease without esophagitis; K20.90 Esophagitis, unspecified without bleeding; Z86.0100 Personal history of colon polyps, unspecified; Z87.11 Personal history of peptic ulcer disease; F17.210 Nicotine dependence, cigarettes, uncomplicated; J44.9 Chronic obstructive pulmonary disease, unspecified; E66.01 Morbid (severe) obesity due to excess calories; Z68.37 Body mass index [BMI] 37.0-37.9, adult; E11.40 Type 2 diabetes mellitus with diabetic neuropathy, unspecified
CPT/HCPCS: 43239; 81025; 88305; 88309; J2704; J7030

== ENCOUNTER → 2024-06-22 11:10 | Outpatient (BNVA) | payer OTHER, SELFPAY ==
[2023-05-09 15:51] VITALS: BP 126/78; BMI 40.0
== END ==
PROVIDERS: PCP Nurse Practitioner Family; Referring Provider Surgery; Visit Provider Surgery
DX: Z09 Encounter for follow-up examination after completed treatment for conditions other than malignant neoplasm (principal); K29.70 Gastritis, unspecified, without bleeding; K59.04 Chronic idiopathic constipation
CPT/HCPCS: 99214

== ENCOUNTER → 2024-07-13 09:42 | Outpatient (BNVA) | payer MEDICAID, SELFPAY ==
[2023-05-09 15:51] VITALS: BP 126/78; BMI 40.0
== END ==
PROVIDERS: PCP Nurse Practitioner Family; Visit Provider Surgery
DX: Z09 Encounter for follow-up examination after completed treatment for conditions other than malignant neoplasm (principal); K59.04 Chronic idiopathic constipation
CPT/HCPCS: 99214

== ENCOUNTER → 2024-08-06 09:45 | Outpatient (BNVA) | payer MEDICAID, SELFPAY ==
[2023-05-09 15:51] VITALS: BP 126/78; BMI 40.0
== END ==
PROVIDERS: PCP Nurse Practitioner Family; Visit Provider Internal Medicine
DX: R07.89 Other chest pain (principal); R00.2 Palpitations
CPT/HCPCS: 99213

== ENCOUNTER → 2024-08-10 15:45 | Outpatient (BNVA) | payer MEDICAID, SELFPAY ==
[2023-05-09 15:51] VITALS: BP 126/78; BMI 40.0
== END ==
PROVIDERS: PCP Nurse Practitioner Family; Visit Provider Surgery
DX: K59.04 Chronic idiopathic constipation (principal); K21.9 Gastro-esophageal reflux disease without esophagitis
CPT/HCPCS: 99212

== ENCOUNTER → 2024-09-07 15:11 | Outpatient (BNVA) | payer MEDICAID, SELFPAY ==
[2023-05-09 15:51] VITALS: BP 126/78; BMI 40.0
== END ==
PROVIDERS: PCP Nurse Practitioner Family; Visit Provider Surgery
DX: K59.04 Chronic idiopathic constipation (principal); K21.9 Gastro-esophageal reflux disease without esophagitis
CPT/HCPCS: 99024; 99212

== ENCOUNTER → 2024-11-16 09:33 | Outpatient (BNVA) | payer MEDICAID, SELFPAY ==
[2023-05-09 15:51] VITALS: BP 126/78; BMI 40.0
== END ==
PROVIDERS: PCP Nurse Practitioner Family; Visit Provider Student in an Organized Health Care Education/Training Program
DX: K29.70 Gastritis, unspecified, without bleeding (principal); R12 Heartburn
CPT/HCPCS: 99204

== ENCOUNTER → 2024-11-24 14:16 | Outpatient (BNVA) | payer SELFPAY ==
[2023-05-09 15:51] VITALS: BP 126/78; BMI 40.0
== END ==
PROVIDERS: PCP Nurse Practitioner Family; Visit Provider Nurse Practitioner Psychiatric/Mental Health
DX: Z79.899 Other long term (current) drug therapy (principal); F25.1 Schizoaffective disorder, depressive type
CPT/HCPCS: 80061; 83036

== ENCOUNTER → 2025-01-01 09:21 | Outpatient (BNVA) | payer MEDICAID, SELFPAY ==
[2024-12-08 10:21] VITALS: BP 135/79; BMI 36.0
== END ==
PROVIDERS: PCP Nurse Practitioner Family; Visit Provider Nurse Practitioner Family
DX: I70.0 Atherosclerosis of aorta (principal); R00.0 Tachycardia, unspecified; E11.9 Type 2 diabetes mellitus without complications; E78.5 Hyperlipidemia, unspecified; R60.0 Localized edema; F17.210 Nicotine dependence, cigarettes, uncomplicated
CPT/HCPCS: 99214

== ENCOUNTER 2025-01-12 06:11 | Day surgery (SDC) | payer MEDICAID, SELFPAY ==
[2023-05-09 15:51] VITALS: BP 126/78; BMI 40.0
[2024-12-08 10:21] VITALS: BP 135/79; BMI 36.0
[2025-01-12 06:27] VITALS: BP 105/68; PULSE 82; RESP 16; TEMP 36.5; O2SAT 92; BMI 36.6
[2025-01-12] MEDS: sodium chloride 0.9% 1,000 ML 15 ML IV (06:38)
--- NOTE | 2025-01-12 07:04 | W.PM.OPSFHP ---
Same Day Surgery H&P Indication for Procedure/HPI DATE OF PROCEDURE: January 12, 2025 CHIEF COMPLAINT/INDICATIONFOR SURGICAL PROCEDURE: heartburn PREOP DIAGNOSIS: PUD PLANNED PROCEDURE: Operation Date: 01/12/25 07:30 Proposed Procedures p EGD 94012 R12(Not Applicable) - Cameron Gonzalez MD Medications/Allergies* Home Medications ?Medication ?Instructions ?Recorded ?Confirmed ?Type levocetirizine 5 mg tablet 5 mg PO DAILY 04/25/20 01/12/25 History hydromorphone 4 mg tablet 4 mg PO QID PRN Pain 02/13/21 01/12/25 History (Dilaudid) pregabalin 50 mg capsule (Lyrica) 50 mg PO TID 04/06/21 01/12/25 History rosuvastatin 20 mg tablet 20 mg PO DAILY 02/05/22 01/12/25 History fluticasone 250 mcg-salmeterol 50 1 inh inhalation BID 06/24/23 01/12/25 History mcg/dose blistr powdr for inhalation (Advair Diskus) naloxone 4 mg/actuation nasal 1 spray intranasal DAILY PRN 06/24/23 01/08/25 History spray (Narcan) Adequate Ventilation cephalexin 250 mg capsule 250 mg PO DAILY 03/06/24 01/12/25 History multivitamin 1 cap PO DAILY 05/20/24 01/12/25 History Allergies/Adverse Reactions Allergy/AdvReac Type Severity Reaction Status Date / Time acetaminophen Allergy UNKNOWN Verified 01/08/25 14:52 aspirin Allergy ADR-Abdominal Verified 01/08/25 14:52 Pain cinnamon Allergy ALGY-Hives Verified 01/08/25 14:52 coconut Allergy ALGY-Anaphy Verified 01/08/25 14:52 laxis codeine Allergy Unknown Verified 01/08/25 14:52 nitrofurantoin (From Allergy UNKNOWN Verified 01/08/25 14:52 Macrobid) pineapple Allergy ADR-Migrain Verified 01/08/25 14:52 e pseudoephedrine Allergy Unknown Verified 01/08/25 14:52 tramadol Allergy UNKNOWN Verified 01/08/25 14:52 sausage (malay and Allergy ADR-Vomitin Uncoded 01/08/25 14:52 breakfast) g Current Medications: Generic Name Dose Route Start Last Admin Trade Name Freq PRN Reason Stop Dose Admin Sodium Chloride 1,000 mls @ 15 mls/hr 01/12/25 06:17 01/12/25 06:38 Sodium Chloride 0.9% IV 01/13/25 06:16 15 mls/hr .Q24H PRN Administration COLONOSCOPY FLUIDS Pertinent History/Comorbid Conditions* Medical History (Updated 01/08/25 @ 16:51 by Maribell Artis, [facility]) Ischemic colitis Chronic edema Schizoaffective disorder, depressive type Cigarette nicotine dependence GERD (gastroesophageal reflux disease) History of colon polyps Recurrent UTI Psychiatric care Psychiatric care Post-traumatic stress disorder, chronic Diabetes mellitus without complication, without long-term current use of insulin Urinary incontinence, mixed Polyp of colon, adenomatous Paresthesia and pain of both upper extremities Intervertebral disc disorder of cervical region with myelopathy Hiatal hernia Pure hypercholesterolemia, unspecified DJD (degenerative joint disease) Gastritis Peptic ulcer Surgical History (Updated 06/26/22 @ 13:56 by Mitchel Leonard DO) Hx of appendectomy S/P laparoscopic appendectomy (01/18/20) History of esophagogastroduodenoscopy (EGD) S/P cholecystectomy S/P tubal ligation S/P endometrial ablation S/P colonoscopy Family History (Updated 08/26/20 @ 14:13 by Lynda Matamoros LPC) Father Grandmother Mother, at age 64 Diabetes Grandfather Brother Heart disease Grandfather Brother Sister Hyperlipidemia Brother Sister Bipolar affect, depressed Cancer Father Mother lung and spinal sarcoma Grandmother Hypertension Grandfather Social History Smoking and tobacco/nicotine status: current every day tobacco/nicotine user cigarettes Packs smoked per day: 1 Years cigarettes smoked: 38 Quit status (tobacco/nicotine): not considering quitting Second hand smoke exposure: Yes Alcohol intake: former Year of sobriety/quit date alcohol: 2012 Former alcohol use details: 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 Substance/Drug Use: never Adopted: No Caregiver/support person: Yes (nurse and an aid) Lives independently: Yes Household members: none Housing: Apartment Marital status: Single Number of children: 4 Number of grandchildren: 4 Highest education level completed: 10th Grade service: No Current occupational status: disabled Current occupational exposures/hazards: No Pets and animals: Yes (Baljeet) Pets & animals: cat(s) Leisure activites: art, music and other Leisure activities details: watch tv, either outside or sleeping Sexually active: No Do you think of yourself as: Straight/Heterosexual Current gender identity: Female Odette/Buddhist: Moravian Special odette needs: No Agree to transfusion: Yes Pertinent Exam Findings alert, oriented x 3, clear to auscultation bilaterally, regular rate & rhythm and procedure specific exam findings abdomen soft, nt, nd Recommendations Risks and benefits of procedure reviewed and Patient/family agree to proceed Surgery/Procedure today Coding Level of Care Code Acute Code for [facility] Christos
--- NOTE | 2025-01-12 07:31 | ANES.PREANE2 ---
Pre-Anesthetic Assessment Height/Weight: Height 1.65 m Weight 99.79 kg Temp Pulse Resp BP Pulse Ox O2 Del Method 97.7 F 82 16 105/68 92 Room Air 01/12/25 06:27 01/12/25 06:27 01/12/25 06:27 01/12/25 06:27 01/12/25 06:27 01/12/25 06:27 Preop Diagnosis: PUD Operation Date: 01/12/25 07:30 Proposed Procedures p EGD 55735 R12(Not Applicable) - Cameron Gonzalez MD Familial anesthetic complications: none Was Beta Gloria taken within 24 hours: N/A Was Clonidine taken within 24 hours: N/A Last intake: Intake Last Liquid Date 01/11/25 Last Liquid Time 22:00 Last Solid Date 01/11/25 Last Solid Time 17:00 Social Tobacco 1 pack(s) per day 37 pack years Exam alert, oriented x 3 and clear to auscultation bilaterally Airway Mallampati: Class II History/ROS No significant history except as noted Pulmonary Chronic Obstructive Pulmonary Disease uses inhaler daily CV/HEM Hypertension None reported Hepatic None reported GI Gastroesophageal Reflux Disease and Peptic Ulcer Disease Metabolic Diabetes Mellitus and Hyperlipidemia [facility] None reported Neuropsych schizophrenia Anesthetic Plan ASA status: 3 Anesthesia: Anesthesia Evaluation and MAC Risk of > 500 ml blood loss (7ml/kg in children): No Medications/Allergies Home Medications ?Medication ?Instructions ?Recorded ?Confirmed ?Last Taken ?Type albuterol sulfate 90 mcg/actuation 2 puff inhalation Q6H PRN 12/03/19 01/08/25 08/01/23 Rx aerosol inhaler (ProAir HFA) shortness of breath or wheezing 30 days #18 grams oxybutynin chloride 15 mg 15 mg PO DAILY 30 days #30 tabs 12/10/19 01/12/25 01/12/25 Rx tablet,extended release 24 hr levocetirizine 5 mg tablet 5 mg PO DAILY 04/25/20 01/12/25 01/12/25 History hydromorphone 4 mg tablet 4 mg PO QID PRN Pain 02/13/21 01/12/25 01/12/25 History (Dilaudid) pregabalin 50 mg capsule (Lyrica) 50 mg PO TID 04/06/21 01/12/25 01/12/25 History lubiprostone 24 mcg capsule 24 mcg PO BID #60 caps 12/18/21 01/12/25 01/12/25 Rx (Amitiza) rosuvastatin 20 mg tablet 20 mg PO DAILY 02/05/22 01/12/25 01/12/25 History fluticasone 250 mcg-salmeterol 50 1 inh inhalation BID 06/24/23 01/12/25 01/12/25 History mcg/dose blistr powdr for inhalation (Advair Diskus) naloxone 4 mg/actuation nasal 1 spray intranasal DAILY PRN 06/24/23 01/08/25 Unknown History spray (Narcan) Adequate Ventilation ondansetron 4 mg disintegrating 4 mg PO Q6H PRN nausea and 11/14/23 01/08/25 Unknown Rx tablet vomiting #14 tabs cephalexin 250 mg capsule 250 mg PO DAILY 03/06/24 01/12/25 01/12/25 History multivitamin 1 cap PO DAILY 05/20/24 01/12/25 01/12/25 History nitroglycerin 0.4 mg sublingual 0.4 mg sublingual Q5M PRN chest 08/06/24 01/08/25 Unknown Rx tablet pain #25 tabs linaclotide 290 mcg capsule 290 mcg PO DAILY #30 caps 08/10/24 01/12/25 01/12/25 Rx (Linzess) omeprazole 40 mg capsule,delayed 40 mg PO BID 30 days #60 caps 11/17/24 01/12/25 01/12/25 Rx release cyproheptadine 4 mg tablet 8 mg (2 x 4 mg) PO BEDTIME #60 tabs 01/08/25 01/12/25 01/11/25 Rx fluphenazine HCl 5 mg tablet 5 mg PO TID #90 tabs 01/08/25 01/12/25 01/12/25 Rx trazodone 100 mg tablet 100 mg PO BEDTIME PRN sleep #30 01/08/25 01/12/25 01/11/25 Rx tabs Allergies Allergy/AdvReac Type Severity Reaction Status Date / Time acetaminophen Allergy UNKNOWN Verified 01/08/25 14:52 aspirin Allergy ADR-Abdominal Verified 01/08/25 14:52 Pain cinnamon Allergy ALGY-Hives Verified 01/08/25 14:52 coconut Allergy ALGY-Anaphy Verified 01/08/25 14:52 laxis codeine Allergy Unknown Verified 01/08/25 14:52 nitrofurantoin (From Allergy UNKNOWN Verified 01/08/25 14:52 Macrobid) pineapple Allergy ADR-Migrain Verified 01/08/25 14:52 e pseudoephedrine Allergy Unknown Verified 01/08/25 14:52 tramadol Allergy UNKNOWN Verified 01/08/25 14:52 sausage (bruneian and Allergy ADR-Vomitin Uncoded 01/08/25 14:52 breakfast) g Current Medications Generic Name Dose Route Start Last Admin Trade Name Freq PRN Reason Stop Dose Admin Sodium Chloride 1,000 mls @ 15 mls/hr 01/12/25 06:17 01/12/25 06:38 Sodium Chloride 0.9% IV 01/13/25 06:16 15 mls/hr .Q24H PRN Administration COLONOSCOPY FLUIDS PFSH Anesthesia Medical History Ischemic colitis Chronic edema Schizoaffective disorder, depressive type Cigarette nicotine dependence GERD (gastroesophageal reflux disease) History of colon polyps Recurrent UTI Psychiatric care Psychiatric care Post-traumatic stress disorder, chronic Diabetes mellitus without complication, without long-term current use of insulin Urinary incontinence, mixed Polyp of colon, adenomatous Paresthesia and pain of both upper extremities Intervertebral disc disorder of cervical region with myelopathy Hiatal hernia Pure hypercholesterolemia, unspecified DJD (degenerative joint disease) Gastritis Peptic ulcer Surgical History Hx of appendectomy S/P laparoscopic appendectomy (01/18/20) History of esophagogastroduodenoscopy (EGD) S/P cholecystectomy S/P tubal ligation S/P endometrial ablation S/P colonoscopy Family History Father Cancer Mother , at age 64 Cancer lung and spinal sarcoma Grandfather Heart disease Hypertension Diabetes Brother Heart disease Hyperlipidemia Diabetes Sister Heart disease Hyperlipidemia Grandmother Cancer Other Bipolar affect, depressed Social History (Updated 12/01/24 @ 11:11 by Katie Matute RN) Smoking and tobacco/nicotine status: current every day tobacco/nicotine user cigarettes Packs smoked per day: 1 Years cigarettes smoked: 38 Quit status (tobacco/nicotine): not considering quitting Second hand smoke exposure: Yes Alcohol intake: former Year of sobriety/quit date alcohol: 2012 Former alcohol use details: 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 Substance/Drug Use: never Adopted: No Caregiver/support person: Yes (nurse and an aid) Lives independently: Yes Household members: none Housing: Apartment Marital status: Single Number of children: 4 Number of grandchildren: 4 Highest education level completed: 10th Grade service: No Current occupational status: disabled Current occupational exposures/hazards: No Pets and animals: Yes (Baljeet) Pets & animals: cat(s) Leisure activites: art, music and other Leisure activities details: watch tv, either outside or sleeping Sexually active: No Do you think of yourself as: Straight/Heterosexual Current gender identity: Female Odette/Zoroastrian: Jew Special odette needs: No Agree to transfusion: Yes Female Reproductive History Para: 4 Date of menopause: 07/29/16 Data Anesthesia Cardiac Studies: Echocardiogram 04/13/22 Sestamibi Stress Test (Cardiology) 12/30/23 Cardiac Event Monitor 09/11/21
[2025-01-12 07:57] VITALS: BP 122/75; PULSE 96; RESP 16; TEMP 36.1; O2SAT 92
[2025-01-12 08:11] VITALS: BP 130/75; PULSE 86; RESP 16; O2SAT 94
--- NOTE | 2025-01-12 08:30 | ANE.PACU2 ---
Inpatient post-anesthesia follow up: Airway intact: Yes Vital signs: Temperature 97 F Pulse Rate 86 Respiratory Rate 16 Blood Pressure 130/75 Pulse Oximetry 94 Oxygen Delivery Me thod Room Air Oxygen Flow Rate Fraction of Inspir ed Oxygen Hydration adequate: Yes Nausea and vomiting: No Pain level: 1 Mental status: Baseline
== END 2025-01-12 08:30 | disposition home or self-care (01) ==
PROVIDERS: PCP Nurse Practitioner Family; Visit Provider Student in an Organized Health Care Education/Training Program
PROC: 0DJ08ZZ Inspection of Upper Intestinal Tract, Via Natural or Artificial Opening Endoscopic (ICD-10-PCS; principal; 2025-01-12 07:30)
DX: K29.50 Unspecified chronic gastritis without bleeding (principal); F17.210 Nicotine dependence, cigarettes, uncomplicated; J44.9 Chronic obstructive pulmonary disease, unspecified; I10 Essential (primary) hypertension; E78.5 Hyperlipidemia, unspecified; E11.9 Type 2 diabetes mellitus without complications; K21.9 Gastro-esophageal reflux disease without esophagitis; K27.9 Peptic ulcer, site unspecified, unspecified as acute or chronic, without hemorrhage or perforation; F20.9 Schizophrenia, unspecified; Z79.899 Other long term (current) drug therapy; Z88.8 Allergy status to other drugs, medicaments and biological substances
CPT/HCPCS: 43239; 88305; 88342; J2704; J3490; J7030

== ENCOUNTER → 2025-01-25 11:25 | Outpatient (BNVA) | payer MEDICAID, SELFPAY ==
[2024-12-08 10:21] VITALS: BP 135/79; BMI 36.0
== END ==
PROVIDERS: PCP Nurse Practitioner Family; Visit Provider Student in an Organized Health Care Education/Training Program
DX: Z09 Encounter for follow-up examination after completed treatment for conditions other than malignant neoplasm (principal)
CPT/HCPCS: 99213

== ENCOUNTER 2025-02-01 07:10 | Outpatient (CLI) | payer MEDICAID, SELFPAY ==
[2024-12-08 10:21] VITALS: BP 135/79; BMI 36.0
--- NOTE | 2025-02-01 07:15 | USR_ITS ---
PROCEDURE INFORMATION: Exam: US Duplex Bilateral Lower Extremity Arteries Exam date and time: 02/01/2025 7:17 AM Age: 54 years old Clinical indication: Abnormal findings; Abnormal imaging study of limbs; Aortic plaque; CT; Additional info: Mod plaque on CT, with coco TECHNIQUE: Imaging protocol: Real-time ultrasound scan of the arteries of the bilateral lower extremities with 2-D adames scale, color Doppler flow and spectral waveform analysis. Images documented and saved. COMPARISON: CT abdomen pelvis w con* [id number] 03/31/2024 1:20 PM FINDINGS: Right common femoral artery: No occlusion or significant stenosis. Normal waveform. Right superficial femoral artery: No occlusion or significant stenosis. Normal waveform. Right popliteal artery: No occlusion or significant stenosis. Normal waveform. Right calf/foot arteries: No occlusion or significant stenosis in the visualized arteries. Normal waveforms. Dorsalis pedis artery is patent. COCO 1.1 Left common femoral artery: No occlusion or significant stenosis. Normal waveform. Left superficial femoral artery: No occlusion or significant stenosis. Normal waveform. Left popliteal artery: No occlusion or significant stenosis. Normal waveform. Left calf/foot arteries: No occlusion or significant stenosis in the visualized arteries. Normal waveforms. Dorsalis pedis artery is patent. COCO 1.0 US/[place] [id number] IMPRESSION: No stenosis or occlusion.
== END 2025-02-01 07:11 | disposition home or self-care (01) ==
LOC: RAD 07:11
PROVIDERS: PCP Nurse Practitioner Family; Visit Provider Nurse Practitioner Family
DX: I70.0 Atherosclerosis of aorta (principal); F17.210 Nicotine dependence, cigarettes, uncomplicated
CPT/HCPCS: 93925

== ENCOUNTER 2025-03-05 00:09 | Emergency (ER) | payer MEDICAID, SELFPAY ==
--- OUTSIDE RECORDS SUMMARY | 2020-10-20 05:45 | XMS_ITS | Continuity of Care Document ---
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 Name Role Phone Fincel DDS, Kamilah Unavailable Unavailable Allergies, Adverse Reactions, Alerts Substance Reaction Status Criticality NITROFURANTOIN MACROCRYSTALLINE Active No Information nitrofurantoin Active No Informatio n tramadol Active No Information PSEUDOEPHEDRINE HCL Active No Infor mation OXYCODONE TEREPHTHALATE Active No I nformation OXYCODONE HCL Active No Information aspirin Active No Information OXYCODONE HCL Active No Information acetaminophen Active No Information HYDROCODONE BITARTRATE Active No In formation acetaminophen Active No Information CODEINE PHOSPHATE Active No Informa tion acetaminophen Active No Information Medications Medication Instructions Dosage Effective Dates (start - stop) Status Comments SF 5000 Plus 1.1 % dental cream apply pea size amount to toothbrush and brush nightly. Expectorate but do not rinse. for dental caries - Active MORPHINE SULFATE ER (unknown strength) take 1 capsule by oral route every day Not Available - Active Cipro 500 mg tablet take 1 tablet by oral route every 12 hours 500 MG - Active Bentyl 10 mg/mL intramuscular solution inject 2 milliliter by intramuscular route 4 times every day - Active Dilaudid 2 mg tablet take 1 tablet by oral route every 4 - 6 hours as needed 2 MG - Active ZOCOR (unknown strength) take 1 tablet by oral route every day in the evening Not Available - Active NEURONTIN (unknown strength) take 3 capsule by oral route 3 times every day Not Available - Active ASPIRIN (unknown strength) take 1 tablet by oral route every day Not Available - Active CYMBALTA (unknown strength) take 1 capsule by oral route 2 times every day Not Available - Active TRAZODONE HCL (unknown strength) take 1 tablet by oral route 3 times every day after meals Not Available - Active PRAZOSIN HCL (unknown strength) take 1 capsule by oral route 3 times every day Not Available - Active RISPERIDONE (unknown strength) take 2 tablet by oral route 2 times every day Not Available - Active PRILOSEC (unknown strength) take 2 capsule by oral route every day before a meal Not Available - Active VITAMIN E (unknown strength) Not Available - Active GARLIC (unknown strength) Not Available - Active METFORMIN HCL (unknown strength) take 1 tablet by oral route 2 times every day with morning and evening meals Not Available - Active LASIX (unknown strength) take 1 tablet by oral route every day Not Available - Active STOOL SOFTENER (unknown strength) take 1 capsule by oral route every day at bedtime as needed Not Available - Active Procedures Procedure Date Panoramic Film Periodic Oral Evaluation Established Patient EDR Approval Note Resin-Based Composite One Surface, Posterior Resin-Based Composite Two Surfaces, Anterior Resin-Based Composite One Surface, Posterior Resin-Based Composite Two Surfaces, Posterior EDR Approval Note Surgical Removal Of Erupted Tooth Requir ing Elevat EDR Approval Note Pre-Pay For Services Periodontal Maintenance Sedative Filling EDR Approval Note Periodic Oral Evaluation Established Patient Intraoral Periapical First Film Intraoral Periapical Each Additional Film Intraoral Periapical Each Additional Film Intraoral Periapical Each Additional Film Bitewings Four Films Periodontal Maintenance EDR Approval Note Periodontal Maintenance Bitewings Four Films Periodic Oral Eval Est Patient - Adult Medicaid EDR Approval Note Limited Oral Evaluation Problem Focused EDR Approval Note Periodontal Scaling And Root Planing Four Or Mor Periodontal Scaling And Root Planing Four Or Mor Periodontal Scaling And Root Planing Four Or Mor Periodontal Scaling And Root Planing Four Or Mor Resin-Based Composite One Surface, Posterior EDR Approval Note EDR Approval Note EDR Approval Note Resin-Based Composite Two Surfaces, Posterior Resin-Based Composite Two Surfaces, Anterior EDR Approval Note EDR Approval Note Resin-Based Composite Two Surfaces, Posterior Resin-Based Composite One Surface, Posterior EDR Approval Note EDR Approval Note Pre-Pay For Services Intraoral Periapical First Film Intraoral Periapical Each Additional Film Intraoral Periapical Each Additional Film Bitewings Four Films Panoramic Film Perio Probing Comprehensive Oral Evaluatio n New Or Established EDR Approval Note EDR Approval Note EDR Approval Note Advance Directives Directive Yes / No Effective Date File Name No Information Encounters Encounter Description Practice Location Reason(s) For Visit Diagnoses Date Provider Providers Copied on Encounter [facility], [id number]- [place], [id number], [place] tel:[phone] [facility] [place] [address] Encounter for dental exam and cleaning w/o abnormal findings Mar-2 1 John Triana. [address] [place], [address], [place]. tel:[phone] Referring Provider: Kamilah Lopez, [address] [place], [address]. tel:[phone] [facility], [id number]- [place], [id number], [place] tel:[phone] [facility] Encounter for dental exam and cleaning w/o abnormal findings 9 No Information [facility], [id number]- [facility], [place], [place], [id number], [place] tel:[phone] [facility] Encounter for dental exam and cleaning w/o abnormal findings 9 No Information [facility], [id number]- [facility], [place], [place], [id number], [place] tel:[phone] [facility] Encounter for dental exam and cleaning w/o abnormal findings 9 No Information [facility], [id number]- [facility], [place], [place], [id number], [place] tel:[phone] [facility] Encounter for dental exam and cleaning w/o abnormal findings 9 Tati Brizuela. [address] [place], [address], [place]. tel:[phone] Referring Provider: Gelacio Duffy, [address] [place], [address]. tel:[phone] [facility], [id number]- [place], [id number], [place] tel:[phone] [facility] Encounter for dental exam and cleaning w/o abnormal findings 7 Analilia Bray. [address] [place], [address], [place]. tel:[phone] Referring Provider: Katarina Abad, [address] [place], [address]. tel:[phone] [facility], [id number]- [place], [id number], [place] tel:[phone] [facility] Encounter for dental exam and cleaning w/o abnormal findings 0-201 7 No Information [facility], [id number]- [facility], [place], [place], [id number], [place] tel:[phone] [facility] Encounter for dental exam and cleaning w/o abnormal findings 3 0-201 7 Analilia Bray. [address] [place], [address], [place]. tel:[phone] Referring Provider: Katarina Abad, [address] [place], [address]. tel:[phone] [facility], [id number]- [place], [id number], [place] tel:[phone] [facility] Encounter for dental exam and cleaning w/o abnormal findings 7 Analilia Bray. [address] [place], [address], [place]. tel:[phone] Referring Provider: Katarina Abad, [address] [place], [address]. tel:[phone] [facility], [id number]- [place], [id number], [place] tel:[phone] [facility] Encounter for dental exam and cleaning w/o abnormal findings 2 7 Analilia Bray. [address] [place], [address], [place]. tel:[phone] Referring Provider: Katarina Abad, [address] [place], [address]. tel:[phone] [facility], [id number]- [place], [id number], [place] tel:[phone] [facility] Encounter for dental exam and cleaning w/o abnormal findings 6 7 Saturnino Amezquita. [address] [place], [address], [place]. tel:[phone] Referring Provider: Alirio Lane, [address] [place], [address]. tel:[phone] [facility], [id number]- [place], [id number], [place] tel:[phone] [facility] Encounter for dental exam and cleaning w/o abnormal findings Saturnino Amezquita. [address] [place], [address], [place]. tel:[phone] Referring Provider: Alirio Lane, [address] [place], [address]. tel:[phone] [facility], [id number]- [place], [id number], [place] tel:[phone] [facility] No Information Saturnino Amezquita. [address] [place], [address], [place]. tel:[phone] Referring Provider: Alirio Lane, [address] [place], [address]. tel:[phone] [facility], [id number]- [place], [id number], [place] tel:[phone] [facility] Encounter for dental exam and cleaning w/o abnormal findings 7 Saturnino Amezquita. [address] [place], [address], [place]. tel:[phone] Referring Provider: Alirio Lane, [address] [place], [address]. tel:[phone] Family History Family Member Type Diagnosis Age At Onset No Information Payers Payer name Insurance type Covered democrat ID Chuy roberts(s) D Medicaid [id number] Social History Type Description Quantity Date Captured Comments Alcohol Use Details No Caffeine Use Details Unknown Tobacco Use Status Smoking Status No Information Sex Female Sexual Orientation Heterosexual Gender Identity Female Chief Complaint And Reason For Visit No Information Reason For Referral Reason For Referral No Information Plan Of Treatment Date Type Action Status Goal Tobacco cessation counseling completed Goal Tobacco cessation counseling completed Goal Tobacco cessation counseling completed Goal Tobacco cessation counseling completed Goal Tobacco cessation counseling completed Goal Tobacco cessation counseling completed Goal Tobacco cessation counseling completed Goal Tobacco cessation counseling completed History Of Present Illness Encounter Date Complaint History Of Prese nt Illness No Information Functional Status Date Functional Assessmen t No Information Instructions Date Instruction Additional Infor tamara Lifestyle education Related to D ental Examination Lifestyle education Related to D ental Examination Lifestyle education Related to D ental Examination Lifestyle education Related to D ental Examination Lifestyle education Related to D ental Examination Lifestyle education Related to D ental Examination Lifestyle education Related to D ental Examination Assessments Type Assessment Date No Information Patient Care Teams Name Effective Dates (start - stop) Status Members No Information
--- OUTSIDE RECORDS SUMMARY | 2024-08-03 03:10 | XMS_ITS ---
Author Organization [facility] Address [address] [place], [place] [id number] Care Team Providers Care Certified Medical Biller Name Role Phone Neha Gonzalez Primary Care Provider Unav Marques Hartley MD Unavailable [phone] Irvin Fuller DO Unavailable Allergies Allergen (clinical drug ingredient) Drug/Non Drug Allergy documented on EMR Reaction Allergy Type Onset Date Status Vicodin stomach upset Drug Allergy Act arpit nitrofurantoin, macrocrystals / nitrofurantoin, monohydrate Macrobid Unknown Drug Allergy Active Percodan stomach upset Drug Allergy Act arpit Sudafed Unknown Drug Allergy Active acetaminophen / codeine acetaminophen-code ine stomach upset Drug Allergy Active tramadol tramadol hallucinations Drug Allergy Ac tive Percocet 10/325 stomach upset Drug Allergy Active REASON FOR VISIT Low back pain Medications Medication SIG (Take, Route, Frequency, Duration) Notes Start Date End Date Status potassium chloride 8 mEq 1 tab orally 3 times a day Active Paxil 40 mg 1 tab orally once a day Active omeprazole 40 mg 1 cap(s) orally twic e a day Active pregabalin 50 mg 1 cap orally Q8H; Duration: 28 days 07/15/2024 Active prazosin 1 mg 1 cap orally at bedtime Active nitroglycerin 0.4 mg 1 tab sublingually every 5 minutes Active Latuda 40 mg 1 tab(s) orally once a day; Duration: 6 week(s) Active magnesium oxide 500 mg 1 tab orally once a day Active Linzess 145 mcg 1 cap(s) orally once a day Active Narcan 4 mg/0.1 mL as directed intranas ally once 01/16/2021 Active cyproheptadine 4 mg 1 tab orally at bedtime 2021 Active Crestor 20 mg 1 tab orally once a day Active hydrOXYzine hydrochloride 25 mg 1 tab orally once a day 01/17/2021 Acti ve HYDROmorphone 4 mg 1 tab orally Q4H prn pain (max 4/day; hold within 4H of planned sleep); Duration: 28 days 07/15/2024 Active Ditropan XL 10 mg/24 hr 1 tab orally once a day Active aspirin 81 mg 1 tab orally once a day Active Zofran 4 mg 1 tab orally every 8 hours Active Arctic Relief 0.2%-3.5% 1 zelda applied to pically 3 times a day Active vitamin E 100 intl units 1 cap orally as directed Active Advair Diskus 100 mcg-50 mcg 1 puff inhaled 2 times a day Active Seroquel 50 mg 1 tab orally at bedtime Active ProAir HFA 90 mcg/inh 2 puffs inhaled ev kaitlynn 6 hours Active terbinafine 250 mg 1 tab(s) orally once a day; Duration: 42 day(s) 07/30/2023 Active Vitamin C 500 mg 1 tab orally once a day Active traZODone 50 mg 1-3 orally at bedtime Active Encounters Encounter Location Date Provider Diagnosis [facility] [address] [place] [address] 08/03/2024 Marques Hi Sacroiliitis, not elsewhere classified M46.1 and Other specified anxiety disorders F41.8 Assessments Encounter Date Diagnosis (ICD Code) Assessment Notes Treatment Notes Treatment Clinical Notes Section Notes 08/03/2024 Sacroiliitis, not elsewhere classified (ICD-10 - M46.1) Plan left SI joint local anesthetic / steroid injection. 08/03/2024 Other specified anxiety disorders (ICD-10 - F41.8) Plan moderate IV sedation with midazolam and/or fentanyl. Plan Of Treatment Treatment Notes Assessment Notes Sacroiliitis, not elsewhere classified P sheryl left SI joint local anesthetic / steroid injection. Other specified anxiety disorders Plan m oderate IV sedation with midazolam and/or fentanyl. Next Appt Details Follow Up: As arranged., Renee son: Procedure Notes * Category Sub-Category Detail Notes sacroiliac joint injection(s) Start time: * Finish time: * Site: the superior aspect of the left gluteal fold Equipment/supplies: 22 ga spinal needle; sterile gloves and prep tray to include needles and syringes; 2 ml Omnipaque 240 contrast dye (48 mls wasted); 1% lidocaine and 0.75% bupivacaine; Depo Medrol 80 mg/ml; C-arm fluoroscopy Position: the patient was plac ed in the prone position Sedation: after blood pressure , EKG and SaO2 monitors were applied, IV sedation via RN as needed Fluoroscopy: the sacroiliac joint was visualized under fluoroscopy. Omnipaque 240 contrast dye was injected and the contrast flow was visualized and a copy of the following images were printed and placed in the patient's chart or archived on a disc at the surgery center: anterior-posterior / oblique and lateral views were utilized Interview: a pre-procedure eval uation was conducted in which the vital signs were evaluated. The risks of the procedure were previously discussed with the patient. See the patient's signed consent form. The patient wished to proceed Injection: a 1.5 ml solution of 0.5 ml of 0.75% bupivacaine plus 80 mg/ml of Depo-Medrol was then injected Location: [facility] Discharge: the patient was obse rved after the procedure and the patient was discharged with no untoward effects Prep/technique: chlorhexidine prep f ollowed by a sterile drape; sterile technique was observed throughout the procedure. The 22 ga spinal needle was introduced via fluoroscopic guidance after the site was injected with 1% lidocaine local anesthetic radiological examination Sacroiliac join t arthrography: indication: sacroiliitis; views: anteroposterior / oblique and lateral views were utilized. An examination of the sacroiliac joint was performed under fluoroscopy with Omnipaque 240 injected and the contrast flow was observed Progress Notes * Afshan PARRYDOB: 2 (54 yo F)Acc No.[id number]:08/03/2024 Patient: Afshan [place] Provider: Deborah Hi :1970 A ge:53 Y S ex:Female Date:08/03/2024 Address:[address] [place] [address] [address], [facility] Pcp:IESHA Peterson Subjective: * Chief Complaints: * 1 . Low back pain. * HPI: L umbar Spine: 53 year old female presents with c/o pain i n the left low back, This pain is described as constant aching, This pain is moderate to severe in intensity., This pain is located in the sacral and lower lumbar regions, greatest in the sacral area. T his pain extends into the left hip, This pain does not radiate. T he back pain is aggravated by standing, walking, sitting and bending, This pain is somewhat alleviated with rest. Denies : radiation of pain. Denies : tingling/numbness. Denies : weakness. Denies : change in bowel/bladder function. Denies : injury:. HPI forwarded from prior office visit note . * Medical History: C hronic pain, Neck pain, Cervical spondylosis, disc disease, spinal stenosis and spondylolisthesis, Low back pain, Lumbar spondylosis, disc disease and spondylolithesis, Sacroiliitis, Rotator cuff tendonitis, Left shoulder pain, Knee problems, Arthritis, Asthma, Legs swelling, Prediabetes, Depression, history of suicide attempt, Bladder problems, Hypercholesterolemia, Ulcer disease, Rheumatoid arthritis, Sinus tachycardia per prior patient report, Neuropathy, Tobacco use, COPD (history of asthma), Sleep disorder, AHI = 4 via prior sleep study report, Obesity, morbid. * Medications: T aking Advair Diskus(fluticasone-salmeterol) 100 mcg-50 mcg powder 1 puff inhaled 2 times a day , Taking Arctic Relief(camphor-menthol topical) 0.2%-3.5% gel 1 zelda applied topically 3 times a day , Taking aspirin 81 mg tablet 1 tab orally once a day , Taking Crestor(rosuvastatin) 20 mg tablet 1 tab orally once a day , Taking cyproheptadine 4 mg tablet 1 tab orally at bedtime , Taking Ditropan XL(oxyBUTYnin) 10 mg/24 hr tablet, extended release 1 tab orally once a day , Taking HYDROmorphone 4 mg tablet 1 tab orally Q4H prn pain (max 4/day; hold within 4H of planned sleep) , Taking hydrOXYzine hydrochloride 25 mg tablet 1 tab orally once a day , Taking Latuda(lurasidone) 40 mg tablet 1 tab(s) orally once a day , Taking magnesium oxide 500 mg tablet 1 tab orally once a day , Taking Narcan(naloxone) 4 mg/0.1 mL spray as directed intranasally once , Taking nitroglycerin 0.4 mg tablet 1 tab sublingually every 5 minutes , Taking omeprazole 40 mg delayed release capsule 1 cap(s) orally twice a day , Taking Paxil(PARoxetine) 40 mg tablet 1 tab orally once a day , Taking potassium chloride 8 mEq tablet, extended release 1 tab orally 3 times a day , Taking prazosin 1 mg capsule 1 cap orally at bedtime , Taking pregabalin 50 mg capsule 1 cap orally Q8H , Taking ProAir HFA(albuterol) 90 mcg/inh aerosol 2 puffs inhaled every 6 hours , Taking Seroquel(QUEtiapine) 50 mg tablet 1 tab orally at bedtime , Taking terbinafine 250 mg tablet 1 tab(s) orally once a day , Taking traZODone 50 mg tablet 1-3 orally at bedtime , Taking Vitamin C(ascorbic acid) 500 mg tablet 1 tab orally once a day , Taking vitamin E 100 intl units capsule 1 cap orally as directed , Taking Zofran(ondansetron) 4 mg tablet 1 tab orally every 8 hours , Taking Linzess(linaclotide) 145 mcg capsule 1 cap(s) orally once a day * Allergies: V icodin: stomach upset, Macrobid, Percodan: stomach upset, Sudafed, acetaminophen-codeine: stomach upset, tramadol: hallucinations, Percocet 10/325: stomach upset. Objective: Assessment: * Assessment: 1. S acroiliitis, not elsewhere classified - M46.1 (Primary) 2 . O ther specified anxiety disorders - F41.8 Plan: * Treatment: 2. O ther specified anxiety disorders Notes: Plan moderate IV sedation with midazolam and/or fentanyl. * Procedure Codes: 2 7096 (ASC) INTRA-ARTICULAR SACROILIAC JOINT INJECTION, 33646 ASC Mod cons sed by same phys * Follow Up: A s arranged. * Images: * Electronic signature of Salomon Hi MD on 03/05/2025 at 12:16 AM CDT Sign off status: Pending * Provider: Deborah Hi Date: 0 08/03/2024 Generated for Jos welch/Faxing/eTransmitting on: 0 03/05/2025 12:16 AM CDT History and Physical Notes * HPI (History of Present Illness) Category Sub-Category Detail Notes Category Not es Lumbar Spine injury: HPI forwarded f rom prior office visit note tingling/numbness pain in the left low back , This pain is described as constant aching, This pain is moderate to severe in intensity., This pain is located in the sacral and lower lumbar regions, greatest in the sacral area. This pain extends into the left hip, This pain does not radiate. The back pain is aggravated by standing, walking, sitting and bending, This pain is somewhat alleviated with rest radiation of pain weakness change in bowel/bladder function Examination Category Sub-Category Detail Notes Category Not es General examination Heart: rhythm is regular Lungs: clear to auscultatio n Appearance/ Psychiatric: no apparent dis tress Skin: Lumbar Spine Back: SI joint tenderness noted on the left
[2024-12-08 10:21] VITALS: BP 135/79; BMI 36.0
[2025-03-05 00:12] VITALS: BP 138/81; PULSE 81; RESP 16; TEMP 36.6; O2SAT 97; BMI 36.6
--- OUTSIDE RECORDS SUMMARY | 2025-03-05 00:17 | XMS_ITS | Clinical Summary ---
Author Organization [facility] Address [address] Christensen: [place] [address] Care Team Providers Care Outpatient Coder Name Role Phone Unavailable Primary Care Provider Unavailabl e Allergies Active Allergy Reactions Criticality Noted Date Comments Acetaminophen Hepatic Dysfunction Medium 03/03/2024 Aspirin Abdominal Pain Low 12/04/2024 Chest pain Codeine Nausea and Vomiting Low 03/03/2024 Nitrofurantoin Monohyd/M-Cryst Nausea and Vomiting Low 03/03/2024 Pseudoephedrine Hcl Anaphylaxis High 03/03/2024 Tramadol Fever,Hallucination Low 03/03/2024 Medications blood sugar diagnostic (OneTouch Ultra Test) Strip TEST ONCE A DAY Ac tive fluticasone propion-salmete roL (Advair Diskus) 100-50 mcg/dose disk inhaler 1 Puff 2 times daily. Active cyproheptadine (PERIACTIN) 4 mg tablet take 2 tablets by mouth at bedtime Active fluPHENAZine (PROLIXIN) 1 mg tablet Take 1 Tablet by mouth 2 times daily. Active oxyBUTYnin (DITROPAN XL) 10 mg Extended Release 24 hour tablet 1 tab orally once a day Active HYDROmorphone (DILAUDID) 4 mg tablet TAKE 1 TABLET BY MOUTH EVERY 4 HOURS NEEDED FOR PAIN max FOUR PER DAY; hold WITHIN 4hours of planned sleep FOR 28 DAYS Active levocetirizine (XYZAL) 5 mg tablet Take 5 mg by mouth daily. Active Linzess 145 mcg capsule 1 cap(s) orally once a day Active Menthol 3.5 % Gel 1 zelda applied topically 3 times a day Active naloxone (Narcan) 4 mg/spray [place], Non-Aerosol CALL 911, USE 1 SPRAY IN ONE NOSTRIL. MAY REPEAT IN ALTERNATE NOSTRILS EVERY 3 MINUTES NEEDED IF NO OR MINIMAL RESPONSE. Active nitroglycerin (NITROSTAT) 0.4 mg Tablet, Sublingual 1 tab sublingually every 5 minutes Active ondansetron (ZOFRAN) 4 mg Tablet Take 1 Tablet by mouth every 8 hours as needed. Active pantoprazole (PROTONIX) 40 mg Tablet, Delayed Release (E.C.) Take 40 mg by mouth 2 times daily. Active prazosin (MINIPRESS) 1 mg capsule 1 cap orally at bedtime Active pregabalin (LYRICA) 50 mg Capsule take 1 capsule BY MOUTH EVERY 8 HOURS FOR 28 DAYS Active Crestor 20 mg tablet 1 tab orally once a day Active traZODone (DESYREL) 100 mg tablet take 1 tablet by mouth at bedtime as needed for sleep Active multivitamin,tx -iron-ca-min (THERA-M) 27-0.4 mg Tablet Take 1 Tablet by mouth daily. Active cephALEXin (KEFLEX) 250 mg capsuleIndicati ons:Frequent UTI Take 1 Capsule (250 mg) by mouth daily. 30 Capsule 6 Active Active Problems No known active problems Encounters Date Type Department Care Team Description 03/02/2025 External Device Data [facility]STRACTION Provider, Abstract 02/10/2025 External Device Data [facility]STRACTION Provider, Abstract 02/09/2025 External Device Data [facility] Provider, Abstract 01/12/2025 External Device Data [facility] Provider, Abstract 12/17/2024 External Device Data [facility] Provider, Abstract 12/16/2024 External Device Data [facility]STRA[facility] Provider, Abstract 12/15/2024 External Device Data [facility]STRA[facility] Provider, Abstract 12/04/2024 1:00 PM CDT [facility] [place] [address] [address] [place] [id number] Colette Kahn FNP Urinary tract infection without hematuria, site unspecified (Primary Dx); Frequent UTI 12/03/2024 10:56 AM CDT - 12/03/2024 11:59 PM CDT Hospital Encounter [facility] CT Scan [place] [address] [place] [address] Colette Kahn FNP Discharge Disposition: Home or Self Care 12/03/2024 Telephone [facility] [address]tr[address], [address] [place] [address] Colette Kahn FNP follow up from Last 3 Months Social History Tobacco Use Types Packs/Day Years Used Date Smoking Tobacco: Every Day Cigarettes 1 39.6 Started: 1985 Tobacco Cessation:Ready to Q uit: No; Counseling Given: No Comments Unknown Sex and Gender Information Value Date Recorded Sex Assigned at Not on file 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 Gender Identity Not on file Sexual Orientation Not on file Plan of Treatment Upcoming Encounters Date Type Department Care Team (Late st Contact Info) Description 04/08/2025 2:30 PM CDT Office Visit [address] [place] [address] Colette Kahn FNP [address] [place] [address] [address] [place] [address] Health Maintenance Due Date Last Done Comments DIABETES ANNUAL FOOT EXAM 12/10/1989 DIABETES ANNUAL RETINAL EXAM 12/10/1989 DIABETES MICROALBUMIN ANNUAL SCREEN 12/10/1989 LDL CHOLESTEROL ANNUAL 12/10/1989 DTAP/TDAP/TD VACCINES (1 - Tdap) 12/10/1990 HEPATITIS B VACCINES (1 of 3 - 19+ 3-dose series) 12/10/1990 HPV/Cotest (21-29) 12/10/1992 CERVICAL CANCER SCREENING 12/10/2001 HPV/Cotest (30-65) 12/10/2001 PAP SMEAR 12/10/2001 BREAST CANCER SCREENING 2011 FIT-DNA Q 3 years 12/10/2016 FIT/FOBT Q 1 year 12/10/2016 Flex Sig/CT Colonography Q 5 years 12/10/2016 Lung Cancer Screening 12/10/2021 ZOSTER VACCINE (1 of 2) 12/10/2021 DIABETES HBA1C Q 6 MONTHS 12/14/2024 06/16/2024 INFLUENZA VACCINE (#1) 2025 , 04/25/2020, 09/15/2018 COLORECTAL SCREENING 08/02/2033 08/02/2023, 08/01/2023, 01/02/2023 Colorectal Cancer Screening 08/02/2033 Procedures Procedure Name Priority Date/Time Associated Diagnosis Comments POC URINALYSIS MICROSCOPY ONLY Routine 12/04/2024 1:02 PM CDT Urinary tract infection without hematuria, site unspecified POC URINALYSIS DIPSTICK AUTOMATED Routine 12/04/2024 1:02 PM CDT Urinary tract infection without hematuria, site unspecified CT URINARY CALCULI WO CONTRAST Routine 12/03/2024 11:06 AM CDT Kidney stone from Last 3 Months Results * (ABNORMAL) POC URINALYSIS DIPSTICK AUTOMATED (12/04/2024 1:02 PM CDT) COLOR UA POC Yellow Pale to Dark [facility] Slightly Cloudy(A) Clear, Other [facility] [place] GLUCOSE UA POC Negative Negative, Normal [facility] BILIRUBIN UA POC Negative Negative [facility] KETONES UA POC Negative Negative [facility] SPECIFIC GRAVITY UA POC 1.010 1.000 - 1.030 [facility] B[facility] Trace(A) Negative [facility] PH UA POC 7.0 5.0 - 8.0 [facility] [place] PROTEIN UA POC Negative Negative [facility] UROBILINOGEN UA POC 0.2 <2.0 mg/dL [facility] NITRITE UA POC Negative Negative [facility] LEUKOCYTE ESTERASE UA POC Negative Negative [facility] UR[facility] [place] [address] POC [phone] [facility] KIT EXP DATE POC 07.28.25 [facility] Urine 12/04/2024 1:02 PM CDT us Colette Carl Law SHAREPOINT ENGINEER POINT OF CARE TESTING Maida l Result [facility] [place] CLIA# [id number] [address] [place] [id number], [place] * (ABNORMAL) POC URINALYSIS MICROSCOPY ONLY (12/04/2024 1:02 PM CDT) WBC UA POC 0-2 0 - 2 /hpf [facility] RBC UA POC 0-2 0 - 2 /hpf [facility] BACTERIA UA POC Negative Negative /hpf [facility] POC [facility] TRICHOMONAS POC [facility] SPERMATOZOA POC [facility] HYALINE CAST POC [facility] RBC CAST POC [facility] C LINIC [facility] GRANULAR CAST POC [facility] AMORPHOUS CRYSTAL POC [facility] TRIPLE PHOS POC [facility] URIC ACID CRYSTAL POC [facility] CALCIUM OXALATE, URINE POC [facility] COMMENT, URINE POC [facility] EPITHELIAL CELLS UA POC >25(A) 0 - 5 /hpf [facility] Urine 12/04/2024 1:02 PM CDT [facility] Law SHAREPOINT ENGINEER POINT OF CARE TESTING Maida l Result [facility] CLIA# [id number] [address] [place] [id number], [place] * CT URINARY CALCULI WO CONTRAST (12/03/2024 11:06 AM CDT) Anatomical Region Laterality Modality Abdomen Computed Tomogra phy 12/03/2024 11:0 0 AM CDT Impressions 12/04/2024 8:35 AM CDT IMPRESSION: 1. No evidence of an acute intra-abdominal abnormality. 2. No recurrent urinary calculi in the kidneys, ureters, or urinary bladder. 3. Otherwise as above. Narrative 12/04/2024 8:35 AM CDT EXAM: CT URINARY CALCULI WO CONTRAST DATE/TIME OF EXAM: 12/03/2024 11:06 AM REASON FOR EXAM: Stone burden eval, post treatment DIAGNOSIS: Kidney stone COMPARISON: None. TECHNIQUE: This examination was performed using automated exposure control, adjustment of mA or kV according to patient size, and/or use of iterative reconstruction technique. Axial images of the abdomen and pelvis obtained without contrast, multiplanar reformations evaluated. LIMITATIONS: Lack of intravenous contrast decreases sensitivity for the detection of solid organ lesions and inflammatory disease. FINDINGS: - Lower chest: No acute findings. Small calcified pulmonary granuloma in the right lower lobe. - Liver: Probable mild hepatic steatosis with subtle heterogeneity of the liver attenuation. - Gallbladder/Biliary: Status post a cholecystectomy. Bile ducts are nondilated. - Pancreas: Within normal limits. - Adrenals: Within normal limits. - Spleen: Within normal limits. - Kidneys, ureters, urinary bladder: No radiodense renal or ureteral calculi. No hydronephrosis. Urinary bladder is normal. - Peritoneum and extraperitoneum: No ascites or free air. No suspicious lymphadenopathy. - Gastrointestinal tract: No evidence of a small bowel obstruction or acute abnormality. Surgical clips in the cecum suggesting a prior appendectomy. - Reproductive System: No suspicious pelvic masses. - Vascular: Mild to moderate burden of calcific atherosclerotic plaque in the abdominal aorta and iliac arteries. - Bones/Soft tissues: No suspicious osseous lesions. Mild to moderate degenerative facet disease in the lumbar spine. Additional comments: None. Procedure Note Johan Neff MD - 12/04/2024 EXAM: CT URINARY CALCULI WO CONTRAST DATE/TIME OF EXAM: 12/03/2024 11:06 AM REASON FOR EXAM: Stone burden eval, post treatment DIAGNOSIS: Kidney stone COMPARISON: None. TECHNIQUE: This examination was performed using automated exposure control, adjustment of mA or kV according to patient size, and/or use of iterative reconstruction technique. Axial images of the abdomen and pelvis obtained without contrast, multiplanar reformations evaluated. LIMITATIONS: Lack of intravenous contrast decreases sensitivity for the detection of solid organ lesions and inflammatory disease. FINDINGS: - Lower chest: No acute findings. Small calcified pulmonary granuloma in the right lower lobe. - Liver: Probable mild hepatic steatosis with subtle heterogeneity of the liver attenuation. - Gallbladder/Biliary: Status post a cholecystectomy. Bile ducts are nondilated. - Pancreas: Within normal limits. - Adrenals: Within normal limits. - Spleen: Within normal limits. - Kidneys, ureters, urinary bladder: No radiodense renal or ureteral calculi. No hydronephrosis. Urinary bladder is normal. - Peritoneum and extraperitoneum: No ascites or free air. No suspicious lymphadenopathy. - Gastrointestinal tract: No evidence of a small bowel obstruction or acute abnormality. Surgical clips in the cecum suggesting a prior appendectomy. - Reproductive System: No suspicious pelvic masses. - Vascular: Mild to moderate burden of calcific atherosclerotic plaque in the abdominal aorta and iliac arteries. - Bones/Soft tissues: No suspicious osseous lesions. Mild to moderate degenerative facet disease in the lumbar spine. Additional comments: None. IMPRESSION: 1. No evidence of an acute intra-abdominal abnormality. 2. No recurrent urinary calculi in the kidneys, ureters, or urinary bladder. 3. Otherwise as above. Colette Kahn SHAREPOINT ENGINEER CT ORDERABLES Final Resu lt from Last 3 Months Insurance MEDICAID [place]
--- OUTSIDE RECORDS SUMMARY | 2025-03-05 00:17 | XMS_ITS | Encounter Summary ---
Author Organization [facility] Address 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
--- OUTSIDE RECORDS SUMMARY | 2025-03-05 00:17 | XMS_ITS | Patient Health Record ---
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 Neha Gonzalez Primary Care Provider Unav ailable Sussy HOPE, Marques Unavailable [phone] Irvin Fuller DO Unavailable Unavailable Italia Carcamo Unavailable [phone] Allergies Allergen (clinical drug ingredient) Drug/Non Drug [...] Percocet 10/325 stomach upset Drug Allergy Active Results Component Value Reference Range Notes Urine tox screen / MS if ind icated Reviewed date:03/26/2024 01:47:10 PM Interpretation:Consistent Performing Lab: Notes/Report: Consistent Reason For Referral Reason Evaluation for possi ble treatment (clinic closing due to provider's half-way) Diagnosis 1 Vertebrogenic low ba ck pain (M54.51) Diagnosis 2 Spondylosis without myelopathy or radiculopathy, lumbar region (M47.816) Diagnosis 3 Sacroiliitis, not el sewhere classified (M46.1) Referral Organization [email or web address] Referring Provider First Name Marques Referring Provider Last Name Sussy Referring Provider Speciality Pain Manag ement Referred Provider Kody Khan Referred Provider Specialty Pain Managem ent General Notes Uyen Maldonado 01:05:52 PM >Faxed today. Referral Priority Routine Referral Appointment Date 03/04/2025 Medications Medication SIG (Take, Route, Frequency, Duration) Notes Start Date End Date Status pregabalin 50 mg 1 cap orally Q8H; Duration: 28 days 11/10/2024 Active HYDROmorphone 4 mg 1 tab orally Q4H prn pain (max 4/day; hold within 4H of planned sleep); Duration: 28 days Do not fill prior to 11/12/24. ICD-10: G89.29 11/10/2024 Active omeprazole 40 mg 1 cap(s) orally twic e a day Active Paxil 40 mg 1 tab orally once a day Active Narcan 4 mg/0.1 mL as directed intranasally once 01/16/2021 Active nitroglycerin 0.4 mg 1 tab sublingually every 5 minutes Active ProAir HFA 90 mcg/inh 2 puffs inhaled ev kaitlynn 6 hours Active potassium chloride 8 mEq 1 tab orally 3 times a day Active prazosin 1 mg 1 cap orally at bedtime Active HYDROmorphone 4 mg 1 tab orally Q4H prn pain (max 4/day; hold within 4H of planned sleep); Duration: 28 days Do not fill prior to 01/07/25. ICD-10: G89.29 11/10/2024 Active Linzess 145 mcg 1 cap(s) orally once a day Active magnesium oxide 500 mg 1 tab orally once a day Active Latuda 40 mg 1 tab(s) orally once a day; Duration: 6 week(s) Active aspirin 81 mg 1 tab orally once a day Active Zofran 4 mg 1 tab orally every 8 hours Active Crestor 20 mg 1 tab orally once a day Active Advair Diskus 100 mcg-50 mcg 1 puff inhaled 2 times a day Active Vitamin C 500 mg 1 tab orally once a day Active Arctic Relief 0.2%-3.5% 1 zelda applied topically 3 times a day Active vitamin E 100 intl units 1 cap orally as directed Active hydrOXYzine hydrochloride 25 mg 1 tab orally once a day 01/17/2021 Active cyproheptadine 4 mg 1 tab orally at bedtime 01/09/2022 Active Ditropan XL 10 mg/24 hr 1 tab orally onc e a day Active terbinafine 250 mg 1 tab(s) orally once a day; Duration: 42 day(s) 07/30/2023 Active HYDROmorphone 4 mg 1 tab orally Q4H prn pain (max 4/day; hold within 4H of planned sleep); Duration: 28 days Do not fill prior to 12/10/24. ICD-10: G89.29 11/10/2024 Active traZODone 50 mg 1-3 orally at bedtime Active Seroquel 50 mg 1 tab orally at bedtime Active Social History Tobacco Use: Social History Observation Description Date Details (start date - stop date) Current Smoker NA - NA Tobacco use: Question Answer Notes : current smoker Are you interested in quitting? Thinking about q uitting How many cigarettes a day do you smoke? 11-20 How often do you smoke cigarettes? every day How soon after you wake up d o you smoke your first cigarette? 6-30 min When did you start smoking? 1984 AUDIT-C (Standard) Question Answer Notes Did you have a drink contain ing alcohol in the past year? Yes How often did you have a dri nk containing alcohol in the past year? Monthly or less (1 point) How many drinks did you have on a typical day when you were drinking in the past year? 1 or 2 drinks (0 point) How often did you have six o r more drinks on one occasion in the past year? 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) Active confirmed Problem Anxiety disorder (136508442) Other specified anxiety disorders (F41.8) Active confirmed Problem Hypersomnia (17925890) Hypersomnia, unspecified (G47.10) Active confirmed Problem Sleep disorder (18892748) Other sleep disorders (G47.8) Active confirmed Problem Chronic pain (78989247) Other chronic pain (G89.29) Active confirmed Problem Acquired spondylolisthesis (127210595) Spondylolisthesi s, cervical region (M43.12) Active confirmed Problem Cervical spondylosis without myelopathy (098201509) Spondylosis without myelopathy or radiculopathy, cervical region (M47.812) Active confirmed Problem Spinal stenosis in cervical region (09429323) Spinal stenosis, cervical region (M48.02) Active confirmed Problem Cervical radiculopathy (96293096) Cervical disc disorder with radiculopathy, unspecified cervical region (M50.10) Active confirmed Problem Cervicalgia (88926492) Cervicalgia (M54.2) Active confirmed Problem Long-term current use of drug therapy (847265472) Other senior care (current) drug therapy (Z79.899) Active confirmed Problem Myalgia (53729359) Myalgia of auxiliary muscles, head and neck (M79.12) Active confirmed Problem Muscle pain (10628788) Myalgia, other site (M79.18) Active confirmed Problem Vertebrogenic low back pain (784087735283004272) Vertebrogenic low back pain (M54.51) Active confirmed Vital Signs Temperature 97.2 degrees Fahrenheit 11/10/2024 Keya ent reported weight due to fall risk Oximetry 95 % 11/10/2024 Patient reporte d weight due to fall risk Blood pressure diastolic 73 mm Hg 11/10/2024 Pat ient reported weight due to fall risk Height 65.25 in 11/10/2024 Patient reporte d weight due to fall risk Blood pressure systolic 119 mm Hg 11/10/2024 Keya ent reported weight due to fall risk Weight 220 lbs 11/10/2024 Patient reporte d weight due to fall risk BMI 36.33 kg/m2 11/10/2024 Patient reporte d weight due to fall risk Encounters Encounter Location Date Provider Diagnosis [facility] [place] [address] [place] [employer] [place] [id number] 03/26/2024 Italia Gannon Cervicalgia M54.2 ; Other chronic pain G89.29 ; Spinal stenosis, cervical region M48.02 ; Other sleep disorders G47.8 and [facility] (current) use of opiate analgesic Z79.891 [facility] [place] [address] [place] [employer] [place], [place] [id number] 05/21/2024 Marques Hi Sacroiliitis, not elsewhere classified M46.1 ; Other specified anxiety disorders F41.8 ; Other chronic pain G89.29 ; Vertebrogenic low back pain M54.51 ; Spondylosis without myelopathy or radiculopathy, lumbar region M47.816 ; Cervicalgia M54.2 ; Spinal stenosis, cervical region M48.02 and Other sleep disorders G47.8 [facility] [place] [address] [employer] [place], [place] [id number] 07/15/2024 Marques Hi Sacroiliitis, not elsewhere classified M46.1 ; Other specified anxiety disorders F41.8 ; Other chronic pain G89.29 ; Vertebrogenic low back pain M54.51 ; Spondylosis without myelopathy or radiculopathy, lumbar region M47.816 ; Cervicalgia M54.2 ; Spinal stenosis, cervical region M48.02 and Other sleep disorders G47.[address] [facility] [address] [id number] 09/14/2024 Marques Hi Other chronic pain G89.29 ; Vertebrogenic low back pain M54.51 ; Cervicalgia M54.2 ; Spinal stenosis, cervical region M48.02 and Other sleep disorders G47.8 [facility], [address] [id number] 11/10/2024 Marques Hi Other chronic pain G89.29 ; Cervicalgia M54.2 ; Spinal stenosis, cervical region M48.02 and Other sleep disorders G47.8 [facility], [address] [id number] 06/22/2024 Marques Hi [facility] Treatment [facility], [address] [id number] 12/09/2024 Marques Hi Assessments Encounter Date Diagnosis (ICD Code) Assessment Notes Treatment Notes Treatment Clinical Notes Section Notes 03/26/2024 Cervicalgia (ICD-10 - M54.2) Chronic axial cervical spine pain. 05/21/2024 Sacroiliitis, not elsewhere classified (ICD-10 - M46.1) Plan left SI joint steroid / local anesthetic injection. Consider sacral denervation procedure via RFA if diagnostic block without lasting steroid efficacy noted. Risks, benefits, and alternatives reviewed with patient. Questions answered to the patient's reported satisfaction. Preparation for procedure reviewed with patient; printed instructions declined. 05/21/2024 Other specified anxiety disorders (ICD-10 - F41.8) Plan moderate IV sedation as needed with midazolam and / or fentanyl. 07/15/2024 Sacroiliitis, not elsewhere classified (ICD-10 - M46.1) Plan left SI joint steroid / local anesthetic injection. Consider sacral denervation procedure via RFA if diagnostic block without lasting steroid efficacy noted. Risks, benefits, and alternatives reviewed with patient at prior visit. Questions answered to the patient's reported satisfaction. Preparation for procedure reviewed with patient; printed instructions declined. 09/14/2024 Other chronic pain (ICD-10 - G89.29) Patient reports that taking her pain medication allows her to care for her pet cat. Plan to continue oral opioid medication management. 09/14/2024 Vertebrogenic low back pain (ICD-10 - M54.51) Chronic axial lumbosacral spine pain. 11/10/2024 Other chronic pain (ICD-10 - G89.29) Patient reports that taking her pain medication allows her to stand longer to cook for herself. Plan to continue oral opioid medication management. 11/10/2024 Cervicalgia (ICD-10 - M54.2) Chronic axial cervical spine pain. 11/10/2024 Spinal stenosis, cervical region (ICD-10 - M48.02) Patient reports benefit with use of pregabalin for her BUE symptoms. Plan to continue. 09/14/2024 Cervicalgia (ICD-10 - M54.2) Chronic axial cervical spine pain. 07/15/2024 Other specified anxiety disorders (ICD-10 - F41.8) Plan moderate IV sedation as needed with midazolam and / or fentanyl. 05/21/2024 Other chronic pain (ICD-10 - G89.29) Patient reports that taking her pain medication allows her to be more active. Plan to continue oral opioid medication management. 03/26/2024 Other chronic pain (ICD-10 - G89.29) Patient reports that taking her pain medication allows her to cook for herself. Plan to continue oral opioid medication management. 03/26/2024 Spinal stenosis, cervical region (ICD-10 - M48.02) Patient reports benefit with use of pregabalin for her BUE symptoms. Plan to continue. 03/26/2024 Other sleep disorders (ICD-10 - G47.8) Plan to continue to restrict opioid use in relation to sleep for safety concerns. 07/15/2024 Other chronic pain (ICD-10 - G89.29) Patient reports that taking her pain medication allows her to be more active. Plan to continue oral opioid medication management. 05/21/2024 Vertebrogenic low back pain (ICD-10 - M54.51) Chronic axial lumbosacral spine pain. 09/14/2024 Spinal stenosis, cervical region (ICD-10 - M48.02) Patient reports benefit with use of pregabalin for her BUE symptoms. Plan to continue. 11/10/2024 Other sleep disorders (ICD-10 - G47.8) Plan to continue to restrict opioid use in relation to sleep for safety concerns. 07/15/2024 Vertebrogenic low back pain (ICD-10 - M54.51) Chronic axial lumbosacral spine pain. 09/14/2024 Other sleep disorders (ICD-10 - G47.8) Plan to continue to restrict opioid use in relation to sleep for safety concerns. 03/26/2024 [facility]DC (current) use of opiate analgesic (ICD-10 - Z79.891) 2022 opioid (OUD) risk tool score = 5. This places the patient in the high risk category, warranting more frequent screening. Plan 2 month visit pending continued compliance with patient's Treatment Agreement. Plan urine toxicology screen today to monitor for presence of any unprescribed or illicit controlled substance(s), as well as prescribed hydromorphone. 05/21/2024 Spondylosis without myelopathy or radiculopathy, lumbar region (ICD-10 - M47.816) Consider lumbar block procedure(s) and possible RFA pending outcome of sacral procedure(s). 05/21/2024 Cervicalgia (ICD-10 - M54.2) Chronic axial cervical spine pain. 07/15/2024 Spondylosis without myelopathy or radiculopathy, lumbar region (ICD-10 - M47.816) Consider lumbar block procedure(s) and possible RFA pending outcome of sacral procedure(s). 05/21/2024 Spinal stenosis, cervical region (ICD-10 - M48.02) Patient reports benefit with use of pregabalin for her BUE symptoms. Plan to continue. 07/15/2024 Cervicalgia (ICD-10 - M54.2) Chronic axial cervical spine pain. 07/15/2024 Spinal stenosis, cervical region (ICD-10 - M48.02) Patient reports benefit with use of pregabalin for her BUE symptoms. Plan to continue. 05/21/2024 Other sleep disorders (ICD-10 - G47.8) Plan to continue to restrict opioid use in relation to sleep for safety concerns. 07/15/2024 Other sleep disorders (ICD-10 - G47.8) Plan to continue to restrict opioid use in relation to sleep for safety concerns. 05/21/2024 Other 11/10/2024 Other The service was provided by IESHA Brennan, as part of the ongoing care plan established by Marques Hi MD, who was present in the office for direct supervision during the encounter. Patient was provided with a letter at today's visit informing patient that this clinic is closing due to Dr. Hi's half-way; see scanned document. Terminal prescriptions were given to the patient along with tapering instructions. 09/14/2024 Other The service was provided by IESHA Brennan, as part of the ongoing care plan established by Marques Hi MD, who was present in the office for direct supervision during the encounter. 03/26/2024 Other Plan Of Treatment No Information Insurance Providers Payer Name Payer Address Payer Phone Subscriber Number Group Number Insured Name Patient Relationship to Insured Coverage Start Date Coverage End Date [place] [employer] [address] [place] [address] [id number] Sohan Afshan Self - patient is the insured Medical (General) History Medical History History ICD Code Chronic pain Neck pain Cervical spondylosis, disc disease, spin al stenosis and spondylolisthesis Low back pain Lumbar spondylosis, disc disease and spo ndylolithesis Sacroiliitis Rotator cuff tendonitis Left shoulder pain Knee problems Arthritis Asthma Legs swelling Prediabetes Depression, history of suicide attempt Bladder problems Hypercholesterolemia Ulcer disease Rheumatoid arthritis Sinus tachycardia per prior patient repo rt Neuropathy Tobacco use, COPD (history of asthma) Sleep disorder, AHI = 4 via prior sleep study report Obesity, moderate (history of morbid obe sity) Surgical History Surgery Date(Month/Year) Laparoscopic cholecystectomy, 11/02/13 Tubal ligation, 12/27/04 Appendectomy, performed at [facility], 01/2020 Hospitalization History Reason Date(Month/Year) Stress Unit, treated at [facility], 11/2021 ER visit for chest pain and stress, 01/27 017 Chronic constipation, 10/2013
== END 2025-03-05 01:31 | disposition left against medical advice (07) ==
LOC: ER 00:14
PROVIDERS: Emergency Provider Family Medicine; PCP Nurse Practitioner Family
DX: Z53.21 Procedure and treatment not carried out due to patient leaving prior to being seen by health care provider (principal); M79.605 Pain in left leg; M79.604 Pain in right leg

== ENCOUNTER → 2025-03-17 09:22 | Outpatient (BNVA) | payer MEDICAID, SELFPAY ==
[2024-12-08 10:21] VITALS: BP 135/79; BMI 36.0
== END ==
PROVIDERS: PCP Nurse Practitioner Family; Visit Provider Nurse Practitioner Family
DX: I70.0 Atherosclerosis of aorta (principal); I70.8 Atherosclerosis of other arteries; R00.2 Palpitations; E11.9 Type 2 diabetes mellitus without complications; F17.210 Nicotine dependence, cigarettes, uncomplicated
CPT/HCPCS: 99213